=== PATIENT | female | born 1965 | race Caucasian/White ===

== ENCOUNTER 2017-04-30 18:05 | Inpatient (IN) | payer MEDICARE, OTHER ==
[2017-04-30 18:10] VITALS: BMI 34.3
--- NOTE | 2017-04-30 19:40 | C.PDOC ---
History Of Present Illness 51 year old female who presents to the ER with a complaint of chest pain that worsens with deep inspiration for the past week, associated with a cough with sputum. Denies fever or chills. Chief Complaint (Nursing): Chest Pain History Per: Patient History/Exam Limitations: no limitations Onset/Duration Of Symptoms: Days Current Symptoms Are (Timing): Still Present Associated Symptoms: denies: Nausea, Dyspnea, Diaphoresis Modifying Factors: None Exacerbating Factors: Deep Breathing Alleviating Factors: None Recent travel outside of the [place]: No Past Medical History Reviewed: Historical Data, Nursing Documentation, Vital Signs Vital Signs: Last Vital Signs Temp 97.5 F L 05/01/17 04:10 Pulse 75 05/01/17 04:10 Resp 20 05/01/17 04:10 BP 173/95 H 05/01/17 04:10 Pulse Ox 95 05/01/17 04:10 - Medical History PMH: Anemia, Anxiety, Asthma, Bipolar Disorder, COPD, Depression, Diabetes, HTN , Hypercholesterolemia, Pneumonia - [facility] Procedures ASSISTANCE WITH RESPIRATORY VENTILATION, 24-96 HRS, CPAP (11/30/15) INSERT INDWELLING CATH (07/28/14) Family History: States: Unknown Family Hx, CT, CAD, Hypertension - Social History Hx Tobacco Use: No Hx Alcohol Use: No Hx Substance Use: No - Immunization History Hx Tetanus Toxoid Vaccination: No Hx Influenza Vaccination: Yes Hx Pneumococcal Vaccination: Yes Review Of Systems Constitutional: Negative for: Fever, Chills Cardiovascular: Positive for: Chest Pain Respiratory: Positive for: Cough, Sputum Physical Exam - Physical Exam Appears: Non-toxic, Other (Mild distress) Skin: Normal Color, Warm, Dry Head: Atraumatic, Normacephalic Oral Mucosa: Moist Chest: Symmetrical, No Tenderness Cardiovascular: Rhythm Regular, No Murmur Respiratory: Rales (Bilateral lower bases, more on right), No Rhonchi, No Wheezing Gastrointestinal/Abdominal: Soft, No Tenderness Neurological/Psych: Oriented x3, Normal Speech, Normal Cognition ED Course And Treatment - Laboratory Results Result Diagrams: 04/30/17 20:06 05/01/17 00:26 O2 Sat by Pulse Oximetry: 95 (Room air) Pulse Ox Interpretation: Normal - CT Scan/US CT Chest Other Rad Studies (CT/US): Read By Radiologist, Radiology Report Reviewed CT/US Interpretation: EXAM: CT Chest Without Intravenous Contrast. CLINICAL HISTORY: 51 years old, female; Pain; Chest pain; Type not specified; Additional info: Basal rales/ chest pain. TECHNIQUE: Axial computed tomography images of the chest without intravenous contrast. This CT exam was. performed using one or more of the following dose reduction techniques: automated exposure. control, adjustment of the mA and/or kV according to patient size, and/or use of iterative. reconstruction technique. Coronal and sagittal reformatted images were created and reviewed. COMPARISON: NM - LUNG SCAN (VQ SCAN) 11/26/2015 1:46:13 PM. FINDINGS: Artifacts: Motion artifact slightly limits evaluation in the thorax. Lungs: Mild interlobular septal thickening in the apices. This is nonspecific and can be seen in. pulmonary edema or lymphangitic carcinomatosis. There is mild mosaic attenuation in the lungs,. nonspecific but can be seen in vascular and small airways disease. There is linear scarring or. atelectasis near the bases. Pleural space: The lungs are free of dense consolidation, significant pleural effusion or. pneumothorax. Heart: The heart is mildly enlarged. There is small pericardial effusion measuring approximately 15. mm in thickness on series 4, image 56. There is coronary artery calcification. Mediastinum: Small hiatal hernia. Thyroid: Thyroid is normal in size and position. Bones/joints: No displaced fractures identified in the thorax. There are mild degenerative changes. present. No dislocation. Soft tissues: Unremarkable. Vasculature: Thoracic aorta is mildly atherosclerotic without aneurysm. Lymph nodes: There is no axillary adenopathy. There is no mediastinal or hilar adenopathy. Pancreas: The visualized pancreas is atrophic and somewhat fatty replaced. Upper abdomen : Scans through the upper abdomen demonstrate no definite acute abnormalities. IMPRESSION: 1. The heart is mildly enlarged. 2. There is small pericardial effusion measuring approximately 15 mm in thickness on series 4,. image 56. 3. Mild interlobular septal thickening in the apices. This is nonspecific and can be seen in pulmonary. edema or lymphangitic carcinomatosis. 4. There is mild mosaic attenuation in the lungs, nonspecific but can be seen in vascular and small. airways disease. 5. The lungs are free of dense consolidation, significant pleural effusion or pneumothorax. 6. Additional incidental and/or chronic findings as described Progress Note: EKG, blood work, and CXR. Toradol administered. Called Dr. Denice Saldivar at 01:49, no answer. Disposition Discussed With : Miko Saldivar Doctor Will See Patient In The: Hospital Counseled Patient/Family Regarding: Diagnosis - Disposition Disposition: HOSPITALIZED Disposition Time: 01:48 Condition: STABLE - POA Present On Arrival: None - Clinical Impression Clinical Impression: Chest pain, Renal insufficiency, Uncontrolled diabetes mellitus, Upper respiratory infection - Scribe Statement The provider has reviewed the documentation as recorded by the Scribautumn Gomez All medical record entries made by the Lauraibautumn were at my direction and personally dictated by me. I have reviewed the chart and agree that the record accurately reflects my personal performance of the history, physical exam, medical decision making, and the department course for this patient. I have also personally directed, reviewed, and agree with the discharge instructions and disposition.
[2017-04-30 20:10] LABS: BASO % 0.7 % (0.0-2.0); EOS # 0.3 K/uL (0.0-0.7); EOS % 8.9 % (0.0-4.0); LYMPH # 1.1 K/uL (1.0-4.3); LYMPH % 28.7 % (20.0-40.0); MEAN CELL VOLUME 85.8 fL (81.0-99.0); MEAN CORPUSCULAR HEMOGLOBIN 27.7 pg (27.0-31.0); MEAN CORPUSCULAR HGB CONC 32.3 g/dL (33.0-37.0); MONO # 0.6 K/uL (0.0-0.8); MONO % 17.2 % (0.0-10.0); RED CELL DISTRIBUTION WIDTH 15.2 % (11.5-14.5); WHITE BLOOD COUNT 3.8 K/uL (4.8-10.8)
[2017-04-30 20:19] LABS: INR 0.9
[2017-04-30 20:22] LABS: CHLORIDE 93 mmol/L (98-107); POTASSIUM 4.9 mmol/L (3.6-5.2); SODIUM 131 mmol/L (132-148)
[2017-04-30 20:24] LABS: AST/SGOT 27 U/L (14-36); BILIRUBIN,TOTAL 0.6 mg/dL (0.2-1.3); BLOOD UREA NITROGEN 24 mg/dL (7-17); CARBON DIOXIDE 27 mmol/L (22-30); GFR AFRICAN-AMERICAN 36; TOTAL PROTEIN 6.3 g/dL (6.3-8.3)
[2017-04-30 20:25] LABS: ALKALINE PHOSPHATASE 357 U/L (38-126); ALT/SGPT 34 U/L (9-52)
[2017-04-30 20:32] LABS: GLUCOSE,RANDOM 440 mg/dL (65-105)
[2017-04-30] MEDS ORDERED: Sodium Chloride 0.9% 1,000 ML IV ONE (21:43)
[2017-04-30] MEDS ORDERED: Sodium Chloride 0.9% 500 ML IV ONE ×2 (21:43→22:14)
[2017-04-30] MEDS ORDERED: (Novolin R) Insulin Human Regular 100 units/ml vial SC ONE (21:44)
[2017-04-30] MEDS ORDERED: (Novolin R) Insulin Human Regular 100 units/ml vial ONE (22:14)
[2017-04-30] MEDS ORDERED: (Novolin R) Insulin Human Regular 100 units/ml vial IV STA (23:49)
[2017-05-01] MEDS ORDERED: (Novolin R) Insulin Human Regular 100 units/ml vial ONE (00:03)
--- NOTE | 2017-05-01 00:10 | CT ---
EXAM: CT Chest Without Intravenous Contrast CLINICAL HISTORY: 51 years old, female; Pain; Chest pain; Type not specified; Additional info: Basal rales/ chest pain TECHNIQUE: Axial computed tomography images of the chest without intravenous contrast. This CT exam was performed using one or more of the following dose reduction techniques: automated exposure control, adjustment of the mA and/or kV according to patient size, and/or use of iterative reconstruction technique. Coronal and sagittal reformatted images were created and reviewed. COMPARISON: NM - LUNG SCAN (VQ SCAN) 11/26/2015 1:46:13 PM FINDINGS: Artifacts: Motion artifact slightly limits evaluation in the thorax. Lungs: Mild interlobular septal thickening in the apices. This is nonspecific and can be seen in pulmonary edema or lymphangitic carcinomatosis. There is mild mosaic attenuation in the lungs, nonspecific but can be seen in vascular and small airways disease. There is linear scarring or atelectasis near the bases. Pleural space: The lungs are free of dense consolidation, significant pleural effusion or pneumothorax. Heart: The heart is mildly enlarged. There is small pericardial effusion measuring approximately 15 mm in thickness on series 4, image 56. There is coronary artery calcification. Mediastinum: Small hiatal hernia. Thyroid: Thyroid is normal in size and position. Bones/joints: No displaced fractures identified in the thorax. There are mild degenerative changes present. No dislocation. Soft tissues: Unremarkable. Vasculature: Thoracic aorta is mildly atherosclerotic without aneurysm. Lymph nodes: There is no axillary adenopathy. There is no mediastinal or hilar adenopathy. Pancreas: The visualized pancreas is atrophic and somewhat fatty replaced. Upper abdomen: Scans through the upper abdomen demonstrate no definite acute abnormalities. IMPRESSION: 1. The heart is mildly enlarged. 2. There is small pericardial effusion measuring approximately 15 mm in thickness on series 4, image 56. 3. Mild interlobular septal thickening in the apices. This is nonspecific and can be seen in pulmonary edema or lymphangitic carcinomatosis. 4. There is mild mosaic attenuation in the lungs, nonspecific but can be seen in vascular and small airways disease. 5. The lungs are free of dense consolidation, significant pleural effusion or pneumothorax. 6. Additional incidental and/or chronic findings as described.
[2017-05-01 00:38] LABS: POTASSIUM 4.3 mmol/L (3.6-5.2)
[2017-05-01 00:42] LABS: CALCIUM 7.9 mg/dl (8.6-10.4)
[2017-05-01] MEDS ORDERED: Azithromycin 500mg/250ML NS 500 MG/250 ML BAG IV STA (01:39)
[2017-05-01] MEDS ORDERED: Morphine 4 MG/ML VIAL ONE (02:05)
[2017-05-01] MEDS ORDERED: guaiFENesin DM 100 mg-10 mg/5 ml UD PO STA (02:06)
[2017-05-01] MEDS ORDERED: Azithromycin 500mg/250ML NS 500 MG/250 ML BAG IVPB ONE (02:06)
[2017-05-01] MEDS ORDERED: guaiFENesin DM 100 mg-10 mg/5 ml UD ONE (02:17)
[2017-05-01] MEDS ORDERED: Albuterol HFA 90 mcg/actuation (8 g) INH PRN ×2 (03:39→16:15)
[2017-05-01] MEDS ORDERED: Fluticasone-Salmeterol 250-50mcg Diskus IH SCH (08:30)
[2017-05-01] MEDS: Pantoprazole 40 mg EC Tab PO SCH (09:45)
[2017-05-01] MEDS: Enoxaparin 40 mg Syringe SC SCH (09:46)
[2017-05-01] MEDS: Bisacodyl 5mg EC Tab PO SCH (09:46)
[2017-05-01] MEDS: (Novolog Mix 70/30) Insulin Aspart/Insulin Aspar 100 units/ml SC SCH ×2 (09:49→17:27)
[2017-05-01] MEDS ORDERED: ATORVASTATIN CALCIUM 40 MG PO SCH (10:00)
--- NOTE | 2017-05-01 10:07 | RAD ---
HISTORY: COMPARISON: No prior. TECHNIQUE: Chest PA and lateral FINDINGS: LINES AND TUBES: None. LUNG AND PLEURA: Lungs are clear. There are no pleural effusions or pneumothorax. HEART AND MEDIASTINUM: The heart is not enlarged. The hilar and mediastinal contours are within normal limits. SKELETAL STRUCTURES: The bony structures are within normal limits for the patient's age. VISUALIZED UPPER ABDOMEN: Normal. OTHER FINDINGS: None. IMPRESSION: No active pulmonary disease.
[2017-05-01] MEDS: HYDROmorphone 0.5 mg/0.5 ml ISec IVP PRN (11:10)
--- NOTE | 2017-05-01 11:55 | CP.PCM.HP ---
Past Patient History - Infectious Disease Hx of Infectious Diseases: None - Past Medical History & Family History Past Medical History?: Yes - Past Social History Smoking Status: Never Smoked - CARDIAC Hx Hypercholesterolemia: Yes Hx Hypertension: Yes - PULMONARY Hx Asthma: Yes Hx Chronic Obstructive Pulmonary Disease (COPD): Yes Hx Pneumonia: Yes - NEUROLOGICAL Hx Neurological Disorder: No - HEENT Hx HEENT Problems: Yes Hx Cataracts: Yes - RENAL Hx Chronic Kidney Disease: No Hx Kidney Stones: No - ENDOCRINE/METABOLIC Hx Endocrine Disorders: Yes Hx Diabetes Mellitus Type 2: Yes - HEMATOLOGICAL/ONCOLOGICAL Hx Anemia: Yes - INTEGUMENTARY Hx Dermatological Problems: No - MUSCULOSKELETAL/RHEUMATOLOGICAL Hx Falls: No - GASTROINTESTINAL Hx Gastrointestinal Disorders: No - GENITOURINARY/GYNECOLOGICAL Hx Genitourinary Disorders: No - PSYCHIATRIC Hx Anxiety: Yes Hx Bipolar Disorder: Yes Hx Depression: Yes Hx Substance Use: No - SURGICAL HISTORY Hx Surgeries: Yes Hx Section: Yes (x1) Hx Eye Surgery: Yes (LEFT EYE) - ANESTHESIA Hx Anesthesia: Yes Hx Anesthesia Reactions: No Hx Malignant Hyperthermia: No Meds Allergies/Adverse Reactions: Allergies Allergy/AdvReac Type Severity Reaction Status Date / Time shellfish derived Allergy Verified 10/29/16 06:12 Physical Exam - Constitutional Appears: Well - Head Exam Head Exam: ATRAUMATIC, NORMAL INSPECTION, NORMOCEPHALIC - Eye Exam Eye Exam: EOMI, Normal appearance, PERRL Pupil Exam: NORMAL ACCOMODATION, PERRL - ENT Exam ENT Exam: Mucous Membranes Moist, Normal Exam - Neck Exam Neck exam: Positive for: Normal Inspection - Respiratory Exam Respiratory Exam: Decreased Breath Sounds - Cardiovascular Exam Cardiovascular Exam: REGULAR RHYTHM, +S1, +S2 - GI/Abdominal Exam GI & Abdominal Exam: Diminished Bowel Sounds, Soft - Rectal Exam Rectal Exam: Deferred Results - Vital Signs Recent Vital Signs: Last Vital Signs Temp 97.4 F L 05/01/17 08:00 Pulse 74 05/01/17 10:29 Resp 14 05/01/17 10:29 BP 147/84 05/01/17 10:29 Pulse Ox 97 05/01/17 10:29 - Labs Result Diagrams: 04/30/17 20:06 05/01/17 00:26 Labs: Laboratory Results - last 24 hr 05/01/17 05/01/17 06:21 07:54 POC Glucose (mg/dL) 268 H Total Creatine Kinase 112 CK-MB (Mass) 0.92 Troponin I, Quant < 0.0120 Assessment & Plan - Assessment and Plan (Free Text) Plan: Case seen and discussed with the staff patient's family bedside patient is much stable DuoNeb every 6 follow-up with the pulmonary follow-up with the ID continue on Rocephin continue on Zithromax continue her Singulair continue medication as ordered Continue IV steroid Continue Singulair Medication as ordered
[2017-05-01] MEDS: (Novolog) Insulin Aspart, Recombinant 100 u/ml 10 ml vial SC SCH ×3 (12:10→22:33)
--- NOTE | 2017-05-01 12:27 | CARD ---
APPROVED REPORT EKG Measurement Heart [id number] <Conclusion> Normal sinus rhythm Anterior infarct, age undetermined Abnormal ECG
--- NOTE | 2017-05-01 16:07 | CP.PCM.CON ---
History of Present Illness - History of Present Illness History of Present Illness: Reason for consultation: SOB HPI: Patient is a 51 year old female with a past medical history of COPD and asthma who presented to the ED with chest pain that worsens with inspiration for the past week. Patient states the pain is localized to the left side, "squeezing" in nature, and does not radiate. She states the pain does not change with position. Patient also complains of associated pain with coughing to the bilateral flanks and chest. The cough is productive with yellow sputum. Patient has also had associated fatigue, chills, nausea, and dizziness. Patient sleeps with multiple pillows and has severe exercise intolerance for the past 3 years. She was diagnosed with COPD 3 years ago and is constantly on 3-5L nasal cannula home oxygen therapy at home. Patient has mobility and is able to walk around the house. Patient denies fever, abdominal pain, vomiting, diarrhea, constipation, or numbness and tingling. 04/30/17 CXR: unremarkable 04/30/17 ECG: normal sinus rhythm at 73 BPM 04/30/17 CT chest: mild cardiomegaly; small pericardial effusion 15 mm thickness; mild interlobular septal thickening in the apices; no significant consolidation , pleural effusion, or pneumothorax. Significant lab findings: mildly elevated D-dimer at 272; renal insufficiency Surgical hx: PMH: anemia, asthma, COPD, anxiety, depression, DM, HTN, hypercholesterolemia, pneumonia Allergies: shellfish Social: denies history of tobacco, alcohol, or illicit drug use; lives with family; retired (used to clean houses) Family history: denies Review of Systems - Review of Systems All systems: reviewed and no additional remarkable complaints except (Shortness of breath) Past Patient History - Infectious Disease Hx of Infectious Diseases: None - Past Medical History & Family History Past Medical History?: Yes - Past Social History Smoking Status: Never Smoked - CARDIAC Hx Hypercholesterolemia: Yes Hx Hypertension: Yes - PULMONARY Hx Asthma: Yes Hx Chronic Obstructive Pulmonary Disease (COPD): Yes Hx Pneumonia: Yes - NEUROLOGICAL Hx Neurological Disorder: No - HEENT Hx HEENT Problems: Yes Hx Cataracts: Yes - RENAL Hx Chronic Kidney Disease: No Hx Kidney Stones: No - ENDOCRINE/METABOLIC Hx Endocrine Disorders: Yes Hx Diabetes Mellitus Type 2: Yes - HEMATOLOGICAL/ONCOLOGICAL Hx Anemia: Yes - INTEGUMENTARY Hx Dermatological Problems: No - MUSCULOSKELETAL/RHEUMATOLOGICAL Hx Falls: No - GASTROINTESTINAL Hx Gastrointestinal Disorders: No - GENITOURINARY/GYNECOLOGICAL Hx Genitourinary Disorders: No - PSYCHIATRIC Hx Anxiety: Yes Hx Bipolar Disorder: Yes Hx Depression: Yes Hx Substance Use: No - SURGICAL HISTORY Hx Surgeries: Yes Hx Section: Yes (x1) Hx Eye Surgery: Yes (LEFT EYE) - ANESTHESIA Hx Anesthesia: Yes Hx Anesthesia Reactions: No Hx Malignant Hyperthermia: No Meds Allergies/Adverse Reactions: Allergies Allergy/AdvReac Type Severity Reaction Status Date / Time shellfish derived Allergy Verified 10/29/16 06:12 - Medications Medications: Current Medications Albuterol (Ventolin Hfa 90 Mcg/Actuation (8 G)) 2 puff INH RQ6 PRN PRN Reason: Shortness of Breath Amlodipine Besylate (Norvasc) 10 mg PO DAILY [facility] Aspirin (Aspirin Chewable) 324 mg PO DAILY [facility] Last Admin: 05/01/17 09:40 Dose: 324 mg Bisacodyl (Dulcolax) 5 mg PO DAILY [facility] Last Admin: 05/01/17 09:46 Dose: 5 mg Carvedilol (Coreg) 12.5 mg PO BID [facility] Last Admin: 05/01/17 09:40 Dose: 12.5 mg Enoxaparin Sodium (Lovenox) 40 mg SC DAILY [facility] Last Admin: 05/01/17 09:46 Dose: 40 mg Hydromorphone HCl (Dilaudid) 0.5 mg IVP Q6H PRN PRN Reason: Pain, moderate (4-7) Last Admin: 05/01/17 11:10 Dose: 0.5 mg Ceftriaxone Sodium 1 gm/ (Sodium Chloride) 100 mls @ 100 mls/hr IVPB DAILY [facility] Last Admin: 05/01/17 13:11 Dose: 100 mls/hr Insulin Aspart (Novolog Mix 70/30 (70/30 Units/Ml)) 42 units SC BID [facility] Last Admin: 05/01/17 09:49 Dose: 42 units Insulin Aspart (Novolog) 0 unit SC ACHS [facility] PRN Reason: Protocol Last Admin: 05/01/17 12:10 Dose: 3 unit Insulin Glargine (Lantus) 15 unit SC HS [facility] Lisinopril (Zestril) 10 mg PO DAILY [facility] Last Admin: 05/01/17 09:45 Dose: 10 mg Montelukast Sodium (Singulair) 10 mg PO HS [facility] Pantoprazole Sodium (Protonix Ec Tab) 40 mg PO DAILY [facility] Last Admin: 05/01/17 09:45 Dose: 40 mg Prednisone (Prednisone Tab) 20 mg PO DAILY [facility] Last Admin: 05/01/17 09:40 Dose: 20 mg Rosuvastatin Calcium (Crestor) 20 mg PO HS [facility] Fluticasone/Salmeterol (Advair Diskus 250/50) 1 puff IH RQ12 [facility] Last Admin: 05/01/17 08:37 Dose: 1 puff Results - Vital Signs Recent Vital Signs: Last Vital Signs Temp 97.4 F L 05/01/17 08:00 Pulse 70 05/01/17 14:00 Resp 12 05/01/17 14:00 BP 138/67 05/01/17 13:29 Pulse Ox 96 05/01/17 14:00 - Labs Result Diagrams: 04/30/17 20:06 05/01/17 00:26 Labs: Laboratory Results - last 24 hr 05/01/17 05/01/17 05/01/17 06:21 07:54 11:46 POC Glucose (mg/dL) 268 H 231 H Total Creatine Kinase 112 CK-MB (Mass) 0.92 Troponin I, Quant < 0.0120 05/01/17 12:41 POC Glucose (mg/dL) Total Creatine Kinase 103 CK-MB (Mass) 1.04 Troponin I, Quant < 0.0120 Assessment & Plan (1) COPD (chronic obstructive pulmonary disease) Status: Acute Comment: CAT scan of the chest consistent with small airway disease. Continue prednisone and nebulizer treatment. BiPAP as needed. Continue antibiotics. Follow-up culture and sensitivity (2) CKD stage 3 due to type 1 diabetes mellitus Status: Acute
--- NOTE | 2017-05-01 18:55 | CP.PCM.CON ---
History of Present Illness - History of Present Illness History of Present Illness: I was asked to see patient by Dr. Saldivar. Patient is a 51 year old female with PMH HTN, hypercholesterolemia, sleep apnea who presents with chest pain. The patient describes symptoms which began a few days ago. She has been coughing and it has become productive. The patient notes substernal chest pressure. CT angiogramof the chest was done to rule out PE. This is negative. The patient has no active rest pain. Review of Systems - Constitutional Constitutional: absent: As Per HPI, Anorexia, Chills, Daytime Sleepiness, Excessive Sweating, Fatigue, Fever, Frequent Falls, Headache, Increased Appetite , Lethargy, Malaise, Night Sweats, Snoring, Sleep Apnea, Weight Gain, Weight Loss, Weakness, Other - EENT Eyes: absent: As Per HPI, Blind Spots, Blurred Vision, Change in Vision, Decreased Night Vision, Diplopia, Discharge, Dry Eye, Exophthalmos, Floaters, Irritation, Itchy Eyes, Loss of Peripheral Vision, Pain, Photophobia, Requires Corrective Lenses, Sees Flashes, Spots in Vision, Tunnel Vision, Other Visual Disturbances, Loss of Vision, Other Ears: absent: As Per HPI, Decreased Hearing, Ear Discharge, Ear Pain, Tinnitus, Abnormal Hearing, Disequilibrium, Dizziness, Other Nose/Mouth/Throat: absent: As Per HPI, Epistaxis, Nasal Congestion, Nasal Discharge, Nasal Obstruction, Nasal Trauma, Nose Pain, Post Nasal Drip, Sinus Pain, Sinus Pressure, Bleeding Gums, Change in Voice, Dental Pain, Dry Mouth, Dysphagia, Halitosis, Hoarsness, Lip Swelling, Mouth Lesions, Mouth Pain, Odynophagia, Sore Throat, Throat Swelling, Tongue Swelling, Facial Pain, Neck Pain, Neck Mass, Other - Cardiovascular Cardiovascular: Chest Pain, Dyspnea - Respiratory Respiratory: Cough, Dyspnea - Gastrointestinal Gastrointestinal: absent: As Per HPI, Abdominal Pain, Belching, Bloating, Change in Bowel Habits, Change in Stool Character, Coffee Ground Emesis, Constipation, Cramping, Diarrhea, Dyspepsia, Dysphagia, Early Satiety, Excessive Flatus, Fecal Incontinence, Heartburn, Hematemesis, Hematochezia, Loose Stools, Melena, Nausea, Odynophagia, Temesmus, Vomiting, Other - Genitourinary Genitourinary: absent: As Per HPI, Change in Urinary Stream, Difficulty Urinating, Dysuria, Flank Pain, Hematuria, Pyuria, Nocturia, Urinary Incontinence, Urinary Frequency, Urinary Hesitance, Urinary Urgency, Voiding Freq/Small Amts, Freq UTI, Hx Renal/Bladder Calculi, Hx /Renal Surgery, Bladder Distension, Other - Musculoskeletal Musculoskeletal: absent: As Per HPI, Abnormal Gait, Arthralgias, Atrophy, Back Pain, Deformity, Joint Swelling, Limited Range of Motion, Loss of Height, Muscle Cramps, Muscle Weakness, Myalgias, Neck Pain, Numbness, Radiating Pain into Limb, Stiffness, Tingling, Other - Integumentary Integumentary: absent: As Per HPI, Acne, Alopecia, Bleeding Lesions, Change in Hair, Change in Nails, Change in Pigmentation, Changing Lesions, Dry Skin, Erythema, Furuncle, Hirsutism, Lesions, New Lesions, Non-Healing Lesions, Photosensitivity, Pruritus, Rash, Skin Pain, Skin Ulcer, Sores, Striae, Swelling , Unusual Bruising, Wounds, Jaundice, Other - Neurological Neurological: absent: As Per HPI, Abnormal Gait, Abnormal Hearing, Abnormal Movements, Abnormal Speech, Behavioral Changes, Burning Sensations, Confusion, Convulsions, Disequilibrium, Dizziness, Numbness, Focal Weakness, Frequent Falls , Headaches, Lack of Coordination, Loss of Vision, Memory Loss, Paresthesias, Radicular Pain, Restless Legs, Sensory Deficit, Syncope, Tingling, Tremor, Vertigo, Weakness, Other Visual Disturbances, Other - Psychiatric Psychiatric: absent: As Per HPI, Abnormal Sleep Pattern, Anhedonia, Anxiety, Auditory Hallucinations, Behavioral Changes, Change in Appetite, Change in Libido, Confusion, Depression, Difficulty Concentrating, Hallucinations, Homicidal Ideation, Hopelessness, Irritability, Memory Loss, Mood Swings, Panic Attacks, Paranoia, Suicidal Ideation, Visual Hallucinations, Tactile Hallucinations, Other - Endocrine Endocrine: absent: As Per HPI, Change in Body Appearance, Change in Libido, Cold Intolorance, Deepening of Voice, Excessive Sweating, Fatigue, Flushing, Heat Intolorance, Increase in Ring/Shoe/Hat Size, Palpitations, Polydipsia, Polyphagia, Polyuria, Other - Hematologic/Lymphatic Hematologic: absent: As Per HPI, Easy Bleeding, Easy Bruising, Lymphadenopathy, Other Past Patient History - Infectious Disease Hx of Infectious Diseases: None - Past Medical History & Family History Past Medical History?: Yes - Past Social History Smoking Status: Never Smoked - CARDIAC Hx Hypercholesterolemia: Yes Hx Hypertension: Yes - PULMONARY Hx Asthma: Yes Hx Chronic Obstructive Pulmonary Disease (COPD): Yes Hx Pneumonia: Yes - NEUROLOGICAL Hx Neurological Disorder: No - HEENT Hx HEENT Problems: Yes Hx Cataracts: Yes - RENAL Hx Chronic Kidney Disease: No Hx Kidney Stones: No - ENDOCRINE/METABOLIC Hx Endocrine Disorders: Yes Hx Diabetes Mellitus Type 2: Yes - HEMATOLOGICAL/ONCOLOGICAL Hx Anemia: Yes - INTEGUMENTARY Hx Dermatological Problems: No - MUSCULOSKELETAL/RHEUMATOLOGICAL Hx Falls: No - GASTROINTESTINAL Hx Gastrointestinal Disorders: No - GENITOURINARY/GYNECOLOGICAL Hx Genitourinary Disorders: No - PSYCHIATRIC Hx Anxiety: Yes Hx Bipolar Disorder: Yes Hx Depression: Yes Hx Substance Use: No - SURGICAL HISTORY Hx Surgeries: Yes Hx Section: Yes (x1) Hx Eye Surgery: Yes (LEFT EYE) - ANESTHESIA Hx Anesthesia: Yes Hx Anesthesia Reactions: No Hx Malignant Hyperthermia: No Meds Allergies/Adverse Reactions: Allergies Allergy/AdvReac Type Severity Reaction Status Date / Time shellfish derived Allergy Verified 10/29/16 06:12 - Medications Medications: Current Medications Albuterol/Ipratropium (Duoneb 3 Mg/0.5 Mg (3 Ml) Ud) 3 ml INH RQ6 [facility] Amlodipine Besylate (Norvasc) 10 mg PO DAILY [facility] Aspirin (Aspirin Chewable) 324 mg PO DAILY [facility] Last Admin: 05/01/17 09:40 Dose: 324 mg Bisacodyl (Dulcolax) 5 mg PO DAILY [facility] Last Admin: 05/01/17 09:46 Dose: 5 mg Carvedilol (Coreg) 12.5 mg PO BID [facility] Last Admin: 05/01/17 17:28 Dose: 12.5 mg Enoxaparin Sodium (Lovenox) 40 mg SC DAILY [facility] Last Admin: 05/01/17 09:46 Dose: 40 mg Hydromorphone HCl (Dilaudid) 0.5 mg IVP Q6H PRN PRN Reason: Pain, moderate (4-7) Last Admin: 05/01/17 11:10 Dose: 0.5 mg Ceftriaxone Sodium 1 gm/ (Sodium Chloride) 100 mls @ 100 mls/hr IVPB DAILY [facility] Last Admin: 05/01/17 13:11 Dose: 100 mls/hr Azithromycin (Zithromax 500mg In Ns Addvantage) 500 mg in 250 mls @ 167 mls/hr IVPB Q24H [facility] Insulin Aspart (Novolog Mix 70/30 (70/30 Units/Ml)) 42 units SC BID [facility] Last Admin: 05/01/17 17:27 Dose: 42 units Insulin Aspart (Novolog) 0 unit SC ACHS [facility] PRN Reason: Protocol Last Admin: 05/01/17 16:46 Dose: Not Given Insulin Glargine (Lantus) 15 unit SC HS [facility] Lisinopril (Zestril) 10 mg PO DAILY [facility] Last Admin: 05/01/17 09:45 Dose: 10 mg Montelukast Sodium (Singulair) 10 mg PO HS [facility] Pantoprazole Sodium (Protonix Ec Tab) 40 mg PO DAILY [facility] Last Admin: 05/01/17 09:45 Dose: 40 mg Prednisone (Prednisone Tab) 20 mg PO DAILY [facility] Last Admin: 05/01/17 09:40 Dose: 20 mg Rosuvastatin Calcium (Crestor) 20 mg PO [facility] Physical Exam - Constitutional Appears: Non-toxic - Head Exam Head Exam: NORMAL INSPECTION - Eye Exam Eye Exam: Normal appearance - ENT Exam ENT Exam: Mucous Membranes Moist - Neck Exam Neck exam: Positive for: Full Rom - Cardiovascular Exam Cardiovascular Exam: REGULAR RHYTHM - GI/Abdominal Exam GI & Abdominal Exam: Normal Bowel Sounds - Rectal Exam Rectal Exam: Deferred - Extremities Exam Extremities exam: Negative for: pedal edema - Back Exam Back exam: NORMAL INSPECTION - Neurological Exam Neurological exam: Alert, Oriented x3 - Psychiatric Exam Psychiatric exam: Normal Affect - Skin Skin Exam: Normal Color Results - Vital Signs Recent Vital Signs: Last Vital Signs Temp 97.5 F L 05/01/17 16:00 Pulse 85 05/01/17 18:00 Resp 16 05/01/17 18:00 BP 177/85 H 05/01/17 17:29 Pulse Ox 95 05/01/17 17:00 - Labs Result Diagrams: 04/30/17 20:06 05/01/17 00:26 Labs: Laboratory Results - last 24 hr 05/01/17 05/01/17 05/01/17 06:21 07:54 11:46 POC Glucose (mg/dL) 268 H 231 H Total Creatine Kinase 112 CK-MB (Mass) 0.92 Troponin I, Quant < 0.0120 05/01/17 05/01/17 12:41 16:03 POC Glucose (mg/dL) 143 H Total Creatine Kinase 103 CK-MB (Mass) 1.04 Troponin I, Quant < 0.0120 - EKG Data EKG Interpreted by: Myself EKG shows normal: Sinus rhythm Assessment & Plan (1) Chest pain Assessment and Plan: unclear etiologuy. recommend echocardiogram to assess LV function and pericardial thickening. Status: Acute (2) DM2 (diabetes mellitus, type 2) Assessment and Plan: blood sugar control Status: Acute (3) Dyslipidemia Assessment and Plan: recommend statin therapy Status: Acute (4) Hypertension Assessment and Plan: willmonitor Status: Acute
[2017-05-01] MEDS: Albuterol-Ipratrop 3 mg / 0.5 (3 ml) UD INH SCH (19:57)
[2017-05-01] MEDS: (Lantus) Insulin Glargine, Recombinant SC SCH (22:32)
[2017-05-02] MEDS: Albuterol-Ipratrop 3 mg / 0.5 (3 ml) UD INH SCH ×3 (01:11→19:26)
[2017-05-02] MEDS: Azithromycin 500mg/250ML NS 500 MG/250 ML BAG IVPB SCH (01:30)
[2017-05-02] MEDS: (Novolog) Insulin Aspart, Recombinant 100 u/ml 10 ml vial SC SCH ×4 (08:12→22:23)
[2017-05-02] MEDS: Bisacodyl 5mg EC Tab PO SCH (10:34)
[2017-05-02] MEDS: Pantoprazole 40 mg EC Tab PO SCH (10:34)
[2017-05-02] MEDS: (Novolog Mix 70/30) Insulin Aspart/Insulin Aspar 100 units/ml SC SCH ×2 (10:35→18:25)
[2017-05-02] MEDS: Enoxaparin 40 mg Syringe SC SCH (10:35)
[2017-05-02] MEDS ORDERED: Dextrose 50% SYRINGE Inj (50 ml) ONE ×2 (14:17→14:22)
[2017-05-02] MEDS ORDERED: Dextrose 50% SYRINGE Inj (50 ml) IV STA (14:21)
--- NOTE | 2017-05-02 14:34 | PCM.RRTMUL ---
UTILITY CLERK Nurses Assessment - Ventilator Settings SAO2 %:: 100 - Vital Signs Blood Pressure:: 172/94 - Constitutional Appears: Non-toxic, Toxic, In Acute Distress, Other Additional Comments: diaphoretic - Head Head Exam: ATRAUMATIC, NORMAL INSPECTION - Eyes Eye Exam: EOMI - Respiratory Exam Respiratory Exam: Clear to Ausculation Bilateral, NORMAL BREATHING PATTERN. absent: Respiratory Distress - Cardiovascular Exam Cardiovascular Exam: REGULAR RHYTHM, +S1, +S2 - GI/Abdominal Exam GI & Abdominal Exam: Soft, Normal Bowel Sounds. absent: Distended, Firm, Guarding, Tenderness - Neurological Exam Neurological Exam: Alert, Awake, Oriented x3 Plan - A. End of UTILITY CLERK Vital Signs: Blood Pressure: 152/72 Pulse Rate: 76 Respiratory Rate: 14 Temperature: 97.9 F O2 Sat by Pulse Oximetry: 98 Finger Stick Blood Glucose: 37 (recheck 184) - B. Assessment of Findings&Treatment Plan UTILITY CLERK called at 2:15 PM for hypoglycemia Finger stick was 37. Patient was given one amp dextrose and drank some orange juice. Repeat sugar was 184. Patient stated she was dizzy. Heart and Lungs normal on exam patient was lethargic and diaphoretic in bed but was able to speak in full sentences and respond to questions. She is recieving Insulin during her stay. Her family states she did not eat lunch because she did not like the food they brought her. Will continue to monitor. Dr. Denice Saldivar
--- NOTE | 2017-05-02 15:38 | CP.PCM.PN ---
Subjective - Date & Time of Evaluation Date of Evaluation: 05/02/17 Time of Evaluation: 13:00 - Subjective Subjective: clinically same Objective - Vital Signs/Intake and Output Vital Signs (last 24 hours): Temp Pulse Resp BP Pulse Ox 97.9 F 76 14 152/72 H 100 05/02/17 14:40 05/02/17 14:40 05/02/17 14:40 05/02/17 14:40 05/02/17 10:15 Intake and Output: 05/02/17 05/02/17 06:59 18:59 Intake Total 0 350 Output Total 600 Balance 0 -250 - Medications Medications: Current Medications Albuterol/Ipratropium (Duoneb 3 Mg/0.5 Mg (3 Ml) Ud) 3 ml INH RQ6 [facility] Last Admin: 05/02/17 07:43 Dose: 3 ml Amlodipine Besylate (Norvasc) 10 mg PO DAILY [facility] Last Admin: 05/02/17 10:35 Dose: 10 mg Aspirin (Aspirin Chewable) 324 mg PO DAILY [facility] Last Admin: 05/02/17 10:33 Dose: 324 mg Bisacodyl (Dulcolax) 5 mg PO DAILY [facility] Last Admin: 05/02/17 10:34 Dose: 5 mg Carvedilol (Coreg) 12.5 mg PO BID [facility] Last Admin: 05/02/17 10:34 Dose: 12.5 mg Enoxaparin Sodium (Lovenox) 40 mg SC DAILY [facility] Last Admin: 05/02/17 10:35 Dose: 40 mg Guaifenesin/Dextromethorphan (Robitussin Dm) 5 ml PO Q4H PRN PRN Reason: Cough Hydromorphone HCl (Dilaudid) 0.5 mg IVP Q6H PRN PRN Reason: Pain, moderate (4-7) Last Admin: 05/01/17 11:10 Dose: 0.5 mg Ceftriaxone Sodium 1 gm/ (Sodium Chloride) 100 mls @ 100 mls/hr IVPB DAILY [facility] Last Admin: 05/02/17 11:26 Dose: 100 mls/hr Azithromycin (Zithromax 500mg In Ns Addvantage) 500 mg in 250 mls @ 167 mls/hr IVPB Q24H [facility] Last Admin: 05/02/17 01:30 Dose: 167 mls/hr Insulin Aspart (Novolog Mix 70/30 (70/30 Units/Ml)) 42 units SC BID [facility] Last Admin: 05/02/17 10:35 Dose: 42 units Insulin Aspart (Novolog) 0 unit SC [facility] PRN Reason: Protocol Last Admin: 05/02/17 12:31 Dose: 6 unit Insulin Glargine (Lantus) 15 unit SC [facility] Last Admin: 05/01/17 22:32 Dose: 15 u Lisinopril (Zestril) 10 mg PO DAILY [facility] Last Admin: 05/02/17 10:33 Dose: 10 mg Montelukast Sodium (Singulair) 10 mg PO [facility] Last Admin: 05/01/17 22:36 Dose: 10 mg Pantoprazole Sodium (Protonix Ec Tab) 40 mg PO DAILY [facility] Last Admin: 05/02/17 10:34 Dose: 40 mg Prednisone (Prednisone Tab) 20 mg PO DAILY [facility] Last Admin: 05/02/17 10:34 Dose: 20 mg Rosuvastatin Calcium (Crestor) 20 mg PO [facility] Last Admin: 05/01/17 22:34 Dose: 20 mg - Labs Labs: PT 9.6 SECONDS (9.7-12.2) L 04/30/17 20:06 INR 0.9 04/30/17 20:06 APTT 30 SECONDS (21-34) 04/30/17 20:06 - Constitutional Appears: Well - Head Exam Head Exam: ATRAUMATIC, NORMAL INSPECTION, NORMOCEPHALIC - Eye Exam Eye Exam: EOMI, Normal appearance, PERRL Pupil Exam: NORMAL ACCOMODATION, PERRL - ENT Exam ENT Exam: Mucous Membranes Moist, Normal Exam - Neck Exam Neck Exam: Full ROM, Normal Inspection. absent: Lymphadenopathy - Respiratory Exam Respiratory Exam: Decreased Breath Sounds - Cardiovascular Exam Cardiovascular Exam: REGULAR RHYTHM, +S1, +S2 - GI/Abdominal Exam GI & Abdominal Exam: Soft, Diminished Bowel Sounds - Rectal Exam Rectal Exam: Deferred
--- NOTE | 2017-05-02 20:28 | CP.PCM.PN ---
Subjective - Date & Time of Evaluation Date of Evaluation: 05/02/17 Time of Evaluation: 10:00 - Subjective Subjective: Medicine Progress note for Dr. Saldivar's Service Pt seen and examined at bedside. She continues to complain of shortness of breath, coughing, chills, and pleuritic chest pain located in the L side and back. She is sitting up at bedside and appears in mild discomfort with mild respiratory struggling. Objective - Vital Signs/Intake and Output Vital Signs (last 24 hours): Temp Pulse Resp BP Pulse Ox 98.2 F 73 20 169/80 H 98 05/02/17 16:00 05/02/17 16:00 05/02/17 16:00 05/02/17 18:26 05/02/17 16:00 Intake and Output: 05/02/17 05/03/17 18:59 06:59 Intake Total 810 Output Total 600 Balance 210 - Medications Medications: Current Medications Albuterol/Ipratropium (Duoneb 3 Mg/0.5 Mg (3 Ml) Ud) 3 ml INH RQ6 [facility] Last Admin: 05/02/17 19:26 Dose: 3 ml Amlodipine Besylate (Norvasc) 10 mg PO DAILY [facility] Last Admin: 05/02/17 10:35 Dose: 10 mg Aspirin (Aspirin Chewable) 324 mg PO DAILY [facility] Last Admin: 05/02/17 10:33 Dose: 324 mg Bisacodyl (Dulcolax) 5 mg PO DAILY [facility] Last Admin: 05/02/17 10:34 Dose: 5 mg Carvedilol (Coreg) 12.5 mg PO BID [facility] Last Admin: 05/02/17 18:26 Dose: 12.5 mg Enoxaparin Sodium (Lovenox) 40 mg SC DAILY [facility] Last Admin: 05/02/17 10:35 Dose: 40 mg Guaifenesin/Dextromethorphan (Robitussin Dm) 5 ml PO Q4H PRN PRN Reason: Cough Hydromorphone HCl (Dilaudid) 0.5 mg IVP Q6H PRN PRN Reason: Pain, moderate (4-7) Last Admin: 05/01/17 11:10 Dose: 0.5 mg Ceftriaxone Sodium 1 gm/ (Sodium Chloride) 100 mls @ 100 mls/hr IVPB DAILY [facility] Last Admin: 05/02/17 11:26 Dose: 100 mls/hr Azithromycin (Zithromax 500mg In Ns Addvantage) 500 mg in 250 mls @ 167 mls/hr IVPB Q24H [facility] Last Admin: 05/02/17 01:30 Dose: 167 mls/hr Insulin Aspart (Novolog Mix 70/30 (70/30 Units/Ml)) 42 units SC BID [facility] Last Admin: 05/02/17 18:25 Dose: Not Given Insulin Aspart (Novolog) 0 unit SC ACHS [facility] PRN Reason: Protocol Last Admin: 05/02/17 17:24 Dose: Not Given Insulin Glargine (Lantus) 15 unit SC [facility] Last Admin: 05/01/17 22:32 Dose: 15 u Lisinopril (Zestril) 10 mg PO DAILY [facility] Last Admin: 05/02/17 10:33 Dose: 10 mg Montelukast Sodium (Singulair) 10 mg PO [facility] Last Admin: 05/01/17 22:36 Dose: 10 mg Pantoprazole Sodium (Protonix Ec Tab) 40 mg PO DAILY [facility] Last Admin: 05/02/17 10:34 Dose: 40 mg Prednisone (Prednisone Tab) 20 mg PO DAILY [facility] Last Admin: 05/02/17 10:34 Dose: 20 mg Rosuvastatin Calcium (Crestor) 20 mg PO [facility] Last Admin: 05/01/17 22:34 Dose: 20 mg - Labs Labs: PT 9.6 SECONDS (9.7-12.2) L 04/30/17 20:06 INR 0.9 04/30/17 20:06 APTT 30 SECONDS (21-34) 04/30/17 20:06 - Head Exam Head Exam: NORMAL INSPECTION - Eye Exam Eye Exam: Normal appearance - ENT Exam ENT Exam: Mucous Membranes Moist - Respiratory Exam Respiratory Exam: Chest Wall Tenderness, Decreased Breath Sounds, Wheezes, Respiratory Distress (mild) - Cardiovascular Exam Cardiovascular Exam: REGULAR RHYTHM - GI/Abdominal Exam GI & Abdominal Exam: Soft. absent: Tenderness - Neurological Exam Neurological Exam: Alert, Awake, Oriented x3 Assessment and Plan - Assessment and Plan (Free Text) Plan: Acute COPD exacerbation duonebs q6hrs azithromycin 500mg iv daily ceftriaxone 1g iv daily singulair 10mg daily prednisone 20mg daily 04/30/17 CXR: unremarkable 04/30/17 ECG: normal sinus rhythm at 73 BPM 04/30/17 CT chest: mild cardiomegaly; small pericardial effusion 15 mm thickness; mild interlobular septal thickening in the apices; no significant consolidation , pleural effusion, or pneumothorax DM lantus 15u sq hs iss novolog 70/30 42u BID HTN norvas 10mg po daily coreg 12.5 daily lisinopril 10mg daily [facility] Crestor 10mg daily Prophylaxis protonix 40mg PO daily lovenox 40mg sc daily Case dsicussed with Dr. Saldivar. All management as per Dr. Saldivar.
[2017-05-02] MEDS: (Lantus) Insulin Glargine, Recombinant SC SCH (22:21)
[2017-05-03] MEDS: Azithromycin 500mg/250ML NS 500 MG/250 ML BAG IVPB SCH (00:34)
[2017-05-03] MEDS: guaiFENesin DM 100 mg-10 mg/5 ml UD PO PRN ×2 (02:04→09:04)
[2017-05-03] MEDS ORDERED: (Novolog) Insulin Aspart, Recombinant 100 u/ml 10 ml vial SC STA (02:45)
[2017-05-03] MEDS: Albuterol-Ipratrop 3 mg / 0.5 (3 ml) UD INH SCH ×3 (07:45→19:41)
[2017-05-03] MEDS: (Novolog) Insulin Aspart, Recombinant 100 u/ml 10 ml vial SC SCH ×5 (09:00→21:56)
[2017-05-03] MEDS: Bisacodyl 5mg EC Tab PO SCH (09:03)
[2017-05-03] MEDS: Pantoprazole 40 mg EC Tab PO SCH (09:03)
[2017-05-03] MEDS: Enoxaparin 40 mg Syringe SC SCH (09:04)
--- NOTE | 2017-05-03 11:32 | CP.PCM.PN ---
Objective - Vital Signs/Intake and Output Vital Signs (last 24 hours): Temp Pulse Resp BP Pulse Ox 98.2 F 74 20 133/76 100 05/03/17 08:47 05/03/17 08:47 05/03/17 08:47 05/03/17 09:03 05/03/17 08:47 Intake and Output: 05/03/17 05/03/17 06:59 18:59 Intake Total 270 Balance 270 - Medications Medications: Current Medications Albuterol/Ipratropium (Duoneb 3 Mg/0.5 Mg (3 Ml) Ud) 3 ml INH RQ6 [facility] Last Admin: 05/03/17 07:45 Dose: 3 ml Amlodipine Besylate (Norvasc) 10 mg PO DAILY [facility] Last Admin: 05/03/17 09:03 Dose: 10 mg Aspirin (Aspirin Chewable) 324 mg PO DAILY [facility] Last Admin: 05/03/17 09:03 Dose: 324 mg Bisacodyl (Dulcolax) 5 mg PO DAILY [facility] Last Admin: 05/03/17 09:03 Dose: 5 mg Carvedilol (Coreg) 12.5 mg PO BID [facility] Last Admin: 05/03/17 09:03 Dose: 12.5 mg Enoxaparin Sodium (Lovenox) 40 mg SC DAILY [facility] Last Admin: 05/03/17 09:04 Dose: 40 mg Guaifenesin/Dextromethorphan (Robitussin Dm) 5 ml PO Q4H PRN PRN Reason: Cough Last Admin: 05/03/17 09:04 Dose: 5 ml Hydromorphone HCl (Dilaudid) 0.5 mg IVP Q6H PRN PRN Reason: Pain, moderate (4-7) Last Admin: 05/01/17 11:10 Dose: 0.5 mg Ceftriaxone Sodium 1 gm/ (Sodium Chloride) 100 mls @ 100 mls/hr IVPB DAILY [facility] Last Admin: 05/03/17 09:24 Dose: 100 mls/hr Azithromycin (Zithromax 500mg In Ns Addvantage) 500 mg in 250 mls @ 167 mls/hr IVPB Q24H [facility] Last Admin: 05/03/17 00:34 Dose: 167 mls/hr Insulin Aspart (Novolog Mix 70/30 (70/30 Units/Ml)) 42 units SC BID [facility] Last Admin: 05/02/17 18:25 Dose: Not Given Insulin Aspart (Novolog) 0 unit SC ACHS [facility] PRN Reason: Protocol Last Admin: 05/03/17 09:00 Dose: 6 unit Insulin Glargine (Lantus) 15 unit SC HS [facility] Last Admin: 05/02/17 22:21 Dose: 15 u Lisinopril (Zestril) 10 mg PO DAILY [facility] Last Admin: 05/03/17 09:03 Dose: 10 mg Montelukast Sodium (Singulair) 10 mg PO HS [facility] Last Admin: 05/02/17 22:22 Dose: 10 mg Pantoprazole Sodium (Protonix Ec Tab) 40 mg PO DAILY [facility] Last Admin: 05/03/17 09:03 Dose: 40 mg Prednisone (Prednisone Tab) 20 mg PO DAILY [facility] Last Admin: 05/03/17 09:03 Dose: 20 mg Rosuvastatin Calcium (Crestor) 20 mg PO [facility] Last Admin: 05/02/17 22:21 Dose: 20 mg - Labs Labs: PT 9.6 SECONDS (9.7-12.2) L 04/30/17 20:06 INR 0.9 04/30/17 20:06 APTT 30 SECONDS (21-34) 04/30/17 20:06 Assessment and Plan (1) COPD (chronic obstructive pulmonary disease) Status: Acute (2) CKD stage 3 due to type 1 diabetes mellitus Status: Acute
--- NOTE | 2017-05-03 13:33 | CARD ---
APPROVED REPORT EXAM: Two-dimensional and M-mode echocardiogram with Doppler and color Doppler. Other Information Quality : GoodRhythm : NSR INDICATION Chest Pain Congestive Heart Failure COPD RISK FACTORS Hypertension Diabetes 2D DIMENSIONS IVSd1.4 (0.7-1.1cm)LVDd4.6 (3.9-5.9cm) LVOT Diameter1.7 (1.8-2.4cm)PWd1.4 (0.7-1.1cm) IVSs1.5 (0.8-1.2cm)LVDs3.0 (2.5-4.0cm) FS (%) 35.3 %PWs1.9 (0.8-1.2cm) LVEF (%)64.7 (>50%) M-Mode DIMENSIONS RVDd2.29 (2.1-3.2cm)Left Atrium (MM)4.20 (2.5-4.0cm) IVSd1.00 (0.7-1.1cm)Aortic Root2.73 (2.2-3.7cm) LVDd4.57 (4.0-5.6cm)Aortic Cusp Exc.1.66 (1.5-2.0cm) PWd1.11 (0.7-1.1cm)FS (%) 35 % LVDs2.95 (2.0-3.8cm)LVEF (%)65 (>50%) Aortic Valve AoV Peak Bzgogxwo691.4cm/sAoV VTI38.7cmAO Peak GR.8mmHg LVOT Peak Xhdoxgbd282.3cm/Jayla Mean GR.5mmHgAVA (VMAX)1.78cm2 Mitral Valve MV E Sgrxtqjk457.3cm/sMV A Vxbryhpu233.4cm/sE/A ratio1.1 TDI E/Lateral E'0.0E/Medial E'0.0 Pulmonary Valve PV Peak Sbdcajpa209.8cm/sPV Peak Grad.7mmHg Tricuspid Valve TR Peak Pxutomtc771hq/sTR Peak Gr.07weIcDGBP17tdPq LEFT VENTRICLE The left ventricle is normal size. There is normal left ventricular wall thickness. The left ventricular function is normal. The left ventricular ejection fraction is within the normal range. There is normal LV segmental wall motion. Tissue Doppler imaging reveals mild left ventricular diastolic dysfunction. No left ventricle thrombus noted on this study. There is no ventricular septal defect visualized. There is no left ventricular aneurysm. There is no mass noted in the left ventricle. RIGHT VENTRICLE The right ventricle is normal size. There is normal right ventricular wall thickness. The right ventricular systolic function is normal. ATRIA The left atrium is mildly dilated. The right atrium size is normal. The interatrial septum is intact with no evidence for an atrial septal defect. AORTIC VALVE The aortic valve is normal in structure. No aortic regurgitation is present. There is mild valvular aortic stenosis. There is no aortic valvular vegetation. MITRAL VALVE The mitral valve is normal in structure. There is no mitral valve stenosis. There is no mitral valve regurgitation noted. TRICUSPID VALVE The tricuspid valve is normal in structure. There is no tricuspid valve regurgitation noted. PULMONIC VALVE The pulmonary valve is normal in structure. There is no pulmonic valvular regurgitation. GREAT VESSELS The aortic root is normal in size. The ascending aorta is normal in size. The pulmonary artery is normal. The IVC is normal in size and collapses >50% with inspiration. PERICARDIAL EFFUSION There is no pericardial effusion. <Conclusion> Tissue Doppler imaging reveals mild left ventricular diastolic dysfunction. The left atrium is mildly dilated. There is mild aortic regurgitation. There is mild valvular aortic stenosis. LVEF IS 65%.
[2017-05-03 13:54] LABS: BASO % 0.5 % (0.0-2.0); EOS # 0.2 K/uL (0.0-0.7); EOS % 3.2 % (0.0-4.0); HEMATOCRIT 31.7 % (34.0-47.0); LYMPH # 1.1 K/uL (1.0-4.3); LYMPH % 20.5 % (20.0-40.0); MEAN CELL VOLUME 85.1 fL (81.0-99.0); MEAN CORPUSCULAR HEMOGLOBIN 27.5 pg (27.0-31.0); MEAN CORPUSCULAR HGB CONC 32.3 g/dL (33.0-37.0); MEAN PLATELET VOLUME 8.2 fL (7.2-11.7); MONO # 0.4 K/uL (0.0-0.8); MONO % 7.9 % (0.0-10.0); NRBC % 0.1 % (0.0-2.0); WHITE BLOOD COUNT 5.5 K/uL (4.8-10.8)
[2017-05-03 13:58] LABS: POTASSIUM 4.8 mmol/L (3.6-5.2)
[2017-05-03 14:00] LABS: ALB/GLOB RATIO 0.9 (1.0-2.1); BILIRUBIN,TOTAL 0.4 mg/dL (0.2-1.3); TOTAL PROTEIN 6.9 g/dL (6.3-8.3)
[2017-05-03 14:01] LABS: CALCIUM 8.4 mg/dl (8.6-10.4)
--- NOTE | 2017-05-03 14:57 | CP.PCM.PN ---
Subjective - Date & Time of Evaluation Date of Evaluation: 05/03/17 Time of Evaluation: 10:10 - Subjective Subjective: PGY-2 Resident Progress Note for Dr. Saldivar Patient seen and examined at bedside with daughter. Overnight patient's glucose elevated over 500, stat dose of insulin was given. Patient reports to intermittent shortness of breath and chest discomfort. Patient is tolerating diet well. She denies headache, fever, chills, nausea, vomiting, or diarrhea. Objective - Vital Signs/Intake and Output Vital Signs (last 24 hours): Temp Pulse Resp BP Pulse Ox 98.2 F 75 20 133/76 100 05/03/17 08:47 05/03/17 12:48 05/03/17 08:47 05/03/17 09:03 05/03/17 08:47 Intake and Output: 05/03/17 05/03/17 06:59 18:59 Intake Total 270 Balance 270 - Medications Medications: Current Medications Albuterol/Ipratropium (Duoneb 3 Mg/0.5 Mg (3 Ml) Ud) 3 ml INH RQ6 [facility] Last Admin: 05/03/17 13:06 Dose: 3 ml Amlodipine Besylate (Norvasc) 10 mg PO DAILY [facility] Last Admin: 05/03/17 09:03 Dose: 10 mg Aspirin (Aspirin Chewable) 324 mg PO DAILY [facility] Last Admin: 05/03/17 09:03 Dose: 324 mg Bisacodyl (Dulcolax) 5 mg PO DAILY [facility] Last Admin: 05/03/17 09:03 Dose: 5 mg Carvedilol (Coreg) 12.5 mg PO BID [facility] Last Admin: 05/03/17 09:03 Dose: 12.5 mg Enoxaparin Sodium (Lovenox) 40 mg SC DAILY [facility] Last Admin: 05/03/17 09:04 Dose: 40 mg Guaifenesin/Dextromethorphan (Robitussin Dm) 5 ml PO Q4H PRN PRN Reason: Cough Last Admin: 05/03/17 09:04 Dose: 5 ml Hydromorphone HCl (Dilaudid) 0.5 mg IVP Q6H PRN PRN Reason: Pain, moderate (4-7) Last Admin: 05/01/17 11:10 Dose: 0.5 mg Ceftriaxone Sodium 1 gm/ (Sodium Chloride) 100 mls @ 100 mls/hr IVPB DAILY [facility] Last Admin: 05/03/17 09:24 Dose: 100 mls/hr Azithromycin (Zithromax 500mg In Ns Addvantage) 500 mg in 250 mls @ 167 mls/hr IVPB Q24H [facility] Last Admin: 05/03/17 00:34 Dose: 167 mls/hr Insulin Aspart (Novolog Mix 70/30 (70/30 Units/Ml)) 42 units SC BID [facility] Last Admin: 05/02/17 18:25 Dose: Not Given Insulin Aspart (Novolog) 0 unit SC ACHS [facility] PRN Reason: Protocol Insulin Glargine (Lantus) 15 unit SC [facility] Last Admin: 05/02/17 22:21 Dose: 15 u Lisinopril (Zestril) 10 mg PO DAILY [facility] Last Admin: 05/03/17 09:03 Dose: 10 mg Montelukast Sodium (Singulair) 10 mg PO [facility] Last Admin: 05/02/17 22:22 Dose: 10 mg Pantoprazole Sodium (Protonix Ec Tab) 40 mg PO DAILY [facility] Last Admin: 05/03/17 09:03 Dose: 40 mg Prednisone (Prednisone Tab) 20 mg PO DAILY [facility] Last Admin: 05/03/17 09:03 Dose: 20 mg Rosuvastatin Calcium (Crestor) 20 mg PO [facility] Last Admin: 05/02/17 22:21 Dose: 20 mg - Labs Labs: 05/03/17 13:45 05/03/17 13:45 PT 9.6 SECONDS (9.7-12.2) L 04/30/17 20:06 INR 0.9 04/30/17 20:06 APTT 30 SECONDS (21-34) 04/30/17 20:06 - Constitutional Appears: Non-toxic, No Acute Distress - Head Exam Head Exam: ATRAUMATIC, NORMAL INSPECTION - Eye Exam Eye Exam: Normal appearance - ENT Exam ENT Exam: Mucous Membranes Moist - Neck Exam Neck Exam: Normal Inspection - Respiratory Exam Respiratory Exam: Decreased Breath Sounds, Wheezes, NORMAL BREATHING PATTERN. absent: Respiratory Distress - Cardiovascular Exam Cardiovascular Exam: +S1, +S2 Additional comments: chest wall tenderness - GI/Abdominal Exam GI & Abdominal Exam: Soft. absent: Tenderness - Neurological Exam Neurological Exam: Alert, Awake, Oriented x3 - Psychiatric Exam Psychiatric exam: Normal Affect, Normal Mood - Skin Skin Exam: Dry, Warm Assessment and Plan - Assessment and Plan (Free Text) Assessment: Acute COPD exacerbation duonebs q6hrs azithromycin 500mg iv daily ceftriaxone 1g iv daily singulair 10mg daily prednisone 20mg daily 04/30/17 CXR: unremarkable 04/30/17 ECG: normal sinus rhythm at 73 BPM 04/30/17 CT chest: mild cardiomegaly; small pericardial effusion 15 mm thickness; mild interlobular septal thickening in the apices; no significant consolidation , pleural effusion, or pneumothorax DM Resumed Novolog Mix 70/30 42 units BID lantus 15u sq hs iss-high HTN norvas 10mg po daily coreg 12.5 daily lisinopril 10mg daily HLD Crestor 10mg daily Prophylaxis protonix 40mg PO daily lovenox 40mg sc daily Case dsicussed with Dr. Saldivar. All management as per Dr. Saldivar.
--- NOTE | 2017-05-03 16:41 | CP.PCM.PN ---
Subjective - Date & Time of Evaluation Date of Evaluation: 05/03/17 Time of Evaluation: 13:00 - Subjective Subjective: Clinically same Objective - Vital Signs/Intake and Output Vital Signs (last 24 hours): Temp Pulse Resp BP Pulse Ox 98.2 F 75 20 133/76 100 05/03/17 08:47 05/03/17 12:48 05/03/17 08:47 05/03/17 09:03 05/03/17 08:47 Intake and Output: 05/03/17 05/03/17 06:59 18:59 Intake Total 270 450 Balance 270 450 - Medications Medications: Current Medications Albuterol/Ipratropium (Duoneb 3 Mg/0.5 Mg (3 Ml) Ud) 3 ml INH RQ6 [facility] Last Admin: 05/03/17 13:06 Dose: 3 ml Amlodipine Besylate (Norvasc) 10 mg PO DAILY [facility] Last Admin: 05/03/17 09:03 Dose: 10 mg Aspirin (Aspirin Chewable) 324 mg PO DAILY [facility] Last Admin: 05/03/17 09:03 Dose: 324 mg Bisacodyl (Dulcolax) 5 mg PO DAILY [facility] Last Admin: 05/03/17 09:03 Dose: 5 mg Carvedilol (Coreg) 12.5 mg PO BID [facility] Last Admin: 05/03/17 09:03 Dose: 12.5 mg Enoxaparin Sodium (Lovenox) 40 mg SC DAILY [facility] Last Admin: 05/03/17 09:04 Dose: 40 mg Guaifenesin/Dextromethorphan (Robitussin Dm) 5 ml PO Q4H PRN PRN Reason: Cough Last Admin: 05/03/17 09:04 Dose: 5 ml Hydromorphone HCl (Dilaudid) 0.5 mg IVP Q6H PRN PRN Reason: Pain, moderate (4-7) Last Admin: 05/01/17 11:10 Dose: 0.5 mg Ceftriaxone Sodium 1 gm/ (Sodium Chloride) 100 mls @ 100 mls/hr IVPB DAILY [facility] Last Admin: 05/03/17 09:24 Dose: 100 mls/hr Azithromycin (Zithromax 500mg In Ns Addvantage) 500 mg in 250 mls @ 167 mls/hr IVPB Q24H [facility] Last Admin: 05/03/17 00:34 Dose: 167 mls/hr Insulin Aspart (Novolog Mix 70/30 (70/30 Units/Ml)) 42 units SC BID [facility] Last Admin: 05/02/17 18:25 Dose: Not Given Insulin Aspart (Novolog) 0 unit SC ACHS [facility] PRN Reason: Protocol Insulin Glargine (Lantus) 15 unit SC HS [facility] Last Admin: 05/02/17 22:21 Dose: 15 u Lisinopril (Zestril) 10 mg PO DAILY [facility] Last Admin: 05/03/17 09:03 Dose: 10 mg Montelukast Sodium (Singulair) 10 mg PO HS [facility] Last Admin: 05/02/17 22:22 Dose: 10 mg Pantoprazole Sodium (Protonix Ec Tab) 40 mg PO DAILY [facility] Last Admin: 05/03/17 09:03 Dose: 40 mg Prednisone (Prednisone Tab) 20 mg PO DAILY [facility] Last Admin: 05/03/17 09:03 Dose: 20 mg Rosuvastatin Calcium (Crestor) 20 mg PO [facility] Last Admin: 05/02/17 22:21 Dose: 20 mg - Labs Labs: 05/03/17 13:45 05/03/17 13:45 PT 9.6 SECONDS (9.7-12.2) L 04/30/17 20:06 INR 0.9 04/30/17 20:06 APTT 30 SECONDS (21-34) 04/30/17 20:06 - Constitutional Appears: Well - Head Exam Head Exam: ATRAUMATIC, NORMAL INSPECTION, NORMOCEPHALIC - Eye Exam Eye Exam: EOMI, Normal appearance, PERRL Pupil Exam: NORMAL ACCOMODATION, PERRL - ENT Exam ENT Exam: Mucous Membranes Moist, Normal Exam - Neck Exam Neck Exam: Full ROM, Normal Inspection. absent: Lymphadenopathy - Respiratory Exam Respiratory Exam: Decreased Breath Sounds - Cardiovascular Exam Cardiovascular Exam: REGULAR RHYTHM, +S1, +S2 - GI/Abdominal Exam GI & Abdominal Exam: Soft, Diminished Bowel Sounds - Rectal Exam Rectal Exam: Deferred
--- NOTE | 2017-05-03 16:43 | CP.PCM.PN ---
Subjective - Date & Time of Evaluation Date of Evaluation: 05/03/17 Time of Evaluation: 16:40 - Subjective Subjective: echocardiogram reviewed. Normal left ventricular function. no aortic valve stenosis (noted on report, but likely not accurate). Objective - Vital Signs/Intake and Output Vital Signs (last 24 hours): Temp Pulse Resp BP Pulse Ox 98.2 F 75 20 133/76 100 05/03/17 08:47 05/03/17 12:48 05/03/17 08:47 05/03/17 09:03 05/03/17 08:47 Intake and Output: 05/03/17 05/03/17 06:59 18:59 Intake Total 270 450 Balance 270 450 - Medications Medications: Current Medications Albuterol/Ipratropium (Duoneb 3 Mg/0.5 Mg (3 Ml) Ud) 3 ml INH RQ6 [facility] Last Admin: 05/03/17 13:06 Dose: 3 ml Amlodipine Besylate (Norvasc) 10 mg PO DAILY [facility] Last Admin: 05/03/17 09:03 Dose: 10 mg Aspirin (Aspirin Chewable) 324 mg PO DAILY [facility] Last Admin: 05/03/17 09:03 Dose: 324 mg Bisacodyl (Dulcolax) 5 mg PO DAILY [facility] Last Admin: 05/03/17 09:03 Dose: 5 mg Carvedilol (Coreg) 12.5 mg PO BID [facility] Last Admin: 05/03/17 09:03 Dose: 12.5 mg Enoxaparin Sodium (Lovenox) 40 mg SC DAILY [facility] Last Admin: 05/03/17 09:04 Dose: 40 mg Guaifenesin/Dextromethorphan (Robitussin Dm) 5 ml PO Q4H PRN PRN Reason: Cough Last Admin: 05/03/17 09:04 Dose: 5 ml Hydromorphone HCl (Dilaudid) 0.5 mg IVP Q6H PRN PRN Reason: Pain, moderate (4-7) Last Admin: 05/01/17 11:10 Dose: 0.5 mg Ceftriaxone Sodium 1 gm/ (Sodium Chloride) 100 mls @ 100 mls/hr IVPB DAILY [facility] Last Admin: 05/03/17 09:24 Dose: 100 mls/hr Azithromycin (Zithromax 500mg In Ns Addvantage) 500 mg in 250 mls @ 167 mls/hr IVPB Q24H [facility] Last Admin: 05/03/17 00:34 Dose: 167 mls/hr Insulin Aspart (Novolog Mix 70/30 (70/30 Units/Ml)) 42 units SC BID [facility] Last Admin: 05/02/17 18:25 Dose: Not Given Insulin Aspart (Novolog) 0 unit SC ACHS [facility] PRN Reason: Protocol Insulin Glargine (Lantus) 15 unit SC HS [facility] Last Admin: 05/02/17 22:21 Dose: 15 u Lisinopril (Zestril) 10 mg PO DAILY [facility] Last Admin: 05/03/17 09:03 Dose: 10 mg Montelukast Sodium (Singulair) 10 mg PO HS [facility] Last Admin: 05/02/17 22:22 Dose: 10 mg Pantoprazole Sodium (Protonix Ec Tab) 40 mg PO DAILY [facility] Last Admin: 05/03/17 09:03 Dose: 40 mg Prednisone (Prednisone Tab) 20 mg PO DAILY [facility] Last Admin: 05/03/17 09:03 Dose: 20 mg Rosuvastatin Calcium (Crestor) 20 mg PO HS [facility] Last Admin: 05/02/17 22:21 Dose: 20 mg - Labs Labs: 05/03/17 13:45 05/03/17 13:45 PT 9.6 SECONDS (9.7-12.2) L 04/30/17 20:06 INR 0.9 04/30/17 20:06 APTT 30 SECONDS (21-34) 04/30/17 20:06 Assessment and Plan (1) Chest pain Status: Acute (2) DM2 (diabetes mellitus, type 2) Status: Acute (3) Dyslipidemia Status: Acute (4) Hypertension Status: Acute
[2017-05-03] MEDS: (Novolog Mix 70/30) Insulin Aspart/Insulin Aspar 100 units/ml SC SCH (17:23)
[2017-05-03] MEDS: (Lantus) Insulin Glargine, Recombinant SC SCH (21:58)
[2017-05-04] MEDS: Azithromycin 500mg/250ML NS 500 MG/250 ML BAG IVPB SCH (00:43)
[2017-05-04] MEDS: Albuterol-Ipratrop 3 mg / 0.5 (3 ml) UD INH SCH ×4 (01:13→19:48)
[2017-05-04] MEDS: Enoxaparin 40 mg Syringe SC SCH (09:02)
[2017-05-04] MEDS: guaiFENesin DM 100 mg-10 mg/5 ml UD PO PRN (09:02)
[2017-05-04] MEDS: Pantoprazole 40 mg EC Tab PO SCH (09:02)
[2017-05-04] MEDS: Bisacodyl 5mg EC Tab PO SCH (09:02)
[2017-05-04] MEDS: (Novolog) Insulin Aspart, Recombinant 100 u/ml 10 ml vial SC SCH ×4 (09:04→21:32)
[2017-05-04] MEDS: (Novolog Mix 70/30) Insulin Aspart/Insulin Aspar 100 units/ml SC SCH ×2 (09:08→18:49)
--- NOTE | 2017-05-04 13:55 | CP.PCM.PN ---
Subjective - Date & Time of Evaluation Date of Evaluation: 05/04/17 Time of Evaluation: 10:20 - Subjective Subjective: clinically same Objective - Vital Signs/Intake and Output Vital Signs (last 24 hours): Temp Pulse Resp BP Pulse Ox 97.3 F L 70 20 184/93 H 96 05/04/17 09:08 05/04/17 09:08 05/04/17 09:08 05/04/17 09:08 05/04/17 09:08 Intake and Output: 05/04/17 05/04/17 06:59 18:59 Intake Total 260 Balance 260 - Medications Medications: Current Medications Albuterol/Ipratropium (Duoneb 3 Mg/0.5 Mg (3 Ml) Ud) 3 ml INH RQ6 [facility] Last Admin: 05/04/17 13:42 Dose: 3 ml Amlodipine Besylate (Norvasc) 10 mg PO DAILY [facility] Last Admin: 05/04/17 09:01 Dose: 10 mg Aspirin (Aspirin Chewable) 324 mg PO DAILY [facility] Last Admin: 05/04/17 09:01 Dose: 324 mg Bisacodyl (Dulcolax) 5 mg PO DAILY [facility] Last Admin: 05/04/17 09:02 Dose: 5 mg Carvedilol (Coreg) 12.5 mg PO BID [facility] Last Admin: 05/04/17 09:02 Dose: 12.5 mg Enoxaparin Sodium (Lovenox) 40 mg SC DAILY [facility] Last Admin: 05/04/17 09:02 Dose: 40 mg Guaifenesin/Dextromethorphan (Robitussin Dm) 5 ml PO Q4H PRN PRN Reason: Cough Last Admin: 05/04/17 09:02 Dose: 5 ml Hydromorphone HCl (Dilaudid) 0.5 mg IVP Q6H PRN PRN Reason: Pain, moderate (4-7) Last Admin: 05/01/17 11:10 Dose: 0.5 mg Ceftriaxone Sodium 1 gm/ (Sodium Chloride) 100 mls @ 100 mls/hr IVPB DAILY [facility] Last Admin: 05/04/17 09:02 Dose: 100 mls/hr Azithromycin (Zithromax 500mg In Ns Addvantage) 500 mg in 250 mls @ 167 mls/hr IVPB Q24H [facility] Last Admin: 05/04/17 00:43 Dose: 167 mls/hr Insulin Aspart (Novolog Mix 70/30 (70/30 Units/Ml)) 42 units SC BID [facility] Last Admin: 05/04/17 09:08 Dose: 42 units Insulin Aspart (Novolog) 0 unit SC ACHS [facility] PRN Reason: Protocol Last Admin: 05/04/17 12:30 Dose: Not Given Insulin Glargine (Lantus) 15 unit SC [facility] Last Admin: 05/03/17 21:58 Dose: 15 u Lisinopril (Zestril) 10 mg PO DAILY [facility] Last Admin: 05/04/17 09:01 Dose: 10 mg Montelukast Sodium (Singulair) 10 mg PO [facility] Last Admin: 05/03/17 21:57 Dose: 10 mg Pantoprazole Sodium (Protonix Ec Tab) 40 mg PO DAILY [facility] Last Admin: 05/04/17 09:02 Dose: 40 mg Prednisone (Prednisone Tab) 20 mg PO DAILY [facility] Last Admin: 05/04/17 09:02 Dose: 20 mg Rosuvastatin Calcium (Crestor) 20 mg PO [facility] Last Admin: 05/03/17 21:59 Dose: 20 mg - Labs Labs: 05/03/17 13:45 05/03/17 13:45 PT 9.6 SECONDS (9.7-12.2) L 04/30/17 20:06 INR 0.9 04/30/17 20:06 APTT 30 SECONDS (21-34) 04/30/17 20:06 - Constitutional Appears: Well - Head Exam Head Exam: ATRAUMATIC, NORMAL INSPECTION, NORMOCEPHALIC - Eye Exam Eye Exam: EOMI, Normal appearance, PERRL Pupil Exam: NORMAL ACCOMODATION, PERRL - ENT Exam ENT Exam: Mucous Membranes Moist, Normal Exam - Neck Exam Neck Exam: Full ROM, Normal Inspection. absent: Lymphadenopathy - Respiratory Exam Respiratory Exam: Decreased Breath Sounds - Cardiovascular Exam Cardiovascular Exam: REGULAR RHYTHM, +S1, +S2 - GI/Abdominal Exam GI & Abdominal Exam: Soft, Diminished Bowel Sounds - Rectal Exam Rectal Exam: Deferred
--- NOTE | 2017-05-04 18:54 | CP.PCM.PN ---
Subjective - Date & Time of Evaluation Date of Evaluation: 05/04/17 Time of Evaluation: 18:50 - Subjective Subjective: Patient seen and examined. Presenting and cough much improved On BiPAP as needed Afebrile No chest pain Objective - Vital Signs/Intake and Output Vital Signs (last 24 hours): Temp Pulse Resp BP Pulse Ox 98.5 F 91 H 20 130/80 95 05/04/17 15:28 05/04/17 15:28 05/04/17 15:28 05/04/17 18:47 05/04/17 15:28 Intake and Output: 05/04/17 05/04/17 06:59 18:59 Intake Total 260 500 Balance 260 500 - Medications Medications: Current Medications Albuterol/Ipratropium (Duoneb 3 Mg/0.5 Mg (3 Ml) Ud) 3 ml INH RQ6 [facility] Last Admin: 05/04/17 13:42 Dose: 3 ml Amlodipine Besylate (Norvasc) 10 mg PO DAILY [facility] Last Admin: 05/04/17 09:01 Dose: 10 mg Aspirin (Aspirin Chewable) 324 mg PO DAILY [facility] Last Admin: 05/04/17 09:01 Dose: 324 mg Bisacodyl (Dulcolax) 5 mg PO DAILY [facility] Last Admin: 05/04/17 09:02 Dose: 5 mg Carvedilol (Coreg) 12.5 mg PO BID [facility] Last Admin: 05/04/17 18:47 Dose: 12.5 mg Enoxaparin Sodium (Lovenox) 40 mg SC DAILY [facility] Last Admin: 05/04/17 09:02 Dose: 40 mg Guaifenesin/Dextromethorphan (Robitussin Dm) 5 ml PO Q4H PRN PRN Reason: Cough Last Admin: 05/04/17 09:02 Dose: 5 ml Hydromorphone HCl (Dilaudid) 0.5 mg IVP Q6H PRN PRN Reason: Pain, moderate (4-7) Last Admin: 05/01/17 11:10 Dose: 0.5 mg Ceftriaxone Sodium 1 gm/ (Sodium Chloride) 100 mls @ 100 mls/hr IVPB DAILY [facility] Last Admin: 05/04/17 09:02 Dose: 100 mls/hr Azithromycin (Zithromax 500mg In Ns Addvantage) 500 mg in 250 mls @ 167 mls/hr IVPB Q24H [facility] Last Admin: 05/04/17 00:43 Dose: 167 mls/hr Insulin Aspart (Novolog Mix 70/30 (70/30 Units/Ml)) 42 units SC BID [facility] Last Admin: 05/04/17 18:49 Dose: 42 units Insulin Aspart (Novolog) 0 unit SC ACHS [facility] PRN Reason: Protocol Last Admin: 05/04/17 17:30 Dose: 8 unit Insulin Glargine (Lantus) 15 unit SC HS [facility] Last Admin: 05/03/17 21:58 Dose: 15 u Lisinopril (Zestril) 10 mg PO DAILY [facility] Last Admin: 05/04/17 09:01 Dose: 10 mg Montelukast Sodium (Singulair) 10 mg PO HS [facility] Last Admin: 05/03/17 21:57 Dose: 10 mg Pantoprazole Sodium (Protonix Ec Tab) 40 mg PO DAILY [facility] Last Admin: 05/04/17 09:02 Dose: 40 mg Prednisone (Prednisone Tab) 20 mg PO DAILY [facility] Last Admin: 05/04/17 09:02 Dose: 20 mg Rosuvastatin Calcium (Crestor) 20 mg PO HS [facility] Last Admin: 05/03/17 21:59 Dose: 20 mg - Labs Labs: 05/03/17 13:45 05/03/17 13:45 PT 9.6 SECONDS (9.7-12.2) L 04/30/17 20:06 INR 0.9 04/30/17 20:06 APTT 30 SECONDS (21-34) 04/30/17 20:06 - Head Exam Head Exam: ATRAUMATIC, NORMOCEPHALIC - Eye Exam Eye Exam: Normal appearance - ENT Exam ENT Exam: Mucous Membranes Moist - Neck Exam Neck Exam: Normal Inspection - Respiratory Exam Respiratory Exam: Decreased Breath Sounds - Cardiovascular Exam Cardiovascular Exam: REGULAR RHYTHM - GI/Abdominal Exam GI & Abdominal Exam: Soft, Normal Bowel Sounds - Extremities Exam Extremities Exam: Pedal Edema Assessment and Plan (1) COPD (chronic obstructive pulmonary disease) Assessment & Plan: Continue BiPAP as needed Taper steroids Continue nebulizer treatment CAT scan of chest consistent with small airway disease Status: Acute (2) CKD stage 3 due to type 1 diabetes mellitus Status: Acute
[2017-05-04] MEDS: (Lantus) Insulin Glargine, Recombinant SC SCH (21:35)
[2017-05-04] MEDS: HYDROmorphone 0.5 mg/0.5 ml ISec IVP PRN (22:26)
[2017-05-05] MEDS: Azithromycin 500mg/250ML NS 500 MG/250 ML BAG IVPB SCH (00:46)
[2017-05-05] MEDS: (Novolog) Insulin Aspart, Recombinant 100 u/ml 10 ml vial SC SCH ×4 (01:23→22:10)
[2017-05-05] MEDS: Albuterol-Ipratrop 3 mg / 0.5 (3 ml) UD INH SCH ×4 (02:14→19:46)
[2017-05-05] MEDS: Bisacodyl 5mg EC Tab PO SCH (09:20)
[2017-05-05] MEDS: Pantoprazole 40 mg EC Tab PO SCH (09:20)
[2017-05-05] MEDS: Enoxaparin 40 mg Syringe SC SCH (09:23)
[2017-05-05] MEDS: guaiFENesin DM 100 mg-10 mg/5 ml UD PO PRN (09:26)
[2017-05-05] MEDS: (Novolog Mix 70/30) Insulin Aspart/Insulin Aspar 100 units/ml SC SCH ×2 (09:26→18:33)
--- NOTE | 2017-05-05 22:07 | CP.PCM.PN ---
Subjective - Date & Time of Evaluation Date of Evaluation: 05/05/17 Time of Evaluation: 11:20 - Subjective Subjective: clinically same Objective - Vital Signs/Intake and Output Vital Signs (last 24 hours): Temp Pulse Resp BP Pulse Ox 98 F 70 18 161/88 H 98 05/05/17 15:29 05/05/17 15:29 05/05/17 15:29 05/05/17 18:31 05/05/17 15:29 Intake and Output: 05/05/17 05/06/17 18:59 06:59 Intake Total 600 Balance 600 - Medications Medications: Current Medications Albuterol/Ipratropium (Duoneb 3 Mg/0.5 Mg (3 Ml) Ud) 3 ml INH RQ6 [facility] Last Admin: 05/05/17 19:46 Dose: 3 ml Amlodipine Besylate (Norvasc) 10 mg PO DAILY [facility] Last Admin: 05/05/17 09:20 Dose: 10 mg Aspirin (Aspirin Chewable) 324 mg PO DAILY [facility] Last Admin: 05/05/17 09:20 Dose: 324 mg Bisacodyl (Dulcolax) 5 mg PO DAILY [facility] Last Admin: 05/05/17 09:20 Dose: 5 mg Carvedilol (Coreg) 12.5 mg PO BID [facility] Last Admin: 05/05/17 18:31 Dose: 12.5 mg Enoxaparin Sodium (Lovenox) 40 mg SC DAILY [facility] Last Admin: 05/05/17 09:23 Dose: 40 mg Guaifenesin/Dextromethorphan (Robitussin Dm) 5 ml PO Q4H PRN PRN Reason: Cough Last Admin: 05/05/17 09:26 Dose: 5 ml Hydromorphone HCl (Dilaudid) 0.5 mg IVP Q6H PRN PRN Reason: Pain, moderate (4-7) Last Admin: 05/04/17 22:26 Dose: 0.5 mg Ceftriaxone Sodium 1 gm/ (Sodium Chloride) 100 mls @ 100 mls/hr IVPB DAILY [facility] Last Admin: 05/05/17 09:20 Dose: 100 mls/hr Azithromycin 500 mg/ Sodium (Chloride) 250 mls @ 167 mls/hr IVPB Q24H [facility] Insulin Aspart (Novolog Mix 70/30 (70/30 Units/Ml)) 42 units SC BID [facility] Last Admin: 05/05/17 18:33 Dose: 42 units Insulin Aspart (Novolog) 0 unit SC [facility] PRN Reason: Protocol Last Admin: 05/05/17 17:30 Dose: Not Given Insulin Glargine (Lantus) 15 unit SC [facility] Last Admin: 05/04/17 21:35 Dose: 15 u Lisinopril (Zestril) 10 mg PO DAILY [facility] Last Admin: 05/05/17 09:20 Dose: 10 mg Montelukast Sodium (Singulair) 10 mg PO [facility] Last Admin: 05/04/17 21:31 Dose: 10 mg Pantoprazole Sodium (Protonix Ec Tab) 40 mg PO DAILY [facility] Last Admin: 05/05/17 09:20 Dose: 40 mg Prednisone (Prednisone Tab) 20 mg PO DAILY [facility] Last Admin: 05/05/17 09:20 Dose: 20 mg Rosuvastatin Calcium (Crestor) 20 mg PO [facility] Last Admin: 05/04/17 21:31 Dose: 20 mg - Labs Labs: 05/03/17 13:45 05/03/17 13:45 PT 9.6 SECONDS (9.7-12.2) L 04/30/17 20:06 INR 0.9 04/30/17 20:06 APTT 30 SECONDS (21-34) 04/30/17 20:06 - Constitutional Appears: Well - Eye Exam Eye Exam: EOMI, Normal appearance, PERRL - ENT Exam ENT Exam: Mucous Membranes Moist, Normal Exam - Neck Exam Neck Exam: Full ROM, Normal Inspection. absent: Lymphadenopathy - Respiratory Exam Respiratory Exam: Decreased Breath Sounds - Cardiovascular Exam Cardiovascular Exam: REGULAR RHYTHM, +S1, +S2. absent: Murmur - GI/Abdominal Exam GI & Abdominal Exam: Soft, Diminished Bowel Sounds - Rectal Exam Rectal Exam: Deferred Assessment and Plan (1) Chest pain Status: Acute (2) Renal insufficiency Status: Acute (3) Uncontrolled diabetes mellitus Status: Acute (4) Upper respiratory infection Status: Acute (5) Abdominal pain Status: Acute (6) Allergic urticaria Status: Acute (7) Anemia Status: Acute (8) Asthma exacerbation Status: Acute (9) Back pain Status: Acute (10) Back pain at L4-L5 level Status: Acute (11) Bipolar 1 disorder Status: Acute (12) CKD stage 3 due to type 1 diabetes mellitus Status: Acute (13) COPD (chronic obstructive pulmonary disease) Status: Acute (14) Chest pain Status: Acute (15) Congestive heart failure Status: Acute (16) Constipation Status: Acute (17) DM2 (diabetes mellitus, type 2) Status: Acute (18) Diabetic hyperosmolar non-ketotic state Status: Acute (19) Drug overdose Status: Acute (20) Dyslipidemia Status: Acute (21) Dyspnea Status: Acute (22) Dyspnea Status: Acute (23) Dysuria Status: Acute (24) Fever Status: Acute (25) HHNC (hyperglycemic hyperosmolar nonketotic coma) Status: Acute (26) Hyperglycemia Status: Acute (27) Hypertension Status: Acute (28) Hypoventilation associated with obesity syndrome Status: Acute (29) Moderate major depression, single episode Status: Acute (30) Near syncope Status: Acute (31) Nephrotic range proteinuria Status: Acute (32) Pneumonia Status: Acute (33) Prophylactic measure Status: Acute (34) Renal function test abnormal Status: Acute (35) Renal insufficiency Status: Acute (36) UTI (lower urinary tract infection) Status: Acute (37) Uncontrolled diabetes mellitus Status: Acute (38) Uncontrolled hypertension Status: Acute (39) Urinary retention Status: Acute (40) Urinary tract infection Status: Acute (41) Acute on chronic kidney failure Status: Chronic (42) Asthma Status: Chronic (43) Diabetes Status: Chronic
[2017-05-05] MEDS: (Lantus) Insulin Glargine, Recombinant SC SCH (22:10)
[2017-05-06] MEDS: Azithromycin 500 MG in Sodium Chloride 0.9% 250 ML IVPB SCH (00:18)
[2017-05-06] MEDS: Albuterol-Ipratrop 3 mg / 0.5 (3 ml) UD INH SCH ×4 (02:02→19:27)
[2017-05-06] MEDS: (Novolog) Insulin Aspart, Recombinant 100 u/ml 10 ml vial SC SCH ×4 (07:30→22:00)
[2017-05-06 08:36] VITALS: RESP 20
[2017-05-06] MEDS: Pantoprazole 40 mg EC Tab PO SCH (10:08)
[2017-05-06] MEDS: (Novolog Mix 70/30) Insulin Aspart/Insulin Aspar 100 units/ml SC SCH ×2 (10:09→17:40)
[2017-05-06] MEDS: Enoxaparin 40 mg Syringe SC SCH (10:15)
[2017-05-06] MEDS: Bisacodyl 5mg EC Tab PO SCH (10:18)
--- NOTE | 2017-05-06 11:31 | CP.PCM.PN ---
Subjective - Date & Time of Evaluation Date of Evaluation: 05/06/17 Time of Evaluation: 09:30 - Subjective Subjective: patient seen and examined Breathing and cough much improved Sitting comfortably in no acute distress Afebrile On prednisone Objective - Vital Signs/Intake and Output Vital Signs (last 24 hours): Temp Pulse Resp BP Pulse Ox 98.2 F 85 20 160/80 H 96 05/06/17 08:35 05/06/17 08:35 05/06/17 08:35 05/06/17 10:08 05/06/17 08:35 Intake and Output: 05/06/17 05/06/17 06:59 18:59 Intake Total 1400 Balance 1400 - Medications Medications: Current Medications Albuterol/Ipratropium (Duoneb 3 Mg/0.5 Mg (3 Ml) Ud) 3 ml INH RQ6 [facility] Last Admin: 05/06/17 08:12 Dose: 3 ml Amlodipine Besylate (Norvasc) 10 mg PO DAILY [facility] Last Admin: 05/06/17 10:08 Dose: 10 mg Aspirin (Aspirin Chewable) 324 mg PO DAILY [facility] Last Admin: 05/06/17 10:07 Dose: 324 mg Bisacodyl (Dulcolax) 5 mg PO DAILY [facility] Last Admin: 05/06/17 10:18 Dose: 5 mg Carvedilol (Coreg) 12.5 mg PO BID [facility] Last Admin: 05/06/17 10:08 Dose: 12.5 mg Enoxaparin Sodium (Lovenox) 40 mg SC DAILY [facility] Last Admin: 05/06/17 10:15 Dose: 40 mg Guaifenesin/Dextromethorphan (Robitussin Dm) 5 ml PO Q4H PRN PRN Reason: Cough Last Admin: 05/05/17 09:26 Dose: 5 ml Hydromorphone HCl (Dilaudid) 0.5 mg IVP Q6H PRN PRN Reason: Pain, moderate (4-7) Last Admin: 05/04/17 22:26 Dose: 0.5 mg Ceftriaxone Sodium 1 gm/ (Sodium Chloride) 100 mls @ 100 mls/hr IVPB DAILY [facility] Last Admin: 05/06/17 10:00 Dose: 100 mls/hr Azithromycin 500 mg/ Sodium (Chloride) 250 mls @ 167 mls/hr IVPB Q24H [facility] Last Admin: 05/06/17 00:18 Dose: 167 mls/hr Insulin Aspart (Novolog Mix 70/30 (70/30 Units/Ml)) 42 units SC BID [facility] Last Admin: 05/06/17 10:09 Dose: 42 units Insulin Aspart (Novolog) 0 unit SC ACHS [facility] PRN Reason: Protocol Last Admin: 05/06/17 07:30 Dose: Not Given Insulin Glargine (Lantus) 15 unit SC [facility] Last Admin: 05/05/17 22:10 Dose: 15 u Lisinopril (Zestril) 10 mg PO DAILY [facility] Last Admin: 05/06/17 10:14 Dose: 10 mg Montelukast Sodium (Singulair) 10 mg PO [facility] Last Admin: 05/05/17 22:10 Dose: 10 mg Pantoprazole Sodium (Protonix Ec Tab) 40 mg PO DAILY [facility] Last Admin: 05/06/17 10:08 Dose: 40 mg Rosuvastatin Calcium (Crestor) 20 mg PO [facility] Last Admin: 05/05/17 22:10 Dose: 20 mg - Labs Labs: 05/03/17 13:45 05/03/17 13:45 PT 9.6 SECONDS (9.7-12.2) L 04/30/17 20:06 INR 0.9 04/30/17 20:06 APTT 30 SECONDS (21-34) 04/30/17 20:06 - Head Exam Head Exam: ATRAUMATIC, NORMOCEPHALIC - Eye Exam Eye Exam: Normal appearance - ENT Exam ENT Exam: Mucous Membranes Moist - Neck Exam Neck Exam: Normal Inspection - Respiratory Exam Respiratory Exam: Rales - Cardiovascular Exam Cardiovascular Exam: REGULAR RHYTHM - GI/Abdominal Exam GI & Abdominal Exam: Soft, Normal Bowel Sounds - Extremities Exam Extremities Exam: Pedal Edema Assessment and Plan (1) COPD (chronic obstructive pulmonary disease) Assessment & Plan: taper steroids Continue antibiotics for pneumonia/switch to p.o. antibioti continue nebulizer treatment Sleep study Status: Acute (2) CKD stage 3 due to type 1 diabetes mellitus Status: Acute
--- NOTE | 2017-05-06 17:56 | CP.PCM.PN ---
Subjective - Date & Time of Evaluation Date of Evaluation: 05/06/17 Time of Evaluation: 11:00 - Subjective Subjective: clinically same Objective - Vital Signs/Intake and Output Vital Signs (last 24 hours): Temp Pulse Resp BP Pulse Ox 98.1 F 82 20 140/70 97 05/06/17 16:06 05/06/17 16:06 05/06/17 16:06 05/06/17 17:39 05/06/17 16:06 Intake and Output: 05/06/17 05/06/17 06:59 18:59 Intake Total 1400 Balance 1400 - Medications Medications: Current Medications Albuterol/Ipratropium (Duoneb 3 Mg/0.5 Mg (3 Ml) Ud) 3 ml INH RQ6 [facility] Last Admin: 05/06/17 13:18 Dose: 3 ml Amlodipine Besylate (Norvasc) 10 mg PO DAILY [facility] Last Admin: 05/06/17 10:08 Dose: 10 mg Aspirin (Aspirin Chewable) 324 mg PO DAILY [facility] Last Admin: 05/06/17 10:07 Dose: 324 mg Bisacodyl (Dulcolax) 5 mg PO DAILY [facility] Last Admin: 05/06/17 10:18 Dose: 5 mg Carvedilol (Coreg) 12.5 mg PO BID [facility] Last Admin: 05/06/17 17:39 Dose: 12.5 mg Enoxaparin Sodium (Lovenox) 40 mg SC DAILY [facility] Last Admin: 05/06/17 10:15 Dose: 40 mg Guaifenesin/Dextromethorphan (Robitussin Dm) 5 ml PO Q4H PRN PRN Reason: Cough Last Admin: 05/05/17 09:26 Dose: 5 ml Hydromorphone HCl (Dilaudid) 0.5 mg IVP Q6H PRN PRN Reason: Pain, moderate (4-7) Last Admin: 05/04/17 22:26 Dose: 0.5 mg Azithromycin 500 mg/ Sodium (Chloride) 250 mls @ 167 mls/hr IVPB Q24H [facility] Last Admin: 05/06/17 00:18 Dose: 167 mls/hr Insulin Aspart (Novolog Mix 70/30 (70/30 Units/Ml)) 42 units SC BID [facility] Last Admin: 05/06/17 17:40 Dose: 42 units Insulin Aspart (Novolog) 0 unit SC ACHS [facility] PRN Reason: Protocol Last Admin: 05/06/17 17:30 Dose: 2 unit Insulin Glargine (Lantus) 15 unit SC [facility] Last Admin: 05/05/17 22:10 Dose: 15 u Lisinopril (Zestril) 10 mg PO DAILY [facility] Last Admin: 05/06/17 10:14 Dose: 10 mg Montelukast Sodium (Singulair) 10 mg PO [facility] Last Admin: 05/05/17 22:10 Dose: 10 mg Pantoprazole Sodium (Protonix Ec Tab) 40 mg PO DAILY [facility] Last Admin: 05/06/17 10:08 Dose: 40 mg Prednisone (Prednisone Tab) 10 mg PO DAILY [facility] Rosuvastatin Calcium (Crestor) 20 mg PO [facility] Last Admin: 05/05/17 22:10 Dose: 20 mg - Labs Labs: 05/03/17 13:45 05/03/17 13:45 PT 9.6 SECONDS (9.7-12.2) L 04/30/17 20:06 INR 0.9 04/30/17 20:06 APTT 30 SECONDS (21-34) 04/30/17 20:06 - Constitutional Appears: Well - Head Exam Head Exam: ATRAUMATIC, NORMAL INSPECTION, NORMOCEPHALIC - Eye Exam Eye Exam: EOMI, Normal appearance, PERRL Pupil Exam: NORMAL ACCOMODATION, PERRL - ENT Exam ENT Exam: Mucous Membranes Moist, Normal Exam - Neck Exam Neck Exam: Full ROM, Normal Inspection. absent: Lymphadenopathy - Respiratory Exam Respiratory Exam: Decreased Breath Sounds - Cardiovascular Exam Cardiovascular Exam: REGULAR RHYTHM, +S1, +S2 - GI/Abdominal Exam GI & Abdominal Exam: Soft, Diminished Bowel Sounds - Rectal Exam Rectal Exam: Deferred Assessment and Plan (1) Chest pain Status: Acute (2) Renal insufficiency Status: Acute (3) Uncontrolled diabetes mellitus Status: Acute (4) Upper respiratory infection Status: Acute (5) Abdominal pain Status: Acute (6) Allergic urticaria Status: Acute (7) Anemia Status: Acute (8) Asthma exacerbation Status: Acute (9) Back pain Status: Acute (10) Back pain at L4-L5 level Status: Acute (11) Bipolar 1 disorder Status: Acute (12) CKD stage 3 due to type 1 diabetes mellitus Status: Acute (13) COPD (chronic obstructive pulmonary disease) Status: Acute (14) Chest pain Status: Acute (15) Congestive heart failure Status: Acute (16) Constipation Status: Acute (17) DM2 (diabetes mellitus, type 2) Status: Acute (18) Diabetic hyperosmolar non-ketotic state Status: Acute (19) Drug overdose Status: Acute (20) Dyslipidemia Status: Acute (21) Dyspnea Status: Acute (22) Dyspnea Status: Acute (23) Dysuria Status: Acute (24) Fever Status: Acute (25) HHNC (hyperglycemic hyperosmolar nonketotic coma) Status: Acute (26) Hyperglycemia Status: Acute (27) Hypertension Status: Acute (28) Hypoventilation associated with obesity syndrome Status: Acute (29) Moderate major depression, single episode Status: Acute (30) Near syncope Status: Acute (31) Nephrotic range proteinuria Status: Acute (32) Pneumonia Status: Acute (33) Prophylactic measure Status: Acute (34) Renal function test abnormal Status: Acute (35) Renal insufficiency Status: Acute (36) UTI (lower urinary tract infection) Status: Acute (37) Uncontrolled diabetes mellitus Status: Acute (38) Uncontrolled hypertension Status: Acute (39) Urinary retention Status: Acute (40) Urinary tract infection Status: Acute (41) Acute on chronic kidney failure Status: Chronic (42) Asthma Status: Chronic (43) Diabetes Status: Chronic
[2017-05-06] MEDS: (Lantus) Insulin Glargine, Recombinant SC SCH (22:22)
[2017-05-06] MEDS: HYDROmorphone 0.5 mg/0.5 ml ISec IVP PRN (22:48)
[2017-05-07] MEDS: Azithromycin 500 MG in Sodium Chloride 0.9% 250 ML IVPB SCH
[2017-05-07] MEDS ORDERED: Dextrose 50% SYRINGE Inj (50 ml) IV STA (07:11)
[2017-05-07] MEDS: (Novolog) Insulin Aspart, Recombinant 100 u/ml 10 ml vial SC SCH ×3 (08:00→17:00)
[2017-05-07] MEDS: Albuterol-Ipratrop 3 mg / 0.5 (3 ml) UD INH SCH ×3 (09:41→13:43)
[2017-05-07] MEDS: (Novolog Mix 70/30) Insulin Aspart/Insulin Aspar 100 units/ml SC SCH ×2 (10:00→18:15)
[2017-05-07] MEDS: Pantoprazole 40 mg EC Tab PO SCH (12:17)
[2017-05-07] MEDS: Enoxaparin 40 mg Syringe SC SCH (12:20)
[2017-05-07] MEDS: Bisacodyl 5mg EC Tab PO SCH (12:24)
[2017-05-07 15:51] VITALS: BP 134/63; TEMP 98.3; O2SAT 98
--- NOTE | 2017-05-07 18:10 | CP.PCM.PN ---
Subjective - Date & Time of Evaluation Date of Evaluation: 05/07/17 Time of Evaluation: 11:20 - Subjective Subjective: clinically same Objective - Vital Signs/Intake and Output Vital Signs (last 24 hours): Temp Pulse Resp BP Pulse Ox 98.3 F 80 20 134/63 98 05/07/17 15:48 05/07/17 15:48 05/07/17 15:48 05/07/17 15:48 05/07/17 15:48 Intake and Output: 05/07/17 05/07/17 06:59 18:59 Intake Total 480 Balance 480 - Medications Medications: Current Medications Albuterol/Ipratropium (Duoneb 3 Mg/0.5 Mg (3 Ml) Ud) 3 ml INH RQ6 [facility] Last Admin: 05/07/17 13:43 Dose: 3 ml Amlodipine Besylate (Norvasc) 10 mg PO DAILY [facility] Last Admin: 05/07/17 12:23 Dose: 10 mg Aspirin (Aspirin Chewable) 324 mg PO DAILY [facility] Last Admin: 05/07/17 12:17 Dose: 324 mg Bisacodyl (Dulcolax) 5 mg PO DAILY [facility] Last Admin: 05/07/17 12:24 Dose: 5 mg Carvedilol (Coreg) 12.5 mg PO BID [facility] Last Admin: 05/07/17 12:19 Dose: 12.5 mg Enoxaparin Sodium (Lovenox) 40 mg SC DAILY [facility] Last Admin: 05/07/17 12:20 Dose: 40 mg Guaifenesin/Dextromethorphan (Robitussin Dm) 5 ml PO Q4H PRN PRN Reason: Cough Last Admin: 05/05/17 09:26 Dose: 5 ml Azithromycin 500 mg/ Sodium (Chloride) 250 mls @ 167 mls/hr IVPB Q24H [facility] Last Admin: 05/07/17 00:00 Dose: 167 mls/hr Insulin Aspart (Novolog Mix 70/30 (70/30 Units/Ml)) 42 units SC BID [facility] Last Admin: 05/07/17 10:00 Dose: Not Given Insulin Aspart (Novolog) 0 unit SC ACHS [facility] PRN Reason: Protocol Last Admin: 05/07/17 17:00 Dose: Not Given Insulin Glargine (Lantus) 15 unit SC HS [facility] Last Admin: 05/06/17 22:22 Dose: 15 u Lisinopril (Zestril) 10 mg PO DAILY [facility] Last Admin: 05/07/17 12:25 Dose: 10 mg Montelukast Sodium (Singulair) 10 mg PO [facility] Last Admin: 05/06/17 22:21 Dose: 10 mg Pantoprazole Sodium (Protonix Ec Tab) 40 mg PO DAILY [facility] Last Admin: 05/07/17 12:17 Dose: 40 mg Prednisone (Prednisone Tab) 10 mg PO DAILY [facility] Last Admin: 05/07/17 12:20 Dose: 10 mg Rosuvastatin Calcium (Crestor) 20 mg PO HS [facility] Last Admin: 05/06/17 22:21 Dose: 20 mg - Labs Labs: 05/03/17 13:45 05/03/17 13:45 PT 9.6 SECONDS (9.7-12.2) L 04/30/17 20:06 INR 0.9 04/30/17 20:06 APTT 30 SECONDS (21-34) 04/30/17 20:06 - Constitutional Appears: Well - Head Exam Head Exam: ATRAUMATIC, NORMAL INSPECTION, NORMOCEPHALIC - Eye Exam Eye Exam: EOMI, Normal appearance, PERRL Pupil Exam: NORMAL ACCOMODATION, PERRL - ENT Exam ENT Exam: Mucous Membranes Moist, Normal Exam - Neck Exam Neck Exam: Full ROM, Normal Inspection. absent: Lymphadenopathy - Respiratory Exam Respiratory Exam: Decreased Breath Sounds - Cardiovascular Exam Cardiovascular Exam: REGULAR RHYTHM, +S1, +S2 - GI/Abdominal Exam GI & Abdominal Exam: Soft, Diminished Bowel Sounds - Rectal Exam Rectal Exam: Deferred Assessment and Plan (1) Chest pain Status: Acute (2) Renal insufficiency Status: Acute (3) Uncontrolled diabetes mellitus Status: Acute (4) Upper respiratory infection Status: Acute (5) Abdominal pain Status: Acute (6) Allergic urticaria Status: Acute (7) Anemia Status: Acute (8) Asthma exacerbation Status: Acute (9) Back pain Status: Acute (10) Back pain at L4-L5 level Status: Acute (11) Bipolar 1 disorder Status: Acute (12) CKD stage 3 due to type 1 diabetes mellitus Status: Acute (13) COPD (chronic obstructive pulmonary disease) Status: Acute (14) Chest pain Status: Acute (15) Congestive heart failure Status: Acute (16) Constipation Status: Acute (17) DM2 (diabetes mellitus, type 2) Status: Acute (18) Diabetic hyperosmolar non-ketotic state Status: Acute (19) Drug overdose Status: Acute (20) Dyslipidemia Status: Acute (21) Dyspnea Status: Acute (22) Dyspnea Status: Acute (23) Dysuria Status: Acute (24) Fever Status: Acute (25) HHNC (hyperglycemic hyperosmolar nonketotic coma) Status: Acute (26) Hyperglycemia Status: Acute (27) Hypertension Status: Acute (28) Hypoventilation associated with obesity syndrome Status: Acute (29) Moderate major depression, single episode Status: Acute (30) Near syncope Status: Acute (31) Nephrotic range proteinuria Status: Acute (32) Pneumonia Status: Acute (33) Prophylactic measure Status: Acute (34) Renal function test abnormal Status: Acute (35) Renal insufficiency Status: Acute (36) UTI (lower urinary tract infection) Status: Acute (37) Uncontrolled diabetes mellitus Status: Acute (38) Uncontrolled hypertension Status: Acute (39) Urinary retention Status: Acute (40) Urinary tract infection Status: Acute (41) Acute on chronic kidney failure Status: Chronic (42) Asthma Status: Chronic (43) Diabetes Status: Chronic
[2017-05-07 20:51] VITALS: PULSE 75
--- NOTE | 2017-05-11 21:29 | CARD ---
APPROVED REPORT EKG Measurement Heart [id number] <Conclusion> Normal sinus rhythm Normal ECG
== END 2017-05-07 19:46 | disposition home or self-care (01) | DRG 190 ==
LOC: C.ER 18:05 → C.9E 05-01 01:50 → C.9I 05-01 03:58 → OBSVTOIN 05-01 23:09 → C.6T 05-02 10:06
PROVIDERS: ADMIT Internal Medicine Nephrology; ATTEND Internal Medicine Nephrology
DX: J44.0 Chronic obstructive pulmonary disease with (acute) lower respiratory infection (principal); J18.9 Pneumonia, unspecified organism; I13.0 Hypertensive heart and chronic kidney disease with heart failure and stage 1 through stage 4 chronic kidney disease, or unspecified chronic kidney disease; E11.22 Type 2 diabetes mellitus with diabetic chronic kidney disease; I50.9 Heart failure, unspecified; F32.1 Major depressive disorder, single episode, moderate; J45.901 Unspecified asthma with (acute) exacerbation; E66.2 Morbid (severe) obesity with alveolar hypoventilation; J44.1 Chronic obstructive pulmonary disease with (acute) exacerbation; J06.9 Acute upper respiratory infection, unspecified; G47.30 Sleep apnea, unspecified; E78.00 Pure hypercholesterolemia, unspecified; E78.5 Hyperlipidemia, unspecified; D64.9 Anemia, unspecified; F31.9 Bipolar disorder, unspecified; N18.3 Chronic kidney disease, stage 3 (moderate); Z87.01 Personal history of pneumonia (recurrent); J45.909 Unspecified asthma, uncomplicated

== ENCOUNTER 2017-05-10 00:52 | Emergency (ER) | payer MEDICARE, OTHER ==
[2017-05-10 00:52] VITALS: BMI 34.3
[2017-05-10] MEDS ORDERED: Enalaprilat 2.5 MG/2 ML IVP STA (02:21)
[2017-05-10 02:45] LABS: BASO % 0.7 % (0.0-2.0); EOS # 0.3 K/uL (0.0-0.7); EOS % 5.6 % (0.0-4.0); HEMATOCRIT 29.4 % (34.0-47.0); LYMPH # 1.6 K/uL (1.0-4.3); MEAN CELL VOLUME 86.4 fL (81.0-99.0); MEAN CORPUSCULAR HEMOGLOBIN 27.5 pg (27.0-31.0); MEAN CORPUSCULAR HGB CONC 31.9 g/dL (33.0-37.0); MEAN PLATELET VOLUME 8.5 fL (7.2-11.7); MONO # 0.5 K/uL (0.0-0.8); MONO % 8.7 % (0.0-10.0); NRBC % 0.1 % (0.0-2.0); RED CELL DISTRIBUTION WIDTH 15.2 % (11.5-14.5); WHITE BLOOD COUNT 6.1 K/uL (4.8-10.8)
[2017-05-10 02:46] LABS: RBC URINE < 1 /hpf (0-3); URINE BILIRUBIN NEGATIVE (NEGATIVE); URINE BLOOD NEGATIVE (NEGATIVE); URINE COLOR Straw (YELLOW); URINE GLUCOSE (UA) 3+ mg/dL (Normal); URINE KETONE NEGATIVE (NEGATIVE); URINE LEUKOCYTE ESTERASE NEG Leu/uL (Negative); URINE PROTEIN 2+ mg/dL (NEGATIVE); URINE UROBILINOGEN NORMAL mg/dL (0.2-1.0); WBC URINE < 1 /hpf (0-5)
[2017-05-10] MEDS ORDERED: Enalaprilat 2.5 MG/2 ML ONE ×2 (02:57→02:59)
[2017-05-10 03:01] LABS: ALKALINE PHOSPHATASE 354 U/L (38-126); ALT/SGPT 44 U/L (9-52); AST/SGOT 43 U/L (14-36); BILIRUBIN,TOTAL 0.4 mg/dL (0.2-1.3); BLOOD UREA NITROGEN 38 mg/dL (7-17); CALCIUM 7.9 mg/dl (8.6-10.4); CARBON DIOXIDE 25 mmol/L (22-30); CHLORIDE 102 mmol/L (98-107); GFR AFRICAN-AMERICAN 29; GLUCOSE,RANDOM 291 mg/dL (65-105); POTASSIUM 4.9 mmol/L (3.6-5.2); SODIUM 137 mmol/L (132-148); TOTAL PROTEIN 6.4 g/dL (6.3-8.3)
[2017-05-10] MEDS ORDERED: Morphine 4 MG/ML VIAL ONE (04:09)
--- NOTE | 2017-05-10 04:41 | C.PDOC ---
History Of Present Illness Pt c/o generalized back pain. Time Seen by Provider: 05/10/17 02:07 Chief Complaint (Nursing): Back Pain History Per: Patient, Family Onset/Duration Of Symptoms: Days (few) Current Symptoms Are (Timing): Still Present Quality Of Discomfort: "Pain" Severity: Moderate Additional History Per: Prior Records Past Medical History Reviewed: Historical Data, Nursing Documentation, Vital Signs Vital Signs: Last Vital Signs Temp 98.6 F 05/10/17 01:46 Pulse 97 H 05/10/17 01:46 Resp 18 05/10/17 01:46 BP 165/78 H 05/10/17 03:01 Pulse Ox 98 05/10/17 01:46 - Medical History PMH: Anemia, Anxiety, Asthma, Bipolar Disorder, COPD, Depression, Diabetes, HTN , Hypercholesterolemia, Pneumonia, Chronic Kidney Disease Other PMH: on 24hr home O2 Surgical History: - [facility] Procedures ASSISTANCE WITH RESPIRATORY VENTILATION, 24-96 HRS, CPAP (11/30/15) INSERT INDWELLING CATH (07/28/14) Family History: States: Unknown Family Hx, [place], CAD, Hypertension - Social History Hx Tobacco Use: No Hx Alcohol Use: No Hx Substance Use: No - Immunization History Hx Tetanus Toxoid Vaccination: No Hx Influenza Vaccination: Yes Hx Pneumococcal Vaccination: Yes Review Of Systems Except As Marked, All Systems Reviewed And Found Negative. Constitutional: Negative for: Fever Cardiovascular: Negative for: Chest Pain Respiratory: Positive for: Cough. Negative for: Hemoptysis Gastrointestinal: Negative for: Vomiting, Abdominal Pain Musculoskeletal: Positive for: Back Pain. Negative for: Neck Pain Skin: Negative for: Rash Neurological: Negative for: Weakness, Numbness, Seizures, Altered Mental Status Physical Exam - Physical Exam Appears: Chronically Ill Skin: Normal Color, Warm, Dry, No Rash Head: Atraumatic, Normacephalic Eye(s): bilateral: PERRL, EOMI Neck: Normal ROM, Supple Cardiovascular: Rhythm Regular Respiratory: Normal Breath Sounds, No Accessory Muscle Use Gastrointestinal/Abdominal: Soft, No Tenderness Back: No Vertebral Tenderness, Paraspinal Tenderness Extremity: Normal ROM Neurological/Psych: Oriented x3, Normal Motor, Normal Sensation ED Course And Treatment - Laboratory Results Result Diagrams: 05/10/17 02:40 05/10/17 02:40 Lab Interpretation: No Changes Compared To Prior Results ECG: Interpreted By Me, Viewed By Me ECG Rhythm: Sinus Rhythm ECG Interpretation: No Acute Changes Rate From EC O2 Sat by Pulse Oximetry: 98 Pulse Ox Interpretation: Normal - Radiology CXR: Interpreted by Me, Viewed By Me CXR Interpretation: Yes: No Acute Disease Progress Note: Pt feels much better and wants to go home. Reassessment Condition: Improved Progress - Interventions Interventions:: Observation, Oxygen - Medications Administered Intravenous: Antihypertensive, Opiate - Data Reviewed Data Reviewed: Lab, Diagnostic imaging, EKG, Old records - Patient Status Patient status: Mostly improved - Continuity of Care Discussed patient case with:: Patient, Family-HIPPA compliant, ED Nurse - Patient Plan Patient Plan: Discharge, F/U with PCP, Continue present meds Disposition Counseled Patient/Family Regarding: Studies Performed, Diagnosis, Need For Followup, Rx Given - Disposition Referrals: Miko Saldivar MD [Staff Provider] - Disposition: HOME/ ROUTINE Disposition Time: 04:42 Condition: IMPROVED Additional Instructions: Follow up with your doctor this week for further evaluation and treatment. Return to the ER if you develop shortness of breath, fever, worsening of symptoms or if you have any other concerns. Prescriptions: Promethazine HCl/Codeine [Prometh-Codein 6.25-10 mg/5 ml] 5 ml PO Q4 PRN #200 ml PRN Reason: Cough Instructions: Back Pain (ED) Forms: [employer] (Botswanan) Print Language: CAMBODIAN - Clinical Impression Clinical Impression: Back pain, Hypertension, Cough
[2017-05-10 05:00] VITALS: BP 160/72; PULSE 88; RESP 20; TEMP 98; O2SAT 97
--- NOTE | 2017-05-10 08:20 | RAD ---
HISTORY: SOB, cough COMPARISON: Chest x-ray performed 04/30/17, CT chest without contrast performed 04/30/17 TECHNIQUE: Chest, one view. FINDINGS: Examination limited by habitus and hypoinflation. LUNGS: Mild to moderate interstitial prominence may reflect infection or edema. Please note that chest x-ray has limited sensitivity for the detection of pulmonary masses. PLEURA: No significant pleural effusion identified. No definite pneumothorax . CARDIOVASCULAR: Cardiomegaly. OSSEOUS STRUCTURES: No acute osseous abnormality identified. VISUALIZED UPPER ABDOMEN: Unremarkable. OTHER FINDINGS: None. IMPRESSION: Mild to moderate interstitial prominence may reflect infection or edema. Cardiomegaly.
== END 2017-05-10 04:58 | disposition home or self-care (01) ==
LOC: C.ER 00:52
DX: M54.5 Low back pain (principal); I10 Essential (primary) hypertension; J44.9 Chronic obstructive pulmonary disease, unspecified
CPT/HCPCS: 71010; 80053; 81001; 83690; 83880; 84484; 85025; 87086; 96374; 96375; 99283; J2270

== ENCOUNTER 2017-06-07 22:20 | Emergency (ER) | payer MEDICARE, OTHER ==
[2017-06-07 22:21] VITALS: BMI 34.3
[2017-06-07] MEDS ORDERED: Sodium Chloride 0.9% 1,000 ML IV ONE (23:01)
--- NOTE | 2017-06-07 23:04 | C.PDOC ---
History Of Present Illness Patient is a 51 y/o female who presents to the ED with complaints of painful bilateral lower extremity edema and chest pain. Patient describes chest pain as 10/10, worsening with deep inspiration that radiates to upper back. Patient reports to have body aches, chills, and a persistent cough; arrived to ED with person O2 tank. Chief Complaint (Nursing): Lower Extremity Problem/Injury History/Exam Limitations: no limitations Onset/Duration Of Symptoms: Hrs Current Symptoms Are (Timing): Still Present Recent travel outside of the [place]: No Past Medical History Vital Signs: Last Vital Signs Temp 98.0 F 06/07/17 22:33 Pulse 80 06/07/17 22:33 Resp 20 06/07/17 22:33 BP 166/91 H 06/07/17 22:33 Pulse Ox 97 06/07/17 22:33 - Medical History PMH: Anemia, Anxiety, Asthma, Bipolar Disorder, COPD, Depression, Diabetes, HTN , Hypercholesterolemia, Pneumonia, Chronic Kidney Disease Denies: Kidney Stones Surgical History: - [facility] Procedures ASSISTANCE WITH RESPIRATORY VENTILATION, 24-96 HRS, CPAP (11/30/15) INSERT INDWELLING CATH (07/28/14) Family History: States: Unknown Family Hx, [place], CAD, Hypertension - Social History Hx Tobacco Use: No Hx Alcohol Use: No Hx Substance Use: No - Immunization History Hx Tetanus Toxoid Vaccination: No Hx Influenza Vaccination: Yes Hx Pneumococcal Vaccination: Yes ED Course And Treatment O2 Sat by Pulse Oximetry: 97 Disposition - Disposition Forms: [employer] (Macedonian)
--- NOTE | 2017-06-07 23:07 | C.PDOC ---
History Of Present Illness Patient is a 51 y/o female who presents to the ED with complaints of painful bilateral lower extremity edema and chest pain. Patient describes chest pain as 10/10, worsening with deep inspiration that radiates to upper back. Patient reports to have body aches, chills, and a persistent cough; arrived to ED with person O2 tank. Chief Complaint (Nursing): Chest Pain History Per: Patient History/Exam Limitations: no limitations Onset/Duration Of Symptoms: Hrs Current Symptoms Are (Timing): Still Present Exacerbating Factors: Deep Breathing Recent travel outside of the [place]: No Past Medical History Reviewed: Historical Data, Nursing Documentation, Vital Signs Vital Signs: Last Vital Signs Temp 98.0 F 06/07/17 22:33 Pulse 77 06/08/17 02:31 Resp 18 06/08/17 02:31 BP 136/73 06/08/17 02:31 Pulse Ox 99 06/08/17 02:31 - Medical History PMH: Anemia, Anxiety, Asthma, Bipolar Disorder, COPD, Depression, Diabetes, HTN , Hypercholesterolemia, Pneumonia, Chronic Kidney Disease Denies: Kidney Stones Surgical History: - [facility] Procedures ASSISTANCE WITH RESPIRATORY VENTILATION, 24-96 HRS, CPAP (11/30/15) INSERT INDWELLING CATH (07/28/14) Family History: States: Unknown Family Hx, [place], CAD, Hypertension - Social History Hx Tobacco Use: No Hx Alcohol Use: No Hx Substance Use: No - Immunization History Hx Tetanus Toxoid Vaccination: No Hx Influenza Vaccination: Yes Hx Pneumococcal Vaccination: Yes Review Of Systems Constitutional: Positive for: Chills, Other (body aches). Negative for: Fever Cardiovascular: Positive for: Chest Pain. Negative for: Palpitations Respiratory: Positive for: Cough Gastrointestinal: Negative for: Nausea, Vomiting, Diarrhea Physical Exam - Physical Exam Appears: Non-toxic, In Acute Distress Skin: Normal Color, Warm, Dry Head: Atraumatic, Normacephalic Oral Mucosa: Moist Chest: Symmetrical Cardiovascular: Rhythm Regular, No Murmur Respiratory: Normal Breath Sounds, No Rales, No Rhonchi, No Wheezing Gastrointestinal/Abdominal: Soft, No Tenderness Extremity: Pedal Edema ( bilateral), Capillary Refill (+4 bilateral), Swelling ( bilateral) Neurological/Psych: Oriented x3, Normal Speech, Normal Cognition ED Course And Treatment - Laboratory Results Result Diagrams: 06/07/17 23:22 06/07/17 23:22 O2 Sat by Pulse Oximetry: 97 (room air) Pulse Ox Interpretation: Normal - CT Scan/US Chest Other Rad Studies (CT/US): Interpreted By Me, Read By Radiologist CT/US Interpretation: IMPRESSION: Cardiomegaly and small pericardial effusion; bilateral hilar prominence vascular versus adenopathy; asymmetric groundglass opacities pneumonia and/or edema; no acute displaced rib fractures Progress Note: EKG, CXR, and blood work ordered; Toradol and IV fluids administered. - Physician Consult Information Time Consulting Physician Contacted: 01:20 Physician Contacted: Miko Saldivar Disposition Discussed With : Miko Saldivar Doctor Will See Patient In The: Hospital Counseled Patient/Family Regarding: Diagnosis - Disposition Disposition: HOSPITALIZED Disposition Time: 01:42 Condition: STABLE - POA Present On Arrival: None - Clinical Impression Clinical Impression: Renal insufficiency, Chest pain, Pneumonia, CHF (congestive heart failure) - Scribe Statement The provider has reviewed the documentation as recorded by the Scribe Rose Tapia All medical record entries made by the Scribe were at my direction and personally dictated by me. I have reviewed the chart and agree that the record accurately reflects my personal performance of the history, physical exam, medical decision making, and the department course for this patient. I have also personally directed, reviewed, and agree with the discharge instructions and disposition.
[2017-06-07 23:25] LABS: BASO # 0.1 K/uL (0.0-0.2); BASO % 1.1 % (0.0-2.0); EOS # 0.4 K/uL (0.0-0.7); EOS % 6.3 % (0.0-4.0); HEMATOCRIT 30.5 % (34.0-47.0); LYMPH % 28.6 % (20.0-40.0); MEAN CORPUSCULAR HEMOGLOBIN 27.1 pg (27.0-31.0); MEAN CORPUSCULAR HGB CONC 31.6 g/dL (33.0-37.0); MEAN PLATELET VOLUME 8.5 fL (7.2-11.7); MONO # 0.5 K/uL (0.0-0.8); MONO % 7.7 % (0.0-10.0); RED CELL DISTRIBUTION WIDTH 15.5 % (11.5-14.5); WHITE BLOOD COUNT 6.8 K/uL (4.8-10.8)
[2017-06-07 23:33] LABS: CHLORIDE 100 mmol/L (98-107); INR 0.9; POTASSIUM 5.2 mmol/L (3.6-5.2); SODIUM 135 mmol/L (132-148)
[2017-06-07 23:35] LABS: BILIRUBIN,TOTAL 0.4 mg/dL (0.2-1.3); GFR AFRICAN-AMERICAN 19
[2017-06-07 23:36] LABS: ALB/GLOB RATIO 1.1 (1.0-2.1); ALKALINE PHOSPHATASE 363 U/L (38-126); ALT/SGPT 31 U/L (9-52); AST/SGOT 36 U/L (14-36); BLOOD UREA NITROGEN 42 mg/dL (7-17); CARBON DIOXIDE 25 mmol/L (22-30); GLUCOSE,RANDOM 351 mg/dL (65-105); TOTAL PROTEIN 6.6 g/dL (6.3-8.3)
[2017-06-07] MEDS ORDERED: Sodium Chloride 0.9% 1,000 ML ONE (23:36)
[2017-06-08 00:33] LABS: ABG ALLEN TEST POS; ARTERIAL BLOOD HGB O2 SAT 95.8 % (95.0-98.0); CARBOXYHEMOGLOBIN 0.2 % (0.5-1.5); DRAW SITE R RAD; HHB 3.8 % (0.0-5.0); METHEMOGLOBIN 0.2 % (0.0-3.0)
--- NOTE | 2017-06-08 01:28 | CT ---
EXAM: CT Chest Without Intravenous Contrast EXAM DATE/TIME: 06/07/2017 11:48 PM CLINICAL HISTORY: 51 years old, female; Pain; Chest pain; Other: B/l posterior pain; Additional info: Bilateral posterior chest pain TECHNIQUE: Axial computed tomography images of the chest without intravenous contrast. All CT scans at this facility use one or more dose reduction techniques, viz.: automated exposure control; ma/kV adjustment per patient size (including targeted exams where dose is matched to indication; i.e. head); or iterative reconstruction technique. Coronal and sagittal reformatted images were created and reviewed. COMPARISON: CT - CHEST W/O CONTRAST 04/30/2017 11:30:46 PM FINDINGS: Artifacts: Motion artifact degrades image quality. Lungs and pleural spaces: Trachea and main bronchi are patent. There are bilateral asymmetric groundglass opacities. There is no lobar or segmental consolidation. There are no effusions. Heart and vasculature: The heart is enlarged. There are coronary calcifications. There is a small pericardial effusion. Motion limits evaluation of the aorta and main pulmonary artery.There are vascular calcifications. Mediastinum: Esophagus is partially distended with air. There is a hiatal hernia. There are shotty mediastinal nodes. There is bilateral hilar prominence vascular versus adenopathy. Thyroid: Thyroid is only partially imaged. Bones/joints: There are no acute displaced rib fractures. Vertebral bodies are normal in height. Soft tissues: unremarkable Upper abdomen: There are no acute abnormalities in the visualized portion of the abdomen. IMPRESSION: Cardiomegaly and small pericardial effusion; bilateral hilar prominence vascular versus adenopathy; asymmetric groundglass opacities pneumonia and/or edema; no acute displaced rib fractures Additional findings as described above.
[2017-06-08] MEDS ORDERED: cefTRIAXone IV 1 gm in Dextros 1 GM in Dextrose 5% In Water 50 ML IVPB STA (01:32)
[2017-06-08] MEDS ORDERED: Azithromycin 500mg/250ML NS 500 MG/250 ML BAG IV STA (01:32)
[2017-06-08] MEDS ORDERED: cefTRIAXone IV 1 gm in Dextros 50 ML IVPB ONE (02:00)
[2017-06-08] MEDS ORDERED: Albuterol HFA 90 mcg/actuation (8 g) INH PRN (02:02)
[2017-06-08] MEDS ORDERED: PROMETHAZINE HCL PO PRN (02:02)
[2017-06-08] MEDS ORDERED: CODEINE PO PRN (02:02)
[2017-06-08] MEDS ORDERED: Azithromycin 500mg/250ML NS 500 MG/250 ML BAG IVPB ONE (02:26)
[2017-06-08 03:03] VITALS: PULSE 77
[2017-06-08 03:28] VITALS: BP 117/76; RESP 20; TEMP 98.8; O2SAT 98
[2017-06-08] MEDS ORDERED: MethylPREDNISolone 40 mg Vial IVP SCH (06:00)
[2017-06-08] MEDS ORDERED: Albuterol-Ipratrop 3 mg / 0.5 (3 ml) UD INH SCH (08:00)
[2017-06-08] MEDS ORDERED: Fluticasone-Salmeterol 250-50mcg Diskus IH SCH (10:00)
[2017-06-08] MEDS ORDERED: (Novolog Mix 70/30) Insulin Aspart/Insulin Aspar 100 units/ml SC SCH (10:00)
[2017-06-08] MEDS ORDERED: Bisacodyl 5mg EC Tab PO SCH (10:00)
[2017-06-08] MEDS ORDERED: Moxifloxacin IV 400mg/250ml NS 400 MG/250 ML BAG IVPB SCH (10:00)
[2017-06-08] MEDS ORDERED: ATORVASTATIN CALCIUM 40 MG PO SCH (10:00)
[2017-06-08] MEDS ORDERED: Enoxaparin 40 mg Syringe SC SCH (10:00)
[2017-06-08] MEDS ORDERED: Pantoprazole 40 mg EC Tab PO SCH (10:00)
--- NOTE | 2017-06-08 13:22 | RAD ---
PROCEDURE: CHEST RADIOGRAPH, 1 VIEW HISTORY: chest pain COMPARISON: 05/10/2017 FINDINGS: LUNGS: Clear. PLEURA: No pneumothorax or pleural fluid seen. CARDIOVASCULAR: Normal. OSSEOUS STRUCTURES: No significant abnormalities. VISUALIZED UPPER ABDOMEN: Normal. OTHER FINDINGS: None. IMPRESSION: No active disease.
[2017-06-08] MEDS ORDERED: (Lantus) Insulin Glargine, Recombinant SC SCH (22:00)
--- NOTE | 2017-06-10 12:26 | CARD ---
APPROVED REPORT EKG Measurement Heart [id number] <Conclusion> Normal sinus rhythm Normal ECG
== END 2017-06-08 03:55 | disposition left against medical advice (07) ==
LOC: C.ER 22:20 → UNDOADMIN 06-08 01:49 → C.9E 06-08 01:49 → UNDODISIN 06-08 03:55 → C.ER 06-08 03:55
DX: R07.9 Chest pain, unspecified (principal); I13.0 Hypertensive heart and chronic kidney disease with heart failure and stage 1 through stage 4 chronic kidney disease, or unspecified chronic kidney disease; E11.22 Type 2 diabetes mellitus with diabetic chronic kidney disease; I50.9 Heart failure, unspecified; E78.00 Pure hypercholesterolemia, unspecified; F31.9 Bipolar disorder, unspecified; N18.9 Chronic kidney disease, unspecified; J44.9 Chronic obstructive pulmonary disease, unspecified
CPT/HCPCS: 36415; 71010; 71250; 80053; 82803; 83880; 84484; 85025; 85378; 85610; 85730; 87040; 93005; 96365; 96375; 99285; J0456; J0696; J1885; J1940; J7040

== ENCOUNTER 2017-07-07 20:38 | Inpatient (IN) | payer MEDICARE, OTHER ==
[2017-07-07 20:39] VITALS: BMI 34.3
[2017-07-07 23:06] LABS: BASO % 0.2 % (0.0-2.0); EOS # 0.3 K/uL (0.0-0.7); EOS % 3.9 % (0.0-4.0); HEMATOCRIT 29.1 % (34.0-47.0); LYMPH # 2.3 K/uL (1.0-4.3); LYMPH % 31.7 % (20.0-40.0); MEAN CELL VOLUME 86.5 fL (81.0-99.0); MEAN CORPUSCULAR HEMOGLOBIN 28.7 pg (27.0-31.0); MEAN CORPUSCULAR HGB CONC 33.2 g/dL (33.0-37.0); MEAN PLATELET VOLUME 8.1 fL (7.2-11.7); MONO # 0.7 K/uL (0.0-0.8); MONO % 9.4 % (0.0-10.0); NRBC % 0.1 % (0.0-2.0); RED CELL DISTRIBUTION WIDTH 15.7 % (11.5-14.5); WHITE BLOOD COUNT 7.1 K/uL (4.8-10.8)
[2017-07-07 23:29] LABS: CHLORIDE 100 mmol/L (98-107)
[2017-07-07 23:30] LABS: POTASSIUM 4.3 mmol/L (3.6-5.2); SODIUM 133 mmol/L (132-148)
[2017-07-07 23:32] LABS: ALKALINE PHOSPHATASE 310 U/L (38-126); ALT/SGPT 53 U/L (9-52); AST/SGOT 44 U/L (14-36); BILIRUBIN,TOTAL 0.4 mg/dL (0.2-1.3); BLOOD UREA NITROGEN 35 mg/dL (7-17); CARBON DIOXIDE 24 mmol/L (22-30); GFR AFRICAN-AMERICAN 29; GLUCOSE,RANDOM 108 mg/dL (65-105); TOTAL PROTEIN 6.7 g/dL (6.3-8.3)
[2017-07-07 23:33] LABS: CALCIUM 8.2 mg/dl (8.6-10.4)
[2017-07-07 23:52] LABS: RBC URINE 1 /hpf (0-3); TRANSITIONAL EPITHIAL 1 /hpf (0-3); URINE BACTERIA OCC (<OCC); URINE BILIRUBIN NEGATIVE (NEGATIVE); URINE BLOOD NEGATIVE (NEGATIVE); URINE COLOR Straw (YELLOW); URINE GLUCOSE (UA) NORMAL (Normal); URINE KETONE NEGATIVE (NEGATIVE); URINE LEUKOCYTE ESTERASE 2+ Leu/uL (Negative); URINE PROTEIN 2+ mg/dL (NEGATIVE); URINE UROBILINOGEN NORMAL mg/dL (0.2-1.0); WBC URINE 13 /hpf (0-5)
--- NOTE | 2017-07-08 | C.PDOC ---
Time Seen by Provider: 07/07/17 21:55 Chief Complaint (Nursing): Shortness Of Breath History Per: Patient, Family Onset/Duration Of Symptoms: Days, Gradual Current Symptoms Are (Timing): Worse Current Respiratory Medications: See Home Med List Severity: Moderate Associated Symptoms: Ankle/Leg Swelling Reports Recently: Treated By A Physician Additional History Per: Prior Records Past Medical History Reviewed: Historical Data, Nursing Documentation, Vital Signs Vital Signs: Last Vital Signs Temp 98.0 F 07/07/17 21:14 Pulse 74 07/07/17 21:14 Resp 18 07/07/17 23:06 BP 131/81 07/07/17 21:14 Pulse Ox 93 L 07/07/17 21:14 - Medical History PMH: Anemia, Anxiety, Asthma, Bipolar Disorder, COPD, Depression, Diabetes, HTN , Hypercholesterolemia, Pneumonia, Chronic Kidney Disease Surgical History: - [facility] Procedures ASSISTANCE WITH RESPIRATORY VENTILATION, 24-96 HRS, CPAP (11/30/15) INSERT INDWELLING CATH (07/28/14) Family History: States: Unknown Family Hx, SD, CAD, Hypertension - Social History Hx Tobacco Use: No Hx Alcohol Use: No Hx Substance Use: No - Immunization History Hx Tetanus Toxoid Vaccination: No Hx Influenza Vaccination: Yes Hx Pneumococcal Vaccination: Yes Review Of Systems Except As Marked, All Systems Reviewed And Found Negative. Constitutional: Negative for: Fever Cardiovascular: Positive for: Edema Respiratory: Positive for: Shortness of Breath Gastrointestinal: Negative for: Vomiting Musculoskeletal: Negative for: Neck Pain Skin: Negative for: Rash Neurological: Negative for: Weakness, Numbness Physical Exam - Physical Exam Appears: Chronically Ill Skin: Normal Color, Warm, Dry Head: Atraumatic, Normacephalic Eye(s): bilateral: PERRL, EOMI Neck: Normal ROM, Supple Cardiovascular: Rhythm Regular Respiratory: No Accessory Muscle Use, Rales Gastrointestinal/Abdominal: Soft Extremity: Normal ROM, Pedal Edema Neurological/Psych: Oriented x3, Normal Motor, Normal Sensation ED Course And Treatment - Laboratory Results Result Diagrams: 07/07/17 23:03 07/07/17 23:03 Interpretation Of Abnormal: Anemia. Renal insufficiency. ECG: Interpreted By Me, Viewed By Me ECG Rhythm: Sinus Rhythm, Nonspecific Changes Rate From EC O2 Sat by Pulse Oximetry: 93 Pulse Ox Interpretation: Abnormal Interpretation Of Abnormal: Hypoxia on RA - Radiology CXR: Interpreted by Me, Viewed By Me CXR Interpretation: Yes: Other (Pulmonary edema) Progress - Interventions Interventions:: Observation, Oxygen - Medications Administered Oral: Aspirin Intravenous: Diuretic - Data Reviewed Data Reviewed: Lab, Diagnostic imaging, EKG, Old records - Patient Status Patient status: Partially improved - Continuity of Care Discussed patient case with:: Patient, Family-HIPPA compliant, ED Nurse, Covering for PMD - Patient Plan Patient Plan: Admission, Telemetry Disposition Discussed With DrRadha: Miko Saldivar Comment: He accepted pt on his service. Doctor Will See Patient In The: Hospital Counseled Patient/Family Regarding: Studies Performed, Diagnosis - Disposition Disposition: HOSPITALIZED Disposition Time: 00:03 Condition: GUARDED - Clinical Impression Clinical Impression: Anasarca, Pulmonary edema
[2017-07-08] MEDS ORDERED: CODEINE PO PRN (06:41)
[2017-07-08] MEDS ORDERED: Albuterol HFA 90 mcg/actuation (8 g) INH PRN ×2 (06:41→07:45)
[2017-07-08] MEDS ORDERED: cefTRIAXone IV 1 gm in Dextros 50 ML IVPB ONE (06:41)
[2017-07-08] MEDS ORDERED: PROMETHAZINE HCL PO PRN (06:41)
[2017-07-08] MEDS ORDERED: Albuterol-Ipratrop 3 mg / 0.5 (3 ml) UD ONE ×2 (06:42→07:56)
[2017-07-08] MEDS ORDERED: MethylPREDNISolone 40 mg Vial ONE (06:44)
[2017-07-08] MEDS: Albuterol-Ipratrop 3 mg / 0.5 (3 ml) UD INH SCH ×2 (06:45→19:27)
[2017-07-08] MEDS ORDERED: cefTRIAXone IV 1 gm in Dextros 1 GM in Dextrose 5% In Water 50 ML IVPB STA (06:50)
[2017-07-08] MEDS ORDERED: Azithromycin 500mg/250ML NS 500 MG/250 ML BAG IVPB ONE (07:23)
[2017-07-08] MEDS: Azithromycin 500mg/250ML NS 500 MG/250 ML BAG IVPB SCH (07:29)
[2017-07-08] MEDS ORDERED: Promethazine/Cod 6.25mg-10mg/5ml Syr UD PO PRN (07:45)
[2017-07-08] MEDS ORDERED: cefTRIAXone IV 1 gm in Dextros 50 ML IVPB SCH (08:00)
[2017-07-08] MEDS: Fluticasone-Salmeterol 250-50mcg Diskus IH SCH ×2 (08:18→19:30)
[2017-07-08] MEDS ORDERED: (Novolin R) Insulin Human Regular 100 units/ml vial ONE ×2 (08:27→12:56)
[2017-07-08] MEDS: (Novolin R) Insulin Human Regular 100 units/ml vial SC SCH ×4 (08:28→21:42)
--- NOTE | 2017-07-08 09:23 | RAD ---
PROCEDURE: CHEST RADIOGRAPH, 1 VIEW HISTORY: SOB COMPARISON: 06/07/2017 FINDINGS: LUNGS: Examination limited due to patient body habitus. Opacity at right lung base new since prior examination. Possible pneumonia. Followup advised. PLEURA: No pneumothorax or pleural fluid seen. CARDIOVASCULAR: Normal. OSSEOUS STRUCTURES: No significant abnormalities. VISUALIZED UPPER ABDOMEN: Normal. OTHER FINDINGS: None. IMPRESSION: Opacity at right lung base. Possible pneumonia. Followup advised. Technically limited examination.
[2017-07-08] MEDS: Pantoprazole 40 mg EC Tab PO SCH (09:59)
[2017-07-08] MEDS: (Novolog Mix 70/30) Insulin Aspart/Insulin Aspar 100 units/ml SC SCH ×2 (09:59→17:45)
[2017-07-08] MEDS: Bisacodyl 5mg EC Tab PO SCH (09:59)
[2017-07-08] MEDS ORDERED: Enoxaparin 40 mg Syringe SC SCH (10:00)
--- NOTE | 2017-07-08 13:48 | CP.PCM.CON ---
Past Patient History - Infectious Disease Hx of Infectious Diseases: None - Past Medical History & Family History Past Medical History?: Yes - Past Social History Smoking Status: Never Smoked - CARDIAC Hx Hypercholesterolemia: Yes Hx Hypertension: Yes - PULMONARY Hx Asthma: Yes Hx Chronic Obstructive Pulmonary Disease (COPD): Yes Hx Pneumonia: Yes - NEUROLOGICAL Hx Neurological Disorder: No - HEENT Hx HEENT Problems: Yes Hx Cataracts: Yes - RENAL Hx Chronic Kidney Disease: Yes - ENDOCRINE/METABOLIC Hx Endocrine Disorders: Yes Hx Diabetes Mellitus Type 2: Yes - HEMATOLOGICAL/ONCOLOGICAL Hx Anemia: Yes - INTEGUMENTARY Hx Dermatological Problems: No - MUSCULOSKELETAL/RHEUMATOLOGICAL Hx Falls: No - GASTROINTESTINAL Hx Gastrointestinal Disorders: No - GENITOURINARY/GYNECOLOGICAL Hx Genitourinary Disorders: No - PSYCHIATRIC Hx Anxiety: Yes Hx Bipolar Disorder: Yes Hx Depression: Yes Hx Substance Use: No - SURGICAL HISTORY Hx Surgeries: Yes Hx Section: Yes (x1) Hx Eye Surgery: Yes (LEFT EYE) - ANESTHESIA Hx Anesthesia: Yes Hx Anesthesia Reactions: No Hx Malignant Hyperthermia: No Meds Allergies/Adverse Reactions: Allergies Allergy/AdvReac Type Severity Reaction Status Date / Time shellfish derived Allergy Verified 06/07/17 22:26 - Medications Medications: Current Medications Albuterol (Ventolin Hfa 90 Mcg/Actuation (8 G)) 2 puff INH RQ6 PRN PRN Reason: Shortness of Breath Albuterol/Ipratropium (Duoneb 3 Mg/0.5 Mg (3 Ml) Ud) 3 ml INH RQ6 [facility] Last Admin: 07/08/17 06:45 Dose: 3 ml Amlodipine Besylate (Norvasc) 10 mg PO DAILY [facility] Last Admin: 07/08/17 09:59 Dose: 10 mg Bisacodyl (Dulcolax) 5 mg PO DAILY [facility] Last Admin: 07/08/17 09:59 Dose: 5 mg Carvedilol (Coreg) 6.25 mg PO BID [facility] Last Admin: 07/08/17 09:59 Dose: 6.25 mg Enoxaparin Sodium (Lovenox) 40 mg SC DAILY [facility] Azithromycin (Zithromax 500mg In Ns Addvantage) 500 mg in 250 mls @ 167 mls/hr IVPB Q24H [facility] Last Admin: 07/08/17 07:29 Dose: 167 mls/hr Ceftriaxone Sodium (Rocephin Iv 1 Gm Duplex) 50 mls @ 100 mls/hr IVPB DAILY@ 0830 [facility] Insulin Aspart (Novolog Mix 70/30 (70/30 Units/Ml)) 42 units SC BID [facility] Last Admin: 07/08/17 09:59 Dose: 42 units Insulin Glargine (Lantus) 15 unit SC HS [facility] Insulin Human Regular (Novolin R) 1 unit SC ACHS [facility] PRN Reason: Protocol Last Admin: 07/08/17 11:34 Dose: 1 unit Lisinopril (Zestril) 10 mg PO DAILY [facility] Last Admin: 07/08/17 10:00 Dose: 10 mg Methylprednisolone (Solu-Medrol) 60 mg IV Q8H [facility] Last Admin: 07/08/17 07:02 Dose: 60 mg Montelukast Sodium (Singulair) 10 mg PO HS [facility] Pantoprazole Sodium (Protonix Ec Tab) 40 mg PO DAILY [facility] Last Admin: 07/08/17 09:59 Dose: 40 mg Promethazine HCl/Codeine (Phenergan/Codeine Oral Syrup) 5 ml PO Q4 PRN PRN Reason: Cough Rosuvastatin Calcium (Crestor) 20 mg PO HS [facility] Fluticasone/Salmeterol (Advair Diskus 250/50) 1 puff IH RQ12 [facility] Last Admin: 07/08/17 08:18 Dose: 1 puff Tramadol HCl (Ultram) 50 mg PO Q6H PRN PRN Reason: Pain, moderate (4-7) Last Admin: 07/08/17 07:06 Dose: 50 mg Results - Vital Signs Recent Vital Signs: Last Vital Signs Temp 97.7 F 07/08/17 13:34 Pulse 81 07/08/17 13:34 Resp 19 07/08/17 13:34 BP 138/80 07/08/17 13:34 Pulse Ox 100 07/08/17 13:34 - Labs Result Diagrams: 07/07/17 23:03 07/07/17 23:03 Labs: Laboratory Results - last 24 hr 07/07/17 07/07/17 07/07/17 22:25 23:03 23:03 WBC 7.1 RBC 3.36 L Hgb 9.7 L Hct 29.1 L MCV 86.5 MCH 28.7 MCHC 33.2 RDW 15.7 H Plt Count 424 H MPV 8.1 Neut % (Auto) 54.8 Lymph % (Auto) 31.7 [place] % (Auto) 9.4 Eos % (Auto) 3.9 Baso % (Auto) 0.2 Neut # 3.9 Lymph # 2.3 [place] # 0.7 Eos # 0.3 Baso # 0.0 Sodium 133 Potassium 4.3 Chloride 100 Carbon Dioxide 24 Anion Gap 14 BUN 35 H Creatinine 2.2 H Est GFR ( Amer) 29 Est GFR (Non-Af Amer) 24 POC Glucose (mg/dL) 110 Random Glucose 108 H Calcium 8.2 L Total Bilirubin 0.4 AST 44 H D ALT 53 H D Alkaline Phosphatase 310 H Total Creatine Kinase 71 CK-MB (Mass) 0.77 Troponin I, Quant < 0.0120 NT-Pro-B Natriuret Pep 460 Total Protein 6.7 Albumin 3.4 L Globulin 3.3 Albumin/Globulin Ratio 1.0 Urine Color Urine Clarity Urine pH Ur Specific [place] Urine Protein Urine Glucose (UA) Urine Ketones Urine Blood Urine Nitrate Urine Bilirubin Urine Urobilinogen Ur Leukocyte Esterase Urine WBC (Auto) Urine RBC (Auto) Ur Squamous Epith Cells Ur Transition Epith Cell Urine Bacteria 07/07/17 07/08/17 07/08/17 23:55 07:24 11:32 WBC RBC Hgb Hct MCV MCH MCHC RDW Plt Count MPV Neut % (Auto) Lymph % (Auto) [place] % (Auto) Eos % (Auto) Baso % (Auto) Neut # Lymph # [place] # Eos # Baso # Sodium Potassium Chloride Carbon Dioxide Anion Gap BUN Creatinine Est GFR ( Amer) Est GFR (Non-Af Amer) POC Glucose (mg/dL) 285 H 235 H Random Glucose Calcium Total Bilirubin AST ALT Alkaline Phosphatase Total Creatine Kinase CK-MB (Mass) Troponin I, Quant NT-Pro-B Natriuret Pep Total Protein Albumin Globulin Albumin/Globulin Ratio Urine Color Straw Urine Clarity Clear Urine pH 5.0 Ur Specific [place] 1.006 Urine Protein 2+ H Urine Glucose (UA) Normal Urine Ketones Negative Urine Blood Negative Urine Nitrate Negative Urine Bilirubin Negative Urine Urobilinogen Normal Ur Leukocyte Esterase 2+ H Urine WBC (Auto) 13 H Urine RBC (Auto) 1 Ur Squamous Epith Cells 2 Ur Transition Epith Cell 1 Urine Bacteria Occ H
--- NOTE | 2017-07-08 16:10 | CP.PCM.HP ---
Past Patient History - Infectious Disease Hx of Infectious Diseases: None - Past Medical History & Family History Past Medical History?: Yes - Past Social History Smoking Status: Never Smoked - CARDIAC Hx Hypercholesterolemia: Yes Hx Hypertension: Yes - PULMONARY Hx Asthma: Yes Hx Chronic Obstructive Pulmonary Disease (COPD): Yes Hx Pneumonia: Yes - NEUROLOGICAL Hx Neurological Disorder: No - HEENT Hx HEENT Problems: Yes Hx Cataracts: Yes - RENAL Hx Chronic Kidney Disease: Yes - ENDOCRINE/METABOLIC Hx Endocrine Disorders: Yes Hx Diabetes Mellitus Type 2: Yes - HEMATOLOGICAL/ONCOLOGICAL Hx Anemia: Yes - INTEGUMENTARY Hx Dermatological Problems: No - MUSCULOSKELETAL/RHEUMATOLOGICAL Hx Falls: No - GASTROINTESTINAL Hx Gastrointestinal Disorders: No - GENITOURINARY/GYNECOLOGICAL Hx Genitourinary Disorders: No - PSYCHIATRIC Hx Anxiety: Yes Hx Bipolar Disorder: Yes Hx Depression: Yes Hx Substance Use: No - SURGICAL HISTORY Hx Surgeries: Yes Hx Section: Yes (x1) Hx Eye Surgery: Yes (LEFT EYE) - ANESTHESIA Hx Anesthesia: Yes Hx Anesthesia Reactions: No Hx Malignant Hyperthermia: No Meds Allergies/Adverse Reactions: Allergies Allergy/AdvReac Type Severity Reaction Status Date / Time shellfish derived Allergy Verified 06/07/17 22:26 Physical Exam - Constitutional Appears: Well - Head Exam Head Exam: ATRAUMATIC, NORMAL INSPECTION, NORMOCEPHALIC - Eye Exam Eye Exam: EOMI, Normal appearance, PERRL Pupil Exam: NORMAL ACCOMODATION, PERRL - ENT Exam ENT Exam: Mucous Membranes Moist, Normal Exam - Neck Exam Neck exam: Positive for: Normal Inspection - Respiratory Exam Respiratory Exam: Decreased Breath Sounds - Cardiovascular Exam Cardiovascular Exam: REGULAR RHYTHM, +S1, +S2 - GI/Abdominal Exam GI & Abdominal Exam: Diminished Bowel Sounds, Soft - Rectal Exam Rectal Exam: Deferred Results - Vital Signs Recent Vital Signs: Last Vital Signs Temp 97.5 F L 07/08/17 14:08 Pulse 83 07/08/17 14:08 Resp 16 07/08/17 14:08 BP 156/80 H 07/08/17 14:08 Pulse Ox 97 07/08/17 14:08 - Labs Result Diagrams: 07/07/17 23:03 07/07/17 23:03 Labs: Laboratory Results - last 24 hr 07/07/17 07/07/17 07/07/17 22:25 23:03 23:03 WBC 7.1 RBC 3.36 L Hgb 9.7 L Hct 29.1 L MCV 86.5 MCH 28.7 MCHC 33.2 RDW 15.7 H Plt Count 424 H MPV 8.1 Neut % (Auto) 54.8 Lymph % (Auto) 31.7 [place] % (Auto) 9.4 Eos % (Auto) 3.9 Baso % (Auto) 0.2 Neut # 3.9 Lymph # 2.3 [place] # 0.7 Eos # 0.3 Baso # 0.0 Sodium 133 Potassium 4.3 Chloride 100 Carbon Dioxide 24 Anion Gap 14 BUN 35 H Creatinine 2.2 H Est GFR ( Amer) 29 Est GFR (Non-Af Amer) 24 POC Glucose (mg/dL) 110 Random Glucose 108 H Calcium 8.2 L Total Bilirubin 0.4 AST 44 H D ALT 53 H D Alkaline Phosphatase 310 H Total Creatine Kinase 71 CK-MB (Mass) 0.77 Troponin I, Quant < 0.0120 NT-Pro-B Natriuret Pep 460 Total Protein 6.7 Albumin 3.4 L Globulin 3.3 Albumin/Globulin Ratio 1.0 Urine Color Urine Clarity Urine pH Ur Specific [place] Urine Protein Urine Glucose (UA) Urine Ketones Urine Blood Urine Nitrate Urine Bilirubin Urine Urobilinogen Ur Leukocyte Esterase Urine WBC (Auto) Urine RBC (Auto) Ur Squamous Epith Cells Ur Transition Epith Cell Urine Bacteria 07/07/17 07/08/17 07/08/17 23:55 07:24 11:32 WBC RBC Hgb Hct MCV MCH MCHC RDW Plt Count MPV Neut % (Auto) Lymph % (Auto) [place] % (Auto) Eos % (Auto) Baso % (Auto) Neut # Lymph # [place] # Eos # Baso # Sodium Potassium Chloride Carbon Dioxide Anion Gap BUN Creatinine Est GFR ( Amer) Est GFR (Non-Af Amer) POC Glucose (mg/dL) 285 H 235 H Random Glucose Calcium Total Bilirubin AST ALT Alkaline Phosphatase Total Creatine Kinase CK-MB (Mass) Troponin I, Quant NT-Pro-B Natriuret Pep Total Protein Albumin Globulin Albumin/Globulin Ratio Urine Color Straw Urine Clarity Clear Urine pH 5.0 Ur Specific [place] 1.006 Urine Protein 2+ H Urine Glucose (UA) Normal Urine Ketones Negative Urine Blood Negative Urine Nitrate Negative Urine Bilirubin Negative Urine Urobilinogen Normal Ur Leukocyte Esterase 2+ H Urine WBC (Auto) 13 H Urine RBC (Auto) 1 Ur Squamous Epith Cells 2 Ur Transition Epith Cell 1 Urine Bacteria Occ H
--- NOTE | 2017-07-08 16:36 | CP.PCM.PN ---
Subjective - Date & Time of Evaluation Date of Evaluation: 07/08/17 Time of Evaluation: 14:00 - Subjective Subjective: clinically same Objective - Vital Signs/Intake and Output Vital Signs (last 24 hours): Temp Pulse Resp BP Pulse Ox 97.5 F L 83 16 156/80 H 97 07/08/17 14:08 07/08/17 14:08 07/08/17 14:08 07/08/17 14:08 07/08/17 14:08 Intake and Output: 07/08/17 07/08/17 06:59 18:59 Output Total 2200 Balance -2200 - Medications Medications: Current Medications Albuterol (Ventolin Hfa 90 Mcg/Actuation (8 G)) 2 puff INH RQ6 PRN PRN Reason: Shortness of Breath Albuterol/Ipratropium (Duoneb 3 Mg/0.5 Mg (3 Ml) Ud) 3 ml INH RQ6 [facility] Last Admin: 07/08/17 06:45 Dose: 3 ml Amlodipine Besylate (Norvasc) 10 mg PO DAILY [facility] Last Admin: 07/08/17 09:59 Dose: 10 mg Bisacodyl (Dulcolax) 5 mg PO DAILY [facility] Last Admin: 07/08/17 09:59 Dose: 5 mg Carvedilol (Coreg) 6.25 mg PO BID [facility] Last Admin: 07/08/17 09:59 Dose: 6.25 mg Enoxaparin Sodium (Lovenox) 30 mg SC DAILY [facility] Azithromycin (Zithromax 500mg In Ns Addvantage) 500 mg in 250 mls @ 167 mls/hr IVPB Q24H [facility] Last Admin: 07/08/17 07:29 Dose: 167 mls/hr Ceftriaxone Sodium (Rocephin Iv 1 Gm Duplex) 50 mls @ 100 mls/hr IVPB DAILY@ 0830 [facility] Insulin Aspart (Novolog Mix 70/30 (70/30 Units/Ml)) 42 units SC BID [facility] Last Admin: 07/08/17 09:59 Dose: 42 units Insulin Glargine (Lantus) 15 unit SC HS [facility] Insulin Human Regular (Novolin R) 1 unit SC ACHS [facility] PRN Reason: Protocol Last Admin: 07/08/17 11:34 Dose: 1 unit Lisinopril (Zestril) 10 mg PO DAILY [facility] Last Admin: 07/08/17 10:00 Dose: 10 mg Methylprednisolone (Solu-Medrol) 60 mg IV Q8H [facility] Last Admin: 07/08/17 15:29 Dose: 60 mg Montelukast Sodium (Singulair) 10 mg PO HS [facility] Pantoprazole Sodium (Protonix Ec Tab) 40 mg PO DAILY [facility] Last Admin: 07/08/17 09:59 Dose: 40 mg Promethazine HCl/Codeine (Phenergan/Codeine Oral Syrup) 5 ml PO Q4 PRN PRN Reason: Cough Rosuvastatin Calcium (Crestor) 10 mg PO HS [facility] Fluticasone/Salmeterol (Advair Diskus 250/50) 1 puff IH RQ12 [facility] Last Admin: 07/08/17 08:18 Dose: 1 puff Tramadol HCl (Ultram) 50 mg PO Q6H PRN PRN Reason: Pain, moderate (4-7) Last Admin: 07/08/17 07:06 Dose: 50 mg - Labs Labs: 07/07/17 23:03 07/07/17 23:03 - Constitutional Appears: Well - Head Exam Head Exam: ATRAUMATIC, NORMAL INSPECTION, NORMOCEPHALIC - Eye Exam Eye Exam: EOMI, Normal appearance, PERRL Pupil Exam: NORMAL ACCOMODATION, PERRL - ENT Exam ENT Exam: Mucous Membranes Moist, Normal Exam - Neck Exam Neck Exam: Full ROM, Normal Inspection. absent: Lymphadenopathy - Respiratory Exam Respiratory Exam: Decreased Breath Sounds - Cardiovascular Exam Cardiovascular Exam: REGULAR RHYTHM, +S1, +S2 - GI/Abdominal Exam GI & Abdominal Exam: Soft, Diminished Bowel Sounds - Rectal Exam Rectal Exam: Deferred
[2017-07-08] MEDS: MethylPREDNISolone 40 mg Vial IV SCH (20:01)
--- NOTE | 2017-07-08 21:37 | CARD ---
APPROVED REPORT EKG Measurement Heart [id number] <Conclusion> Normal sinus rhythm Rightward axis Borderline ECG
[2017-07-08] MEDS: (Lantus) Insulin Glargine, Recombinant SC SCH (21:50)
[2017-07-09] MEDS: Albuterol-Ipratrop 3 mg / 0.5 (3 ml) UD INH SCH ×4 (01:12→19:12)
[2017-07-09] MEDS: MethylPREDNISolone 40 mg Vial IV SCH ×3 (01:59→18:48)
[2017-07-09] MEDS ORDERED: Azithromycin 500 MG in Sodium Chloride 0.9% 250 ML IVPB SCH (06:00)
[2017-07-09] MEDS: Azithromycin 500mg/250ML NS 500 MG/250 ML BAG IVPB SCH (06:29)
[2017-07-09] MEDS: (Novolin R) Insulin Human Regular 100 units/ml vial SC SCH ×4 (07:45→22:34)
[2017-07-09] MEDS: cefTRIAXone IV 1 gm in Dextros 50 ML IVPB SCH (08:29)
[2017-07-09] MEDS: Fluticasone-Salmeterol 250-50mcg Diskus IH SCH ×2 (08:35→19:12)
[2017-07-09] MEDS: Enoxaparin 30 mg Syringe SC SCH (09:33)
[2017-07-09] MEDS: Bisacodyl 5mg EC Tab PO SCH (09:33)
[2017-07-09] MEDS: (Novolog Mix 70/30) Insulin Aspart/Insulin Aspar 100 units/ml SC SCH ×2 (09:33→18:47)
[2017-07-09] MEDS: Pantoprazole 40 mg EC Tab PO SCH (09:33)
--- NOTE | 2017-07-09 15:31 | CON ---
CARDIOLOGY CONSULTATION REASON FOR CONSULTATION: Congestive heart failure. HISTORY OF PRESENT ILLNESS: The patient is a 51-year-old, morbidly obese female, who has a history of diabetes mellitus, hypertension, diabetic retinopathy, presented with shortness of breath and worsening of her leg swelling. The patient denies any history of heart echo, coronary intervention in the past. SOCIAL HISTORY: Nonsmoker, nondrinker. MEDICATIONS: Advair 1 puff twice a day, Coreg 6.25 mg twice a day, Crestor 10 mg once a day, albuterol inhaler q. 6 hours p.r.n., Lovenox 30 mg once a day, Norvasc 10 mg once a day, Phenergan With Codeine 5 mL q. 4 hours p.r.n., Protonix 40 mg orally daily, Singulair 10 mg at bedtime, Solu-Medrol 60 mg intravenously q. 8 hours, Zestril 10 mg p.o. daily and Zithromax 500 mg intravenously daily. PHYSICAL EXAMINATION: GENERAL: The patient is a middle-aged female, significantly obese, does not appear to be in acute respiratory distress. VITAL SIGNS: Blood pressure 141/71, heart 92, temperature 98 and respiration 20. HEENT: Poor visual acuity with pale conjunctivae. CHEST: Absent breath sounds over the bases and diffuse bilateral rhonchi. HEART: S1 and S2 regular. ABDOMEN: Soft. EXTREMITIES: 2 to 3+ pitting edema. LABORATORY DATA: Hemoglobin and hematocrit of 9.7 and 29.1; white count 7.1; platelet count 424,000. Series of troponins are negative. SMA-7 is within normal limit except for BUN and creatinine of 35 and 2.2, glucose is elevated over 408. Liver enzymes are mildly elevated. EKG on admission revealed normal sinus rhythm, rightward axis. Echocardiographic study in April of this year revealed normal ejection fraction, mild valvular aortic stenosis, mild aortic insufficiency and mild left ventricular diastolic dysfunction. Chest CT scan revealed cardiomegaly; small pericardial effusion; bilateral hilar prominence, vascular versus adenopathy. Asymmetric ground glass opacity, pneumonia and/or edema. Chest x-ray revealed cardiomegaly with CHF, consider left pleural effusion and right lower lobe infiltrate. ASSESSMENT: 1. Consider acute diastolic heart failure. 2. Chronic insufficiency. 3. Hypertension and diabetes mellitus. 4. Diabetic retinopathy and nephropathy. 5. Anemia. RECOMMENDATIONS: Continue current Coreg 6.25 mg a day, Crestor 10 mg once a day, Lovenox 30 mg once a day, Norvasc 10 mg once a day and Zestril 10 mg p.o. once a day. Start Lasix at 20 mg intravenous twice a day. Obtain 24-hour urinary protein and obtain venous Doppler of the lower extremities. Alfa Del Angel MD
--- NOTE | 2017-07-09 19:05 | CP.PCM.PN ---
Subjective - Date & Time of Evaluation Date of Evaluation: 07/09/17 Time of Evaluation: 19:05 Objective - Vital Signs/Intake and Output Vital Signs (last 24 hours): Temp Pulse Resp BP Pulse Ox 98.0 F 86 20 158/79 H 96 07/09/17 15:06 07/09/17 15:06 07/09/17 15:06 07/09/17 18:48 07/09/17 15:06 Intake and Output: 07/09/17 07/10/17 18:59 06:59 Intake Total 320 Balance 320 - Medications Medications: Current Medications Albuterol (Ventolin Hfa 90 Mcg/Actuation (8 G)) 2 puff INH RQ6 PRN PRN Reason: Shortness of Breath Albuterol/Ipratropium (Duoneb 3 Mg/0.5 Mg (3 Ml) Ud) 3 ml INH RQ6 [facility] Last Admin: 07/09/17 13:30 Dose: 3 ml Amlodipine Besylate (Norvasc) 10 mg PO DAILY [facility] Bisacodyl (Dulcolax) 5 mg PO DAILY [facility] Last Admin: 07/09/17 09:33 Dose: 5 mg Carvedilol (Coreg) 6.25 mg PO BID [facility] Last Admin: 07/09/17 18:48 Dose: 6.25 mg Enoxaparin Sodium (Lovenox) 30 mg SC DAILY [facility] Last Admin: 07/09/17 09:33 Dose: 30 mg Furosemide (Lasix) 40 mg IVP BID [facility] Last Admin: 07/09/17 18:48 Dose: 40 mg Ceftriaxone Sodium (Rocephin Iv 1 Gm Duplex) 50 mls @ 100 mls/hr IVPB DAILY@ 0830 [facility] Last Admin: 07/09/17 08:29 Dose: 100 mls/hr Azithromycin 500 mg/ Sodium (Chloride) 250 mls @ 167 mls/hr IVPB Q24H [facility] Insulin Aspart (Novolog Mix 70/30 (70/30 Units/Ml)) 42 units SC BID [facility] Last Admin: 07/09/17 18:47 Dose: 42 units Insulin Glargine (Lantus) 15 unit SC HS [facility] Last Admin: 07/08/17 21:50 Dose: 15 units Insulin Human Regular (Novolin R) 0 unit SC ACHS [facility] PRN Reason: Protocol Last Admin: 07/09/17 17:27 Dose: 6 unit Lisinopril (Zestril) 10 mg PO DAILY [facility] Last Admin: 07/09/17 09:35 Dose: 10 mg Methylprednisolone (Solu-Medrol) 60 mg IV Q8H [facility] Last Admin: 07/09/17 18:48 Dose: 60 mg Montelukast Sodium (Singulair) 10 mg PO HS [facility] Last Admin: 07/08/17 21:50 Dose: 10 mg Pantoprazole Sodium (Protonix Ec Tab) 40 mg PO DAILY [facility] Last Admin: 07/09/17 09:33 Dose: 40 mg Pneumococcal Polyvalent Vaccine (Pneumovax 23 Vaccine) 0.5 ml IM .ONCE ONE Stop: 07/10/17 10:01 Promethazine HCl/Codeine (Phenergan/Codeine Oral Syrup) 5 ml PO Q4 PRN PRN Reason: Cough Rosuvastatin Calcium (Crestor) 10 mg PO HS [facility] Last Admin: 07/08/17 21:50 Dose: 10 mg Fluticasone/Salmeterol (Advair Diskus 250/50) 1 puff IH RQ12 [facility] Last Admin: 07/09/17 08:35 Dose: 1 puff Tramadol HCl (Ultram) 50 mg PO Q6H PRN PRN Reason: Pain, moderate (4-7) Last Admin: 07/08/17 19:54 Dose: 50 mg - Labs Labs: 07/07/17 23:03 07/07/17 23:03
--- NOTE | 2017-07-09 20:13 | CP.PCM.PN ---
Subjective - Date & Time of Evaluation Date of Evaluation: 07/09/17 Time of Evaluation: 12:00 - Subjective Subjective: clinically same Objective - Vital Signs/Intake and Output Vital Signs (last 24 hours): Temp Pulse Resp BP Pulse Ox 98.0 F 86 20 158/79 H 96 07/09/17 15:06 07/09/17 15:06 07/09/17 15:06 07/09/17 18:48 07/09/17 15:06 Intake and Output: 07/09/17 07/10/17 18:59 06:59 Intake Total 320 Balance 320 - Medications Medications: Current Medications Albuterol (Ventolin Hfa 90 Mcg/Actuation (8 G)) 2 puff INH RQ6 PRN PRN Reason: Shortness of Breath Albuterol/Ipratropium (Duoneb 3 Mg/0.5 Mg (3 Ml) Ud) 3 ml INH RQ6 [facility] Last Admin: 07/09/17 19:12 Dose: 3 ml Amlodipine Besylate (Norvasc) 10 mg PO DAILY [facility] Bisacodyl (Dulcolax) 5 mg PO DAILY [facility] Last Admin: 07/09/17 09:33 Dose: 5 mg Carvedilol (Coreg) 6.25 mg PO BID [facility] Last Admin: 07/09/17 18:48 Dose: 6.25 mg Enoxaparin Sodium (Lovenox) 30 mg SC DAILY [facility] Last Admin: 07/09/17 09:33 Dose: 30 mg Furosemide (Lasix) 40 mg IVP BID [facility] Last Admin: 07/09/17 18:48 Dose: 40 mg Ceftriaxone Sodium (Rocephin Iv 1 Gm Duplex) 50 mls @ 100 mls/hr IVPB DAILY@ 0830 [facility] Last Admin: 07/09/17 08:29 Dose: 100 mls/hr Azithromycin 500 mg/ Sodium (Chloride) 250 mls @ 167 mls/hr IVPB Q24H [facility] Insulin Aspart (Novolog Mix 70/30 (70/30 Units/Ml)) 42 units SC BID [facility] Last Admin: 07/09/17 18:47 Dose: 42 units Insulin Glargine (Lantus) 15 unit SC HS [facility] Last Admin: 07/08/17 21:50 Dose: 15 units Insulin Human Regular (Novolin R) 0 unit SC ACHS [facility] PRN Reason: Protocol Last Admin: 07/09/17 17:27 Dose: 6 unit Lisinopril (Zestril) 10 mg PO DAILY [facility] Last Admin: 07/09/17 09:35 Dose: 10 mg Methylprednisolone (Solu-Medrol) 60 mg IV Q8H [facility] Last Admin: 07/09/17 18:48 Dose: 60 mg Montelukast Sodium (Singulair) 10 mg PO HS [facility] Last Admin: 07/08/17 21:50 Dose: 10 mg Pantoprazole Sodium (Protonix Ec Tab) 40 mg PO DAILY [facility] Last Admin: 07/09/17 09:33 Dose: 40 mg Pneumococcal Polyvalent Vaccine (Pneumovax 23 Vaccine) 0.5 ml IM .ONCE ONE Stop: 07/10/17 10:01 Promethazine HCl/Codeine (Phenergan/Codeine Oral Syrup) 5 ml PO Q4 PRN PRN Reason: Cough Rosuvastatin Calcium (Crestor) 10 mg PO HS [facility] Last Admin: 07/08/17 21:50 Dose: 10 mg Fluticasone/Salmeterol (Advair Diskus 250/50) 1 puff IH RQ12 [facility] Last Admin: 07/09/17 19:12 Dose: 1 puff Tramadol HCl (Ultram) 50 mg PO Q6H PRN PRN Reason: Pain, moderate (4-7) Last Admin: 07/08/17 19:54 Dose: 50 mg - Labs Labs: 07/07/17 23:03 07/07/17 23:03
[2017-07-09] MEDS: (Lantus) Insulin Glargine, Recombinant SC SCH (22:33)
[2017-07-10] MEDS: MethylPREDNISolone 40 mg Vial IV SCH ×3 (02:14→17:46)
[2017-07-10] MEDS: Azithromycin 500 MG in Sodium Chloride 0.9% 250 ML IVPB SCH (06:05)
[2017-07-10] MEDS: Fluticasone-Salmeterol 250-50mcg Diskus IH SCH ×2 (07:20→19:37)
[2017-07-10] MEDS: Albuterol-Ipratrop 3 mg / 0.5 (3 ml) UD INH SCH ×4 (07:20→19:37)
[2017-07-10] MEDS: (Novolin R) Insulin Human Regular 100 units/ml vial SC SCH ×4 (08:06→21:59)
[2017-07-10] MEDS: cefTRIAXone IV 1 gm in Dextros 50 ML IVPB SCH (08:06)
[2017-07-10] MEDS ORDERED: Influenza Vaccine 60 mcg/0.5 mL SYR (4YR UP) IM ONE (10:00)
[2017-07-10] MEDS ORDERED: Pneumococcal 23-Valent Vaccine IM ONE (10:00)
[2017-07-10] MEDS: Bisacodyl 5mg EC Tab PO SCH (10:25)
[2017-07-10] MEDS: Pantoprazole 40 mg EC Tab PO SCH (10:25)
[2017-07-10] MEDS: Enoxaparin 30 mg Syringe SC SCH (10:27)
[2017-07-10] MEDS: (Novolog Mix 70/30) Insulin Aspart/Insulin Aspar 100 units/ml SC SCH ×2 (10:27→17:47)
--- NOTE | 2017-07-10 16:48 | CP.PCM.PN ---
Subjective - Date & Time of Evaluation Date of Evaluation: 07/10/17 Time of Evaluation: 16:48 Objective - Vital Signs/Intake and Output Vital Signs (last 24 hours): Temp Pulse Resp BP Pulse Ox 98.0 F 94 H 20 159/81 H 96 07/10/17 15:51 07/10/17 15:51 07/10/17 15:51 07/10/17 15:51 07/10/17 15:51 Intake and Output: 07/10/17 07/10/17 06:59 18:59 Intake Total 490 340 Balance 490 340 - Medications Medications: Current Medications Albuterol (Ventolin Hfa 90 Mcg/Actuation (8 G)) 2 puff INH RQ6 PRN PRN Reason: Shortness of Breath Albuterol/Ipratropium (Duoneb 3 Mg/0.5 Mg (3 Ml) Ud) 3 ml INH RQ6 [facility] Last Admin: 07/10/17 13:32 Dose: 3 ml Amlodipine Besylate (Norvasc) 10 mg PO DAILY [facility] Last Admin: 07/10/17 10:25 Dose: 10 mg Bisacodyl (Dulcolax) 5 mg PO DAILY [facility] Last Admin: 07/10/17 10:25 Dose: 5 mg Carvedilol (Coreg) 6.25 mg PO BID [facility] Last Admin: 07/10/17 10:25 Dose: 6.25 mg Enoxaparin Sodium (Lovenox) 30 mg SC DAILY [facility] Last Admin: 07/10/17 10:27 Dose: 30 mg Furosemide (Lasix) 40 mg IVP BID [facility] Last Admin: 07/10/17 10:25 Dose: 40 mg Ceftriaxone Sodium (Rocephin Iv 1 Gm Duplex) 50 mls @ 100 mls/hr IVPB DAILY@ 0830 [facility] Last Admin: 07/10/17 08:06 Dose: 100 mls/hr Azithromycin 500 mg/ Sodium (Chloride) 250 mls @ 167 mls/hr IVPB Q24H [facility] Last Admin: 07/10/17 06:05 Dose: 167 mls/hr Insulin Aspart (Novolog Mix 70/30 (70/30 Units/Ml)) 42 units SC BID [facility] Last Admin: 07/10/17 10:27 Dose: 42 units Insulin Glargine (Lantus) 15 unit SC HS [facility] Last Admin: 07/09/17 22:33 Dose: 15 units Insulin Human Regular (Novolin R) 0 unit SC ACHS [facility] PRN Reason: Protocol Last Admin: 07/10/17 12:25 Dose: 6 unit Lisinopril (Zestril) 10 mg PO DAILY [facility] Last Admin: 07/10/17 10:25 Dose: 10 mg Methylprednisolone (Solu-Medrol) 60 mg IV Q8H [facility] Last Admin: 07/10/17 10:26 Dose: 60 mg Montelukast Sodium (Singulair) 10 mg PO HS [facility] Last Admin: 07/09/17 22:33 Dose: 10 mg Pantoprazole Sodium (Protonix Ec Tab) 40 mg PO DAILY [facility] Last Admin: 07/10/17 10:25 Dose: 40 mg Promethazine HCl/Codeine (Phenergan/Codeine Oral Syrup) 5 ml PO Q4 PRN PRN Reason: Cough Rosuvastatin Calcium (Crestor) 10 mg PO HS [facility] Last Admin: 07/09/17 22:33 Dose: 10 mg Fluticasone/Salmeterol (Advair Diskus 250/50) 1 puff IH RQ12 [facility] Last Admin: 07/10/17 07:20 Dose: 1 puff Tramadol HCl (Ultram) 50 mg PO Q6H PRN PRN Reason: Pain, moderate (4-7) Last Admin: 07/09/17 22:31 Dose: 50 mg - Labs Labs: 07/07/17 23:03 07/07/17 23:03
--- NOTE | 2017-07-10 19:19 | CP.PCM.PN ---
Subjective - Date & Time of Evaluation Date of Evaluation: 07/10/17 Time of Evaluation: 11:20 - Subjective Subjective: clinically same Objective - Vital Signs/Intake and Output Vital Signs (last 24 hours): Temp Pulse Resp BP Pulse Ox 98.0 F 94 H 20 159/81 H 96 07/10/17 15:51 07/10/17 15:51 07/10/17 15:51 07/10/17 17:46 07/10/17 15:51 Intake and Output: 07/10/17 07/11/17 18:59 06:59 Intake Total 340 Balance 340 - Medications Medications: Current Medications Albuterol (Ventolin Hfa 90 Mcg/Actuation (8 G)) 2 puff INH RQ6 PRN PRN Reason: Shortness of Breath Albuterol/Ipratropium (Duoneb 3 Mg/0.5 Mg (3 Ml) Ud) 3 ml INH RQ6 [facility] Last Admin: 07/10/17 13:32 Dose: 3 ml Amlodipine Besylate (Norvasc) 10 mg PO DAILY [facility] Last Admin: 07/10/17 10:25 Dose: 10 mg Bisacodyl (Dulcolax) 5 mg PO DAILY [facility] Last Admin: 07/10/17 10:25 Dose: 5 mg Carvedilol (Coreg) 6.25 mg PO BID [facility] Last Admin: 07/10/17 17:45 Dose: 6.25 mg Enoxaparin Sodium (Lovenox) 30 mg SC DAILY [facility] Last Admin: 07/10/17 10:27 Dose: 30 mg Furosemide (Lasix) 60 mg IVP BID [facility] Ceftriaxone Sodium (Rocephin Iv 1 Gm Duplex) 50 mls @ 100 mls/hr IVPB DAILY@ 0830 [facility] Last Admin: 07/10/17 08:06 Dose: 100 mls/hr Azithromycin 500 mg/ Sodium (Chloride) 250 mls @ 167 mls/hr IVPB Q24H [facility] Last Admin: 07/10/17 06:05 Dose: 167 mls/hr Insulin Aspart (Novolog Mix 70/30 (70/30 Units/Ml)) 42 units SC BID [facility] Last Admin: 07/10/17 17:47 Dose: 42 units Insulin Glargine (Lantus) 15 unit SC HS [facility] Last Admin: 07/09/17 22:33 Dose: 15 units Insulin Human Regular (Novolin R) 0 unit SC ACHS [facility] PRN Reason: Protocol Last Admin: 07/10/17 17:15 Dose: 4 unit Lisinopril (Zestril) 10 mg PO DAILY [facility] Last Admin: 07/10/17 10:25 Dose: 10 mg Methylprednisolone (Solu-Medrol) 60 mg IV Q8H [facility] Last Admin: 07/10/17 17:46 Dose: 60 mg Montelukast Sodium (Singulair) 10 mg PO HS [facility] Last Admin: 07/09/17 22:33 Dose: 10 mg Pantoprazole Sodium (Protonix Ec Tab) 40 mg PO DAILY [facility] Last Admin: 07/10/17 10:25 Dose: 40 mg Promethazine HCl/Codeine (Phenergan/Codeine Oral Syrup) 5 ml PO Q4 PRN PRN Reason: Cough Rosuvastatin Calcium (Crestor) 10 mg PO HS [facility] Last Admin: 07/09/17 22:33 Dose: 10 mg Fluticasone/Salmeterol (Advair Diskus 250/50) 1 puff IH RQ12 [facility] Last Admin: 07/10/17 07:20 Dose: 1 puff Tramadol HCl (Ultram) 50 mg PO Q6H PRN PRN Reason: Pain, moderate (4-7) Last Admin: 07/09/17 22:31 Dose: 50 mg - Labs Labs: 07/07/17 23:03 07/07/17 23:03 - Constitutional Appears: Well - Head Exam Head Exam: ATRAUMATIC, NORMAL INSPECTION, NORMOCEPHALIC - Eye Exam Eye Exam: EOMI, Normal appearance, PERRL Pupil Exam: NORMAL ACCOMODATION, PERRL - ENT Exam ENT Exam: Mucous Membranes Moist, Normal Exam - Neck Exam Neck Exam: Full ROM, Normal Inspection. absent: Lymphadenopathy - Respiratory Exam Respiratory Exam: Decreased Breath Sounds - Cardiovascular Exam Cardiovascular Exam: REGULAR RHYTHM, +S1, +S2 - GI/Abdominal Exam GI & Abdominal Exam: Soft, Diminished Bowel Sounds - Rectal Exam Rectal Exam: Deferred
--- NOTE | 2017-07-10 20:41 | PN ---
SUBJECTIVE: The patient's shortness of breath has slightly improved. She denies any chest pain. PHYSICAL EXAMINATION: VITAL SIGNS: Blood pressure 159/81, heart rate 94, temperature 98 and respirations 20. HEENT: Pale conjunctivae. CHEST: Absent breath sounds over the bases. HEART: S1 and S2 regular and distant. ABDOMEN: Soft. EXTREMITIES: 2+ pitting edema. Venous Doppler of the lower extremity, no evidence of DVT in the preliminary report. LABORATORY DATA: Today's glucose is 361, 377, 438, and 341, all are significantly elevated. ASSESSMENT: 1. Diastolic heart failure. 2. Chronic renal insufficiency. 3. Rule out nephrotic syndrome. RECOMMENDATIONS: Continue current IV Zithromax 500 mg daily, Coreg at 6.25 mg twice a day, increase Lasix to 60 mg intravenously twice a day, continue subcutaneous Lovenox at 30 mg once a day, amlodipine at 10 mg once a day, Solu-Medrol at 60 mg intravenously q.8 hours, and Zestril 10 mg once a day. Awaiting 24-hours urinary protein collection. Alfa Del Angel MD
--- NOTE | 2017-07-10 22:43 | CARD ---
APPROVED REPORT EKG Measurement Heart [id number] <Conclusion> Normal sinus rhythm Normal ECG
[2017-07-10] MEDS: (Lantus) Insulin Glargine, Recombinant SC SCH (22:46)
[2017-07-11] MEDS: Albuterol-Ipratrop 3 mg / 0.5 (3 ml) UD INH SCH ×4 (01:06→20:08)
[2017-07-11] MEDS: MethylPREDNISolone 40 mg Vial IV SCH ×3 (02:38→19:52)
[2017-07-11] MEDS: Azithromycin 500 MG in Sodium Chloride 0.9% 250 ML IVPB SCH (05:46)
[2017-07-11] MEDS: Fluticasone-Salmeterol 250-50mcg Diskus IH SCH ×2 (07:41→20:08)
[2017-07-11] MEDS: cefTRIAXone IV 1 gm in Dextros 50 ML IVPB SCH (08:20)
[2017-07-11] MEDS: (Novolin R) Insulin Human Regular 100 units/ml vial SC SCH ×4 (08:21→21:21)
[2017-07-11] MEDS: Enoxaparin 30 mg Syringe SC SCH (09:36)
[2017-07-11] MEDS: Pantoprazole 40 mg EC Tab PO SCH (09:37)
[2017-07-11] MEDS: (Novolog Mix 70/30) Insulin Aspart/Insulin Aspar 100 units/ml SC SCH ×2 (09:37→17:29)
[2017-07-11] MEDS: Bisacodyl 5mg EC Tab PO SCH (09:40)
[2017-07-11 11:44] LABS: BASO % 0.1 % (0.0-2.0); HEMATOCRIT 30.5 % (34.0-47.0); LYMPH # 0.5 K/uL (1.0-4.3); LYMPH % 6.6 % (20.0-40.0); MEAN CELL VOLUME 87.8 fL (81.0-99.0); MEAN CORPUSCULAR HEMOGLOBIN 28.5 pg (27.0-31.0); MEAN CORPUSCULAR HGB CONC 32.4 g/dL (33.0-37.0); MEAN PLATELET VOLUME 9.4 fL (7.2-11.7); MONO # 0.2 K/uL (0.0-0.8); MONO % 3.1 % (0.0-10.0); NRBC % 0.3 % (0.0-2.0); PLATELET COUNT 419 K/uL (130-400); WHITE BLOOD COUNT 7.1 K/uL (4.8-10.8)
[2017-07-11 12:00] LABS: POTASSIUM 5.3 mmol/L (3.6-5.2)
[2017-07-11 12:04] LABS: CALCIUM 8.3 mg/dl (8.6-10.4)
[2017-07-11 12:06] LABS: NEUTROPHIL 91 % (50-75); NUCLEATED RED BLOOD CELL 1 % (0-0); TOTAL CELLS COUNTED 100
--- NOTE | 2017-07-11 14:34 | PN ---
DATE: SUBJECTIVE: The patient denies any chest pain. She is diuresing. She is still experiencing significant leg swelling. PHYSICAL EXAMINATION VITAL SIGNS: Blood pressure 157/84, heart rate 89, temperature 97.8, respirations 18. HEENT: Pale conjunctiva, facial edema. CHEST: Diminished breath sound over the bases. HEART: S1 and S2 regular. EXTREMITIES: A 2+ pitting edema. LABORATORY DATA: SMA-7; sodium 131, potassium 5.3, chloride 94, CO2 22, glucose 483, BUN 72, and creatinine 2.2. Hemoglobin and hematocrit today is 9.9 and 30.5, white count 7.1, and platelet count 491,000. Total urine protein . ASSESSMENT: 1. Nephrotic syndrome. 2. Uncontrolled diabetes mellitus. 3. Anasarca. 4. Anemia. 5. Chronic iron insufficiency. RECOMMENDATIONS: Continue current Coreg 6.25 mg twice a day, Crestor 10 mg once a day, Lovenox 30 mg once a day, continue current bronchodilators as well as Solu-Medrol, and continue Zestril 10 mg once a day. Chronic iron insufficiency, which is currently worsening and for this reason Lasix will be reduced to once a day dose. Alfa Del Angel MD
[2017-07-11 15:37] VITALS: RESP 20
--- NOTE | 2017-07-11 18:14 | CP.PCM.PN ---
Subjective - Date & Time of Evaluation Date of Evaluation: 07/11/17 Time of Evaluation: 10:00 - Subjective Subjective: clinically same Objective - Vital Signs/Intake and Output Vital Signs (last 24 hours): Temp Pulse Resp BP Pulse Ox 97.8 F 84 20 114/61 100 07/11/17 15:35 07/11/17 15:35 07/11/17 15:35 07/11/17 15:35 07/11/17 15:35 Intake and Output: 07/11/17 07/11/17 06:59 18:59 Intake Total 240 500 Balance 240 500 - Medications Medications: Current Medications Albuterol (Ventolin Hfa 90 Mcg/Actuation (8 G)) 2 puff INH RQ6 PRN PRN Reason: Shortness of Breath Albuterol/Ipratropium (Duoneb 3 Mg/0.5 Mg (3 Ml) Ud) 3 ml INH RQ6 [facility] Last Admin: 07/11/17 14:03 Dose: 3 ml Amlodipine Besylate (Norvasc) 10 mg PO DAILY [facility] Last Admin: 07/11/17 09:37 Dose: 10 mg Bisacodyl (Dulcolax) 5 mg PO DAILY [facility] Last Admin: 07/11/17 09:40 Dose: 5 mg Carvedilol (Coreg) 6.25 mg PO BID [facility] Last Admin: 07/11/17 17:29 Dose: 6.25 mg Enoxaparin Sodium (Lovenox) 30 mg SC DAILY [facility] Last Admin: 07/11/17 09:36 Dose: 30 mg Furosemide (Lasix) 60 mg IVP BID [facility] Last Admin: 07/11/17 09:38 Dose: 60 mg Ceftriaxone Sodium (Rocephin Iv 1 Gm Duplex) 50 mls @ 100 mls/hr IVPB DAILY@ 0830 [facility] Last Admin: 07/11/17 08:20 Dose: 100 mls/hr Azithromycin 500 mg/ Sodium (Chloride) 250 mls @ 167 mls/hr IVPB Q24H [facility] Last Admin: 07/11/17 05:46 Dose: 167 mls/hr Insulin Aspart (Novolog Mix 70/30 (70/30 Units/Ml)) 42 units SC BID [facility] Last Admin: 07/11/17 17:29 Dose: 42 units Insulin Glargine (Lantus) 15 unit SC HS [facility] Last Admin: 07/10/17 22:46 Dose: 15 units Insulin Human Regular (Novolin R) 0 unit SC ACHS [facility] PRN Reason: Protocol Last Admin: 07/11/17 17:38 Dose: 2 unit Lisinopril (Zestril) 10 mg PO DAILY [facility] Last Admin: 07/11/17 09:37 Dose: 10 mg Methylprednisolone (Solu-Medrol) 60 mg IV Q8H [facility] Last Admin: 07/11/17 10:55 Dose: 60 mg Montelukast Sodium (Singulair) 10 mg PO HS [facility] Last Admin: 07/10/17 22:46 Dose: 10 mg Pantoprazole Sodium (Protonix Ec Tab) 40 mg PO DAILY [facility] Last Admin: 07/11/17 09:37 Dose: 40 mg Promethazine HCl/Codeine (Phenergan/Codeine Oral Syrup) 5 ml PO Q4 PRN PRN Reason: Cough Rosuvastatin Calcium (Crestor) 10 mg PO [facility] Last Admin: 07/10/17 22:46 Dose: 10 mg Fluticasone/Salmeterol (Advair Diskus 250/50) 1 puff IH RQ12 [facility] Last Admin: 07/11/17 07:41 Dose: 1 puff Tramadol HCl (Ultram) 50 mg PO Q6H PRN PRN Reason: Pain, moderate (4-7) Last Admin: 07/09/17 22:31 Dose: 50 mg - Labs Labs: 07/11/17 11:35 07/11/17 11:35 - Constitutional Appears: Well - Head Exam Head Exam: ATRAUMATIC, NORMAL INSPECTION, NORMOCEPHALIC - Eye Exam Eye Exam: EOMI, Normal appearance, PERRL Pupil Exam: NORMAL ACCOMODATION, PERRL - ENT Exam ENT Exam: Mucous Membranes Moist, Normal Exam - Neck Exam Neck Exam: Full ROM, Normal Inspection. absent: Lymphadenopathy - Respiratory Exam Respiratory Exam: Decreased Breath Sounds - Cardiovascular Exam Cardiovascular Exam: REGULAR RHYTHM, +S1, +S2 - GI/Abdominal Exam GI & Abdominal Exam: Soft, Diminished Bowel Sounds - Rectal Exam Rectal Exam: Deferred
--- NOTE | 2017-07-11 19:15 | CP.PCM.PN ---
Subjective - Date & Time of Evaluation Date of Evaluation: 07/11/17 Time of Evaluation: 19:15 Objective - Vital Signs/Intake and Output Vital Signs (last 24 hours): Temp Pulse Resp BP Pulse Ox 97.8 F 84 20 114/61 100 07/11/17 15:35 07/11/17 15:35 07/11/17 15:35 07/11/17 15:35 07/11/17 15:35 Intake and Output: 07/11/17 07/12/17 18:59 06:59 Intake Total 500 Balance 500 - Medications Medications: Current Medications Albuterol (Ventolin Hfa 90 Mcg/Actuation (8 G)) 2 puff INH RQ6 PRN PRN Reason: Shortness of Breath Albuterol/Ipratropium (Duoneb 3 Mg/0.5 Mg (3 Ml) Ud) 3 ml INH RQ6 [facility] Last Admin: 07/11/17 14:03 Dose: 3 ml Amlodipine Besylate (Norvasc) 10 mg PO DAILY [facility] Last Admin: 07/11/17 09:37 Dose: 10 mg Bisacodyl (Dulcolax) 5 mg PO DAILY [facility] Last Admin: 07/11/17 09:40 Dose: 5 mg Carvedilol (Coreg) 6.25 mg PO BID [facility] Last Admin: 07/11/17 17:29 Dose: 6.25 mg Enoxaparin Sodium (Lovenox) 30 mg SC DAILY [facility] Last Admin: 07/11/17 09:36 Dose: 30 mg Furosemide (Lasix) 60 mg IVP BID [facility] Last Admin: 07/11/17 09:38 Dose: 60 mg Ceftriaxone Sodium (Rocephin Iv 1 Gm Duplex) 50 mls @ 100 mls/hr IVPB DAILY@ 0830 [facility] Last Admin: 07/11/17 08:20 Dose: 100 mls/hr Azithromycin 500 mg/ Sodium (Chloride) 250 mls @ 167 mls/hr IVPB Q24H [facility] Last Admin: 07/11/17 05:46 Dose: 167 mls/hr Insulin Aspart (Novolog Mix 70/30 (70/30 Units/Ml)) 42 units SC BID [facility] Last Admin: 07/11/17 17:29 Dose: 42 units Insulin Glargine (Lantus) 15 unit SC HS [facility] Last Admin: 07/10/17 22:46 Dose: 15 units Insulin Human Regular (Novolin R) 0 unit SC ACHS [facility] PRN Reason: Protocol Last Admin: 07/11/17 17:38 Dose: 2 unit Lisinopril (Zestril) 10 mg PO DAILY [facility] Last Admin: 07/11/17 09:37 Dose: 10 mg Methylprednisolone (Solu-Medrol) 60 mg IV Q8H [facility] Last Admin: 07/11/17 10:55 Dose: 60 mg Montelukast Sodium (Singulair) 10 mg PO HS [facility] Last Admin: 07/10/17 22:46 Dose: 10 mg Pantoprazole Sodium (Protonix Ec Tab) 40 mg PO DAILY [facility] Last Admin: 07/11/17 09:37 Dose: 40 mg Promethazine HCl/Codeine (Phenergan/Codeine Oral Syrup) 5 ml PO Q4 PRN PRN Reason: Cough Rosuvastatin Calcium (Crestor) 10 mg PO HS [facility] Last Admin: 07/10/17 22:46 Dose: 10 mg Fluticasone/Salmeterol (Advair Diskus 250/50) 1 puff IH RQ12 [facility] Last Admin: 07/11/17 07:41 Dose: 1 puff Tramadol HCl (Ultram) 50 mg PO Q6H PRN PRN Reason: Pain, moderate (4-7) Last Admin: 07/09/17 22:31 Dose: 50 mg - Labs Labs: 07/11/17 11:35 07/11/17 11:35
[2017-07-11] MEDS: (Lantus) Insulin Glargine, Recombinant SC SCH (21:20)
[2017-07-12] MEDS: Albuterol-Ipratrop 3 mg / 0.5 (3 ml) UD INH SCH ×3 (01:27→14:23)
[2017-07-12] MEDS: MethylPREDNISolone 40 mg Vial IV SCH ×3 (03:13→17:51)
[2017-07-12] MEDS: Azithromycin 500 MG in Sodium Chloride 0.9% 250 ML IVPB SCH (05:54)
[2017-07-12] MEDS: cefTRIAXone IV 1 gm in Dextros 50 ML IVPB SCH (07:30)
[2017-07-12] MEDS: Fluticasone-Salmeterol 250-50mcg Diskus IH SCH (07:49)
[2017-07-12] MEDS: (Novolin R) Insulin Human Regular 100 units/ml vial SC SCH ×3 (08:36→17:41)
[2017-07-12] MEDS: Pantoprazole 40 mg EC Tab PO SCH (10:24)
[2017-07-12] MEDS: Bisacodyl 5mg EC Tab PO SCH (10:24)
[2017-07-12] MEDS: Enoxaparin 30 mg Syringe SC SCH (10:25)
[2017-07-12] MEDS: (Novolog Mix 70/30) Insulin Aspart/Insulin Aspar 100 units/ml SC SCH ×2 (10:26→18:01)
--- NOTE | 2017-07-12 10:42 | CP.PCM.PN ---
Subjective - Date & Time of Evaluation Date of Evaluation: 07/12/17 Time of Evaluation: 10:25 - Subjective Subjective: PGY-[address] Saldivar's service: Pt seen and examined at bedside. Nursing reports no acute events overnight. Patient is a 51 year old female with PMHx of morbid obesity, type two diabetes mellitus, HTN, diabetic retinopathy, who presented on 07/08/17 to [facility] ED for worsening SOB and leg swelling. Daughter is at bedside on exam. Patient reports breathing "much better" since she was admitted. She reports being able to walk to the bathroom without worsening SOB. Pt reports legs swollen but improved since admission. Objective - Vital Signs/Intake and Output Vital Signs (last 24 hours): Temp Pulse Resp BP Pulse Ox 97.9 F 90 20 166/92 H 99 07/12/17 07:05 07/12/17 07:14 07/12/17 07:05 07/12/17 07:05 07/12/17 07:05 - Medications Medications: Current Medications Albuterol (Ventolin Hfa 90 Mcg/Actuation (8 G)) 2 puff INH RQ6 PRN PRN Reason: Shortness of Breath Albuterol/Ipratropium (Duoneb 3 Mg/0.5 Mg (3 Ml) Ud) 3 ml INH RQ6 [facility] Last Admin: 07/12/17 07:50 Dose: 3 ml Amlodipine Besylate (Norvasc) 10 mg PO DAILY [facility] Last Admin: 07/11/17 09:37 Dose: 10 mg Bisacodyl (Dulcolax) 5 mg PO DAILY [facility] Last Admin: 07/11/17 09:40 Dose: 5 mg Carvedilol (Coreg) 6.25 mg PO BID [facility] Last Admin: 07/11/17 17:29 Dose: 6.25 mg Enoxaparin Sodium (Lovenox) 30 mg SC DAILY [facility] Last Admin: 07/11/17 09:36 Dose: 30 mg Furosemide (Lasix) 60 mg IVP BID [facility] Last Admin: 07/11/17 19:49 Dose: 60 mg Ceftriaxone Sodium (Rocephin Iv 1 Gm Duplex) 50 mls @ 100 mls/hr IVPB DAILY@ 0830 [facility] Last Admin: 07/12/17 07:30 Dose: 100 mls/hr Azithromycin 500 mg/ Sodium (Chloride) 250 mls @ 167 mls/hr IVPB Q24H [facility] Last Admin: 07/12/17 05:54 Dose: 167 mls/hr Insulin Aspart (Novolog Mix 70/30 (70/30 Units/Ml)) 42 units SC BID [facility] Last Admin: 07/11/17 17:29 Dose: 42 units Insulin Glargine (Lantus) 15 unit SC [facility] Last Admin: 07/11/17 21:20 Dose: 15 units Insulin Human Regular (Novolin R) 0 unit SC ACHS [facility] PRN Reason: Protocol Last Admin: 07/12/17 08:36 Dose: 1 unit Lisinopril (Zestril) 10 mg PO DAILY [facility] Last Admin: 07/11/17 09:37 Dose: 10 mg Methylprednisolone (Solu-Medrol) 60 mg IV Q8H [facility] Last Admin: 07/12/17 03:13 Dose: 60 mg Montelukast Sodium (Singulair) 10 mg PO [facility] Last Admin: 07/11/17 21:22 Dose: 10 mg Pantoprazole Sodium (Protonix Ec Tab) 40 mg PO DAILY [facility] Last Admin: 07/11/17 09:37 Dose: 40 mg Promethazine HCl/Codeine (Phenergan/Codeine Oral Syrup) 5 ml PO Q4 PRN PRN Reason: Cough Rosuvastatin Calcium (Crestor) 10 mg PO [facility] Last Admin: 07/11/17 21:20 Dose: 10 mg Fluticasone/Salmeterol (Advair Diskus 250/50) 1 puff IH RQ12 [facility] Last Admin: 07/12/17 07:49 Dose: 1 puff Tramadol HCl (Ultram) 50 mg PO Q6H PRN PRN Reason: Pain, moderate (4-7) Last Admin: 07/11/17 22:43 Dose: 50 mg - Labs Labs: 07/11/17 11:35 07/11/17 11:35 - Constitutional Appears: Non-toxic, No Acute Distress, Other (Morbidly obese) - Head Exam Head Exam: ATRAUMATIC, NORMOCEPHALIC - Eye Exam Eye Exam: EOMI. absent: Scleral icterus Additional comments: Periorbital edema - ENT Exam ENT Exam: Mucous Membranes Moist - Respiratory Exam Respiratory Exam: Clear to Ausculation Bilateral, NORMAL BREATHING PATTERN. absent: Rales, Rhonchi, Wheezes - Cardiovascular Exam Cardiovascular Exam: REGULAR RHYTHM, +S1, +S2 - GI/Abdominal Exam GI & Abdominal Exam: Soft, Normal Bowel Sounds. absent: Distended, Guarding, Tenderness Additional comments: Morbid obesity - Extremities Exam Extremities Exam: Pedal Edema (2+ pitting edema, improved from admission). 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 Possible pneumonia. F/u advised. Limited examination (see full report) - f/u CXR (07/12/17): NAD Ceftriaxone 1gm IV (Day 4) Azithromycin 500mg IV Q24H (Day 3) Type Two Diabetes mellitus Poorly controlled Accuchecks RISS Lantus 15u SC HS Nephrotic syndrome 24hr 5270 UA 2+ protein Lisnopril 10mg PO Daily Nephro: Dr Saldivar - Will follow workup as opdx Swollen legs US VDL B/l legs (07/12/17): No evidence of deep/superficial vein thrombosis bilaterally Prophylaxis Protonix 40mg PO daily SCDs Heparin 5000u Q12H Disposition: Pt for discharge Charles Schneider PGY-2 All medical management per Dr. Saldivar
--- NOTE | 2017-07-12 12:48 | RAD ---
HISTORY: f/u opacity seen on admission xray COMPARISON: 07/07/2017 TECHNIQUE: Chest PA and lateral FINDINGS: LUNGS: No active pulmonary disease. PLEURA: No significant pleural effusion identified. No pneumothorax apparent. CARDIOVASCULAR: Normal. OSSEOUS STRUCTURES: No significant abnormalities. VISUALIZED UPPER ABDOMEN: Normal. OTHER FINDINGS: None. IMPRESSION: No active disease.
[2017-07-12 13:59] LABS: BASO % 0.1 % (0.0-2.0); HEMATOCRIT 31.8 % (34.0-47.0); LYMPH # 0.5 K/uL (1.0-4.3); LYMPH % 7.8 % (20.0-40.0); MEAN CORPUSCULAR HEMOGLOBIN 27.9 pg (27.0-31.0); MEAN CORPUSCULAR HGB CONC 32.5 g/dL (33.0-37.0); MEAN PLATELET VOLUME 9.1 fL (7.2-11.7); MONO # 0.3 K/uL (0.0-0.8); MONO % 5.3 % (0.0-10.0); NRBC % 0.1 % (0.0-2.0); PLATELET COUNT 433 K/uL (130-400); RED CELL DISTRIBUTION WIDTH 15.9 % (11.5-14.5); WHITE BLOOD COUNT 6.1 K/uL (4.8-10.8)
[2017-07-12 14:00] LABS: MEAN CELL VOLUME 85.8 fL (81.0-99.0)
[2017-07-12 14:12] LABS: POTASSIUM 4.9 mmol/L (3.6-5.2)
[2017-07-12 14:14] LABS: BILIRUBIN,TOTAL 0.3 mg/dL (0.2-1.3)
[2017-07-12 14:15] LABS: CALCIUM 8.7 mg/dl (8.6-10.4); PHOSPHOROUS 4.5 mg/dL (2.5-4.5); TOTAL PROTEIN 7.7 g/dL (6.3-8.3)
[2017-07-12 14:16] LABS: MAGNESIUM 1.9 mg/dL (1.6-2.3)
--- NOTE | 2017-07-12 14:33 | VASCLAB ---
PROCEDURE: Lower Extremity Venous Duplex Exam. HISTORY: Shortness of breath PRIORS: None. TECHNIQUE: Bilateral common femoral, femoral, popliteal and posterior tibial, peroneal and great saphenous veins were evaluated. Flow was assessed with color Doppler, compressibility, assessment of phasic flow and augmentation response. Report prepared by MIRANDA White FINDINGS: RIGHT: 1. Common Femoral Vein: 1.1. Compressibility - Fully compressible: Thrombus - None : Flow - Phasic: Augmentation -Normal: Reflux - None. 2. Femoral Vein: 2.1. Compressibility - Fully compressible: Thrombus - None : Flow - Phasic: Augmentation -Normal: Reflux - None. 3. Popliteal Vein: 3.1. Compressibility - Fully compressible: Thrombus - None : Flow - Phasic: Augmentation -Normal: Reflux - None. 4. Posterior Tibial Vein: 4.1. Compressibility - Fully compressible: Thrombus - None: Flow - Phasic: Augmentation -Normal: Reflux - None. 5. Peroneal Vein: 5.1. Compressibility - Fully compressible: Thrombus - None: Flow - Phasic: Augmentation -Normal: Reflux - None. 6. Great Saphenous Vein: 6.1. Compressibility - Fully compressible: Thrombus - None: Flow - Phasic: Augmentation - Normal: Reflux - None. LEFT: 1. Common Femoral Vein: 1.1. Compressibility - Fully compressible: Thrombus - None: Flow - Phasic: Augmentation -Normal: Reflux - None. 2. Femoral Vein: 2.1. Compressibility - Fully compressible: Thrombus - None: Flow - Phasic: Augmentation -Normal: Reflux - None. 3. Popliteal Vein: 3.1. Compressibility - Fully compressible: Thrombus - None : Flow - Phasic: Augmentation -Normal: Reflux - None. 4. Posterior Tibial Vein: 4.1. Compressibility - Fully compressible: Thrombus - None: Flow - Phasic: Augmentation -Normal: Reflux - None. 5. Peroneal Vein: 5.1. Compressibility - Fully compressible: Thrombus - None: Flow - Phasic: Augmentation -Normal: Reflux - None. 6. Great Saphenous Vein: 6.1. Compressibility - Fully compressible: Thrombus - None: Flow - Phasic: Augmentation - Normal: Reflux - None. OTHER FINDINGS: Technically difficult exam due to patient body habitus. IMPRESSION: Right: No evidence of deep or superficial vein thrombosis of the right lower extremity. Normal valve function noted of the right side. Left: No evidence of deep or superficial vein thrombosis of the left lower extremity. Normal valve function noted of the left side.
[2017-07-12 14:35] LABS: NEUTROPHIL 92 % (50-75); TOTAL CELLS COUNTED 100
[2017-07-12 15:18] VITALS: PULSE 88; TEMP 98.3; O2SAT 100
--- NOTE | 2017-07-12 15:19 | CP.PCM.PN ---
Subjective - Date & Time of Evaluation Date of Evaluation: 07/12/17 Time of Evaluation: 15:19 Objective - Vital Signs/Intake and Output Vital Signs (last 24 hours): Temp Pulse Resp BP Pulse Ox 98.3 F 88 20 142/95 H 100 07/12/17 15:13 07/12/17 15:13 07/12/17 15:13 07/12/17 15:13 07/12/17 15:13 Intake and Output: 07/12/17 07/12/17 06:59 18:59 Intake Total 650 Balance 650 - Medications Medications: Current Medications Albuterol (Ventolin Hfa 90 Mcg/Actuation (8 G)) 2 puff INH RQ6 PRN PRN Reason: Shortness of Breath Albuterol/Ipratropium (Duoneb 3 Mg/0.5 Mg (3 Ml) Ud) 3 ml INH RQ6 [facility] Last Admin: 07/12/17 14:23 Dose: 3 ml Amlodipine Besylate (Norvasc) 10 mg PO DAILY [facility] Last Admin: 07/12/17 10:24 Dose: 10 mg Bisacodyl (Dulcolax) 5 mg PO DAILY [facility] Last Admin: 07/12/17 10:24 Dose: 5 mg Carvedilol (Coreg) 6.25 mg PO BID [facility] Last Admin: 07/12/17 10:24 Dose: 6.25 mg Enoxaparin Sodium (Lovenox) 30 mg SC DAILY [facility] Last Admin: 07/12/17 10:25 Dose: 30 mg Furosemide (Lasix) 60 mg IVP BID [facility] Last Admin: 07/12/17 10:25 Dose: 60 mg Ceftriaxone Sodium (Rocephin Iv 1 Gm Duplex) 50 mls @ 100 mls/hr IVPB DAILY@ 0830 [facility] Last Admin: 07/12/17 07:30 Dose: 100 mls/hr Azithromycin 500 mg/ Sodium (Chloride) 250 mls @ 167 mls/hr IVPB Q24H [facility] Last Admin: 07/12/17 05:54 Dose: 167 mls/hr Insulin Aspart (Novolog Mix 70/30 (70/30 Units/Ml)) 42 units SC BID [facility] Last Admin: 07/12/17 10:26 Dose: 42 units Insulin Glargine (Lantus) 15 unit SC HS [facility] Last Admin: 07/11/17 21:20 Dose: 15 units Insulin Human Regular (Novolin R) 0 unit SC ACHS [facility] PRN Reason: Protocol Last Admin: 07/12/17 12:54 Dose: 2 unit Lisinopril (Zestril) 10 mg PO DAILY [facility] Last Admin: 07/12/17 10:24 Dose: 10 mg Methylprednisolone (Solu-Medrol) 60 mg IV Q8H [facility] Last Admin: 07/12/17 10:24 Dose: 60 mg Montelukast Sodium (Singulair) 10 mg PO HS [facility] Last Admin: 07/11/17 21:22 Dose: 10 mg Pantoprazole Sodium (Protonix Ec Tab) 40 mg PO DAILY [facility] Last Admin: 07/12/17 10:24 Dose: 40 mg Promethazine HCl/Codeine (Phenergan/Codeine Oral Syrup) 5 ml PO Q4 PRN PRN Reason: Cough Rosuvastatin Calcium (Crestor) 10 mg PO HS [facility] Last Admin: 07/11/17 21:20 Dose: 10 mg Fluticasone/Salmeterol (Advair Diskus 250/50) 1 puff IH RQ12 [facility] Last Admin: 07/12/17 07:49 Dose: 1 puff Tramadol HCl (Ultram) 50 mg PO Q6H PRN PRN Reason: Pain, moderate (4-7) Last Admin: 07/11/17 22:43 Dose: 50 mg - Labs Labs: 07/12/17 13:50 07/12/17 13:50
--- NOTE | 2017-07-12 16:34 | PCM.HF ---
Heart Failure Core Measure - Heart Failure Ejection Fraction: 40 % or Greater LEO Inhibitor Prescribed: Yes Beta-Scott Prescribed: Carvedilol - Follow up Will be discharged to: Home Follow Up Date (must be within 7 days from discharge): 07/19/17 Follow Up Time: 09:00
[2017-07-12 17:53] VITALS: BP 142/81
--- NOTE | 2017-07-12 19:36 | CP.PCM.PN ---
Subjective - Date & Time of Evaluation Date of Evaluation: 07/12/17 Time of Evaluation: 10:00 - Subjective Subjective: clinically same Objective - Vital Signs/Intake and Output Vital Signs (last 24 hours): Temp Pulse Resp BP Pulse Ox 98.3 F 88 20 142/81 100 07/12/17 15:13 07/12/17 15:13 07/12/17 15:13 07/12/17 17:51 07/12/17 15:13 Intake and Output: 07/12/17 07/13/17 18:59 06:59 Intake Total 1103 Balance 1103 - Labs Labs: 07/12/17 13:50 07/12/17 13:50 - Constitutional Appears: Well - Head Exam Head Exam: ATRAUMATIC, NORMAL INSPECTION, NORMOCEPHALIC - Eye Exam Eye Exam: EOMI, Normal appearance, PERRL Pupil Exam: NORMAL ACCOMODATION, PERRL - ENT Exam ENT Exam: Mucous Membranes Moist, Normal Exam - Neck Exam Neck Exam: Full ROM, Normal Inspection. absent: Lymphadenopathy - Respiratory Exam Respiratory Exam: Decreased Breath Sounds - Cardiovascular Exam Cardiovascular Exam: REGULAR RHYTHM, +S1, +S2 - GI/Abdominal Exam GI & Abdominal Exam: Soft, Diminished Bowel Sounds - Rectal Exam Rectal Exam: Deferred
--- NOTE | 2017-07-12 21:37 | PN ---
SUBJECTIVE: The patient denies any chest pain. Shortness of breath has improved. PHYSICAL EXAMINATION: VITAL SIGNS: Blood pressure 142/95, heart rate 88, temperature 98.3. HEENT: Poor visual acuity. CHEST: Absent breath sound over the bases. HEART: S1 and S2 regular. EXTREMITIES: 2+ pitting edema. LABORATORY DATA: Today's BUN and creatinine are 80 and 2.1 respectively, glucose is 208. Today's are 10.3 and 31.8, white count 6.1, and platelet count 433,000. Official report of venous Doppler of the lower extremity, no evidence of deep or superficial vein thrombosis in either lower extremity. ASSESSMENT: 1. Nephrotic syndrome. 2. Diastolic heart failure. 3. Anemia. 4. Chronic renal insufficiency. 5. Uncontrolled hypertension. RECOMMENDATIONS: Continue Crestor at 10 mg once a day, Lasix at 60 mg intravenously twice a day, Solu-Medrol at 60 mg intravenously q.8 hours, Zestril at 10 mg once a day, Norvasc 10 mg once a day, start clonidine at 0.1 mg twice a day. Alfa Del Angel MD
== END 2017-07-12 18:45 | disposition home or self-care (01) | DRG 291 ==
LOC: C.ER 20:38 → C.9E 07-08 00:04 → C.6T 07-08 13:12
PROVIDERS: ADMIT Internal Medicine Nephrology; ATTEND Internal Medicine Nephrology
DX: I13.0 Hypertensive heart and chronic kidney disease with heart failure and stage 1 through stage 4 chronic kidney disease, or unspecified chronic kidney disease (principal); I50.33 Acute on chronic diastolic (congestive) heart failure; J18.9 Pneumonia, unspecified organism; E11.22 Type 2 diabetes mellitus with diabetic chronic kidney disease; J44.0 Chronic obstructive pulmonary disease with (acute) lower respiratory infection; Z68.43 Body mass index [BMI] 50.0-59.9, adult; N04.9 Nephrotic syndrome with unspecified morphologic changes; N18.9 Chronic kidney disease, unspecified; F41.9 Anxiety disorder, unspecified; F31.9 Bipolar disorder, unspecified; E78.00 Pure hypercholesterolemia, unspecified; E66.01 Morbid (severe) obesity due to excess calories; Z79.4 Long term (current) use of insulin; E11.65 Type 2 diabetes mellitus with hyperglycemia; D50.9 Iron deficiency anemia, unspecified

== ENCOUNTER 2017-07-19 02:48 | Inpatient (IN) | payer MEDICARE, OTHER ==
[2017-07-19 02:48] VITALS: BMI 34.3
--- NOTE | 2017-07-19 03:52 | C.PDOC ---
History Of Present Illness 51 yo female w/PMHx of COPD on O2, NIDDM, kidney insufficiency, morbid obesity, sleep apnea, chr. lower back pain, come in for evaluation of diffuse lower back pain exacerbation for past few days. Pt sts, " always have this pain, woke up this AM and pain is severe" . As per pt, pain is aching, constant, worse with movement. Otherwise, pt denies fever, chills, recent illness, CP, SOB, dyspnea, palpitation, wheezing, abd. pain, V/D, denies UTI sx, saddle anesthesia, new weakness, sensory or vascular deficits to B/L LEs. At the time of evaluation, appears in pain. Time Seen by Provider: 07/19/17 03:25 Chief Complaint (Nursing): Back Pain History Per: Patient, Family Past Medical History Reviewed: Historical Data, Nursing Documentation, Vital Signs Vital Signs: Last Vital Signs Temp 97.6 F 07/22/17 15:18 Pulse 80 07/22/17 15:18 Resp 20 07/22/17 15:18 BP 124/66 07/22/17 15:18 Pulse Ox 98 07/22/17 15:18 - Medical History PMH: Anemia, Anxiety, Asthma, Bipolar Disorder, COPD, Depression, Diabetes, HTN , Hypercholesterolemia, Pneumonia, Chronic Kidney Disease Denies: Kidney Stones Surgical History: - [facility] Procedures ASSISTANCE WITH RESPIRATORY VENTILATION, 24-96 HRS, CPAP (11/30/15) INSERT INDWELLING CATH (07/28/14) Family History: States: Unknown Family Hx, [place], CAD, Hypertension - Social History Hx Tobacco Use: No Hx Alcohol Use: No Hx Substance Use: No - Immunization History Hx Tetanus Toxoid Vaccination: No Hx Influenza Vaccination: Yes Hx Pneumococcal Vaccination: Yes Review Of Systems Except As Marked, All Systems Reviewed And Found Negative. Constitutional: Negative for: Fever, Chills Eyes: Negative for: Vision Change ENT: Negative for: Throat Pain Cardiovascular: Negative for: Chest Pain, Palpitations, Orthopnea, Edema, Light Headedness Respiratory: Negative for: Cough, Shortness of Breath, Wheezing Gastrointestinal: Negative for: Nausea, Vomiting, Abdominal Pain Genitourinary: Negative for: Dysuria, Frequency, Incontinence Musculoskeletal: Positive for: Back Pain. Negative for: Neck Pain Skin: Negative for: Rash Neurological: Negative for: Weakness, Numbness, Altered Mental Status, Headache , Dizziness Physical Exam - Physical Exam Appears: Well, Non-toxic, Other (in pain) Skin: Normal Color, Warm, Dry Eye(s): bilateral: PERRL Nose: No Flaring, No Discharge Oral Mucosa: Moist, No Drooling Tongue: Normal Appearing Lips: Normal Appearing Throat: No Erythema, No Exudate, No Drooling Neck: Supple Cardiovascular: Rhythm Regular, No JVD, Other ((-) carotid bruits B/L) Respiratory: No Decreased Breath Sounds, No Accessory Muscle Use, No Stridor, No Wheezing Gastrointestinal/Abdominal: Soft, No Tenderness, No Distention, No Guarding Back: No CVA Tenderness, No Vertebral Tenderness, Paraspinal Tenderness ( diffuse thoracic and lumbar, no midline tenderness, no skin changes.) Extremity: No Deformity, Swelling (B/L trace ankle edema.) Neurological/Psych: Oriented x3, Normal Speech, Normal Motor, Normal Sensation, Normal Reflexes ED Course And Treatment - Laboratory Results Result Diagrams: 07/22/17 07:53 07/22/17 07:49 Lab Interpretation: Abnormal O2 Sat by Pulse Oximetry: 100 Pulse Ox Interpretation: Normal - Radiology CXR: Interpreted by Me, Viewed By Ny CXR Interpretation: Yes: Other (increase peribrochial markings B/L) Progress Note: On re-eval, pt remained unchanged. Pt still c/o back pain. Blood owrk review and appears abnormal, hyperglycemia, hyponatremia. CXR with increase peribrochial markings B/L. As per minda, pt was taking steroids for last admission 2 weeks ago. Case discussed with ED attending and admission recommend. called and admission arranged. Disposition - Disposition Disposition: HOSPITALIZED Disposition Time: 05:34 Condition: STABLE - Clinical Impression Clinical Impression: Uncontrolled diabetes mellitus, Back pain, Hyponatremia
[2017-07-19 03:56] LABS: RBC URINE < 1 /hpf (0-3); URINE BILIRUBIN NEGATIVE (NEGATIVE); URINE BLOOD NEGATIVE (NEGATIVE); URINE COLOR Colorless (YELLOW); URINE GLUCOSE (UA) 3+ mg/dL (Normal); URINE KETONE NEGATIVE (NEGATIVE); URINE LEUKOCYTE ESTERASE NEG Leu/uL (Negative); URINE PROTEIN 2+ mg/dL (NEGATIVE); URINE UROBILINOGEN NORMAL mg/dL (0.2-1.0); WBC URINE < 1 /hpf (0-5)
[2017-07-19] MEDS ORDERED: Albuterol-Ipratrop 3 mg / 0.5 (3 ml) UD IH STA (04:02)
[2017-07-19] MEDS ORDERED: Albuterol-Ipratrop 3 mg / 0.5 (3 ml) UD ONE (04:11)
[2017-07-19 04:17] LABS: BASO # 0.1 K/uL (0.0-0.2); BASO % 0.9 % (0.0-2.0); EOS # 0.2 K/uL (0.0-0.7); EOS % 3.4 % (0.0-4.0); HEMATOCRIT 28.9 % (34.0-47.0); LYMPH # 1.2 K/uL (1.0-4.3); LYMPH % 15.9 % (20.0-40.0); MEAN CELL VOLUME 88.6 fL (81.0-99.0); MEAN CORPUSCULAR HEMOGLOBIN 27.9 pg (27.0-31.0); MEAN CORPUSCULAR HGB CONC 31.5 g/dL (33.0-37.0); MEAN PLATELET VOLUME 8.8 fL (7.2-11.7); MONO # 0.6 K/uL (0.0-0.8); RED CELL DISTRIBUTION WIDTH 15.8 % (11.5-14.5); WHITE BLOOD COUNT 7.2 K/uL (4.8-10.8)
[2017-07-19] MEDS ORDERED: Morphine 4 MG/ML VIAL ONE (04:20)
[2017-07-19 04:29] LABS: POTASSIUM 5.2 mmol/L (3.6-5.2)
[2017-07-19 04:31] LABS: BILIRUBIN,TOTAL 0.4 mg/dL (0.2-1.3); TOTAL PROTEIN 6.9 g/dL (6.3-8.3)
[2017-07-19 04:32] LABS: CALCIUM 8.4 mg/dl (8.6-10.4)
[2017-07-19] MEDS ORDERED: (Novolin R) Insulin Human Regular 100 units/ml vial IV ONE (04:57)
[2017-07-19] MEDS ORDERED: Sodium Chloride 0.9% 1,000 ML IV ONE ×2 (04:57→04:58)
[2017-07-19] MEDS ORDERED: (Novolin R) Insulin Human Regular 100 units/ml vial ONE (05:09)
--- NOTE | 2017-07-19 06:50 | CT ---
EXAM: CT Lumbar Spine Without Intravenous Contrast EXAM DATE/TIME: 07/19/2017 5:47 AM CLINICAL HISTORY: 51 years old, female; Pain; Low back pain TECHNIQUE: Axial computed tomography images of the lumbar spine without intravenous contrast. All CT scans at this facility use one or more dose reduction techniques, viz.: automated exposure control; ma/kV adjustment per patient size (including targeted exams where dose is matched to indication; i.e. head); or iterative reconstruction technique. Coronal and sagittal reformatted images were created and reviewed. COMPARISON: CT - ABD PELVIS W/O PO OR IV CONT 2015-11-30 19:54 FINDINGS: Vertebrae: Unremarkable. No acute fracture. Discs/spinal canal/neural foramina: No acute findings. No spinal canal stenosis. Soft tissues: Unremarkable. IMPRESSION: No acute abnormality.
--- NOTE | 2017-07-19 08:57 | RAD ---
HISTORY: back pain COMPARISON: Chest radiographs 07/12/2017. TECHNIQUE: Chest PA and lateral FINDINGS: LUNGS: History volume appears improved. No interval infiltrate identified bilaterally. PLEURA: No significant pleural effusion identified. No pneumothorax apparent. CARDIOVASCULAR: Upper limits normal cardiac size again evident without pulmonary vascular derangement once again. OSSEOUS STRUCTURES: No significant abnormalities. VISUALIZED UPPER ABDOMEN: Normal. OTHER FINDINGS: None. IMPRESSION: No acute infiltrate pleural effusion or pneumothorax. Upper lobes normal cardiac size appears stable.
[2017-07-19] MEDS ORDERED: Glucagon Recombinant 1 mg Inj IM PRN (11:15)
[2017-07-19] MEDS ORDERED: Dextrose 50% SYRINGE Inj (50 ml) IV PRN (11:15)
--- NOTE | 2017-07-19 11:19 | CP.PCM.PN ---
Subjective - Date & Time of Evaluation Date of Evaluation: 07/19/17 Time of Evaluation: 11:18 - Subjective Subjective: PGY-[address] Saldivar's service: Pt seen and examined at bedside. Nursing reports no acute events overnight. Patient found resting in no acute distress with daughter at bedside. Patient reporting lower back pain, rating it 7/10, at worst, 3/10 now, on severity scale , that occasionally radiates to back. She states she is able to walk to the bathroom ok, but any farther makes her feel short of breath. She admits to needing BiPAP machine at night, after sleep study showed JANET, but patient states she could not receive due to insurance issue. Daughter at bedside states mother often snores, and pt admits fatigue during day. Objective - Vital Signs/Intake and Output Vital Signs (last 24 hours): Temp Pulse Resp BP Pulse Ox 98.1 F 76 20 138/78 96 07/19/17 07:40 07/19/17 07:40 07/19/17 07:40 07/19/17 07:40 07/19/17 07:40 - Medications Medications: Current Medications Allopurinol (Zyloprim) 300 mg PO DAILY [facility] Amlodipine Besylate (Norvasc) 10 mg PO DAILY [facility] Dextrose (Dextrose 50% Inj) 0 ml IV STAT PRN; Protocol PRN Reason: Hyglycemia Protocol Dextrose (Glutose 15) 0 gm PO ONCE PRN; Protocol PRN Reason: Hypoglycemia Protocol Glucagon (Glucagen Diagnostic Kit) 0 mg IM STAT PRN; Protocol PRN Reason: Hypoglycemia Protocol Heparin Sodium (Porcine) (Heparin) 5,000 units SC Q12 [facility] Dextrose (Dextrose 5% In Water 1000 Ml) 1,000 mls @ 0 mls/hr IV .Q0M PRN; Protocol; Per Protocol PRN Reason: Hypoglycemia Protocol Insulin Human Regular (Novolin R) 0 unit SC ACHS [facility] PRN Reason: Protocol Rosuvastatin Calcium (Crestor) 20 mg PO HS [facility] - Labs Labs: 07/19/17 04:15 07/19/17 04:15 - Constitutional Appears: Non-toxic, No Acute Distress, Other (Morbid obesity) - Head Exam Head Exam: ATRAUMATIC, NORMOCEPHALIC - Eye Exam Eye Exam: EOMI. absent: Scleral icterus - ENT Exam ENT Exam: Mucous Membranes Moist - Neck Exam Neck Exam: absent: Lymphadenopathy, Tenderness - Respiratory Exam Respiratory Exam: Rales. absent: Accessory Muscle Use - Cardiovascular Exam Cardiovascular Exam: REGULAR RHYTHM, +S1, +S2 Additional comments: JVD difficult to assess due to body habitus - GI/Abdominal Exam GI & Abdominal Exam: Soft. absent: Distended, Firm, Guarding - Extremities Exam Extremities Exam: Pedal Edema (2+). absent: Calf Tenderness, Normal Inspection Additional comments: Anasarca 2+ pitting edema through b/l thighs - Back Exam Back Exam: absent: CVA tenderness (L), CVA tenderness (R) - Neurological Exam Neurological Exam: Alert, Awake, Oriented x3 - Psychiatric Exam Psychiatric exam: Normal Affect, Normal Mood - Skin Skin Exam: Dry, Intact Assessment and Plan - Assessment and Plan (Free Text) Plan: Back Pain Pt reporting colicky abd pain that goes to upper back/shoulder f/u US ABD CT Lumbar-spine (07/19/17): No acute findings. Morphine 2mg PO Q4H PRN Asthma/COPD CXR: (07/19/17): No acute infiltrate pleural effusion or pneumothorax. Upper lobes normal. Cardiac size appears stable. 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 On home O2 3 Liters Advair Diskus 250/50 IH Q12H Singulair 10mg PO HS Duoneb Q6H PRN Prednisone 10mg PO Daily (finishing taper from COPD exacerbation admission 07/07 Nitesh) CHF with preserved EF Admit to tele 07/18/17 BNP 362 on admission ECHO (05/03/17): LV EF 65%, Left atrium mildly dilated, mild aortic regurgitation , mild valvular aortic stenosis Lasix 80mg IV BID Metolazone 5mg PO Q12H to follow Lasix one hour after Cozaar 100mg PO daily Coreg 6.25mg PO BID HTN Elevated at admission, downtrending Norvasc 10mg PO Daily Coreg 6.25mg PO BID Cozaar 100mg PO Daily Clonidine 0.2mg PO Daily Type Two Diabetes mellitus Poorly controlled Accuchecks RISS Lantus 35u SC HS Hypoglycemia protocol f/u lipid panel, A1C, TSH/free t4 Transaminitis AST/ALT elevated, but downtrending over course IBARRA/NAFLD most likely cause f/u US ABD Monitor Elevated Alk Phos Am Labs 354 f/u US ABD Hyperlipidemia Crestor 20mg PO HS Zetia 10mg PO HS f/u lipid panel CKD with Nephrotic syndrome Creatine 2.3 today, at baseline from recent admission but uptrending Monitor Prior admissoin: 24hr 5270 UA 2+ protein Lisnopril 10mg PO Daily Hx of Gout Allopurinol 300mg PO Daily Prophylaxis Protonix 20mg PO daily SCDs Heparin 5000u Q12H Charles Schneider PGY-2 All medical management per Dr. Saldivar
[2017-07-19] MEDS ORDERED: Albuterol-Ipratrop 3 mg / 0.5 (3 ml) UD INH PRN (11:49)
[2017-07-19] MEDS: Nitroglycerin 0.2 mg/hr Top Patch TD SCH (12:15)
[2017-07-19] MEDS: (Novolin R) Insulin Human Regular 100 units/ml vial SC SCH ×3 (12:21→22:03)
[2017-07-19] MEDS: Sodium Chloride 0.9% 1,000 ML IV SCH (13:00)
[2017-07-19] MEDS: Pantoprazole 20 mg EC Tab PO SCH (13:27)
[2017-07-19 14:17] LABS: MEAN CELL VOLUME 88.5 fL (81.0-99.0); MEAN CORPUSCULAR HGB CONC 31.6 g/dL (33.0-37.0); MEAN PLATELET VOLUME 8.8 fL (7.2-11.7); WHITE BLOOD COUNT 6.6 K/uL (4.8-10.8)
[2017-07-19 14:36] LABS: POTASSIUM 4.7 mmol/L (3.6-5.2)
[2017-07-19 14:39] LABS: BILIRUBIN,TOTAL 0.3 mg/dL (0.2-1.3); TOTAL PROTEIN 6.9 g/dL (6.3-8.3)
[2017-07-19 14:40] LABS: CALCIUM 8.4 mg/dl (8.6-10.4)
[2017-07-19] MEDS ORDERED: (Novolin R) Insulin Human Regular 100 units/ml vial SC ONE (15:15)
[2017-07-19 16:25] LABS: ARTERIAL BLOOD HGB O2 SAT 94.4 % (95.0-98.0); CARBOXYHEMOGLOBIN 0.4 % (0.5-1.5); DRAW SITE RBA; HHB 4.6 % (0.0-5.0); METHEMOGLOBIN 0.5 % (0.0-3.0)
[2017-07-19] MEDS ORDERED: (Novolog) Insulin Aspart, Recombinant 100 u/ml 10 ml vial SC SCH (16:30)
[2017-07-19] MEDS ORDERED: (Novolog Mix 70/30) Insulin Aspart/Insulin Aspar 100 units/ml SC SCH (18:00)
--- NOTE | 2017-07-19 18:37 | US ---
Abdominal ultrasound dated 07/19/2017. History: Right upper quadrant pain. Sonographic evaluation of the abdomen performed. Comparison made with renal ultrasound 01/21/2016. Comparison also made with CT scan chest 06/08/2017 which image the upper abdomen. . Note that study is limited due to morbid obesity Findings: The liver is enlarged measuring 21.3 cm in CC dimension. Liver demonstrates smooth contour though increased echotexture likely due to fatty infiltration however other infiltrative hepatocellular disease process not excluded. No obvious hepatic mass collection or calcification seen on images presented. No ascites. The gallbladder is physiologically distended. No evidence of intraluminal gallbladder calculi. No pericholecystic fluid collections or sonographic Joseph sign. Common bile duct measures 3.7 mm. . The pancreas is not well delineated due to large body habitus and bowel gas. Spleen measures approximate 11.1 cm. No splenic mass collection or calcification. Right kidney measures 11.5 x 4.6 x 4.6 cm and left kidney measures 10.4 x 5.9 x 5.7 cm. There are no renal masses collections or calcifications. No evidence of hydronephrosis. The IVC poorly seen due to large body habitus Impression: Limited study due to large body habitus. Enlarged fatty liver however other infiltrative hepatocellular disease process not excluded.
[2017-07-19] MEDS: (Novolog Mix 70/30) Insulin Aspart/Insulin Aspar 100 units/ml SC SCH (18:38)
[2017-07-19] MEDS: (Lantus) Insulin Glargine, Recombinant SC SCH (21:18)
[2017-07-19] MEDS: metOLazone 5 MG TAB PO SCH (21:28)
[2017-07-19] MEDS ORDERED: (Lantus) Insulin Glargine, Recombinant SC SCH (22:00)
[2017-07-19] MEDS: Fluticasone-Salmeterol 250-50mcg Diskus IH SCH (22:48)
--- NOTE | 2017-07-19 23:44 | CP.PCM.HP ---
Past Patient History - Infectious Disease Hx of Infectious Diseases: None - Past Medical History & Family History Past Medical History?: Yes - Past Social History Smoking Status: Never Smoked - CARDIAC Hx Hypercholesterolemia: Yes Hx Hypertension: Yes - PULMONARY Hx Asthma: Yes Hx Chronic Obstructive Pulmonary Disease (COPD): Yes Hx Pneumonia: Yes - NEUROLOGICAL Hx Neurological Disorder: No - HEENT Hx HEENT Problems: Yes Hx Cataracts: Yes - RENAL Hx Chronic Kidney Disease: Yes Hx Kidney Stones: No - ENDOCRINE/METABOLIC Hx Diabetes Mellitus Type 2: Yes - HEMATOLOGICAL/ONCOLOGICAL Hx Anemia: Yes - INTEGUMENTARY Hx Dermatological Problems: No - MUSCULOSKELETAL/RHEUMATOLOGICAL Hx Falls: No - GASTROINTESTINAL Hx Gastrointestinal Disorders: No - GENITOURINARY/GYNECOLOGICAL Hx Genitourinary Disorders: No - PSYCHIATRIC Hx Substance Use: No - SURGICAL HISTORY Hx Surgeries: Yes Hx Section: Yes (x1) Hx Eye Surgery: Yes (LEFT EYE) - ANESTHESIA Hx Anesthesia: Yes Hx Anesthesia Reactions: No Hx Malignant Hyperthermia: No Meds Allergies/Adverse Reactions: Allergies Allergy/AdvReac Type Severity Reaction Status Date / Time shellfish derived Allergy Verified 07/19/17 03:06 Results - Vital Signs Recent Vital Signs: Last Vital Signs Temp 97.4 F L 07/19/17 15:36 Pulse 83 07/19/17 15:36 Resp 20 07/19/17 15:36 BP 137/81 07/19/17 21:08 Pulse Ox 100 07/19/17 15:36 - Labs Result Diagrams: 07/19/17 14:06 07/19/17 14:06 Labs: Laboratory Results - last 24 hr 07/19/17 07/19/17 07/19/17 03:45 04:15 04:15 WBC 7.2 RBC 3.26 L Hgb 9.1 L Hct 28.9 L MCV 88.6 D MCH 27.9 MCHC 31.5 L RDW 15.8 H Plt Count 338 MPV 8.8 Neut % (Auto) 71.8 Lymph % (Auto) 15.9 L [place] % (Auto) 8.0 Eos % (Auto) 3.4 Baso % (Auto) 0.9 Neut # 5.2 Lymph # 1.2 [place] # 0.6 Eos # 0.2 Baso # 0.1 Puncture Site pCO2 pO2 HCO3 ABG pH ABG Total CO2 ABG O2 Saturation ABG Base Excess ABG Hemoglobin ABG Carboxyhemoglobin POC ABG HHb (Measured) ABG Methemoglobin Tyler Test A-a O2 Difference Respiratory Index Hgb O2 Saturation Liter Flow FiO2 Sodium 129 L Potassium 5.2 Chloride 96 L Carbon Dioxide 25 Anion Gap 13 BUN 39 H Creatinine 2.3 H Est GFR ( Amer) 27 Est GFR (Non-Af Amer) 22 POC Glucose (mg/dL) Random Glucose 603 H* D Calcium 8.4 L Total Bilirubin 0.4 AST 65 H ALT 62 H Alkaline Phosphatase 354 H NT-Pro-B Natriuret Pep Total Protein 6.9 Albumin 3.4 L Globulin 3.5 Albumin/Globulin Ratio 1.0 Lipase 25 Urine Color Colorless Urine Clarity Clear Urine pH 6.0 Ur Specific [place] 1.010 Urine Protein 2+ H Urine Glucose (UA) 3+ H Urine Ketones Negative Urine Blood Negative Urine Nitrate Negative Urine Bilirubin Negative Urine Urobilinogen Normal Ur Leukocyte Esterase Neg Urine WBC (Auto) < 1 Urine RBC (Auto) < 1 Ur Squamous Epith Cells < 1 Urine HCG, Qual Negative 07/19/17 07/19/17 07/19/17 06:22 11:03 14:06 WBC 6.6 RBC 3.28 L Hgb 9.2 L Hct 29.0 L MCV 88.5 MCH 28.0 MCHC 31.6 L RDW 16.0 H Plt Count 367 MPV 8.8 Neut % (Auto) Lymph % (Auto) [place] % (Auto) Eos % (Auto) Baso % (Auto) Neut # Lymph # [place] # Eos # Baso # Puncture Site pCO2 pO2 HCO3 ABG pH ABG Total CO2 ABG O2 Saturation ABG Base Excess ABG Hemoglobin ABG Carboxyhemoglobin POC ABG HHb (Measured) ABG Methemoglobin Tyler Test A-a O2 Difference Respiratory Index Hgb O2 Saturation Liter Flow FiO2 Sodium Potassium Chloride Carbon Dioxide Anion Gap BUN Creatinine Est GFR ( Amer) Est GFR (Non-Af Amer) POC Glucose (mg/dL) 417 H* 498 H* Random Glucose Calcium Total Bilirubin AST ALT Alkaline Phosphatase NT-Pro-B Natriuret Pep Total Protein Albumin Globulin Albumin/Globulin Ratio Lipase Urine Color Urine Clarity Urine pH Ur Specific [place] Urine Protein Urine Glucose (UA) Urine Ketones Urine Blood Urine Nitrate Urine Bilirubin Urine Urobilinogen Ur Leukocyte Esterase Urine WBC (Auto) Urine RBC (Auto) Ur Squamous Epith Cells Urine HCG, Qual 07/19/17 07/19/17 07/19/17 14:06 16:22 16:34 WBC RBC Hgb Hct MCV MCH MCHC RDW Plt Count MPV Neut % (Auto) Lymph % (Auto) [place] % (Auto) Eos % (Auto) Baso % (Auto) Neut # Lymph # [place] # Eos # Baso # Puncture Site Rba pCO2 51 H pO2 68 L HCO3 26.5 ABG pH 7.35 ABG Total CO2 29.8 H ABG O2 Saturation 95.4 ABG Base Excess 2.1 ABG Hemoglobin 8.9 L ABG Carboxyhemoglobin 0.4 L POC ABG HHb (Measured) 4.6 ABG Methemoglobin 0.5 Tyler Test Na A-a O2 Difference 18.0 Respiratory Index 0.3 Hgb O2 Saturation 94.4 L Liter Flow 0 FiO2 21.0 Sodium 130 L Potassium 4.7 Chloride 95 L Carbon Dioxide 27 Anion Gap 13 BUN 37 H Creatinine 2.4 H Est GFR ( Amer) 26 Est GFR (Non-Af Amer) 21 POC Glucose (mg/dL) 393 H Random Glucose 562 H* Calcium 8.4 L Total Bilirubin 0.3 AST 37 H D ALT 57 H Alkaline Phosphatase 324 H NT-Pro-B Natriuret Pep 356 Total Protein 6.9 Albumin 3.4 L Globulin 3.5 Albumin/Globulin Ratio 1.0 Lipase Urine Color Urine Clarity Urine pH Ur Specific [place] Urine Protein Urine Glucose (UA) Urine Ketones Urine Blood Urine Nitrate Urine Bilirubin Urine Urobilinogen Ur Leukocyte Esterase Urine WBC (Auto) Urine RBC (Auto) Ur Squamous Epith Cells Urine HCG, Qual 07/19/17 07/19/17 21:01 23:02 WBC RBC Hgb Hct MCV MCH MCHC RDW Plt Count MPV Neut % (Auto) Lymph % (Auto) [place] % (Auto) Eos % (Auto) Baso % (Auto) Neut # Lymph # [place] # Eos # Baso # Puncture Site pCO2 pO2 HCO3 ABG pH ABG Total CO2 ABG O2 Saturation ABG Base Excess ABG Hemoglobin ABG Carboxyhemoglobin POC ABG HHb (Measured) ABG Methemoglobin Tyler Test A-a O2 Difference Respiratory Index Hgb O2 Saturation Liter Flow FiO2 Sodium Potassium Chloride Carbon Dioxide Anion Gap BUN Creatinine Est GFR ( Amer) Est GFR (Non-Af Amer) POC Glucose (mg/dL) 118 H 47 L Random Glucose Calcium Total Bilirubin AST ALT Alkaline Phosphatase NT-Pro-B Natriuret Pep Total Protein Albumin Globulin Albumin/Globulin Ratio Lipase Urine Color Urine Clarity Urine pH Ur Specific [place] Urine Protein Urine Glucose (UA) Urine Ketones Urine Blood Urine Nitrate Urine Bilirubin Urine Urobilinogen Ur Leukocyte Esterase Urine WBC (Auto) Urine RBC (Auto) Ur Squamous Epith Cells Urine HCG, Qual
[2017-07-20] MEDS: Sodium Chloride 0.9% 1,000 ML IV SCH (06:01)
[2017-07-20 07:26] LABS: BASO % 0.4 % (0.0-2.0); EOS # 0.4 K/uL (0.0-0.7); HEMATOCRIT 26.5 % (34.0-47.0); LYMPH # 1.8 K/uL (1.0-4.3); LYMPH % 21.6 % (20.0-40.0); MEAN CORPUSCULAR HEMOGLOBIN 28.3 pg (27.0-31.0); MEAN CORPUSCULAR HGB CONC 32.9 g/dL (33.0-37.0); MEAN PLATELET VOLUME 8.8 fL (7.2-11.7); MONO # 0.8 K/uL (0.0-0.8); MONO % 9.8 % (0.0-10.0); RED CELL DISTRIBUTION WIDTH 15.8 % (11.5-14.5); WHITE BLOOD COUNT 8.4 K/uL (4.8-10.8)
[2017-07-20 07:39] LABS: MEAN CELL VOLUME 86.1 fL (81.0-99.0)
[2017-07-20] MEDS: Fluticasone-Salmeterol 250-50mcg Diskus IH SCH ×2 (08:00→22:05)
[2017-07-20 08:02] LABS: POTASSIUM 4.6 mmol/L (3.6-5.2)
[2017-07-20 08:04] LABS: ALB/GLOB RATIO 1.4 (1.0-2.1); BILIRUBIN,TOTAL 0.3 mg/dL (0.2-1.3); TOTAL PROTEIN 5.8 g/dL (6.3-8.3)
[2017-07-20 08:05] LABS: CALCIUM 8.3 mg/dl (8.6-10.4); MAGNESIUM 1.8 mg/dL (1.6-2.3); PHOSPHOROUS 4.8 mg/dL (2.5-4.5)
[2017-07-20] MEDS: (Novolin R) Insulin Human Regular 100 units/ml vial SC SCH ×4 (08:11→22:16)
[2017-07-20 08:26] LABS: THYROID STIMULATING HORMONE 2.61 mIU/L (0.46-4.68)
[2017-07-20] MEDS: metOLazone 5 MG TAB PO SCH ×2 (09:07→22:03)
[2017-07-20] MEDS: Nitroglycerin 0.2 mg/hr Top Patch TD SCH (10:04)
[2017-07-20] MEDS: (Novolog Mix 70/30) Insulin Aspart/Insulin Aspar 100 units/ml SC SCH ×2 (10:04→18:20)
[2017-07-20] MEDS: Pantoprazole 20 mg EC Tab PO SCH (10:06)
--- NOTE | 2017-07-20 15:01 | CP.PCM.PN ---
Subjective - Date & Time of Evaluation Date of Evaluation: 07/20/17 Time of Evaluation: 10:00 - Subjective Subjective: clinically same Objective - Vital Signs/Intake and Output Vital Signs (last 24 hours): Temp Pulse Resp BP Pulse Ox 98.2 F 88 20 115/83 99 07/20/17 07:00 07/20/17 08:03 07/20/17 07:00 07/20/17 10:04 07/20/17 07:00 Intake and Output: 07/20/17 07/20/17 06:59 18:59 Intake Total 960 Balance 960 - Medications Medications: Current Medications Albuterol/Ipratropium (Duoneb 3 Mg/0.5 Mg (3 Ml) Ud) 3 ml INH RQ6 PRN PRN Reason: Shortness of Breath Allopurinol (Zyloprim) 300 mg PO DAILY [facility] Last Admin: 07/20/17 10:06 Dose: 300 mg Amlodipine Besylate (Norvasc) 10 mg PO DAILY [facility] Last Admin: 07/20/17 10:06 Dose: 10 mg Carvedilol (Coreg) 6.25 mg PO BID [facility] Last Admin: 07/20/17 10:07 Dose: 6.25 mg Clonidine HCl (Catapres) 0.2 mg PO DAILY [facility] Last Admin: 07/20/17 10:11 Dose: 0.2 mg Dextrose (Dextrose 50% Inj) 0 ml IV STAT PRN; Protocol PRN Reason: Hyglycemia Protocol Last Admin: 07/19/17 23:02 Dose: 50 ml Dextrose (Glutose 15) 0 gm PO ONCE PRN; Protocol PRN Reason: Hypoglycemia Protocol Ezetimibe (Zetia) 10 mg PO HS [facility] Last Admin: 07/19/17 21:19 Dose: 10 mg Ergocalciferol (Drisdol 50,000 Intl Units Cap) 1 cap PO QWK [facility] Furosemide (Lasix) 80 mg IVP Q12H [facility] Last Admin: 07/20/17 10:04 Dose: 80 mg Glucagon (Glucagen Diagnostic Kit) 0 mg IM STAT PRN; Protocol PRN Reason: Hypoglycemia Protocol Heparin Sodium (Porcine) (Heparin) 5,000 units SC Q12 [facility] Last Admin: 07/20/17 10:08 Dose: 5,000 units Hydrochlorothiazide (Microzide) 12.5 mg PO DAILY [facility] Last Admin: 07/19/17 10:45 Dose: 12.5 mg Dextrose (Dextrose 5% In Water 1000 Ml) 1,000 mls @ 0 mls/hr IV .Q0M PRN; Protocol; Per Protocol PRN Reason: Hypoglycemia Protocol Insulin Aspart (Novolog Mix 70/30 (70/30 Units/Ml)) 60 units SC BID [facility] Last Admin: 07/20/17 10:04 Dose: 60 units Insulin Glargine (Lantus) 35 unit SC HS [facility] Last Admin: 07/19/17 21:18 Dose: 35 u Insulin Human Regular (Novolin R) 0 unit SC ACHS [facility] PRN Reason: Protocol Last Admin: 07/20/17 12:09 Dose: Not Given Losartan Potassium (Cozaar) 100 mg PO DAILY [facility] Last Admin: 07/20/17 10:06 Dose: 100 mg Metolazone (Zaroxolyn) 5 mg PO Q12H [facility] Last Admin: 07/20/17 09:07 Dose: 5 mg Montelukast Sodium (Singulair) 10 mg PO HS [facility] Last Admin: 07/19/17 21:19 Dose: 10 mg Morphine Sulfate (Morphine) 2 mg IVP Q4 PRN PRN Reason: Pain Last Admin: 07/19/17 19:33 Dose: 2 mg Nitroglycerin (Nitro-Dur 0.2 Mg/Hr Patch) 1 patch TD DAILY [facility] Last Admin: 07/20/17 10:04 Dose: 1 patch Pantoprazole Sodium (Protonix Ec Tab) 20 mg PO DAILY [facility] Last Admin: 07/20/17 10:06 Dose: 20 mg Prednisone (Prednisone Tab) 10 mg PO DAILY [facility] Last Admin: 07/20/17 10:06 Dose: 10 mg Rosuvastatin Calcium (Crestor) 20 mg PO HS [facility] Last Admin: 07/19/17 21:17 Dose: 20 mg Fluticasone/Salmeterol (Advair Diskus 250/50) 1 puff IH RQ12 [facility] Last Admin: 07/20/17 08:00 Dose: 1 puff - Labs Labs: 07/20/17 07:17 07/20/17 07:17 Assessment and Plan - Assessment and Plan (Free Text) Plan: Patient's sugar is low now patient sugar was high patient steroid is decreased significantly Pulmonary ID consult Patient advised to eat Family is bedside
[2017-07-20] MEDS: (Lantus) Insulin Glargine, Recombinant SC SCH (22:01)
[2017-07-20] MEDS: Albuterol-Ipratrop 3 mg / 0.5 (3 ml) UD INH SCH (22:05)
[2017-07-21] MEDS: Albuterol-Ipratrop 3 mg / 0.5 (3 ml) UD INH SCH ×4 (01:29→19:50)
[2017-07-21] MEDS: Fluticasone-Salmeterol 250-50mcg Diskus IH SCH ×2 (07:35→19:50)
[2017-07-21] MEDS: (Novolin R) Insulin Human Regular 100 units/ml vial SC SCH ×4 (07:46→21:42)
[2017-07-21 08:51] LABS: BASO % 0.6 % (0.0-2.0); EOS # 0.3 K/uL (0.0-0.7); EOS % 3.8 % (0.0-4.0); HEMATOCRIT 25.9 % (34.0-47.0); LYMPH # 1.9 K/uL (1.0-4.3); MEAN CELL VOLUME 86.7 fL (81.0-99.0); MEAN CORPUSCULAR HEMOGLOBIN 28.7 pg (27.0-31.0); MEAN CORPUSCULAR HGB CONC 33.1 g/dL (33.0-37.0); MEAN PLATELET VOLUME 9.1 fL (7.2-11.7); MONO # 0.9 K/uL (0.0-0.8); RED CELL DISTRIBUTION WIDTH 15.5 % (11.5-14.5); WHITE BLOOD COUNT 8.4 K/uL (4.8-10.8)
[2017-07-21] MEDS: Pantoprazole 20 mg EC Tab PO SCH (09:12)
[2017-07-21] MEDS: metOLazone 5 MG TAB PO SCH ×2 (09:12→21:41)
[2017-07-21 09:14] LABS: POTASSIUM 4.3 mmol/L (3.6-5.2)
[2017-07-21 09:16] LABS: BILIRUBIN,TOTAL 0.2 mg/dL (0.2-1.3); TOTAL PROTEIN 6.5 g/dL (6.3-8.3)
[2017-07-21] MEDS: Nitroglycerin 0.2 mg/hr Top Patch TD SCH (09:16)
[2017-07-21] MEDS: (Novolog Mix 70/30) Insulin Aspart/Insulin Aspar 100 units/ml SC SCH (09:16)
[2017-07-21 09:17] LABS: CALCIUM 8.6 mg/dl (8.6-10.4); MAGNESIUM 1.9 mg/dL (1.6-2.3); PHOSPHOROUS 5.8 mg/dL (2.5-4.5)
[2017-07-21] MEDS ORDERED: Aluminum Hydroxide/Magnesium Hydroxide Susp (30 mL) PO PRN (13:03)
--- NOTE | 2017-07-21 17:13 | CP.PCM.PN ---
Subjective - Date & Time of Evaluation Date of Evaluation: 07/21/17 Time of Evaluation: 09:40 - Subjective Subjective: clinically same Objective - Vital Signs/Intake and Output Vital Signs (last 24 hours): Temp Pulse Resp BP Pulse Ox 98.0 F 107 H 20 112/62 95 07/21/17 08:06 07/21/17 08:06 07/21/17 08:06 07/21/17 11:24 07/21/17 08:06 Intake and Output: 07/21/17 07/21/17 06:59 18:59 Intake Total 580 Balance 580 - Medications Medications: Current Medications Al Hydrox/Mg Hydrox/Simethicone (Maalox 30 Ml) 30 ml PO BID PRN PRN Reason: Indigestion / Heartburn Last Admin: 07/21/17 13:35 Dose: 30 ml Albuterol/Ipratropium (Duoneb 3 Mg/0.5 Mg (3 Ml) Ud) 3 ml INH RQ6 [facility] Last Admin: 07/21/17 13:46 Dose: 3 ml Allopurinol (Zyloprim) 300 mg PO DAILY [facility] Last Admin: 07/21/17 09:16 Dose: 300 mg Amlodipine Besylate (Norvasc) 10 mg PO DAILY [facility] Last Admin: 07/21/17 09:12 Dose: 10 mg Carvedilol (Coreg) 6.25 mg PO BID [facility] Last Admin: 07/21/17 09:12 Dose: 6.25 mg Clonidine HCl (Catapres) 0.2 mg PO DAILY [facility] Last Admin: 07/21/17 09:12 Dose: 0.2 mg Dextrose (Dextrose 50% Inj) 0 ml IV STAT PRN; Protocol PRN Reason: Hyglycemia Protocol Last Admin: 07/19/17 23:02 Dose: 50 ml Dextrose (Glutose 15) 0 gm PO ONCE PRN; Protocol PRN Reason: Hypoglycemia Protocol Ezetimibe (Zetia) 10 mg PO HS [facility] Last Admin: 07/20/17 22:03 Dose: 10 mg Ergocalciferol (Drisdol 50,000 Intl Units Cap) 1 cap PO QWK [facility] Furosemide (Lasix) 80 mg IVP Q12H [facility] Last Admin: 07/21/17 09:00 Dose: 80 mg Glucagon (Glucagen Diagnostic Kit) 0 mg IM STAT PRN; Protocol PRN Reason: Hypoglycemia Protocol Heparin Sodium (Porcine) (Heparin) 5,000 units SC Q12 [facility] Last Admin: 07/21/17 09:13 Dose: 5,000 units Hydrochlorothiazide (Microzide) 12.5 mg PO DAILY [facility] Last Admin: 07/19/17 10:45 Dose: 12.5 mg Dextrose (Dextrose 5% In Water 1000 Ml) 1,000 mls @ 0 mls/hr IV .Q0M PRN; Protocol; Per Protocol PRN Reason: Hypoglycemia Protocol Insulin Glargine (Lantus) 35 unit SC HS [facility] Last Admin: 07/20/17 22:01 Dose: 35 u Insulin Human Regular (Novolin R) 0 unit SC ACHS [facility] PRN Reason: Protocol Last Admin: 07/21/17 12:05 Dose: Not Given Losartan Potassium (Cozaar) 100 mg PO DAILY [facility] Last Admin: 07/21/17 09:12 Dose: 100 mg Metolazone (Zaroxolyn) 5 mg PO Q12H [facility] Last Admin: 07/21/17 09:12 Dose: 5 mg Montelukast Sodium (Singulair) 10 mg PO HS [facility] Last Admin: 07/20/17 22:02 Dose: 10 mg Morphine Sulfate (Morphine) 2 mg IVP Q4 PRN PRN Reason: Pain Last Admin: 07/20/17 21:56 Dose: 2 mg Nitroglycerin (Nitro-Dur 0.2 Mg/Hr Patch) 1 patch TD DAILY [facility] Last Admin: 07/21/17 09:16 Dose: 1 patch Pantoprazole Sodium (Protonix Ec Tab) 20 mg PO DAILY [facility] Last Admin: 07/21/17 09:12 Dose: 20 mg Prednisone (Prednisone Tab) 10 mg PO DAILY [facility] Last Admin: 07/21/17 09:14 Dose: 10 mg Rosuvastatin Calcium (Crestor) 20 mg PO HS [facility] Last Admin: 07/20/17 22:00 Dose: 20 mg Fluticasone/Salmeterol (Advair Diskus 250/50) 1 puff IH RQ12 [facility] Last Admin: 07/21/17 07:35 Dose: 1 puff - Labs Labs: 07/21/17 08:43 07/21/17 08:43 - Constitutional Appears: Well - Head Exam Head Exam: ATRAUMATIC, NORMAL INSPECTION, NORMOCEPHALIC - Eye Exam Eye Exam: EOMI, Normal appearance, PERRL Pupil Exam: NORMAL ACCOMODATION, PERRL - ENT Exam ENT Exam: Mucous Membranes Moist, Normal Exam - Neck Exam Neck Exam: Full ROM, Normal Inspection. absent: Lymphadenopathy - Respiratory Exam Respiratory Exam: Decreased Breath Sounds - Cardiovascular Exam Cardiovascular Exam: REGULAR RHYTHM, +S1, +S2 - GI/Abdominal Exam GI & Abdominal Exam: Soft, Diminished Bowel Sounds - Rectal Exam Rectal Exam: Deferred
[2017-07-21] MEDS: (Lantus) Insulin Glargine, Recombinant SC SCH (21:38)
[2017-07-22] MEDS: Albuterol-Ipratrop 3 mg / 0.5 (3 ml) UD INH SCH ×3 (01:17→13:24)
[2017-07-22 08:02] LABS: BASO % 0.4 % (0.0-2.0); EOS # 0.3 K/uL (0.0-0.7); EOS % 3.6 % (0.0-4.0); HEMATOCRIT 25.5 % (34.0-47.0); LYMPH # 1.8 K/uL (1.0-4.3); LYMPH % 20.6 % (20.0-40.0); MEAN CELL VOLUME 86.5 fL (81.0-99.0); MEAN CORPUSCULAR HEMOGLOBIN 28.3 pg (27.0-31.0); MEAN CORPUSCULAR HGB CONC 32.6 g/dL (33.0-37.0); MEAN PLATELET VOLUME 8.4 fL (7.2-11.7); MONO # 0.9 K/uL (0.0-0.8); MONO % 10.6 % (0.0-10.0); RED CELL DISTRIBUTION WIDTH 15.8 % (11.5-14.5); WHITE BLOOD COUNT 8.6 K/uL (4.8-10.8)
[2017-07-22 08:15] LABS: POTASSIUM 4.4 mmol/L (3.6-5.2)
[2017-07-22 08:17] LABS: ALB/GLOB RATIO 1.4 (1.0-2.1); BILIRUBIN,TOTAL 0.3 mg/dL (0.2-1.3); TOTAL PROTEIN 5.7 g/dL (6.3-8.3)
[2017-07-22 08:18] LABS: MAGNESIUM 2.1 mg/dL (1.6-2.3)
[2017-07-22] MEDS: (Novolin R) Insulin Human Regular 100 units/ml vial SC SCH ×2 (08:20→12:27)
[2017-07-22] MEDS: metOLazone 5 MG TAB PO SCH (10:00)
[2017-07-22] MEDS: Fluticasone-Salmeterol 250-50mcg Diskus IH SCH (10:02)
[2017-07-22] MEDS: Nitroglycerin 0.2 mg/hr Top Patch TD SCH (10:03)
[2017-07-22] MEDS: Pantoprazole 20 mg EC Tab PO SCH (10:57)
--- NOTE | 2017-07-22 13:21 | CP.PCM.PN ---
Subjective - Date & Time of Evaluation Date of Evaluation: 07/22/17 Time of Evaluation: 13:16 - Subjective Subjective: PATIENT IS AAO X 3 SAT AT THE BED SIDE NO SIGN OF DISTRESS NOTED Objective - Vital Signs/Intake and Output Vital Signs (last 24 hours): Temp Pulse Resp BP Pulse Ox 98.1 F 79 18 134/80 98 07/22/17 08:20 07/22/17 08:20 07/22/17 08:20 07/22/17 08:43 07/22/17 08:20 - Medications Medications: Current Medications Al Hydrox/Mg Hydrox/Simethicone (Maalox 30 Ml) 30 ml PO BID PRN PRN Reason: Indigestion / Heartburn Last Admin: 07/21/17 13:35 Dose: 30 ml Albuterol/Ipratropium (Duoneb 3 Mg/0.5 Mg (3 Ml) Ud) 3 ml INH RQ6 [facility] Last Admin: 07/22/17 09:01 Dose: Not Given Allopurinol (Zyloprim) 300 mg PO DAILY [facility] Last Admin: 07/22/17 10:00 Dose: 300 mg Amlodipine Besylate (Norvasc) 10 mg PO DAILY [facility] Last Admin: 07/22/17 10:00 Dose: 10 mg Carvedilol (Coreg) 6.25 mg PO BID [facility] Last Admin: 07/22/17 10:00 Dose: 6.25 mg Clonidine HCl (Catapres) 0.2 mg PO DAILY [facility] Last Admin: 07/22/17 10:00 Dose: 0.2 mg Dextrose (Dextrose 50% Inj) 0 ml IV STAT PRN; Protocol PRN Reason: Hyglycemia Protocol Last Admin: 07/19/17 23:02 Dose: 50 ml Dextrose (Glutose 15) 0 gm PO ONCE PRN; Protocol PRN Reason: Hypoglycemia Protocol Ezetimibe (Zetia) 10 mg PO HS [facility] Last Admin: 07/21/17 21:41 Dose: 10 mg Ergocalciferol (Drisdol 50,000 Intl Units Cap) 1 cap PO QWK [facility] Furosemide (Lasix) 80 mg IVP Q12H [facility] Last Admin: 07/22/17 08:43 Dose: 80 mg Glucagon (Glucagen Diagnostic Kit) 0 mg IM STAT PRN; Protocol PRN Reason: Hypoglycemia Protocol Heparin Sodium (Porcine) (Heparin) 5,000 units SC Q12 [facility] Hydrochlorothiazide (Microzide) 12.5 mg PO DAILY [facility] Last Admin: 07/19/17 10:45 Dose: 12.5 mg Insulin Glargine (Lantus) 35 unit SC HS [facility] Last Admin: 07/21/17 21:38 Dose: 35 u Insulin Human Regular (Novolin R) 0 unit SC ACHS [facility] PRN Reason: Protocol Last Admin: 07/22/17 12:27 Dose: Not Given Losartan Potassium (Cozaar) 100 mg PO DAILY [facility] Last Admin: 07/22/17 10:00 Dose: 100 mg Metolazone (Zaroxolyn) 5 mg PO Q12H [facility] Last Admin: 07/22/17 10:00 Dose: 5 mg Montelukast Sodium (Singulair) 10 mg PO HS [facility] Last Admin: 07/21/17 21:40 Dose: 10 mg Morphine Sulfate (Morphine) 2 mg IVP Q4 PRN PRN Reason: Pain Last Admin: 07/21/17 21:42 Dose: 2 mg Nitroglycerin (Nitro-Dur 0.2 Mg/Hr Patch) 1 patch TD DAILY [facility] Last Admin: 07/22/17 10:03 Dose: 1 patch Pantoprazole Sodium (Protonix Ec Tab) 20 mg PO DAILY [facility] Last Admin: 07/22/17 10:57 Dose: 20 mg Prednisone (Prednisone Tab) 10 mg PO DAILY [facility] Last Admin: 07/22/17 10:00 Dose: 10 mg Rosuvastatin Calcium (Crestor) 20 mg PO HS [facility] Last Admin: 07/21/17 21:37 Dose: 20 mg Fluticasone/Salmeterol (Advair Diskus 250/50) 1 puff IH RQ12 [facility] Last Admin: 07/22/17 10:02 Dose: 1 puff - Labs Labs: 07/22/17 07:53 07/22/17 07:49 Assessment and Plan - Assessment and Plan (Free Text) Plan: DR Denice PYLE MADE AND CLEAR PATIENT PATIENT FOR D/C HOME TODAY FOLLOW UP WITH DR Denice PYLE IN A WEEK AT HIS OFFICE -----CALL OFFICE FOR APPOINTMENT CONTINUE TO TAKE YOUR HOME MEDICATION USUAL TAKE DEMADEX 4 TABLETS DAILY FOR A TOTAL OF 80 MG A DAY NEED TO FOLLOW UP WITH DR PYLE FOR KIDNEY FUNCTION BLOOD WORK OUT PATIENT IN HIS CLINIC DUE TO ELEVATED CREATINE LEVEL PER DR PYLE PATIENT VERBALIZED AND AGREED WITH THE DISCHARGE PLAN
--- NOTE | 2017-07-22 13:29 | PCM.HF ---
Heart Failure Core Measure - Heart Failure Ejection Fraction: 40 % or Greater LEO Inhibitor Prescribed: Yes Contraindication/Reason for not providing: MED MAY CHANGE UPON FOLLOW UP WITH PMD DUE CR LEVEL Beta-Scott Prescribed: Carvedilol Angiotensin II Receptor Scott Prescribed: Yes Contraindication/Reason for not providing: MED MAY CHANGE UPON FOLLOW UP WITH PMD DUE CR LEVEL AnticoagulationTherapy for Atrial Fibrillation/Atrialflutter: No Contraindication/Reason for not providing: NOT AFIB Aldosterone Antagonist Prescribed: No Contraindication/Reason for not providing: EF >40 Hydralazine Nitrate Prescribed: No Contraindication/Reason for not providing: EF >40 Implantable Cardioverter Defibrillator Therapy: No Contraindication/Reason for not providing: NOT INDICATED Cardiac Resynchronization Therapy Prescribed: No Contraindication/Reason for not providing: NOT INDICATED - Follow up Will be discharged to: Home Follow Up Date (must be within 7 days from discharge): 07/24/17 Follow Up Time: 09:00
[2017-07-22 15:21] VITALS: BP 124/66; PULSE 80; RESP 20; TEMP 97.6
[2017-07-22 16:06] VITALS: O2SAT 100
--- NOTE | 2017-07-22 18:18 | CP.PCM.DIS ---
Provider - Provider Date of Admission: 07/19/17 12:44 Attending physician: Rosi Pyle MD Hospital Course - Lab Results Lab Results: Most Recent Lab Values WBC 8.6 K/uL (4.8-10.8) 07/22/17 07:53 RBC 2.95 Mil/uL (3.80-5.20) L 07/22/17 07:53 Hgb 8.3 g/dL (11.0-16.0) L 07/22/17 07:53 Hct 25.5 % (34.0-47.0) L 07/22/17 07:53 MCV 86.5 fL (81.0-99.0) 07/22/17 07:53 MCH 28.3 pg (27.0-31.0) 07/22/17 07:53 MCHC 32.6 g/dL (33.0-37.0) L 07/22/17 07:53 RDW 15.8 % (11.5-14.5) H 07/22/17 07:53 Plt Count 355 K/uL (130-400) 07/22/17 07:53 MPV 8.4 fL (7.2-11.7) 07/22/17 07:53 Neut % (Auto) 64.8 % (50.0-75.0) 07/22/17 07:53 Lymph % (Auto) 20.6 % (20.0-40.0) 07/22/17 07:53 [place] % (Auto) 10.6 % (0.0-10.0) H 07/22/17 07:53 Eos % (Auto) 3.6 % (0.0-4.0) 07/22/17 07:53 Baso % (Auto) 0.4 % (0.0-2.0) 07/22/17 07:53 Neut # 5.6 K/uL (1.8-7.0) 07/22/17 07:53 Lymph # 1.8 K/uL (1.0-4.3) 07/22/17 07:53 [place] # 0.9 K/uL (0.0-0.8) H 07/22/17 07:53 Eos # 0.3 K/uL (0.0-0.7) 07/22/17 07:53 Baso # 0.0 K/uL (0.0-0.2) 07/22/17 07:53 Puncture Site Rba 07/19/17 16:22 pCO2 51 mm/Hg (35-45) H 07/19/17 16:22 pO2 68 mm/Hg (80-100) L 07/19/17 16:22 HCO3 26.5 mmol/L (21-28) 07/19/17 16:22 ABG pH 7.35 (7.35-7.45) 07/19/17 16:22 ABG Total CO2 29.8 mmol/L (22-28) H 07/19/17 16:22 ABG O2 Saturation 95.4 % (95-98) 07/19/17 16:22 ABG Base Excess 2.1 mmol/L (-2.0-3.0) 07/19/17 16:22 ABG Hemoglobin 8.9 g/dL (11.7-17.4) L 07/19/17 16:22 ABG Carboxyhemoglobin 0.4 % (0.5-1.5) L 07/19/17 16:22 POC ABG HHb (Measured) 4.6 % (0.0-5.0) 07/19/17 16:22 ABG Methemoglobin 0.5 % (0.0-3.0) 07/19/17 16:22 [place] Test Na 07/19/17 16:22 A-a O2 Difference 18.0 mm/Hg 07/19/17 16:22 Respiratory Index 0.3 07/19/17 16:22 Hgb O2 Saturation 94.4 % (95.0-98.0) L 07/19/17 16:22 Liter Flow 0 07/19/17 16:22 FiO2 21.0 % 07/19/17 16:22 Sodium 134 mmol/L (132-148) 07/22/17 07:49 Potassium 4.4 mmol/L (3.6-5.2) 07/22/17 07:49 Chloride 97 mmol/L (98-107) L 07/22/17 07:49 Carbon Dioxide 29 mmol/L (22-30) 07/22/17 07:49 Anion Gap 12 (10-20) 07/22/17 07:49 BUN 61 mg/dL (7-17) H 07/22/17 07:49 Creatinine 3.3 mg/dL (0.7-1.2) H 07/22/17 07:49 Est GFR ( Amer) 18 07/22/17 07:49 Est GFR (Non-Af Amer) 15 07/22/17 07:49 POC Glucose (mg/dL) 124 mg/dL (65-110) H 07/22/17 12:01 Random Glucose 113 mg/dL (65-105) H 07/22/17 07:49 Hemoglobin A1c 11.1 % (4.2-6.5) H D 07/20/17 07:17 Calcium 8.0 mg/dl (8.6-10.4) L 07/22/17 07:49 Phosphorus 6.0 mg/dL (2.5-4.5) H 07/22/17 07:49 Magnesium 2.1 mg/dL (1.6-2.3) 07/22/17 07:49 Total Bilirubin 0.3 mg/dL (0.2-1.3) 07/22/17 07:49 AST 29 U/L (14-36) 07/22/17 07:49 ALT 44 U/L (9-52) 07/22/17 07:49 Alkaline Phosphatase 209 U/L (38-126) H 07/22/17 07:49 NT-Pro-B Natriuret Pep 356 pg/mL (0-900) 07/19/17 14:06 Total Protein 5.7 g/dL (6.3-8.3) L 07/22/17 07:49 Albumin 3.3 g/dL (3.5-5.0) L 07/22/17 07:49 Globulin 2.3 gm/dL (2.2-3.9) 07/22/17 07:49 Albumin/Globulin Ratio 1.4 (1.0-2.1) 07/22/17 07:49 Triglycerides 133 mg/dL (0-149) D 07/20/17 07:17 Cholesterol 181 mg/dL (0-199) 07/20/17 07:17 LDL Cholesterol Direct 84 mg/dL (0-129) 07/20/17 07:17 HDL Cholesterol 69 mg/dL (30-70) 07/20/17 07:17 Lipase 25 U/L (23-300) 07/19/17 04:15 Free T4 0.67 ng/dL (0.78-2.19) L 07/20/17 07:17 TSH 3rd Generation 2.61 mIU/L (0.46-4.68) 07/20/17 07:17 Urine Color Colorless (YELLOW) 07/19/17 03:45 Urine Clarity Clear (Clear) 07/19/17 03:45 Urine pH 6.0 (5.0-8.0) 07/19/17 03:45 Ur Specific [place] 1.010 (1.003-1.030) 07/19/17 03:45 Urine Protein 2+ mg/dL (NEGATIVE) H 07/19/17 03:45 Urine Glucose (UA) 3+ mg/dL (Normal) H 07/19/17 03:45 Urine Ketones Negative mg/dL (NEGATIVE) 07/19/17 03:45 Urine Blood Negative (NEGATIVE) 07/19/17 03:45 Urine Nitrate Negative (NEGATIVE) 07/19/17 03:45 Urine Bilirubin Negative (NEGATIVE) 07/19/17 03:45 Urine Urobilinogen Normal mg/dL (0.2-1.0) 07/19/17 03:45 Ur Leukocyte Esterase Neg [place]/uL (Negative) 07/19/17 03:45 Urine WBC (Auto) < 1 /hpf (0-5) 07/19/17 03:45 Urine RBC (Auto) < 1 /hpf (0-3) 07/19/17 03:45 Ur Squamous Epith Cells < 1 /hpf (0-5) 07/19/17 03:45 Urine HCG, Qual Negative (NEGATIVE) 07/19/17 03:45 Discharge Exam - Head Exam Head Exam: ATRAUMATIC, NORMAL INSPECTION, NORMOCEPHALIC - Eye Exam Eye Exam: EOMI, Normal appearance, PERRL Pupil Exam: NORMAL ACCOMODATION, PERRL - Respiratory Exam Respiratory Exam: Decreased Breath Sounds - Cardiovascular Exam Cardiovascular Exam: REGULAR RHYTHM, +S1, +S2 - GI/Abdominal Exam GI & Abdominal Exam: Diminished Bowel Sounds, Soft - Rectal Exam Rectal Exam: Deferred Discharge Plan - Discharge Medications Prescriptions: Torsemide [Demadex] 4 tab PO DAILY #120 tab predniSONE [predniSONE Tab] 10 mg PO DAILY #30 tab - Follow Up Plan Condition: STABLE Disposition: HOME/ ROUTINE Instructions: Torsemide (By mouth), Heart Failure (DC), Heart Healthy Diet (DC) , Hyponatremia (DC), Diabetic Foot Care (DC), Basic Carbohydrate Counting (DC), Meal Planning with the Plate Method (DC), Meal Planning with Diabetes Exchanges (DC), Back Pain (GEN) Additional Instructions: FOLLOW UP WITH DR Denice PYLE ON SATURDAY IN HIS OFFICE -----CALL OFFICE FOR APPOINTMENT. CALL DR. ANDERSEN FOR A REFERRAL TO SEE DR. Denice PYLE IN THE OFFICE. CONTINUE TO TAKE YOUR HOME MEDICATION USUAL; STOP TAKING LASIX (FUROSEMIDE). TAKE DEMADEX 4 TABLETS DAILY FOR A TOTAL OF 80 MG A DAY. NEED TO FOLLOW UP WITH DR PYLE FOR KIDNEY FUNCTION BLOOD WORK OUT PATIENT IN HIS CLINIC DUE TO ELEVATED CREATINE LEVEL PER DR PYLE. CALL DR PYLE IF SYMPTOMS REAPPEAR OR GO TO THE NEAREST EMERGENCY ROOM. ANY FURTHER QUESTION CALL DR Denice PYLE Referrals: Miko Pyle MD [Staff Provider] -
[2017-07-26] MEDS ORDERED: Ergocalciferol 50,000 Intl Units Cap PO SCH (10:00)
== END 2017-07-22 16:40 | disposition home or self-care (01) | DRG 638 ==
LOC: C.ER 02:48 → C.9E 05:45 → C.6T 06:25 → OBSVTOIN 12:44
PROVIDERS: ADMIT Internal Medicine Nephrology; ATTEND Internal Medicine Nephrology
DX: E11.65 Type 2 diabetes mellitus with hyperglycemia (principal); E87.1 Hypo-osmolality and hyponatremia; E11.22 Type 2 diabetes mellitus with diabetic chronic kidney disease; I13.0 Hypertensive heart and chronic kidney disease with heart failure and stage 1 through stage 4 chronic kidney disease, or unspecified chronic kidney disease; I50.9 Heart failure, unspecified; Z99.81 Dependence on supplemental oxygen; F31.9 Bipolar disorder, unspecified; E78.00 Pure hypercholesterolemia, unspecified; G47.33 Obstructive sleep apnea (adult) (pediatric); J44.9 Chronic obstructive pulmonary disease, unspecified; N18.9 Chronic kidney disease, unspecified; Z87.01 Personal history of pneumonia (recurrent); E66.01 Morbid (severe) obesity due to excess calories; Z79.84 Long term (current) use of oral hypoglycemic drugs; D64.9 Anemia, unspecified; M54.5 Low back pain; E78.5 Hyperlipidemia, unspecified

== ENCOUNTER 2017-08-08 07:42 | Inpatient (IN) | payer MEDICARE, OTHER ==
[2017-08-08 07:43] VITALS: BMI 34.3
[2017-08-08 09:28] LABS: BASO # 0.1 K/uL (0.0-0.2); BASO % 1.8 % (0.0-2.0); EOS # 0.3 K/uL (0.0-0.7); EOS % 5.5 % (0.0-4.0); HEMATOCRIT 29.8 % (34.0-47.0); LYMPH # 1.8 K/uL (1.0-4.3); LYMPH % 28.8 % (20.0-40.0); MEAN CELL VOLUME 86.3 fL (81.0-99.0); MEAN CORPUSCULAR HEMOGLOBIN 28.3 pg (27.0-31.0); MEAN CORPUSCULAR HGB CONC 32.8 g/dL (33.0-37.0); MEAN PLATELET VOLUME 8.4 fL (7.2-11.7); MONO # 0.6 K/uL (0.0-0.8); MONO % 9.8 % (0.0-10.0); NRBC % 0.2 % (0.0-2.0); RED CELL DISTRIBUTION WIDTH 16.3 % (11.5-14.5); WHITE BLOOD COUNT 6.1 K/uL (4.8-10.8)
[2017-08-08 09:36] LABS: INR 0.9
[2017-08-08 09:42] LABS: CHLORIDE 96 mmol/L (98-107); POTASSIUM 4.1 mmol/L (3.6-5.2); SODIUM 135 mmol/L (132-148)
[2017-08-08 09:44] LABS: GFR AFRICAN-AMERICAN 25
[2017-08-08 09:45] LABS: ALB/GLOB RATIO 1.3 (1.0-2.1); ALKALINE PHOSPHATASE 272 U/L (38-126); ALT/SGPT 54 U/L (9-52); AST/SGOT 42 U/L (14-36); BILIRUBIN,TOTAL 0.8 mg/dL (0.2-1.3); BLOOD UREA NITROGEN 59 mg/dL (7-17); CARBON DIOXIDE 27 mmol/L (22-30); TOTAL PROTEIN 6.9 g/dL (6.3-8.3)
[2017-08-08 09:46] LABS: GLUCOSE,RANDOM 67 mg/dL (65-105)
--- NOTE | 2017-08-08 09:53 | C.PDOC ---
History Of Present Illness 51 y/o female sent to ED by Dr. Denice Saldivar for admission. Pt complains of lower extremity swelling, chest tightness, and shortness of breath for the past 2 weeks. Denies Hx of DVT or PE in the past. Denies nausea, vomiting, or fever. Time Seen by Provider: 08/08/17 07:58 Chief Complaint (Nursing): Lower Extremity Problem/Injury History Per: Patient History/Exam Limitations: no limitations Onset/Duration Of Symptoms: Days Current Symptoms Are (Timing): Still Present Recent travel outside of the [place]: No Additional History Per: Patient Past Medical History Reviewed: Historical Data, Nursing Documentation, Vital Signs Vital Signs: Last Vital Signs Temp 97.8 F 08/08/17 07:53 Pulse 74 08/08/17 07:53 Resp 16 08/08/17 08:44 BP 170/79 H 08/08/17 08:44 Pulse Ox 99 08/08/17 10:25 - Medical History PMH: Anemia, Anxiety, Asthma, Bipolar Disorder, COPD, Depression, Diabetes, HTN , Hypercholesterolemia, Pneumonia, Chronic Kidney Disease Denies: Kidney Stones Surgical History: - [facility] ASSISTANCE WITH RESPIRATORY VENTILATION, 24-96 HRS, CPAP (11/30/15) INSERT INDWELLING CATH (07/28/14) Family History: States: Unknown Family Hx, MT, CAD, Hypertension - Social History Hx Tobacco Use: No Hx Alcohol Use: No Hx Substance Use: No - Immunization History Hx Tetanus Toxoid Vaccination: No Hx Influenza Vaccination: Yes Hx Pneumococcal Vaccination: Yes Review Of Systems Except As Marked, All Systems Reviewed And Found Negative. Constitutional: Negative for: Fever, Chills Cardiovascular: Positive for: Chest Pain, Edema (lower extremity ). Negative for: Palpitations Respiratory: Positive for: Shortness of Breath. Negative for: Cough, Sputum Gastrointestinal: Negative for: Nausea, Vomiting, Abdominal Pain Physical Exam - Physical Exam Appears: Non-toxic, No Acute Distress Skin: Normal Color, Warm, Dry Head: Atraumatic, Normacephalic Eye(s): bilateral: Normal Inspection Oral Mucosa: Moist Neck: Supple Chest: Symmetrical Cardiovascular: Rhythm Regular, No Murmur Respiratory: Decreased Breath Sounds Gastrointestinal/Abdominal: Soft, No Tenderness Extremity: Normal ROM, Pedal Edema (+2 b/l pitting edema), No Deformity Neurological/Psych: Oriented x3, Normal Speech ED Course And Treatment - Laboratory Results Result Diagrams: 08/08/17 09:20 08/08/17 09:20 ECG: Interpreted By Me, Viewed By Me ECG Rhythm: Sinus Rhythm Interpretation Of ECG: Normal intervals, normal axis. No ST/T wave changes. Rate From EC (bpm) O2 Sat by Pulse Oximetry: 99 (RA) Pulse Ox Interpretation: Normal Medical Decision Making Medical Decision Making: Blood work, EKG, CXR ordered and reviewed. Case discussed with Dr. Denice Saldivar who agrees upon admission for CHF. Disposition Discussed With Dr.: Miko Saldivar Doctor Will See Patient In The: Hospital Counseled Patient/Family Regarding: Studies Performed, Diagnosis - Disposition Disposition: HOSPITALIZED Disposition Time: 10:20 Condition: FAIR Forms: [facility] (Maori) - Clinical Impression Clinical Impression: CHF (congestive heart failure) - Scribe Statement The provider has reviewed the documentation as recorded by the Scribe Letha Saldivar All medical record entries made by the Scribe were at my direction and personally dictated by me. I have reviewed the chart and agree that the record accurately reflects my personal performance of the history, physical exam, medical decision making, and the department course for this patient. I have also personally directed, reviewed, and agree with the discharge instructions and disposition.
[2017-08-08 09:55] LABS: CALCIUM 8.4 mg/dl (8.6-10.4)
--- NOTE | 2017-08-08 10:49 | RAD ---
PROCEDURE: CHEST RADIOGRAPH, 1 VIEW HISTORY: chest pain COMPARISON: Chest radiographs 07/19/2017. FINDINGS: LUNGS: Inspiratory volume appears diminished in the interval however there is no interval infiltrate identified bilaterally. Correct bronchovascular markings are crowded in the right greater than left lung bases. PLEURA: No pneumothorax or pleural fluid seen. CARDIOVASCULAR: Stable cardiac silhouette. No pulmonary vascular derangement. OSSEOUS STRUCTURES: No significant abnormalities. VISUALIZED UPPER ABDOMEN: Normal. OTHER FINDINGS: None. IMPRESSION: Diminished inspiratory volume. No acute infiltrate bilaterally. Crowding of the bronchovascular markings is appreciated due to low inspiratory volume. Continued clinical follow-up is advised.
[2017-08-08] MEDS: HYDROmorphone 1 mg/ml ISec IVP PRN ×2 (13:57→23:45)
[2017-08-08] MEDS: Furosemide 100 MG in Dextrose 5% In Water 90 ML IVP SCH (13:58)
--- NOTE | 2017-08-08 15:09 | CP.PCM.CON ---
Past Patient History - Infectious Disease Hx of Infectious Diseases: None - Past Medical History & Family History Past Medical History?: Yes - Past Social History Smoking Status: Never Smoked - CARDIAC Hx Hypercholesterolemia: Yes Hx Hypertension: Yes - PULMONARY Hx Asthma: Yes Hx Chronic Obstructive Pulmonary Disease (COPD): Yes Hx Pneumonia: Yes - NEUROLOGICAL Hx Neurological Disorder: No - HEENT Hx HEENT Problems: Yes Hx Cataracts: Yes - RENAL Hx Chronic Kidney Disease: Yes Hx Kidney Stones: No - ENDOCRINE/METABOLIC Hx Endocrine Disorders: Yes Hx Diabetes Mellitus Type 2: Yes - HEMATOLOGICAL/ONCOLOGICAL Hx Anemia: Yes - INTEGUMENTARY Hx Dermatological Problems: No - MUSCULOSKELETAL/RHEUMATOLOGICAL Hx Falls: No - GASTROINTESTINAL Hx Gastrointestinal Disorders: No - GENITOURINARY/GYNECOLOGICAL Hx Genitourinary Disorders: No - PSYCHIATRIC Hx Anxiety: Yes Hx Bipolar Disorder: Yes Hx Depression: Yes Hx Substance Use: No - SURGICAL HISTORY Hx Surgeries: Yes Hx Section: Yes (x1) Hx Eye Surgery: Yes (LEFT EYE) - ANESTHESIA Hx Anesthesia: Yes Hx Anesthesia Reactions: No Hx Malignant Hyperthermia: No Meds Allergies/Adverse Reactions: Allergies Allergy/AdvReac Type Severity Reaction Status Date / Time shellfish derived Allergy Severe SWELLING Verified 08/08/17 07:57 - Medications Medications: Current Medications Albuterol Sulfate (Albuterol 0.083% Inhal Emily (2.5 Mg/3 Ml) Ud) 2.5 mg IH Q6 PRN PRN Reason: Shortness of Breath Allopurinol (Zyloprim) 300 mg PO DAILY COLE Amlodipine Besylate (Norvasc) 10 mg PO DAILY [facility] Carvedilol (Coreg) 6.25 mg PO BID COLE Clonidine HCl (Catapres) 0.2 mg PO DAILY COLE Ezetimibe (Zetia) 10 mg PO HS COLE Heparin Sodium (Porcine) (Heparin) 5,000 units SC Q12 COLE Hydrochlorothiazide (Microzide) 12.5 mg PO DAILY COLE Hydromorphone HCl (Dilaudid) 1 mg IVP Q4H PRN PRN Reason: Pain, severe (8-10) Last Admin: 08/08/17 13:57 Dose: 1 mg Furosemide 100 mg/ Dextrose 100 mls @ 5 mls/hr IVP .Q20H COLE PRN Reason: 5 MG/HR Last Admin: 08/08/17 13:58 Dose: 5 mls/hr Insulin Aspart (Novolog Mix 70/30 (70/30 Units/Ml)) 60 units SC BID COLE Insulin Glargine (Lantus) 35 unit SC HS COLE Lisinopril (Zestril) 10 mg PO DAILY COLE Magnesium Oxide (Mag-Ox) 400 mg PO DAILY COLE Metformin HCl (Glucophage) 500 mg PO DAILY COLE Montelukast Sodium (Singulair) 10 mg PO HS [facility] Nitroglycerin (Nitro-Dur 0.2 Mg/Hr Patch) 1 patch TD DAILY COLE Pantoprazole Sodium (Protonix Inj) 40 mg IVP DAILY COLE Results - Vital Signs Recent Vital Signs: Last Vital Signs Temp 98.4 F 08/08/17 11:45 Pulse 86 08/08/17 13:56 Resp 20 08/08/17 11:45 BP 144/81 08/08/17 13:58 Pulse Ox 99 08/08/17 11:45 - Labs Result Diagrams: 08/08/17 09:20 08/08/17 09:20 Labs: Laboratory Results - last 24 hr 08/08/17 08/08/17 08/08/17 09:20 09:20 09:20 WBC 6.1 RBC 3.45 L Hgb 9.8 L Hct 29.8 L MCV 86.3 MCH 28.3 MCHC 32.8 L RDW 16.3 H Plt Count 482 H D MPV 8.4 Neut % (Auto) 54.1 Lymph % (Auto) 28.8 [place] % (Auto) 9.8 Eos % (Auto) 5.5 H Baso % (Auto) 1.8 Neut # 3.3 Lymph # 1.8 [place] # 0.6 Eos # 0.3 Baso # 0.1 PT 10.4 INR 0.9 APTT 26 Sodium 135 Potassium 4.1 Chloride 96 L Carbon Dioxide 27 Anion Gap 15 BUN 59 H Creatinine 2.5 H Est GFR ( Amer) 25 Est GFR (Non-Af Amer) 20 POC Glucose (mg/dL) Random Glucose 67 Calcium 8.4 L Total Bilirubin 0.8 AST 42 H D ALT 54 H D Alkaline Phosphatase 272 H D Troponin I < 0.0120 NT-Pro-B Natriuret Pep 545 Total Protein 6.9 Albumin 3.9 Globulin 3.0 Albumin/Globulin Ratio 1.3 08/08/17 11:47 WBC RBC Hgb Hct MCV MCH MCHC RDW Plt Count MPV Neut % (Auto) Lymph % (Auto) [place] % (Auto) Eos % (Auto) Baso % (Auto) Neut # Lymph # [place] # Eos # Baso # PT INR APTT Sodium Potassium Chloride Carbon Dioxide Anion Gap BUN Creatinine Est GFR ( Amer) Est GFR (Non-Af Amer) POC Glucose (mg/dL) 194 H Random Glucose Calcium Total Bilirubin AST ALT Alkaline Phosphatase Troponin I NT-Pro-B Natriuret Pep Total Protein Albumin Globulin Albumin/Globulin Ratio
--- NOTE | 2017-08-08 15:38 | CP.PCM.HP ---
History of Present Illness - History of Present Illness History of Present Illness: 51-year-old female with PMHanemia, anxiety, asthma, bipolar disorder, COPD, depression, DM, HTN, hypercholesterolemia and CKD presents to the ER for C/ Olower extremity swelling, chest tightness and shortness of breath. C/ - lower extremity swelling for 10-15 days. Insidious in onset, progressively increasing, in both lower limbs, initially only up to ankles but now up to the whole legs, aggravated in the evening time and on walking. C/Ochest pain for 2 weeks. Insidious in onset, intermittent, progressively increasing, substernal, heaviness type, tightness type, intensity of 6/10, occurs at rest as well as on walking. C /Oshortness of breath for 2 weeks. Insidious in onset, progressive, initially only on walking now he went on doing routine activities. No C/Opalpitations, cough, hemoptysis. Present on Admission - Present on Admission Any Indicators Present on Admission: No Past Patient History - Infectious Disease Hx of Infectious Diseases: None - Past Medical History & Family History Past Medical History?: Yes - Past Social History Smoking Status: Never Smoked - CARDIAC Hx Hypercholesterolemia: Yes Hx Hypertension: Yes - PULMONARY Hx Asthma: Yes Hx Chronic Obstructive Pulmonary Disease (COPD): Yes Hx Pneumonia: Yes - NEUROLOGICAL Hx Neurological Disorder: No - HEENT Hx HEENT Problems: Yes Hx Cataracts: Yes - RENAL Hx Chronic Kidney Disease: Yes Hx Kidney Stones: No - ENDOCRINE/METABOLIC Hx Endocrine Disorders: Yes Hx Diabetes Mellitus Type 2: Yes - HEMATOLOGICAL/ONCOLOGICAL Hx Anemia: Yes - INTEGUMENTARY Hx Dermatological Problems: No - MUSCULOSKELETAL/RHEUMATOLOGICAL Hx Falls: No - GASTROINTESTINAL Hx Gastrointestinal Disorders: No - GENITOURINARY/GYNECOLOGICAL Hx Genitourinary Disorders: No - PSYCHIATRIC Hx Anxiety: Yes Hx Bipolar Disorder: Yes Hx Depression: Yes Hx Substance Use: No - SURGICAL HISTORY Hx Surgeries: Yes Hx Section: Yes (x1) Hx Eye Surgery: Yes (LEFT EYE) - ANESTHESIA Hx Anesthesia: Yes Hx Anesthesia Reactions: No Hx Malignant Hyperthermia: No Meds Home Medications: Home Medication List Medication Instructions Recorded Confirmed Type Torsemide [Demadex] 80 tab PO DAILY #14 tab 08/13/17 Rx Allergies/Adverse Reactions: Allergies Allergy/AdvReac Type Severity Reaction Status Date / Time FISH Allergy Severe ITCHING Verified 08/09/17 17:10 shellfish derived Allergy Severe SWELLING Verified 08/08/17 07:57 Physical Exam - Constitutional Appears: Well - Head Exam Head Exam: ATRAUMATIC, NORMAL INSPECTION, NORMOCEPHALIC - Eye Exam Eye Exam: EOMI, Normal appearance, PERRL Pupil Exam: NORMAL ACCOMODATION, PERRL - ENT Exam ENT Exam: Mucous Membranes Moist, Normal Exam - Neck Exam Neck exam: Positive for: Normal Inspection - Respiratory Exam Respiratory Exam: Decreased Breath Sounds - Cardiovascular Exam Cardiovascular Exam: REGULAR RHYTHM, +S1, +S2 - GI/Abdominal Exam GI & Abdominal Exam: Diminished Bowel Sounds, Soft - Rectal Exam Rectal Exam: Deferred Results - Vital Signs Recent Vital Signs: Last Vital Signs Temp 98.4 F 08/08/17 11:45 Pulse 86 08/08/17 13:56 Resp 20 08/08/17 11:45 BP 144/81 08/08/17 13:58 Pulse Ox 99 08/08/17 11:45 - Labs Result Diagrams: 08/10/17 07:02 08/11/17 11:29 Labs: Laboratory Results - last 24 hr 08/08/17 08/08/17 08/08/17 09:20 09:20 09:20 WBC 6.1 RBC 3.45 L Hgb 9.8 L Hct 29.8 L MCV 86.3 MCH 28.3 MCHC 32.8 L RDW 16.3 H Plt Count 482 H D MPV 8.4 Neut % (Auto) 54.1 Lymph % (Auto) 28.8 [place] % (Auto) 9.8 Eos % (Auto) 5.5 H Baso % (Auto) 1.8 Neut # 3.3 Lymph # 1.8 [place] # 0.6 Eos # 0.3 Baso # 0.1 PT 10.4 INR 0.9 APTT 26 Sodium 135 Potassium 4.1 Chloride 96 L Carbon Dioxide 27 Anion Gap 15 BUN 59 H Creatinine 2.5 H Est GFR ( Amer) 25 Est GFR (Non-Af Amer) 20 POC Glucose (mg/dL) Random Glucose 67 Calcium 8.4 L Total Bilirubin 0.8 AST 42 H D ALT 54 H D Alkaline Phosphatase 272 H D Troponin I < 0.0120 NT-Pro-B Natriuret Pep 545 Total Protein 6.9 Albumin 3.9 Globulin 3.0 Albumin/Globulin Ratio 1.3 08/08/17 11:47 WBC RBC Hgb Hct MCV MCH MCHC RDW Plt Count MPV Neut % (Auto) Lymph % (Auto) [place] % (Auto) Eos % (Auto) Baso % (Auto) Neut # Lymph # [place] # Eos # Baso # PT INR APTT Sodium Potassium Chloride Carbon Dioxide Anion Gap BUN Creatinine Est GFR ( Amer) Est GFR (Non-Af Amer) POC Glucose (mg/dL) 194 H Random Glucose Calcium Total Bilirubin AST ALT Alkaline Phosphatase Troponin I NT-Pro-B Natriuret Pep Total Protein Albumin Globulin Albumin/Globulin Ratio
[2017-08-08] MEDS: (Novolog Mix 70/30) Insulin Aspart/Insulin Aspar 100 units/ml SC SCH (17:36)
[2017-08-08] MEDS: (Lantus) Insulin Glargine, Recombinant SC SCH (21:57)
[2017-08-09] MEDS: Furosemide 100 MG in Dextrose 5% In Water 90 ML IVP SCH ×2 (06:50→10:00)
[2017-08-09 07:51] LABS: BASO % 0.6 % (0.0-2.0); EOS # 0.3 K/uL (0.0-0.7); EOS % 4.5 % (0.0-4.0); HEMATOCRIT 33.2 % (34.0-47.0); LYMPH # 1.5 K/uL (1.0-4.3); LYMPH % 25.6 % (20.0-40.0); MEAN CELL VOLUME 87.1 fL (81.0-99.0); MEAN CORPUSCULAR HEMOGLOBIN 28.2 pg (27.0-31.0); MEAN CORPUSCULAR HGB CONC 32.4 g/dL (33.0-37.0); MEAN PLATELET VOLUME 8.7 fL (7.2-11.7); MONO # 0.6 K/uL (0.0-0.8); MONO % 10.8 % (0.0-10.0); NRBC % 0.1 % (0.0-2.0); RED CELL DISTRIBUTION WIDTH 16.5 % (11.5-14.5); WHITE BLOOD COUNT 5.7 K/uL (4.8-10.8)
[2017-08-09 08:10] LABS: POTASSIUM 4.3 mmol/L (3.6-5.2)
[2017-08-09 08:12] LABS: BILIRUBIN,TOTAL 0.8 mg/dL (0.2-1.3)
[2017-08-09 08:13] LABS: ALB/GLOB RATIO 1.3 (1.0-2.1); CALCIUM 8.8 mg/dl (8.6-10.4); TOTAL PROTEIN 7.4 g/dL (6.3-8.3)
--- NOTE | 2017-08-09 08:54 | CP.PCM.CON ---
History of Present Illness - History of Present Illness History of Present Illness: Cardiology consult note for Dr. Cain Bradley DO, PGY-2 Reason For Consult: SOB/CHF HPI: 51 F with pertinent PMHx of HLD, HTN, and DM, presents with two weeks duration of sob, b/l LE swelling, and chest tightness. She was sent to the ER by her primary care physician, Dr. Saldivar, for evaluation. Pt states she has felt like this in the past and has been put on Lasix for her swelling. Pt's ECHO in April 2017 reads mild atrial dilation, AR, , and LV diastolic dysfunction. Pt also states that she has had a productive cough for the past couple of days, but no f/ch. Pt denies non-compliance with medications. No further complaints. Pt denies f/ch/n/v/d/dysuria/frequency/urgency/hematuria/hematochezia/ hematemesis PSHx: Pt denies PMHx: Asthma, Bipolar Disorder, COPD, Depression, Diabetes, HTN, HLD All: Shellfish SocHx: +EtOH; Pt denies Tobacco, illicits FamHx: HTN Meds: Please see MAR ROS: Const'l: pt denies fever, chills, generalized weakness ENT: pt denies dysphagia, otalgia, hearing deficit, rhinorrhea Eyes: pt denies sudden loss of vision, diplopia, blurred vision MSK: pt denies muscle stiffness, joint pain, extremity cramping Cardio: + see hpi Pulm: + cough; see hpi GI: pt denies loss of appetite, abdominal pain, constipation, melena, n/v/d : pt denies burning on urination, urinary frequency, hematuria, urinary urgency Neuro: pt denies paresis, paresthesia, dizziness, barr, numbness, tingling Derm: pt denies skin changes, lesions, nail changes Endo: pt denies intolerance to heat/cold, diaphoresis, night sweats, polydipsia Psych: pt denies anxiety, depression, mood changes Past Patient History - Infectious Disease Hx of Infectious Diseases: None - Past Medical History & Family History Past Medical History?: Yes - Past Social History Smoking Status: Never Smoked - CARDIAC Hx Hypercholesterolemia: Yes Hx Hypertension: Yes - PULMONARY Hx Asthma: Yes Hx Chronic Obstructive Pulmonary Disease (COPD): Yes Hx Pneumonia: Yes - NEUROLOGICAL Hx Neurological Disorder: No - HEENT Hx HEENT Problems: Yes Hx Cataracts: Yes - RENAL Hx Chronic Kidney Disease: Yes Hx Kidney Stones: No - ENDOCRINE/METABOLIC Hx Endocrine Disorders: Yes Hx Diabetes Mellitus Type 2: Yes - HEMATOLOGICAL/ONCOLOGICAL Hx Anemia: Yes - INTEGUMENTARY Hx Dermatological Problems: No - MUSCULOSKELETAL/RHEUMATOLOGICAL Hx Falls: No - GASTROINTESTINAL Hx Gastrointestinal Disorders: No - GENITOURINARY/GYNECOLOGICAL Hx Genitourinary Disorders: No - PSYCHIATRIC Hx Anxiety: Yes Hx Bipolar Disorder: Yes Hx Depression: Yes Hx Substance Use: No - SURGICAL HISTORY Hx Surgeries: Yes Hx Section: Yes (x1) Hx Eye Surgery: Yes (LEFT EYE) - ANESTHESIA Hx Anesthesia: Yes Hx Anesthesia Reactions: No Hx Malignant Hyperthermia: No Meds Allergies/Adverse Reactions: Allergies Allergy/AdvReac Type Severity Reaction Status Date / Time FISH Allergy Severe ITCHING Verified 08/09/17 17:10 shellfish derived Allergy Severe SWELLING Verified 08/08/17 07:57 - Medications Medications: Current Medications Albuterol Sulfate (Albuterol 0.083% Inhal Emily (2.5 Mg/3 Ml) Ud) 2.5 mg IH Q6 PRN PRN Reason: Shortness of Breath Allopurinol (Zyloprim) 300 mg PO DAILY [facility] Amlodipine Besylate (Norvasc) 10 mg PO DAILY [facility] Carvedilol (Coreg) 6.25 mg PO BID [facility] Last Admin: 08/08/17 17:35 Dose: 6.25 mg Clonidine HCl (Catapres) 0.2 mg PO DAILY [facility] Ezetimibe (Zetia) 10 mg PO HS [facility] Last Admin: 08/08/17 21:25 Dose: 10 mg Heparin Sodium (Porcine) (Heparin) 5,000 units SC Q12 [facility] Last Admin: 08/08/17 21:22 Dose: 5,000 units Hydrochlorothiazide (Microzide) 12.5 mg PO DAILY [facility] Hydromorphone HCl (Dilaudid) 1 mg IVP Q4H PRN PRN Reason: Pain, severe (8-10) Last Admin: 08/08/17 23:45 Dose: 1 mg Furosemide 100 mg/ Dextrose 100 mls @ 5 mls/hr IVP .Q20H [facility] PRN Reason: 5 MG/HR Last Admin: 08/09/17 06:50 Dose: 5 mls/hr Insulin Aspart (Novolog Mix 70/30 (70/30 Units/Ml)) 60 units SC BID [facility] Last Admin: 08/08/17 17:36 Dose: 60 units Insulin Glargine (Lantus) 35 unit SC HS [facility] Last Admin: 08/08/17 21:57 Dose: 35 units Lisinopril (Zestril) 10 mg PO DAILY [facility] Magnesium Oxide (Mag-Ox) 400 mg PO DAILY [facility] Metformin HCl (Glucophage) 500 mg PO DAILY [facility] Montelukast Sodium (Singulair) 10 mg PO HS [facility] Last Admin: 08/08/17 21:25 Dose: 10 mg Nitroglycerin (Nitro-Dur 0.2 Mg/Hr Patch) 1 patch TD DAILY [facility] Pantoprazole Sodium (Protonix Inj) 40 mg IVP DAILY [facility] Physical Exam - Additional Findings Additional findings: Phys Exam: VS as below Const'l: a&o x 4, nad, morbid obesity Head/Neck: neck supple, no jvd, trachea midline, carotid midline, no cervical /head mass Eyes: mary, nonicteric sclera, eom intact ENT: auditory acuity grossly intact, throat not congested, no nasal deformity Cardio: rrr, no m/r/g, no carotid bruit, nml s1, s2 Pulm: +mild rales in posterior bases; no accessory muscle use, equal nml breath sounds bilaterally, ctab Abd: s/nt/nd, nbs x 4 q, no palpable masses Derm: no rashes, no ulcers, no lesions Extr: +b/l 1+ pitting edema; no cyanosis, no calf tenderness, no lesions, no varicosities Neuro: cn II-XII grossly intact, ue and le 5/5 muscle strength bilaterally, no los ue, le bilaterally and core Results - Vital Signs Recent Vital Signs: Last Vital Signs Temp 98.0 F 08/09/17 08:05 Pulse 90 08/09/17 08:33 Resp 20 08/09/17 08:05 BP 170/66 H 08/09/17 08:05 Pulse Ox 98 08/09/17 08:05 - Labs Result Diagrams: 08/10/17 07:02 08/11/17 11:29 Labs: Laboratory Results - last 24 hr 08/08/17 08/08/17 08/08/17 09:20 09:20 09:20 WBC 6.1 RBC 3.45 L Hgb 9.8 L Hct 29.8 L MCV 86.3 MCH 28.3 MCHC 32.8 L RDW 16.3 H Plt Count 482 H D MPV 8.4 Neut % (Auto) 54.1 Lymph % (Auto) 28.8 [place] % (Auto) 9.8 Eos % (Auto) 5.5 H Baso % (Auto) 1.8 Neut # 3.3 Lymph # 1.8 [place] # 0.6 Eos # 0.3 Baso # 0.1 PT 10.4 INR 0.9 APTT 26 Sodium 135 Potassium 4.1 Chloride 96 L Carbon Dioxide 27 Anion Gap 15 BUN 59 H Creatinine 2.5 H Est GFR ( Amer) 25 Est GFR (Non-Af Amer) 20 POC Glucose (mg/dL) Random Glucose 67 Calcium 8.4 L Total Bilirubin 0.8 AST 42 H D ALT 54 H D Alkaline Phosphatase 272 H D Troponin I < 0.0120 NT-Pro-B Natriuret Pep 545 Total Protein 6.9 Albumin 3.9 Globulin 3.0 Albumin/Globulin Ratio 1.3 08/08/17 08/08/17 08/08/17 11:47 16:09 21:04 WBC RBC Hgb Hct MCV MCH MCHC RDW Plt Count MPV Neut % (Auto) Lymph % (Auto) [place] % (Auto) Eos % (Auto) Baso % (Auto) Neut # Lymph # [place] # Eos # Baso # PT INR APTT Sodium Potassium Chloride Carbon Dioxide Anion Gap BUN Creatinine Est GFR ( Amer) Est GFR (Non-Af Amer) POC Glucose (mg/dL) 194 H 362 H 159 H Random Glucose Calcium Total Bilirubin AST ALT Alkaline Phosphatase Troponin I NT-Pro-B Natriuret Pep Total Protein Albumin Globulin Albumin/Globulin Ratio 08/09/17 08/09/17 08/09/17 06:32 07:38 07:38 WBC 5.7 RBC 3.82 Hgb 10.7 L Hct 33.2 L MCV 87.1 MCH 28.2 MCHC 32.4 L RDW 16.5 H Plt Count 534 H MPV 8.7 Neut % (Auto) 58.5 Lymph % (Auto) 25.6 [place] % (Auto) 10.8 H Eos % (Auto) 4.5 H Baso % (Auto) 0.6 Neut # 3.3 Lymph # 1.5 [place] # 0.6 Eos # 0.3 Baso # 0.0 PT INR APTT Sodium 134 Potassium 4.3 Chloride 93 L Carbon Dioxide 29 Anion Gap 16 BUN 65 H Creatinine 2.8 H Est GFR ( Amer) 22 Est GFR (Non-Af Amer) 18 POC Glucose (mg/dL) 124 H Random Glucose 106 H Calcium 8.8 Total Bilirubin 0.8 AST 28 ALT 42 Alkaline Phosphatase 285 H Troponin I NT-Pro-B Natriuret Pep Total Protein 7.4 Albumin 4.2 Globulin 3.3 Albumin/Globulin Ratio 1.3 Assessment & Plan - Assessment and Plan (Free Text) Assessment: A/P 51 F with PMHx of HLD and HTN presenting with sob and b/l edema, as well as CP. Tropes negative, BNP WNL. SOB likely 2/2 CHF Exacerbation - CXR shows decreased inspiratory volume, but no infiltrates - Duonebs Q2H prn Q6H warner - Continue Diuretic Tx - Beta-mo, LEO-I Pleuritic CP likely 2/2 cough - Cough suppressant - CXR shows no acute disease, but decreased inspiratory volume B/l LE Edema - BNP WNL - Likely around patient's baseline Thank you for this interesting consult. David Bradley DO, PGY - 1, d/w DR. Barlow
[2017-08-09] MEDS: (Novolog Mix 70/30) Insulin Aspart/Insulin Aspar 100 units/ml SC SCH ×2 (09:35→17:00)
[2017-08-09] MEDS: Magnesium Oxide 400 mg Tab UD PO SCH (09:37)
[2017-08-09] MEDS: Nitroglycerin 0.2 mg/hr Top Patch TD SCH (11:00)
--- NOTE | 2017-08-09 13:58 | CP.PCM.PN ---
<Brennan Hammond - Last Filed: 08/09/17 14:04> Subjective - Date & Time of Evaluation Date of Evaluation: 08/09/17 Time of Evaluation: 14:00 - Subjective Subjective: Progress note. Attending: Dr. Saldivar This is a 51 yo female, originally from [place], with past medical hx of HLD, HTN, and DM, presenting with two weeks of sob, b/l LE swelling, and chest tightness. She was sent to the ER by her primary care physician, Dr. Saldivar, for evaluation. She was visiting Dr. Saldivar's office when she was sent in. Pt states she has felt like this in the past and has been put on Lasix for her swelling. She says she is compliant with her medications but has no clue what they are. Pt's ECHO in April 2017 reads mild atrial dilation, AR, , and LV diastolic dysfunction. PMH: as stated above PSHx: C section Allergies: NKDA SocHx: Denies smoking, drinking, drug use. Born in [place]. Lives with daughter. FH: HTN Objective - Vital Signs/Intake and Output Vital Signs (last 24 hours): Temp Pulse Resp BP Pulse Ox 98.0 F 90 20 170/66 H 98 08/09/17 08:05 08/09/17 08:33 08/09/17 08:05 08/09/17 08:05 08/09/17 08:05 Intake and Output: 08/09/17 08/09/17 06:59 18:59 Intake Total 360 Output Total 500 Balance -140 - Medications Medications: Current Medications Albuterol Sulfate (Albuterol 0.083% Inhal Emily (2.5 Mg/3 Ml) Ud) 2.5 mg IH Q6 PRN PRN Reason: Shortness of Breath Allopurinol (Zyloprim) 300 mg PO DAILY [facility] Last Admin: 08/09/17 09:36 Dose: 300 mg Amlodipine Besylate (Norvasc) 10 mg PO DAILY [facility] Last Admin: 08/09/17 12:48 Dose: 10 mg Carvedilol (Coreg) 6.25 mg PO BID [facility] Last Admin: 08/09/17 09:36 Dose: 6.25 mg Clonidine HCl (Catapres) 0.2 mg PO DAILY [facility] Last Admin: 08/09/17 09:36 Dose: 0.2 mg Ezetimibe (Zetia) 10 mg PO HS [facility] Last Admin: 08/08/17 21:25 Dose: 10 mg Heparin Sodium (Porcine) (Heparin) 5,000 units SC Q12 [facility] Last Admin: 08/09/17 09:35 Dose: 5,000 units Hydrochlorothiazide (Microzide) 12.5 mg PO DAILY [facility] Last Admin: 08/09/17 09:36 Dose: 12.5 mg Hydromorphone HCl (Dilaudid) 1 mg IVP Q4H PRN PRN Reason: Pain, severe (8-10) Last Admin: 08/08/17 23:45 Dose: 1 mg Furosemide 100 mg/ Dextrose 100 mls @ 5 mls/hr IVP .Q20H [facility] PRN Reason: 5 MG/HR Last Admin: 08/09/17 10:00 Dose: Not Given Insulin Aspart (Novolog Mix 70/30 (70/30 Units/Ml)) 60 units SC BID [facility] Last Admin: 08/09/17 09:35 Dose: Not Given Insulin Glargine (Lantus) 35 unit SC [facility] Last Admin: 08/08/17 21:57 Dose: 35 units Lisinopril (Zestril) 10 mg PO DAILY [facility] Last Admin: 08/09/17 09:36 Dose: 10 mg Magnesium Oxide (Mag-Ox) 400 mg PO DAILY [facility] Last Admin: 08/09/17 09:37 Dose: 400 mg Metformin HCl (Glucophage) 500 mg PO DAILY [facility] Last Admin: 08/09/17 09:36 Dose: 500 mg Montelukast Sodium (Singulair) 10 mg PO [facility] Last Admin: 08/08/17 21:25 Dose: 10 mg Nitroglycerin (Nitro-Dur 0.2 Mg/Hr Patch) 1 patch TD DAILY [facility] Last Admin: 08/09/17 11:00 Dose: 1 patch Pantoprazole Sodium (Protonix Inj) 40 mg IVP DAILY [facility] Last Admin: 08/09/17 11:00 Dose: 40 mg - Labs Labs: 08/09/17 07:38 08/09/17 07:38 PT 10.4 SECONDS (9.7-12.2) 08/08/17 09:20 INR 0.9 08/08/17 09:20 APTT 26 SECONDS (21-34) 08/08/17 09:20 - Constitutional Appears: Non-toxic, No Acute Distress - Head Exam Head Exam: ATRAUMATIC, NORMAL INSPECTION, NORMOCEPHALIC - Eye Exam Eye Exam: EOMI - ENT Exam ENT Exam: Mucous Membranes Moist - Neck Exam Neck Exam: Full ROM, Normal Inspection - Respiratory Exam Respiratory Exam: Rales. absent: Respiratory Distress - Cardiovascular Exam Cardiovascular Exam: REGULAR RHYTHM, +S1, +S2. absent: Murmur - GI/Abdominal Exam GI & Abdominal Exam: Soft, Normal Bowel Sounds. absent: Tenderness - Extremities Exam Extremities Exam: Pedal Edema. absent: Full ROM, Normal Inspection - Neurological Exam Neurological Exam: Alert, Awake, Oriented x3 - Psychiatric Exam Psychiatric exam: Normal Affect, Normal Mood - Skin Skin Exam: Dry, Intact, Normal Color, Warm Assessment and Plan - Assessment and Plan (Free Text) Assessment: This is a 51 yo female, originally from [place], with past medical hx of HLD, HTN, DM, CHF, presenting with 1. CHF vs. COPD -cardio consult. Dr. Barlow, recru appreciated -duonebs q 6 prn -coreg 6.25 BID -CXR shows no acute infiltrates -lasix drip for volume overload -lisinopril 10 daily -singulair daily -nitroglycerin -morphine prn severe pain IV -I/O -daily weight 2. hx of HLD -continue ezetemibe 10 mg PO HS 3. hx of DM -novolog 70/30 BID -lantus 35 units SC HS -metformin 500 mg daily 4. hx of HTN -continue norvsc 10 mg PO daily -continue coreg 6.25 mg po bid -continue clonidine .2 mg po daily -continue HCTZ 12.5 daily 5. hx of gout -continue allopurinol 300 mg PO daily 6. GI/DVT ppx -protonix 40 daily -heparin sc discussed with Dr. Saldivar. <Miko Saldivar - Last Filed: 08/13/17 13:39> Objective - Vital Signs/Intake and Output Vital Signs (last 24 hours): Temp Pulse Resp BP Pulse Ox 98.4 F 75 20 117/64 99 08/13/17 07:39 08/13/17 07:39 08/13/17 07:39 08/13/17 09:10 08/13/17 07:39 Intake and Output: 08/13/17 08/13/17 06:59 18:59 Intake Total 1220 350 Output Total 2900 400 Balance -1680 -50 - Medications Medications: Current Medications Allopurinol (Zyloprim) 300 mg PO DAILY [facility] Last Admin: 08/13/17 09:10 Dose: 300 mg Amlodipine Besylate (Norvasc) 10 mg PO DAILY [facility] Last Admin: 08/13/17 09:09 Dose: 10 mg Carvedilol (Coreg) 6.25 mg PO BID [facility] Last Admin: 08/13/17 09:07 Dose: 6.25 mg Clonidine HCl (Catapres) 0.2 mg PO DAILY [facility] Last Admin: 08/13/17 09:10 Dose: 0.2 mg Ezetimibe (Zetia) 10 mg PO [facility] Last Admin: 08/12/17 21:38 Dose: 10 mg Furosemide (Lasix) 40 mg IVP BID [facility] Last Admin: 08/13/17 09:10 Dose: 40 mg Hydrochlorothiazide (Microzide) 12.5 mg PO DAILY [facility] Last Admin: 08/13/17 09:09 Dose: 12.5 mg Furosemide 100 mg/ Dextrose 100 mls @ 5 mls/hr IVP .Q20H [facility] PRN Reason: 5 MG/HR Last Admin: 08/09/17 10:00 Dose: Not Given Sodium Chloride (Sodium Chloride 0.9%) 500 mls @ 75 mls/hr IV .Q6H40M [facility] Last Admin: 08/12/17 17:14 Dose: 75 mls/hr Insulin Aspart (Novolog Mix 70/30 (70/30 Units/Ml)) 60 units SC BID [facility] Last Admin: 08/13/17 09:21 Dose: 60 units Insulin Glargine (Lantus) 35 unit SC HS [facility] Last Admin: 08/12/17 21:57 Dose: 35 units Lisinopril (Zestril) 10 mg PO DAILY [facility] Last Admin: 08/13/17 09:10 Dose: 10 mg Magnesium Oxide (Mag-Ox) 400 mg PO DAILY [facility] Last Admin: 08/13/17 09:08 Dose: 400 mg Metformin HCl (Glucophage) 500 mg PO DAILY [facility] Last Admin: 08/13/17 09:22 Dose: Not Given Montelukast Sodium (Singulair) 10 mg PO HS [facility] Last Admin: 08/12/17 21:39 Dose: 10 mg Nitroglycerin (Nitro-Dur 0.2 Mg/Hr Patch) 1 patch TD DAILY [facility] Last Admin: 08/13/17 09:22 Dose: 1 patch Pantoprazole Sodium (Protonix Ec Tab) 40 mg PO DAILY [facility] Last Admin: 08/13/17 09:22 Dose: 40 mg Rosuvastatin Calcium (Crestor) 2.5 mg PO HS [facility] Last Admin: 08/12/17 21:39 Dose: 2.5 mg Trolamine Salicylate (Aspercreme) 1 gm TOP Q4H PRN PRN Reason: Pain, Mild (1-3) Last Admin: 08/12/17 06:29 Dose: 1 gm - Labs Labs: 08/10/17 07:02 08/11/17 11:29 PT 10.4 SECONDS (9.7-12.2) 08/08/17 09:20 INR 0.9 08/08/17 09:20 APTT 26 SECONDS (21-34) 08/08/17 09:20 Attending/Attestation - Attestation I have personally seen and examined this patient.: Yes I have fully participated in the care of the patient.: Yes I have reviewed all pertinent clinical information, including history, physical exam and plan: Yes Notes (Text): Patient examined. Patient states that in the past she was put on Lasix for leg swelling. BNP normal. Mildly raised transaminases. Mild raised BUN and creatinine. Continue furosemide. Continue antihypertensive and antidiabetic medications. Continue supportive care.
[2017-08-09] MEDS: (Lantus) Insulin Glargine, Recombinant SC SCH (21:35)
--- NOTE | 2017-08-09 21:36 | CP.PCM.PN ---
Subjective - Date & Time of Evaluation Date of Evaluation: 08/09/17 Time of Evaluation: 21:30 - Subjective Subjective: clinically same. Objective - Vital Signs/Intake and Output Vital Signs (last 24 hours): Temp Pulse Resp BP Pulse Ox 98 F 77 20 105/66 98 08/09/17 18:26 08/09/17 18:26 08/09/17 18:26 08/09/17 18:26 08/09/17 18:26 Intake and Output: 08/09/17 08/10/17 18:59 06:59 Intake Total 440 Balance 440 - Medications Medications: Current Medications Albuterol Sulfate (Albuterol 0.083% Inhal Emily (2.5 Mg/3 Ml) Ud) 2.5 mg IH Q6 PRN PRN Reason: Shortness of Breath Allopurinol (Zyloprim) 300 mg PO DAILY [facility] Last Admin: 08/09/17 09:36 Dose: 300 mg Amlodipine Besylate (Norvasc) 10 mg PO DAILY [facility] Last Admin: 08/09/17 12:48 Dose: 10 mg Carvedilol (Coreg) 6.25 mg PO BID [facility] Last Admin: 08/09/17 17:00 Dose: 6.25 mg Clonidine HCl (Catapres) 0.2 mg PO DAILY [facility] Last Admin: 08/09/17 09:36 Dose: 0.2 mg Ezetimibe (Zetia) 10 mg PO HS [facility] Last Admin: 08/09/17 21:03 Dose: 10 mg Heparin Sodium (Porcine) (Heparin) 5,000 units SC Q12 [facility] Last Admin: 08/09/17 21:01 Dose: 5,000 units Hydrochlorothiazide (Microzide) 12.5 mg PO DAILY [facility] Last Admin: 08/09/17 09:36 Dose: 12.5 mg Hydromorphone HCl (Dilaudid) 1 mg IVP Q4H PRN PRN Reason: Pain, severe (8-10) Last Admin: 08/08/17 23:45 Dose: 1 mg Furosemide 100 mg/ Dextrose 100 mls @ 5 mls/hr IVP .Q20H [facility] PRN Reason: 5 MG/HR Last Admin: 08/09/17 10:00 Dose: Not Given Insulin Aspart (Novolog Mix 70/30 (70/30 Units/Ml)) 60 units SC BID [facility] Last Admin: 08/09/17 17:00 Dose: 60 units Insulin Glargine (Lantus) 35 unit SC HS [facility] Last Admin: 08/09/17 21:35 Dose: Not Given Lisinopril (Zestril) 10 mg PO DAILY [facility] Last Admin: 08/09/17 09:36 Dose: 10 mg Magnesium Oxide (Mag-Ox) 400 mg PO DAILY [facility] Last Admin: 08/09/17 09:37 Dose: 400 mg Metformin HCl (Glucophage) 500 mg PO DAILY [facility] Last Admin: 08/09/17 09:36 Dose: 500 mg Montelukast Sodium (Singulair) 10 mg PO HS [facility] Last Admin: 08/09/17 21:03 Dose: 10 mg Nitroglycerin (Nitro-Dur 0.2 Mg/Hr Patch) 1 patch TD DAILY [facility] Last Admin: 08/09/17 11:00 Dose: 1 patch Pantoprazole Sodium (Protonix Inj) 40 mg IVP DAILY [facility] Last Admin: 08/09/17 11:00 Dose: 40 mg - Labs Labs: 08/09/17 07:38 08/09/17 07:38 PT 10.4 SECONDS (9.7-12.2) 08/08/17 09:20 INR 0.9 08/08/17 09:20 APTT 26 SECONDS (21-34) 08/08/17 09:20 - Constitutional Appears: Well - Head Exam Head Exam: ATRAUMATIC, NORMAL INSPECTION, NORMOCEPHALIC - Eye Exam Eye Exam: EOMI, Normal appearance, PERRL Pupil Exam: NORMAL ACCOMODATION, PERRL - ENT Exam ENT Exam: Mucous Membranes Moist, Normal Exam - Neck Exam Neck Exam: Full ROM, Normal Inspection. absent: Lymphadenopathy - Respiratory Exam Respiratory Exam: Decreased Breath Sounds - Cardiovascular Exam Cardiovascular Exam: REGULAR RHYTHM, +S1, +S2. absent: Murmur - GI/Abdominal Exam GI & Abdominal Exam: Soft, Normal Bowel Sounds. absent: Tenderness - Rectal Exam Rectal Exam: Deferred Assessment and Plan (1) CHF (congestive heart failure) Status: Acute (2) Abdominal pain Status: Acute (3) Allergic urticaria Status: Acute (4) Anasarca Status: Acute (5) Anemia Status: Acute (6) Asthma exacerbation Status: Acute (7) Back pain Status: Acute (8) Back pain Status: Acute (9) Back pain at L4-L5 level Status: Acute (10) Bipolar 1 disorder Status: Acute (11) CKD stage 3 due to type 1 diabetes mellitus Status: Acute (12) COPD (chronic obstructive pulmonary disease) Status: Acute (13) Chest pain Status: Acute (14) Chest pain Status: Acute (15) Chest pain Status: Acute (16) Congestive heart failure Status: Acute (17) Constipation Status: Acute (18) Cough Status: Acute (19) DM2 (diabetes mellitus, type 2) Status: Acute (20) Diabetic hyperosmolar non-ketotic state Status: Acute (21) Drug overdose Status: Acute (22) Dyslipidemia Status: Acute (23) Dyspnea Status: Acute (24) Dyspnea Status: Acute (25) Dysuria Status: Acute (26) Fever Status: Acute (27) HHNC (hyperglycemic hyperosmolar nonketotic coma) Status: Acute (28) Hyperglycemia Status: Acute (29) Hypertension Status: Acute (30) Hypertension Status: Acute (31) Hyponatremia Status: Acute (32) Hypoventilation associated with obesity syndrome Status: Acute (33) Moderate major depression, single episode Status: Acute (34) Near syncope Status: Acute (35) Nephrotic range proteinuria Status: Acute (36) Pneumonia Status: Acute (37) Pneumonia Status: Acute (38) Prophylactic measure Status: Acute (39) Pulmonary edema Status: Acute (40) Renal function test abnormal Status: Acute (41) Renal insufficiency Status: Acute (42) Renal insufficiency Status: Acute (43) Renal insufficiency Status: Acute (44) UTI (lower urinary tract infection) Status: Acute (45) Uncontrolled diabetes mellitus Status: Acute (46) Uncontrolled diabetes mellitus Status: Acute (47) Uncontrolled hypertension Status: Acute (48) Upper respiratory infection Status: Acute (49) Urinary retention Status: Acute (50) Urinary tract infection Status: Acute (51) Acute on chronic kidney failure Status: Chronic (52) Asthma Status: Chronic (53) Diabetes Status: Chronic - Assessment and Plan (Free Text) Plan: Patient examined. Patient clinically better. Continue diuretic furosemide. Continue antidiabetic and antihypertensive medications. Continue supportive care.
--- NOTE | 2017-08-10 02:49 | CP.PCM.PN ---
Subjective - Date & Time of Evaluation Date of Evaluation: 08/10/17 Time of Evaluation: 02:46 - Subjective Subjective: Lasix drip held temporarily due to downtrending of blood pressure. Latest BP reading was 90/65. Will resume lasix drip in morning, at which point primary attending/specialists can decide course of action. Patient has no complaints, she is breathing well, saturating well at 100%. Objective - Vital Signs/Intake and Output Vital Signs (last 24 hours): Temp Pulse Resp BP Pulse Ox 97.9 F 72 20 95/57 L 99 08/09/17 23:00 08/10/17 01:59 08/09/17 23:00 08/09/17 23:00 08/09/17 23:00 Intake and Output: 08/09/17 08/10/17 18:59 06:59 Intake Total 440 340 Balance 440 340 - Medications Medications: Current Medications Albuterol Sulfate (Albuterol 0.083% Inhal Emily (2.5 Mg/3 Ml) Ud) 2.5 mg IH Q6 PRN PRN Reason: Shortness of Breath Allopurinol (Zyloprim) 300 mg PO DAILY [facility] Last Admin: 08/09/17 09:36 Dose: 300 mg Amlodipine Besylate (Norvasc) 10 mg PO DAILY [facility] Last Admin: 08/09/17 12:48 Dose: 10 mg Carvedilol (Coreg) 6.25 mg PO BID [facility] Last Admin: 08/09/17 17:00 Dose: 6.25 mg Clonidine HCl (Catapres) 0.2 mg PO DAILY [facility] Last Admin: 08/09/17 09:36 Dose: 0.2 mg Ezetimibe (Zetia) 10 mg PO HS [facility] Last Admin: 08/09/17 21:03 Dose: 10 mg Heparin Sodium (Porcine) (Heparin) 5,000 units SC Q12 [facility] Last Admin: 08/09/17 21:01 Dose: 5,000 units Hydrochlorothiazide (Microzide) 12.5 mg PO DAILY [facility] Last Admin: 08/09/17 09:36 Dose: 12.5 mg Hydromorphone HCl (Dilaudid) 1 mg IVP Q4H PRN PRN Reason: Pain, severe (8-10) Last Admin: 08/08/17 23:45 Dose: 1 mg Furosemide 100 mg/ Dextrose 100 mls @ 5 mls/hr IVP .Q20H [facility] PRN Reason: 5 MG/HR Last Admin: 08/09/17 10:00 Dose: Not Given Insulin Aspart (Novolog Mix 70/30 (70/30 Units/Ml)) 60 units SC BID [facility] Last Admin: 08/09/17 17:00 Dose: 60 units Insulin Glargine (Lantus) 35 unit SC HS [facility] Last Admin: 08/09/17 21:35 Dose: Not Given Lisinopril (Zestril) 10 mg PO DAILY [facility] Last Admin: 08/09/17 09:36 Dose: 10 mg Magnesium Oxide (Mag-Ox) 400 mg PO DAILY [facility] Last Admin: 08/09/17 09:37 Dose: 400 mg Metformin HCl (Glucophage) 500 mg PO DAILY [facility] Last Admin: 08/09/17 09:36 Dose: 500 mg Montelukast Sodium (Singulair) 10 mg PO HS [facility] Last Admin: 08/09/17 21:03 Dose: 10 mg Nitroglycerin (Nitro-Dur 0.2 Mg/Hr Patch) 1 patch TD DAILY [facility] Last Admin: 08/09/17 11:00 Dose: 1 patch Pantoprazole Sodium (Protonix Inj) 40 mg IVP DAILY [facility] Last Admin: 08/09/17 11:00 Dose: 40 mg - Labs Labs: 08/09/17 07:38 08/09/17 07:38 PT 10.4 SECONDS (9.7-12.2) 08/08/17 09:20 INR 0.9 08/08/17 09:20 APTT 26 SECONDS (21-34) 08/08/17 09:20
[2017-08-10 07:14] LABS: BASO % 0.6 % (0.0-2.0); EOS # 0.2 K/uL (0.0-0.7); EOS % 4.5 % (0.0-4.0); HEMATOCRIT 29.6 % (34.0-47.0); LYMPH # 1.9 K/uL (1.0-4.3); LYMPH % 34.8 % (20.0-40.0); MEAN CELL VOLUME 87.5 fL (81.0-99.0); MEAN CORPUSCULAR HEMOGLOBIN 28.1 pg (27.0-31.0); MEAN CORPUSCULAR HGB CONC 32.1 g/dL (33.0-37.0); MEAN PLATELET VOLUME 8.7 fL (7.2-11.7); MONO # 0.6 K/uL (0.0-0.8); MONO % 11.6 % (0.0-10.0); NRBC % 0.1 % (0.0-2.0); RED CELL DISTRIBUTION WIDTH 16.3 % (11.5-14.5); WHITE BLOOD COUNT 5.5 K/uL (4.8-10.8)
[2017-08-10] MEDS: Albuterol 0.083% Inhal Sol (2.5 mg/3 mL) UD IH PRN ×3 (07:30→19:32)
[2017-08-10 07:36] LABS: POTASSIUM 3.7 mmol/L (3.6-5.2)
[2017-08-10 07:38] LABS: BILIRUBIN,TOTAL 0.6 mg/dL (0.2-1.3)
[2017-08-10 07:39] LABS: ALB/GLOB RATIO 1.3 (1.0-2.1); CALCIUM 8.1 mg/dl (8.6-10.4); MAGNESIUM 1.8 mg/dL (1.6-2.3); PHOSPHOROUS 5.3 mg/dL (2.5-4.5); TOTAL PROTEIN 6.1 g/dL (6.3-8.3)
[2017-08-10] MEDS: (Novolog Mix 70/30) Insulin Aspart/Insulin Aspar 100 units/ml SC SCH ×2 (09:43→17:33)
[2017-08-10] MEDS: Magnesium Oxide 400 mg Tab UD PO SCH (10:21)
[2017-08-10] MEDS: Nitroglycerin 0.2 mg/hr Top Patch TD SCH (10:25)
--- NOTE | 2017-08-10 18:30 | CP.PCM.PN ---
Subjective - Date & Time of Evaluation Date of Evaluation: 08/10/17 Time of Evaluation: 11:20 - Subjective Subjective: clinically same Objective - Vital Signs/Intake and Output Vital Signs (last 24 hours): Temp Pulse Resp BP Pulse Ox 98 F 73 20 130/73 98 08/10/17 15:40 08/10/17 16:00 08/10/17 15:40 08/10/17 15:40 08/10/17 15:40 Intake and Output: 08/10/17 08/10/17 06:59 18:59 Intake Total 480 400 Output Total 1 Balance 479 400 - Medications Medications: Current Medications Albuterol Sulfate (Albuterol 0.083% Inhal Emily (2.5 Mg/3 Ml) Ud) 2.5 mg IH Q6 PRN PRN Reason: Shortness of Breath Last Admin: 08/10/17 14:12 Dose: 2.5 mg Allopurinol (Zyloprim) 300 mg PO DAILY [facility] Last Admin: 08/10/17 10:22 Dose: 300 mg Amlodipine Besylate (Norvasc) 10 mg PO DAILY [facility] Last Admin: 08/10/17 10:22 Dose: 10 mg Carvedilol (Coreg) 6.25 mg PO BID [facility] Last Admin: 08/10/17 10:22 Dose: 6.25 mg Clonidine HCl (Catapres) 0.2 mg PO DAILY [facility] Last Admin: 08/10/17 10:22 Dose: 0.2 mg Ezetimibe (Zetia) 10 mg PO HS [facility] Last Admin: 08/09/17 21:03 Dose: 10 mg Heparin Sodium (Porcine) (Heparin) 5,000 units SC Q12 [facility] Last Admin: 08/10/17 10:25 Dose: 5,000 units Hydrochlorothiazide (Microzide) 12.5 mg PO DAILY [facility] Last Admin: 08/10/17 10:21 Dose: 12.5 mg Hydromorphone HCl (Dilaudid) 1 mg IVP Q4H PRN PRN Reason: Pain, severe (8-10) Last Admin: 08/08/17 23:45 Dose: 1 mg Furosemide 100 mg/ Dextrose 100 mls @ 5 mls/hr IVP .Q20H [facility] PRN Reason: 5 MG/HR Last Admin: 08/09/17 10:00 Dose: Not Given Insulin Aspart (Novolog Mix 70/30 (70/30 Units/Ml)) 60 units SC BID [facility] Last Admin: 08/10/17 17:33 Dose: 60 units Insulin Glargine (Lantus) 35 unit SC [facility] Last Admin: 08/09/17 21:35 Dose: Not Given Lisinopril (Zestril) 10 mg PO DAILY [facility] Last Admin: 08/10/17 10:22 Dose: 10 mg Magnesium Oxide (Mag-Ox) 400 mg PO DAILY [facility] Last Admin: 08/10/17 10:21 Dose: 400 mg Metformin HCl (Glucophage) 500 mg PO DAILY [facility] Last Admin: 08/10/17 10:22 Dose: 500 mg Montelukast Sodium (Singulair) 10 mg PO HS [facility] Last Admin: 08/09/17 21:03 Dose: 10 mg Nitroglycerin (Nitro-Dur 0.2 Mg/Hr Patch) 1 patch TD DAILY [facility] Last Admin: 08/10/17 10:25 Dose: 1 patch Pantoprazole Sodium (Protonix Inj) 40 mg IVP DAILY [facility] Last Admin: 08/10/17 10:33 Dose: 40 mg - Labs Labs: 08/10/17 07:02 08/10/17 07:02 PT 10.4 SECONDS (9.7-12.2) 08/08/17 09:20 INR 0.9 08/08/17 09:20 APTT 26 SECONDS (21-34) 08/08/17 09:20 - Constitutional Appears: Well - Head Exam Head Exam: ATRAUMATIC, NORMAL INSPECTION, NORMOCEPHALIC - Eye Exam Eye Exam: EOMI, Normal appearance, PERRL Pupil Exam: NORMAL ACCOMODATION, PERRL - ENT Exam ENT Exam: Mucous Membranes Moist, Normal Exam - Neck Exam Neck Exam: Full ROM, Normal Inspection. absent: Lymphadenopathy - Respiratory Exam Respiratory Exam: Decreased Breath Sounds - Cardiovascular Exam Cardiovascular Exam: REGULAR RHYTHM, +S1, +S2. absent: Murmur - GI/Abdominal Exam GI & Abdominal Exam: Soft, Normal Bowel Sounds. absent: Tenderness - Rectal Exam Rectal Exam: Deferred Assessment and Plan (1) CHF (congestive heart failure) Status: Acute (2) Abdominal pain Status: Acute (3) Allergic urticaria Status: Acute (4) Anasarca Status: Acute (5) Anemia Status: Acute (6) Asthma exacerbation Status: Acute (7) Back pain Status: Acute (8) Back pain Status: Acute (9) Back pain at L4-L5 level Status: Acute (10) Bipolar 1 disorder Status: Acute (11) CKD stage 3 due to type 1 diabetes mellitus Status: Acute (12) COPD (chronic obstructive pulmonary disease) Status: Acute (13) Chest pain Status: Acute (14) Chest pain Status: Acute (15) Chest pain Status: Acute (16) Congestive heart failure Status: Acute (17) Constipation Status: Acute (18) Cough Status: Acute (19) DM2 (diabetes mellitus, type 2) Status: Acute (20) Diabetic hyperosmolar non-ketotic state Status: Acute (21) Drug overdose Status: Acute (22) Dyslipidemia Status: Acute (23) Dyspnea Status: Acute (24) Dyspnea Status: Acute (25) Dysuria Status: Acute (26) Fever Status: Acute (27) HHNC (hyperglycemic hyperosmolar nonketotic coma) Status: Acute (28) Hyperglycemia Status: Acute (29) Hypertension Status: Acute (30) Hypertension Status: Acute (31) Hyponatremia Status: Acute (32) Hypoventilation associated with obesity syndrome Status: Acute (33) Moderate major depression, single episode Status: Acute (34) Near syncope Status: Acute (35) Nephrotic range proteinuria Status: Acute (36) Pneumonia Status: Acute (37) Pneumonia Status: Acute (38) Prophylactic measure Status: Acute (39) Pulmonary edema Status: Acute (40) Renal function test abnormal Status: Acute (41) Renal insufficiency Status: Acute (42) Renal insufficiency Status: Acute (43) Renal insufficiency Status: Acute (44) UTI (lower urinary tract infection) Status: Acute (45) Uncontrolled diabetes mellitus Status: Acute (46) Uncontrolled diabetes mellitus Status: Acute (47) Uncontrolled hypertension Status: Acute (48) Upper respiratory infection Status: Acute (49) Urinary retention Status: Acute (50) Urinary tract infection Status: Acute (51) Acute on chronic kidney failure Status: Chronic (52) Asthma Status: Chronic (53) Diabetes Status: Chronic - Assessment and Plan (Free Text) Plan: Patient examined. Lasix drip was on hold due to fall in blood pressure. Continue antihypertensive and antidiabetic medications. Continue supportive care.
[2017-08-10] MEDS: (Lantus) Insulin Glargine, Recombinant SC SCH (22:14)
[2017-08-11] MEDS: Nitroglycerin 0.2 mg/hr Top Patch TD SCH (10:25)
[2017-08-11] MEDS: Magnesium Oxide 400 mg Tab UD PO SCH (10:25)
[2017-08-11] MEDS: (Novolog Mix 70/30) Insulin Aspart/Insulin Aspar 100 units/ml SC SCH ×2 (10:26→17:48)
[2017-08-11 12:11] LABS: POTASSIUM 4.3 mmol/L (3.6-5.2)
[2017-08-11 12:15] LABS: CALCIUM 8.3 mg/dl (8.6-10.4)
--- NOTE | 2017-08-11 13:54 | CP.PCM.PN ---
Subjective - Date & Time of Evaluation Date of Evaluation: 08/11/17 Time of Evaluation: 11:20 - Subjective Subjective: clinically same Objective - Vital Signs/Intake and Output Vital Signs (last 24 hours): Temp Pulse Resp BP Pulse Ox 98.8 F 72 20 140/83 100 08/11/17 07:46 08/11/17 12:00 08/11/17 07:46 08/11/17 07:46 08/11/17 07:46 Intake and Output: 08/11/17 08/11/17 06:59 18:59 Intake Total 320 Output Total 300 Balance 20 - Medications Medications: Current Medications Albuterol Sulfate (Albuterol 0.083% Inhal Emily (2.5 Mg/3 Ml) Ud) 2.5 mg IH Q6 PRN PRN Reason: Shortness of Breath Last Admin: 08/10/17 19:32 Dose: 2.5 mg Allopurinol (Zyloprim) 300 mg PO DAILY [facility] Last Admin: 08/11/17 10:25 Dose: 300 mg Amlodipine Besylate (Norvasc) 10 mg PO DAILY [facility] Last Admin: 08/11/17 10:26 Dose: 10 mg Carvedilol (Coreg) 6.25 mg PO BID [facility] Last Admin: 08/11/17 10:26 Dose: 6.25 mg Clonidine HCl (Catapres) 0.2 mg PO DAILY [facility] Last Admin: 08/11/17 10:25 Dose: 0.2 mg Ezetimibe (Zetia) 10 mg PO HS [facility] Last Admin: 08/10/17 22:11 Dose: 10 mg Heparin Sodium (Porcine) (Heparin) 5,000 units SC Q12 [facility] Last Admin: 08/11/17 10:25 Dose: 5,000 units Hydrochlorothiazide (Microzide) 12.5 mg PO DAILY [facility] Last Admin: 08/11/17 10:26 Dose: 12.5 mg Hydromorphone HCl (Dilaudid) 1 mg IVP Q4H PRN PRN Reason: Pain, severe (8-10) Last Admin: 08/08/17 23:45 Dose: 1 mg Furosemide 100 mg/ Dextrose 100 mls @ 5 mls/hr IVP .Q20H [facility] PRN Reason: 5 MG/HR Last Admin: 08/09/17 10:00 Dose: Not Given Insulin Aspart (Novolog Mix 70/30 (70/30 Units/Ml)) 60 units SC BID [facility] Last Admin: 08/11/17 10:26 Dose: 60 units Insulin Glargine (Lantus) 35 unit SC [facility] Last Admin: 08/10/17 22:14 Dose: 35 units Lisinopril (Zestril) 10 mg PO DAILY [facility] Last Admin: 08/11/17 10:26 Dose: 10 mg Magnesium Oxide (Mag-Ox) 400 mg PO DAILY [facility] Last Admin: 08/11/17 10:25 Dose: 400 mg Metformin HCl (Glucophage) 500 mg PO DAILY [facility] Last Admin: 08/11/17 10:25 Dose: 500 mg Montelukast Sodium (Singulair) 10 mg PO HS [facility] Last Admin: 08/10/17 22:11 Dose: 10 mg Nitroglycerin (Nitro-Dur 0.2 Mg/Hr Patch) 1 patch TD DAILY [facility] Last Admin: 08/11/17 10:25 Dose: 1 patch Pantoprazole Sodium (Protonix Inj) 40 mg IVP DAILY [facility] Last Admin: 08/11/17 11:00 Dose: 40 mg - Labs Labs: 08/10/17 07:02 08/11/17 11:29 PT 10.4 SECONDS (9.7-12.2) 08/08/17 09:20 INR 0.9 08/08/17 09:20 APTT 26 SECONDS (21-34) 08/08/17 09:20 - Constitutional Appears: Well - Head Exam Head Exam: ATRAUMATIC, NORMAL INSPECTION, NORMOCEPHALIC - Eye Exam Eye Exam: EOMI, Normal appearance, PERRL Pupil Exam: NORMAL ACCOMODATION, PERRL - ENT Exam ENT Exam: Mucous Membranes Moist, Normal Exam - Neck Exam Neck Exam: Full ROM, Normal Inspection. absent: Lymphadenopathy - Respiratory Exam Respiratory Exam: Decreased Breath Sounds - Cardiovascular Exam Cardiovascular Exam: REGULAR RHYTHM, +S1, +S2 - GI/Abdominal Exam GI & Abdominal Exam: Soft, Diminished Bowel Sounds - Rectal Exam Rectal Exam: Deferred Assessment and Plan (1) CHF (congestive heart failure) Status: Acute (2) Abdominal pain Status: Acute (3) Allergic urticaria Status: Acute (4) Anasarca Status: Acute (5) Anemia Status: Acute (6) Asthma exacerbation Status: Acute (7) Back pain Status: Acute (8) Back pain Status: Acute (9) Back pain at L4-L5 level Status: Acute (10) Bipolar 1 disorder Status: Acute (11) CKD stage 3 due to type 1 diabetes mellitus Status: Acute (12) COPD (chronic obstructive pulmonary disease) Status: Acute (13) Chest pain Status: Acute (14) Chest pain Status: Acute (15) Chest pain Status: Acute (16) Congestive heart failure Status: Acute (17) Constipation Status: Acute (18) Cough Status: Acute (19) DM2 (diabetes mellitus, type 2) Status: Acute (20) Diabetic hyperosmolar non-ketotic state Status: Acute (21) Drug overdose Status: Acute (22) Dyslipidemia Status: Acute (23) Dyspnea Status: Acute (24) Dyspnea Status: Acute (25) Dysuria Status: Acute (26) Fever Status: Acute (27) HHNC (hyperglycemic hyperosmolar nonketotic coma) Status: Acute (28) Hyperglycemia Status: Acute (29) Hypertension Status: Acute (30) Hypertension Status: Acute (31) Hyponatremia Status: Acute (32) Hypoventilation associated with obesity syndrome Status: Acute (33) Moderate major depression, single episode Status: Acute (34) Near syncope Status: Acute (35) Nephrotic range proteinuria Status: Acute (36) Pneumonia Status: Acute (37) Pneumonia Status: Acute (38) Prophylactic measure Status: Acute (39) Pulmonary edema Status: Acute (40) Renal function test abnormal Status: Acute (41) Renal insufficiency Status: Acute (42) Renal insufficiency Status: Acute (43) Renal insufficiency Status: Acute (44) UTI (lower urinary tract infection) Status: Acute (45) Uncontrolled diabetes mellitus Status: Acute (46) Uncontrolled diabetes mellitus Status: Acute (47) Uncontrolled hypertension Status: Acute (48) Upper respiratory infection Status: Acute (49) Urinary retention Status: Acute (50) Urinary tract infection Status: Acute (51) Acute on chronic kidney failure Status: Chronic (52) Asthma Status: Chronic (53) Diabetes Status: Chronic - Assessment and Plan (Free Text) Plan: Patient examined. Patient better. Continue furosemide diuretic. Continue antihypertensive and antidiabetic medications. Continue supportive care.
--- NOTE | 2017-08-11 19:21 | CP.PCM.PN ---
Subjective - Date & Time of Evaluation Date of Evaluation: 08/11/17 Time of Evaluation: 19:21 Objective - Vital Signs/Intake and Output Vital Signs (last 24 hours): Temp Pulse Resp BP Pulse Ox 97.8 F 72 20 108/68 100 08/11/17 15:33 08/11/17 16:00 08/11/17 15:33 08/11/17 15:33 08/11/17 15:33 Intake and Output: 08/11/17 08/12/17 18:59 06:59 Intake Total 600 Balance 600 - Medications Medications: Current Medications Albuterol Sulfate (Albuterol 0.083% Inhal Emily (2.5 Mg/3 Ml) Ud) 2.5 mg IH Q6 PRN PRN Reason: Shortness of Breath Last Admin: 08/10/17 19:32 Dose: 2.5 mg Allopurinol (Zyloprim) 300 mg PO DAILY [facility] Last Admin: 08/11/17 10:25 Dose: 300 mg Amlodipine Besylate (Norvasc) 10 mg PO DAILY [facility] Last Admin: 08/11/17 10:26 Dose: 10 mg Carvedilol (Coreg) 6.25 mg PO BID [facility] Last Admin: 08/11/17 17:48 Dose: 6.25 mg Clonidine HCl (Catapres) 0.2 mg PO DAILY [facility] Last Admin: 08/11/17 10:25 Dose: 0.2 mg Ezetimibe (Zetia) 10 mg PO HS [facility] Last Admin: 08/10/17 22:11 Dose: 10 mg Heparin Sodium (Porcine) (Heparin) 5,000 units SC Q12 [facility] Last Admin: 08/11/17 10:25 Dose: 5,000 units Hydrochlorothiazide (Microzide) 12.5 mg PO DAILY [facility] Last Admin: 08/11/17 10:26 Dose: 12.5 mg Hydromorphone HCl (Dilaudid) 1 mg IVP Q4H PRN PRN Reason: Pain, severe (8-10) Last Admin: 08/08/17 23:45 Dose: 1 mg Furosemide 100 mg/ Dextrose 100 mls @ 5 mls/hr IVP .Q20H [facility] PRN Reason: 5 MG/HR Last Admin: 08/09/17 10:00 Dose: Not Given Insulin Aspart (Novolog Mix 70/30 (70/30 Units/Ml)) 60 units SC BID [facility] Last Admin: 08/11/17 17:48 Dose: 60 units Insulin Glargine (Lantus) 35 unit SC HS [facility] Last Admin: 08/10/17 22:14 Dose: 35 units Lisinopril (Zestril) 10 mg PO DAILY [facility] Last Admin: 08/11/17 10:26 Dose: 10 mg Magnesium Oxide (Mag-Ox) 400 mg PO DAILY [facility] Last Admin: 08/11/17 10:25 Dose: 400 mg Metformin HCl (Glucophage) 500 mg PO DAILY [facility] Last Admin: 08/11/17 10:25 Dose: 500 mg Montelukast Sodium (Singulair) 10 mg PO HS [facility] Last Admin: 08/10/17 22:11 Dose: 10 mg Nitroglycerin (Nitro-Dur 0.2 Mg/Hr Patch) 1 patch TD DAILY [facility] Last Admin: 08/11/17 10:25 Dose: 1 patch Pantoprazole Sodium (Protonix Inj) 40 mg IVP DAILY [facility] Last Admin: 08/11/17 11:00 Dose: 40 mg - Labs Labs: 08/10/17 07:02 08/11/17 11:29 PT 10.4 SECONDS (9.7-12.2) 08/08/17 09:20 INR 0.9 08/08/17 09:20 APTT 26 SECONDS (21-34) 08/08/17 09:20
[2017-08-11] MEDS: Albuterol 0.083% Inhal Sol (2.5 mg/3 mL) UD IH PRN (19:30)
[2017-08-11] MEDS: (Lantus) Insulin Glargine, Recombinant SC SCH (21:46)
[2017-08-12] MEDS: Trolamine Salicylate 10% Cream (85 gm) TOP PRN ×2 (01:35→06:29)
[2017-08-12] MEDS ORDERED: Dextrose 50% SYRINGE Inj (50 ml) IV STA (06:19)
--- NOTE | 2017-08-12 07:47 | CP.PCM.PN ---
Subjective - Date & Time of Evaluation Date of Evaluation: 08/12/17 Time of Evaluation: 07:45 - Subjective Subjective: Cardiology progress note for Dr. Cain Boykin DO PGY-6 Pt s/e bedside. States her sob and b/l LE swelling are much better, but still present. No further complaints at this time. Objective - Vital Signs/Intake and Output Vital Signs (last 24 hours): Temp Pulse Resp BP Pulse Ox 98 F 74 20 138/83 100 08/11/17 23:00 08/12/17 03:56 08/11/17 23:00 08/11/17 23:00 08/11/17 23:00 Intake and Output: 08/12/17 08/12/17 06:59 18:59 Intake Total 320 Balance 320 - Medications Medications: Current Medications Albuterol Sulfate (Albuterol 0.083% Inhal Emily (2.5 Mg/3 Ml) Ud) 2.5 mg IH Q6 PRN PRN Reason: Shortness of Breath Last Admin: 08/11/17 19:30 Dose: 2.5 mg Allopurinol (Zyloprim) 300 mg PO DAILY [facility] Last Admin: 08/11/17 10:25 Dose: 300 mg Amlodipine Besylate (Norvasc) 10 mg PO DAILY [facility] Last Admin: 08/11/17 10:26 Dose: 10 mg Carvedilol (Coreg) 6.25 mg PO BID [facility] Last Admin: 08/11/17 17:48 Dose: 6.25 mg Clonidine HCl (Catapres) 0.2 mg PO DAILY [facility] Last Admin: 08/11/17 10:25 Dose: 0.2 mg Ezetimibe (Zetia) 10 mg PO HS [facility] Last Admin: 08/11/17 21:42 Dose: 10 mg Hydrochlorothiazide (Microzide) 12.5 mg PO DAILY [facility] Last Admin: 08/11/17 10:26 Dose: 12.5 mg Hydromorphone HCl (Dilaudid) 1 mg IVP Q4H PRN PRN Reason: Pain, severe (8-10) Last Admin: 08/08/17 23:45 Dose: 1 mg Furosemide 100 mg/ Dextrose 100 mls @ 5 mls/hr IVP .Q20H [facility] PRN Reason: 5 MG/HR Last Admin: 08/09/17 10:00 Dose: Not Given Insulin Aspart (Novolog Mix 70/30 (70/30 Units/Ml)) 60 units SC BID [facility] Last Admin: 08/11/17 17:48 Dose: 60 units Insulin Glargine (Lantus) 35 unit SC HS [facility] Last Admin: 08/11/17 21:46 Dose: 35 units Lisinopril (Zestril) 10 mg PO DAILY [facility] Last Admin: 08/11/17 10:26 Dose: 10 mg Magnesium Oxide (Mag-Ox) 400 mg PO DAILY [facility] Last Admin: 08/11/17 10:25 Dose: 400 mg Metformin HCl (Glucophage) 500 mg PO DAILY [facility] Last Admin: 08/11/17 10:25 Dose: 500 mg Montelukast Sodium (Singulair) 10 mg PO HS [facility] Last Admin: 08/11/17 21:42 Dose: 10 mg Nitroglycerin (Nitro-Dur 0.2 Mg/Hr Patch) 1 patch TD DAILY [facility] Last Admin: 08/11/17 10:25 Dose: 1 patch Pantoprazole Sodium (Protonix Inj) 40 mg IVP DAILY [facility] Last Admin: 08/11/17 11:00 Dose: 40 mg Trolamine Salicylate (Aspercreme) 1 gm TOP Q4H PRN PRN Reason: Pain, Mild (1-3) Last Admin: 08/12/17 06:29 Dose: 1 gm - Labs Labs: 08/10/17 07:02 08/11/17 11:29 PT 10.4 SECONDS (9.7-12.2) 08/08/17 09:20 INR 0.9 08/08/17 09:20 APTT 26 SECONDS (21-34) 08/08/17 09:20 - Additional Findings Additional findings: Phys Exam: VS as below Const'l: a&o x 4, nad, morbid obesity Head/Neck: neck supple, no jvd, trachea midline, carotid midline, no cervical /head mass Eyes: mary, nonicteric sclera, eom intact ENT: auditory acuity grossly intact, throat not congested, no nasal deformity Cardio: rrr, no m/r/g, no carotid bruit, nml s1, s2 Pulm: +mild rales in posterior bases; no accessory muscle use, equal nml breath sounds bilaterally, ctab Abd: s/nt/nd, nbs x 4 q, no palpable masses Derm: no rashes, no ulcers, no lesions Extr: +b/l 1+ pitting edema; no cyanosis, no calf tenderness, no lesions, no varicosities Neuro: cn II-XII grossly intact, ue and le 5/5 muscle strength bilaterally, no los ue, le bilaterally and core Assessment and Plan - Assessment and Plan (Free Text) Assessment: A/P 51 F with PMHx of HLD and HTN presenting with sob and b/l edema, as well as CP. Tropes negative, BNP WNL. SOB likely 2/2 CHF Exacerbation - CXR shows decreased inspiratory volume, but no infiltrates - Duonebs Q2H prn Q6H warner - Continue Diuretic Tx - Beta-mo, LEO-I Pleuritic CP likely 2/2 cough - Cough suppressant - CXR shows no acute disease, but decreased inspiratory volume B/l LE Edema - BNP WNL - Likely around patient's baseline Dispo: Pt going to bottle labeler at [facility] today, please see operative report. Thank you for this interesting consult. David Bradley DO, PGY - 1, d/w DR. Barlow
[2017-08-12] MEDS: Albuterol 0.083% Inhal Sol (2.5 mg/3 mL) UD IH PRN (08:05)
[2017-08-12] MEDS: (Novolog Mix 70/30) Insulin Aspart/Insulin Aspar 100 units/ml SC SCH ×2 (09:34→18:00)
[2017-08-12] MEDS: Magnesium Oxide 400 mg Tab UD PO SCH (09:35)
[2017-08-12] MEDS: Nitroglycerin 0.2 mg/hr Top Patch TD SCH (09:35)
[2017-08-12] MEDS ORDERED: Lidocaine 2% Inj (20ml) ONE (14:51)
[2017-08-12] MEDS ORDERED: Midazolam 2 MG/2 ML VIAL ONE (14:51)
[2017-08-12 15:18] LABS: DRAW SITE VENOUS RA; VENOUS BLOOD GAS PCO2 42 mmHg (40-60); VENOUS BLOOD PH 7.34 (7.32-7.43)
[2017-08-12 15:21] LABS: DRAW SITE VENOUS PA; VENOUS BLOOD GAS BASE EXCESS -3.1 mmol/L (0.0-2.0); VENOUS BLOOD GAS PCO2 45 mmHg (40-60); VENOUS BLOOD PH 7.32 (7.32-7.43)
[2017-08-12 15:38] LABS: DRAW SITE VEN RA; VENOUS BLOOD GAS BASE EXCESS 5.6 mmol/L (0.0-2.0); VENOUS BLOOD GAS PCO2 60 mmHg (40-60); VENOUS BLOOD PH 7.35 (7.32-7.43)
[2017-08-12 15:41] LABS: DRAW SITE VEN PA; VENOUS BLOOD GAS BASE EXCESS 5.2 mmol/L (0.0-2.0); VENOUS BLOOD GAS PCO2 61 mmHg (40-60); VENOUS BLOOD PH 7.34 (7.32-7.43)
[2017-08-12] MEDS ORDERED: Sodium Chloride 0.9% 500 ML IV SCH (16:30)
--- NOTE | 2017-08-12 19:15 | CP.PCM.PN ---
Subjective - Date & Time of Evaluation Date of Evaluation: 08/12/17 Time of Evaluation: 10:40 - Subjective Subjective: clinically same Objective - Vital Signs/Intake and Output Vital Signs (last 24 hours): Temp Pulse Resp BP Pulse Ox 97.2 F L 77 20 160/84 H 98 08/12/17 16:57 08/12/17 16:57 08/12/17 16:57 08/12/17 16:57 08/12/17 16:57 - Medications Medications: Current Medications Albuterol Sulfate (Albuterol 0.083% Inhal Emily (2.5 Mg/3 Ml) Ud) 2.5 mg IH Q6 PRN PRN Reason: Shortness of Breath Last Admin: 08/12/17 08:05 Dose: 2.5 mg Allopurinol (Zyloprim) 300 mg PO DAILY [facility] Last Admin: 08/12/17 09:35 Dose: 300 mg Amlodipine Besylate (Norvasc) 10 mg PO DAILY [facility] Last Admin: 08/12/17 09:34 Dose: 10 mg Carvedilol (Coreg) 6.25 mg PO BID [facility] Last Admin: 08/12/17 09:34 Dose: 6.25 mg Clonidine HCl (Catapres) 0.2 mg PO DAILY [facility] Last Admin: 08/12/17 09:34 Dose: 0.2 mg Ezetimibe (Zetia) 10 mg PO HS [facility] Last Admin: 08/11/17 21:42 Dose: 10 mg Furosemide (Lasix) 40 mg IVP BID [facility] Hydrochlorothiazide (Microzide) 12.5 mg PO DAILY [facility] Last Admin: 08/12/17 09:34 Dose: 12.5 mg Furosemide 100 mg/ Dextrose 100 mls @ 5 mls/hr IVP .Q20H [facility] PRN Reason: 5 MG/HR Last Admin: 08/09/17 10:00 Dose: Not Given Sodium Chloride (Sodium Chloride 0.9%) 500 mls @ 75 mls/hr IV .Q6H40M [facility] Last Admin: 08/12/17 17:14 Dose: 75 mls/hr Insulin Aspart (Novolog Mix 70/30 (70/30 Units/Ml)) 60 units SC BID [facility] Last Admin: 08/12/17 09:34 Dose: Not Given Insulin Glargine (Lantus) 35 unit SC [facility] Last Admin: 08/11/17 21:46 Dose: 35 units Lisinopril (Zestril) 10 mg PO DAILY [facility] Last Admin: 08/12/17 09:34 Dose: 10 mg Magnesium Oxide (Mag-Ox) 400 mg PO DAILY [facility] Last Admin: 08/12/17 09:35 Dose: 400 mg Metformin HCl (Glucophage) 500 mg PO DAILY [facility] Last Admin: 08/12/17 09:35 Dose: 500 mg Montelukast Sodium (Singulair) 10 mg PO HS [facility] Last Admin: 08/11/17 21:42 Dose: 10 mg Nitroglycerin (Nitro-Dur 0.2 Mg/Hr Patch) 1 patch TD DAILY [facility] Last Admin: 08/12/17 09:35 Dose: 1 patch Pantoprazole Sodium (Protonix Ec Tab) 40 mg PO DAILY [facility] Rosuvastatin Calcium (Crestor) 2.5 mg PO [facility] Trolamine Salicylate (Aspercreme) 1 gm TOP Q4H PRN PRN Reason: Pain, Mild (1-3) Last Admin: 08/12/17 06:29 Dose: 1 gm - Labs Labs: 08/10/17 07:02 08/11/17 11:29 PT 10.4 SECONDS (9.7-12.2) 08/08/17 09:20 INR 0.9 08/08/17 09:20 APTT 26 SECONDS (21-34) 08/08/17 09:20 - Constitutional Appears: Well - Head Exam Head Exam: ATRAUMATIC, NORMAL INSPECTION, NORMOCEPHALIC - Eye Exam Eye Exam: EOMI, Normal appearance, PERRL Pupil Exam: NORMAL ACCOMODATION, PERRL - ENT Exam ENT Exam: Mucous Membranes Moist, Normal Exam - Neck Exam Neck Exam: Full ROM, Normal Inspection. absent: Lymphadenopathy - Respiratory Exam Respiratory Exam: Decreased Breath Sounds - Cardiovascular Exam Cardiovascular Exam: REGULAR RHYTHM, +S1, +S2 - GI/Abdominal Exam GI & Abdominal Exam: Soft, Diminished Bowel Sounds - Rectal Exam Rectal Exam: Deferred Assessment and Plan (1) CHF (congestive heart failure) Status: Acute (2) Abdominal pain Status: Acute (3) Allergic urticaria Status: Acute (4) Anasarca Status: Acute (5) Anemia Status: Acute (6) Asthma exacerbation Status: Acute (7) Back pain Status: Acute (8) Back pain Status: Acute (9) Back pain at L4-L5 level Status: Acute (10) Bipolar 1 disorder Status: Acute (11) CKD stage 3 due to type 1 diabetes mellitus Status: Acute (12) COPD (chronic obstructive pulmonary disease) Status: Acute (13) Chest pain Status: Acute (14) Chest pain Status: Acute (15) Chest pain Status: Acute (16) Congestive heart failure Status: Acute (17) Constipation Status: Acute (18) Cough Status: Acute (19) DM2 (diabetes mellitus, type 2) Status: Acute (20) Diabetic hyperosmolar non-ketotic state Status: Acute (21) Drug overdose Status: Acute (22) Dyslipidemia Status: Acute (23) Dyspnea Status: Acute (24) Dyspnea Status: Acute (25) Dysuria Status: Acute (26) Fever Status: Acute (27) HHNC (hyperglycemic hyperosmolar nonketotic coma) Status: Acute (28) Hyperglycemia Status: Acute (29) Hypertension Status: Acute (30) Hypertension Status: Acute (31) Hyponatremia Status: Acute (32) Hypoventilation associated with obesity syndrome Status: Acute (33) Moderate major depression, single episode Status: Acute (34) Near syncope Status: Acute (35) Nephrotic range proteinuria Status: Acute (36) Pneumonia Status: Acute (37) Pneumonia Status: Acute (38) Prophylactic measure Status: Acute (39) Pulmonary edema Status: Acute (40) Renal function test abnormal Status: Acute (41) Renal insufficiency Status: Acute (42) Renal insufficiency Status: Acute (43) Renal insufficiency Status: Acute (44) UTI (lower urinary tract infection) Status: Acute (45) Uncontrolled diabetes mellitus Status: Acute (46) Uncontrolled diabetes mellitus Status: Acute (47) Uncontrolled hypertension Status: Acute (48) Upper respiratory infection Status: Acute (49) Urinary retention Status: Acute (50) Urinary tract infection Status: Acute (51) Acute on chronic kidney failure Status: Chronic (52) Asthma Status: Chronic (53) Diabetes Status: Chronic - Assessment and Plan (Free Text) Plan: Patient examined. Shortness of breath is improved. Pedal edema has improved. Continue furosemide. Continue antihypertensive and antidiabetic medications. Continue oral hydrochlorothiazide. Continue supportive care.
[2017-08-12] MEDS: (Lantus) Insulin Glargine, Recombinant SC SCH (21:57)
[2017-08-12] MEDS ORDERED: Rosuvastatin Calcium 2.5 mg Tab PO SCH (22:00)
--- NOTE | 2017-08-13 07:05 | CARDCATH ---
PROCEDURE DATE: 08/12/2017 INDICATIONS: Ms. Zee Carr is a 51-year-old female of symptoms of worsening heart failure, lower extremity swelling. The patient had a recent echocardiogram that showed normal ejection fraction, mild diastolic dysfunction, and concern was for worsening of her heart failure symptoms. She was kept on IV diuretics therapy over the weekend and eventually had worsening of her renal function, and therefore, was brought to the incinerator plant laborer for evaluation of her right-sided hemodynamic pressures and evaluated etiology of her heart failure. PROCEDURE PERFORMED: Right heart catheterization with hemodynamics and saturations. TECHNIQUES OF PROCEDURE: After obtaining informed consent, the patient was brought to the cardiac catheterization suite in post-absorptive and non-sedated state. The patient was prepped and draped in the usual sterile fashion. A 2% lidocaine was used for infiltration of anesthesia. Using modified Seldinger technique, 6-Latvian sheath was introduced into the right femoral artery and femoral vein. Subsequently over J-wire, JL4 and fluoroscopic guidance with the balloon inflated with pulmonary capillary catheter was advanced serially till the IVC into the RA, RV, PA and wedge position. Hemodynamics along with saturations were obtained. HEMODYNAMIC FINDINGS: RA pressure is 25/24/31 with mean right atrial pressure of 31 mmHg. RV pressure 57/70/29 with right ventricular end-diastolic pressure of 29 mmHg. PA pressure is 54/30/41 mean pulmonary pressures of 41 mmHg. Pulmonary capillary wedge pressure 27/29/23. Mean wedge of 23. Using the Devyn's equation, cardiac outflow was calculated to be 7.3 per minute. Cardiac index was 3.2 L per minute per square meter. IMPRESSION: Mild pulmonary hypertension, moderately elevated filling pressures and mild diastolic dysfunction. RECOMMENDATIONS: The patient is to continue diuretic therapy, consider adding phosphodiesterase inhibitors for improvement of primary pulmonary hypertension. Thank you Dr. Saldivar for letting me participate in the care of your patient. Vic Barlow MD
[2017-08-13 07:39] VITALS: RESP 20
[2017-08-13] MEDS: Albuterol 0.083% Inhal Sol (2.5 mg/3 mL) UD IH PRN (07:44)
--- NOTE | 2017-08-13 08:22 | CP.PCM.PN ---
Subjective - Date & Time of Evaluation Date of Evaluation: 08/13/17 Time of Evaluation: 08:20 - Subjective Subjective: Cardiology progress note for Dr. Cain Boykin DO PGY-0 Pt s/e bedside. Pt underwent cardiac catheterization yesterday, and is feeling fine afterwards. States her sob and b/l LE swelling are much better, but still present. No further complaints at this time. Objective - Vital Signs/Intake and Output Vital Signs (last 24 hours): Temp Pulse Resp BP Pulse Ox 98.4 F 75 20 117/68 99 08/13/17 07:39 08/13/17 07:39 08/13/17 07:39 08/13/17 07:39 08/13/17 07:39 Intake and Output: 08/13/17 08/13/17 06:59 18:59 Intake Total 1220 Output Total 2900 Balance -1680 - Medications Medications: Current Medications Albuterol Sulfate (Albuterol 0.083% Inhal Emily (2.5 Mg/3 Ml) Ud) 2.5 mg IH Q6 PRN PRN Reason: Shortness of Breath Last Admin: 08/13/17 07:44 Dose: 2.5 mg Allopurinol (Zyloprim) 300 mg PO DAILY [facility] Last Admin: 08/12/17 09:35 Dose: 300 mg Amlodipine Besylate (Norvasc) 10 mg PO DAILY [facility] Last Admin: 08/12/17 09:34 Dose: 10 mg Carvedilol (Coreg) 6.25 mg PO BID [facility] Last Admin: 08/12/17 19:21 Dose: 6.25 mg Clonidine HCl (Catapres) 0.2 mg PO DAILY [facility] Last Admin: 08/12/17 09:34 Dose: 0.2 mg Ezetimibe (Zetia) 10 mg PO HS [facility] Last Admin: 08/12/17 21:38 Dose: 10 mg Furosemide (Lasix) 40 mg IVP BID [facility] Last Admin: 08/12/17 20:09 Dose: 40 mg Hydrochlorothiazide (Microzide) 12.5 mg PO DAILY [facility] Last Admin: 08/12/17 09:34 Dose: 12.5 mg Furosemide 100 mg/ Dextrose 100 mls @ 5 mls/hr IVP .Q20H [facility] PRN Reason: 5 MG/HR Last Admin: 08/09/17 10:00 Dose: Not Given Sodium Chloride (Sodium Chloride 0.9%) 500 mls @ 75 mls/hr IV .Q6H40M [facility] Last Admin: 08/12/17 17:14 Dose: 75 mls/hr Insulin Aspart (Novolog Mix 70/30 (70/30 Units/Ml)) 60 units SC BID [facility] Last Admin: 08/12/17 18:00 Dose: Not Given Insulin Glargine (Lantus) 35 unit SC [facility] Last Admin: 08/12/17 21:57 Dose: 35 units Lisinopril (Zestril) 10 mg PO DAILY [facility] Last Admin: 08/12/17 09:34 Dose: 10 mg Magnesium Oxide (Mag-Ox) 400 mg PO DAILY [facility] Last Admin: 08/12/17 09:35 Dose: 400 mg Metformin HCl (Glucophage) 500 mg PO DAILY [facility] Last Admin: 08/12/17 09:35 Dose: 500 mg Montelukast Sodium (Singulair) 10 mg PO HS [facility] Last Admin: 08/12/17 21:39 Dose: 10 mg Nitroglycerin (Nitro-Dur 0.2 Mg/Hr Patch) 1 patch TD DAILY [facility] Last Admin: 08/12/17 09:35 Dose: 1 patch Pantoprazole Sodium (Protonix Ec Tab) 40 mg PO DAILY [facility] Rosuvastatin Calcium (Crestor) 2.5 mg PO HS [facility] Last Admin: 08/12/17 21:39 Dose: 2.5 mg Trolamine Salicylate (Aspercreme) 1 gm TOP Q4H PRN PRN Reason: Pain, Mild (1-3) Last Admin: 08/12/17 06:29 Dose: 1 gm - Labs Labs: 08/10/17 07:02 08/11/17 11:29 PT 10.4 SECONDS (9.7-12.2) 08/08/17 09:20 INR 0.9 08/08/17 09:20 APTT 26 SECONDS (21-34) 08/08/17 09:20 - Additional Findings Additional findings: Phys Exam: VS as below Const'l: a&o x 4, nad, morbid obesity Head/Neck: neck supple, no jvd, trachea midline, carotid midline, no cervical /head mass Eyes: mary, nonicteric sclera, eom intact ENT: auditory acuity grossly intact, throat not congested, no nasal deformity Cardio: rrr, no m/r/g, no carotid bruit, nml s1, s2 Pulm: +mild rales in posterior bases; no accessory muscle use, equal nml breath sounds bilaterally, ctab Abd: s/nt/nd, nbs x 4 q, no palpable masses Derm: no rashes, no ulcers, no lesions Extr: +b/l 1+ pitting edema; no cyanosis, no calf tenderness, no lesions, no varicosities Neuro: cn II-XII grossly intact, ue and le 5/5 muscle strength bilaterally, no los ue, le bilaterally and core Assessment and Plan - Assessment and Plan (Free Text) Assessment: A/P 51 F with PMHx of HLD and HTN presenting with sob and b/l edema, as well as CP. Tropes negative, BNP WNL. SOB likely 2/2 CHF Exacerbation - CXR shows decreased inspiratory volume, but no infiltrates - Duonebs Q2H prn Q6H warner - Continue Diuretic Tx - Beta-mo, LEO-I - Patient underwent cardiac catheterization yesterday - please see cath note for full report Pleuritic CP likely 2/2 cough - Cough suppressant - CXR shows no acute disease, but decreased inspiratory volume B/l LE Edema - BNP WNL - Likely around patient's baseline Dispo: Pt went to slab off mill tender at [facility] yesterday, please see operative report. Thank you for this interesting consult. David Bradley DO, PGY - 1, d/w DR. Barlow
[2017-08-13] MEDS: Magnesium Oxide 400 mg Tab UD PO SCH (09:08)
[2017-08-13] MEDS: (Novolog Mix 70/30) Insulin Aspart/Insulin Aspar 100 units/ml SC SCH ×2 (09:21→17:27)
[2017-08-13] MEDS: Nitroglycerin 0.2 mg/hr Top Patch TD SCH (09:22)
[2017-08-13] MEDS ORDERED: Pantoprazole 40 mg EC Tab PO SCH (10:00)
--- NOTE | 2017-08-13 11:14 | CARD ---
APPROVED REPORT EKG Measurement Heart [id number] <Conclusion> Normal sinus rhythm Normal ECG
[2017-08-13 16:01] VITALS: TEMP 97.2; O2SAT 96
--- NOTE | 2017-08-13 16:13 | CP.PCM.PN ---
Subjective - Date & Time of Evaluation Date of Evaluation: 08/13/17 Time of Evaluation: 16:13 - Subjective Subjective: Patient states that she feels much better and that her breathing has significantly improved. Denies chest pain, cough, shortness of breath, nausea, vomiting and palpitations. Objective - Vital Signs/Intake and Output Vital Signs (last 24 hours): Temp Pulse Resp BP Pulse Ox 97.2 F L 78 20 147/81 96 08/13/17 15:00 08/13/17 15:00 08/13/17 15:00 08/13/17 15:00 08/13/17 15:00 Intake and Output: 08/13/17 08/13/17 06:59 18:59 Intake Total 1220 950 Output Total 2900 500 Balance -1680 450 - Medications Medications: Current Medications Allopurinol (Zyloprim) 300 mg PO DAILY [facility] Last Admin: 08/13/17 09:10 Dose: 300 mg Amlodipine Besylate (Norvasc) 10 mg PO DAILY [facility] Last Admin: 08/13/17 09:09 Dose: 10 mg Carvedilol (Coreg) 6.25 mg PO BID [facility] Last Admin: 08/13/17 09:07 Dose: 6.25 mg Clonidine HCl (Catapres) 0.2 mg PO DAILY [facility] Last Admin: 08/13/17 09:10 Dose: 0.2 mg Ezetimibe (Zetia) 10 mg PO HS [facility] Last Admin: 08/12/17 21:38 Dose: 10 mg Furosemide (Lasix) 40 mg IVP BID [facility] Last Admin: 08/13/17 09:10 Dose: 40 mg Hydrochlorothiazide (Microzide) 12.5 mg PO DAILY [facility] Last Admin: 08/13/17 09:09 Dose: 12.5 mg Furosemide 100 mg/ Dextrose 100 mls @ 5 mls/hr IVP .Q20H [facility] PRN Reason: 5 MG/HR Last Admin: 08/09/17 10:00 Dose: Not Given Sodium Chloride (Sodium Chloride 0.9%) 500 mls @ 75 mls/hr IV .Q6H40M [facility] Last Admin: 08/12/17 17:14 Dose: 75 mls/hr Insulin Aspart (Novolog Mix 70/30 (70/30 Units/Ml)) 60 units SC BID [facility] Last Admin: 08/13/17 09:21 Dose: 60 units Insulin Glargine (Lantus) 35 unit SC [facility] Last Admin: 08/12/17 21:57 Dose: 35 units Lisinopril (Zestril) 10 mg PO DAILY [facility] Last Admin: 08/13/17 09:10 Dose: 10 mg Magnesium Oxide (Mag-Ox) 400 mg PO DAILY [facility] Last Admin: 08/13/17 09:08 Dose: 400 mg Metformin HCl (Glucophage) 500 mg PO DAILY [facility] Last Admin: 08/13/17 09:22 Dose: Not Given Montelukast Sodium (Singulair) 10 mg PO HS [facility] Last Admin: 08/12/17 21:39 Dose: 10 mg Nitroglycerin (Nitro-Dur 0.2 Mg/Hr Patch) 1 patch TD DAILY [facility] Last Admin: 08/13/17 09:22 Dose: 1 patch Pantoprazole Sodium (Protonix Ec Tab) 40 mg PO DAILY [facility] Last Admin: 08/13/17 09:22 Dose: 40 mg Rosuvastatin Calcium (Crestor) 2.5 mg PO [facility] Last Admin: 08/12/17 21:39 Dose: 2.5 mg Trolamine Salicylate (Aspercreme) 1 gm TOP Q4H PRN PRN Reason: Pain, Mild (1-3) Last Admin: 08/12/17 06:29 Dose: 1 gm - Labs Labs: 08/10/17 07:02 08/11/17 11:29 PT 10.4 SECONDS (9.7-12.2) 08/08/17 09:20 INR 0.9 08/08/17 09:20 APTT 26 SECONDS (21-34) 08/08/17 09:20 - Constitutional Appears: Well - Respiratory Exam Respiratory Exam: Clear to Ausculation Bilateral - Cardiovascular Exam Cardiovascular Exam: REGULAR RHYTHM - Extremities Exam Extremities Exam: Normal Capillary Refill Additional comments: NO EDEMA NOTED - Skin Skin Exam: Normal Color Assessment and Plan - Assessment and Plan (Free Text) Assessment: A/P PATIENT IS SEEN AND EXAMINED LUNG SOUND CLEAR; BILATERAL SWOLLEN DECREASE SIGNIFICANTLY NO SIGN OF EDEMA NOTED; ROSS REMOVE TODAY AND VOID PRIOR TO DISCHARGE FOLLOW UP WITH DR PYLE IN WEEK ---CALL HIS OFFICE FOR APPOINTMENT AT YOUR VISIT ADDRESS THE SLEEP MACHINE CONCERN AT DR PYLE ON APPOINTMENT THERE COTINUE ALL HOME MEDICATION PER MED REC ALSO DEMADEX FOR [address] PYLE OR GO TO THE NEAREST EMERGENCY ROOM IF SYMPTOMS RETURN OR WORSENING DISCUSS WITH PATIENT DISCHARGE PLANNING AND PATIENT AGREE AND VERBALIZE UNDERSTANDING
--- NOTE | 2017-08-13 16:13 | PCM.HF ---
Heart Failure Core Measure - Heart Failure Ejection Fraction: 40 % or Greater LEO Inhibitor Prescribed: Yes Contraindication/Reason for not providing: MAY CHANGE BY PMD DUE CR LEVEL Beta-Scott Prescribed: Carvedilol Angiotensin II Receptor Scott Prescribed: Yes Contraindication/Reason for not providing: MAY CHANGE BY PMD DUE CR LEVEL AnticoagulationTherapy for Atrial Fibrillation/Atrialflutter: No Contraindication/Reason for not providing: NO HX OF AFIB Aldosterone Antagonist Prescribed: No Contraindication/Reason for not providing: EF IS GREATER THAN 40 Hydralazine Nitrate Prescribed: No Contraindication/Reason for not providing: EF IS GREATER THAN 40 Implantable Cardioverter Defibrillator Therapy: No Contraindication/Reason for not providing: NOT INDICATED Cardiac Resynchronization Therapy Prescribed: No Contraindication/Reason for not providing: NOT INDICATED - Follow up Will be discharged to: Home Follow Up Date (must be within 7 days from discharge): 08/19/17 Follow Up Time: 09:00
[2017-08-13 17:34] VITALS: BP 127/74
[2017-08-13 23:02] VITALS: PULSE 76
== END 2017-08-13 17:40 | disposition home or self-care (01) | DRG 286 ==
LOC: C.ER 07:42 → C.9E 10:25 → C.6T 10:46
PROVIDERS: ADMIT Internal Medicine Nephrology; ATTEND Internal Medicine Nephrology
PROC: 4A023N6 Measurement of Cardiac Sampling and Pressure, Right Heart, Percutaneous Approach (ICD-10-PCS; principal; 2017-08-12)
PROC: B2141ZZ Fluoroscopy of Right Heart using Low Osmolar Contrast (ICD-10-PCS; 2017-08-12)
DX: I13.0 Hypertensive heart and chronic kidney disease with heart failure and stage 1 through stage 4 chronic kidney disease, or unspecified chronic kidney disease (principal); I50.33 Acute on chronic diastolic (congestive) heart failure; E10.22 Type 1 diabetes mellitus with diabetic chronic kidney disease; J44.0 Chronic obstructive pulmonary disease with (acute) lower respiratory infection; N18.3 Chronic kidney disease, stage 3 (moderate); E66.2 Morbid (severe) obesity with alveolar hypoventilation; I27.20 Pulmonary hypertension, unspecified; J45.901 Unspecified asthma with (acute) exacerbation; F32.1 Major depressive disorder, single episode, moderate; Z68.42 Body mass index [BMI] 45.0-49.9, adult; D64.9 Anemia, unspecified; E78.00 Pure hypercholesterolemia, unspecified; F41.9 Anxiety disorder, unspecified; K59.00 Constipation, unspecified; L50.0 Allergic urticaria; M10.9 Gout, unspecified; Z79.4 Long term (current) use of insulin; Z87.01 Personal history of pneumonia (recurrent)

== ENCOUNTER 2017-10-18 21:41 | Emergency (ER) | payer MEDICARE, OTHER ==
[2017-10-18 21:41] VITALS: BMI 34.3
[2017-10-18] MEDS ORDERED: Dextrose 50% VIAL Inj (50 ml) IV ONE (22:54)
[2017-10-18 23:26] LABS: BASO # 0.1 K/uL (0.0-0.2); BASO % 0.9 % (0.0-2.0); EOS # 0.4 K/uL (0.0-0.7); EOS % 4.4 % (0.0-4.0); HEMOGLOBIN 10.6 g/dL (11.0-16.0); LYMPH # 1.4 K/uL (1.0-4.3); LYMPH % 14.6 % (20.0-40.0); MEAN CELL VOLUME 89.5 fL (81.0-99.0); MEAN CORPUSCULAR HEMOGLOBIN 29.4 pg (27.0-31.0); MEAN CORPUSCULAR HGB CONC 32.8 g/dL (33.0-37.0); MEAN PLATELET VOLUME 8.7 fL (7.2-11.7); MONO # 1.2 K/uL (0.0-0.8); MONO % 12.5 % (0.0-10.0); NEUT # 6.5 K/uL (1.8-7.0); NEUT % 67.6 % (50.0-75.0); NRBC % 0.1 % (0.0-2.0); RBC 3.61 Mil/uL (3.80-5.20); RED CELL DISTRIBUTION WIDTH 16.5 % (11.5-14.5); WHITE BLOOD COUNT 9.5 K/uL (4.8-10.8)
[2017-10-18 23:27] LABS: HCG,QUALITATIVE URINE NEGATIVE (NEGATIVE)
[2017-10-18 23:31] LABS: SQUAMOUS EPITHIAL 3 /hpf (0-5); URINE BACTERIA RARE (<OCC); URINE BILIRUBIN NEGATIVE (NEGATIVE); URINE BLOOD NEGATIVE (NEGATIVE); URINE CLARITY Hazy (Clear); URINE COLOR Yellow (YELLOW); URINE GLUCOSE (UA) 2+ mg/dL (Normal); URINE HYALINE CAST 0-2 /lpf (0-2); URINE LEUKOCYTE ESTERASE NEG Leu/uL (Negative); URINE NITRATE NEGATIVE (NEGATIVE); URINE PROTEIN 3+ mg/dL (NEGATIVE); URINE UROBILINOGEN NORMAL mg/dL (0.2-1.0)
[2017-10-18 23:42] LABS: ALB/GLOB RATIO 0.9 (1.0-2.1); ALBUMIN 3.9 g/dL (3.5-5.0); MAGNESIUM 1.9 mg/dL (1.6-2.3)
--- NOTE | 2017-10-19 00:40 | C.PDOC ---
Time Seen by Provider: 10/18/17 22:50 Chief Complaint (Nursing): Abdominal Pain History Per: Patient, Family Onset/Duration Of Symptoms: Hrs (tonight), Waxing/Waning Current Symptoms Are (Timing): Still Present Location Of Pain/Discomfort: Other (Right flank area) Radiation Of Pain To:: Flank Quality Of Discomfort: Unable To Describe, "Pain" Associated Symptoms: Other (Cramping of hands) Alleviating Factors: None Additional History Per: Prior Records Past Medical History Reviewed: Historical Data, Nursing Documentation, Vital Signs Vital Signs: Last Vital Signs Temp 97 F L 10/18/17 21:48 Pulse 87 10/18/17 21:48 Resp 21 10/18/17 21:48 BP 150/79 10/18/17 21:48 Pulse Ox 97 10/19/17 00:45 - Medical History PMH: Anemia, Anxiety, Asthma, Bipolar Disorder, COPD, Depression, Diabetes, HTN , Hypercholesterolemia, Pneumonia, Chronic Kidney Disease Surgical History: - [facility] Procedures ASSISTANCE WITH RESPIRATORY VENTILATION, 24-96 HRS, CPAP (11/30/15) FLUOROSCOPY OF RIGHT HEART USING LOW OSMOLAR CONTRAST (08/08/17) INSERT INDWELLING CATH (07/28/14) MEASURE OF CARDIAC SAMPL & PRESSURE, R HEART, PERC APPROACH (08/08/17) Family History: States: Unknown Family Hx, DC, CAD, Hypertension - Social History Hx Tobacco Use: No Hx Alcohol Use: No Hx Substance Use: No - Immunization History Hx Tetanus Toxoid Vaccination: No Hx Influenza Vaccination: Yes Hx Pneumococcal Vaccination: Yes Review Of Systems Except As Marked, All Systems Reviewed And Found Negative. Constitutional: Positive for: Malaise Eyes: Positive for: Conjunctivae Inflammation ENT: Positive for: Nose Congestion Cardiovascular: Negative for: Chest Pain Respiratory: Positive for: Cough (for a few days). Negative for: Hemoptysis Gastrointestinal: Positive for: Abdominal Pain. Negative for: Vomiting, Diarrhea Genitourinary: Negative for: Dysuria Musculoskeletal: Positive for: Back Pain. Negative for: Neck Pain Skin: Negative for: Rash Neurological: Negative for: Weakness, Numbness Physical Exam - Physical Exam Appears: No Acute Distress, Chronically Ill Skin: Warm, Dry Head: Atraumatic, Normacephalic Eye(s): bilateral: PERRL, EOMI, Other (Clear discharge from eyes) Neck: Normal ROM, Supple Cardiovascular: Rhythm Regular Respiratory: Normal Breath Sounds, No Accessory Muscle Use Gastrointestinal/Abdominal: Soft, Tenderness (right flank area), No Guarding, No Rebound Back: CVA Tenderness (right) Extremity: Normal ROM Neurological/Psych: Oriented x3, Normal Motor, Normal Sensation ED Course And Treatment - Laboratory Results Result Diagrams: 10/18/17 23:23 10/18/17 23:23 O2 Sat by Pulse Oximetry: 97 Pulse Ox Interpretation: Normal Disposition - Disposition Disposition Time: 00:57 Condition: FAIR - Clinical Impression Clinical Impression: Hypoglycemia, Right flank pain, Upper respiratory infection Physician Patient Turnover Patient Signed Over To: Figueroa Dudley Handoff Comments: to f/up CT abd/pelv and reassess/dispo pt.
[2017-10-19 01:06] VITALS: RESP 18; TEMP 98.2
--- NOTE | 2017-10-19 01:56 | CT ---
EXAM: CT Abdomen and Pelvis Without Intravenous Contrast CLINICAL HISTORY: 52 years old, female; Pain; Abdominal pain; Patient HX: 316 images sent; Additional info: Right flank pain TECHNIQUE: Axial computed tomography images of the abdomen and pelvis without intravenous contrast. All CT scans at this facility use one or more dose reduction techniques, viz.: automated exposure control; ma/kV adjustment per patient size (including targeted exams where dose is matched to indication; i.e. head); or iterative reconstruction technique. Coronal and sagittal reformatted images were created and reviewed. COMPARISON: CT - ABD PELVIS W/O PO OR IV CONT 2015-11-30 19:54 FINDINGS: Lower thorax: Mild cardiomegaly. Coronary artery calcifications. Nonspecific groundglass opacity at lung bases. ABDOMEN: Liver: Unremarkable. Gallbladder and bile ducts: Unremarkable. No calcified stones. No ductal dilation. Pancreas: Unremarkable. No ductal dilation. Spleen: Unremarkable. No splenomegaly. Adrenals: Unremarkable. No mass. Kidneys and ureters: Unremarkable. No obstructing stones. No hydronephrosis. Stomach and bowel: Unremarkable. No obstruction. Appendix: No findings to suggest acute appendicitis. PELVIS: Bladder: Unremarkable. No stones. Reproductive: Unremarkable as visualized. ABDOMEN and PELVIS: Intraperitoneal space: Unremarkable. No free air. No significant fluid collection. Bones/joints: No acute fracture. No dislocation. Soft tissues: Unremarkable. Vasculature: Atherosclerotic vascular disease. No abdominal aortic aneurysm. Lymph nodes: Unremarkable. No enlarged lymph nodes. IMPRESSION: 1. No right hydronephrosis, renal, or definite ureteral calculus. 2. Remainder of findings as above.
[2017-10-19 03:53] VITALS: BP 197/97; PULSE 93; O2SAT 95
--- NOTE | 2017-10-19 10:02 | RAD ---
HISTORY: Cough COMPARISON: 08/08/2017 TECHNIQUE: Chest PA and lateral FINDINGS: LUNGS: No active pulmonary disease. PLEURA: No significant pleural effusion identified. No pneumothorax apparent. CARDIOVASCULAR: Normal. OSSEOUS STRUCTURES: No significant abnormalities. VISUALIZED UPPER ABDOMEN: Normal. OTHER FINDINGS: None. IMPRESSION: No active disease.
== END 2017-10-19 03:54 | disposition home or self-care (01) ==
LOC: C.ER 21:41
DX: R10.9 Unspecified abdominal pain (principal); E11.649 Type 2 diabetes mellitus with hypoglycemia without coma; J06.9 Acute upper respiratory infection, unspecified

== ENCOUNTER 2018-01-13 20:21 | Inpatient (IN) | payer MEDICARE, OTHER ==
[2018-01-13 20:21] VITALS: BMI 34.3
[2018-01-13] MEDS ORDERED: EPINEPHrine 1 mg/ml (1:1000) Inj ONE (20:32)
[2018-01-13] MEDS ORDERED: Lidocaine 4% (Laryng-O-Jet) Kit MM ONE (20:55)
[2018-01-13 21:01] LABS: BASO # 0.2 K/uL (0.0-0.2); BASO % 2.5 % (0.0-2.0); EOS # 0.4 K/uL (0.0-0.7); EOS % 5.5 % (0.0-4.0); LYMPH # 3.1 K/uL (1.0-4.3); LYMPH % 46.6 % (20.0-40.0); MEAN CORPUSCULAR HEMOGLOBIN 28.3 pg (27.0-31.0); MEAN CORPUSCULAR HGB CONC 32.5 g/dL (33.0-37.0); MEAN PLATELET VOLUME 8.4 fL (7.2-11.7); MONO # 0.2 K/uL (0.0-0.8); MONO % 3.7 % (0.0-10.0); NEUT # 2.8 K/uL (1.8-7.0); NEUT % 41.7 % (50.0-75.0); NRBC % 0.3 % (0.0-2.0); RBC 4.23 Mil/uL (3.80-5.20); RED CELL DISTRIBUTION WIDTH 14.6 % (11.5-14.5); WHITE BLOOD COUNT 6.6 K/uL (4.8-10.8)
[2018-01-13 21:09] LABS: INR 0.8
[2018-01-13 21:13] LABS: ALB/GLOB RATIO 0.9 (1.0-2.1); ALBUMIN 3.8 g/dL (3.5-5.0); ALT/SGPT 26 U/L (9-52); AST/SGOT 55 U/L (14-36); BLOOD UREA NITROGEN 42 mg/dL (7-17); CALCIUM 8.7 mg/dl (8.6-10.4); GFR AFRICAN-AMERICAN 26; GFR NON-AFRICAN AMERICAN 21
--- NOTE | 2018-01-13 21:36 | C.PDOC ---
History Of Present Illness Pt was BIBEMS and given Solumedrol, Benadryl and Epinephrine IM en route. Time Seen by Provider: 01/13/18 20:38 Chief Complaint (Nursing): Allergic Reaction History Per: Patient, EMS, Family (Daughter) Onset/Duration Of Symptoms: Sudden Onset ([employer]) Current Symptoms Are (Timing): Worse Possible Cause: Food (Shrimp) Associated Symptoms: Swelling (tongue), Dyspnea, Trouble Swallowing Home/EMS Treatment: Benadryl, Epi-pen, Steroids, H2 Blockers Severity: Severe Additional History Per: Prior Records Past Medical History Reviewed: Historical Data, Nursing Documentation, Vital Signs Vital Signs: Last Vital Signs Temp 97.4 F L 01/13/18 20:22 Pulse 80 01/13/18 21:01 Resp 20 01/13/18 20:22 BP Pulse Ox 100 01/13/18 21:01 - Medical History PMH: Anemia, Anxiety, Asthma, Bipolar Disorder, COPD, Depression, Diabetes, HTN , Hypercholesterolemia, Pneumonia, Chronic Kidney Disease Surgical History: - [facility] Procedures ASSISTANCE WITH RESPIRATORY VENTILATION, 24-96 HRS, CPAP (11/30/15) FLUOROSCOPY OF RIGHT HEART USING LOW OSMOLAR CONTRAST (08/08/17) INSERT INDWELLING CATH (07/28/14) MEASURE OF CARDIAC SAMPL & PRESSURE, R HEART, PERC APPROACH (08/08/17) Family History: States: Unknown Family Hx, [place], CAD, Hypertension - Social History Hx Tobacco Use: No Hx Alcohol Use: No Hx Substance Use: No - Immunization History Hx Tetanus Toxoid Vaccination: No Hx Influenza Vaccination: Yes Hx Pneumococcal Vaccination: Yes Review Of Systems Review Of Systems: ROS cannot be obtained secondary to pt's inabilty to answer questions. (unable to talk) Constitutional: Negative for: Fever ENT: Positive for: Mouth Swelling Cardiovascular: Negative for: Chest Pain Respiratory: Positive for: Shortness of Breath Gastrointestinal: Positive for: Nausea. Negative for: Abdominal Pain Physical Exam - Physical Exam Appears: In Acute Distress Skin: Warm, Dry Head: Atraumatic Eye(s): bilateral: PERRL, EOMI Oral Mucosa: Drooling Tongue: Swelling (severe) Neck: Normal ROM, Supple Cardiovascular: Rhythm Regular Respiratory: Normal Breath Sounds, No Accessory Muscle Use Gastrointestinal/Abdominal: Soft, No Tenderness Extremity: Normal ROM Neurological/Psych: No Normal Speech (unable to talk), Normal Motor, Normal Sensation, Other (Awake and alert) ED Course And Treatment - Laboratory Results Result Diagrams: 01/13/18 20:56 01/13/18 20:56 ECG: Interpreted By Me, Viewed By Me ECG Rhythm: Sinus Rhythm, Nonspecific Changes Rate From EC O2 Sat by Pulse Oximetry: 100 (on Oxygen mask) - Physician Consult Information Physician Contacted: Juan Lamb Outcome Of Conversation: He came to the hospital and will be in OR with patient with anesthesia for awake intubation and possible trach. Progress - Interventions Interventions:: Observation - Medications Administered Subcutaneous: Epinephrine (IM) - Patient Status Patient status: Unchanged, Critical - Critical Care Citical Care: Excluding Proc Time Critical Care Time: 60 minutes - Continuity of Care Discussed patient case with:: Patient, Family-HIPPA compliant, ED Nurse, PMD Discussed pt. case with showroom consultant/specialty: Anesthesiology, Otolaryngology, Pulmonary/Crit. Care - Patient Plan Patient Plan: Admission, ICU Disposition Discussed With Dr.: Miko Saldivar Comment: He accepted pt on his service. Pt was seen and accepted to ICU by Dr. Colmenares. Doctor Will See Patient In The: Hospital Counseled Patient/Family Regarding: Diagnosis - Disposition Disposition: HOSPITALIZED Disposition Time: 21:00 Condition: CRITICAL - Clinical Impression Clinical Impression: Allergic angioedema, Severe tongue swelling
[2018-01-13] MEDS ORDERED: ceFAZolin 1 gm in NS 0 GM/0 ML BAG IVPB ONE (21:42)
[2018-01-13] MEDS ORDERED: Lidocaine/Epinephrine 1% 1:100000 10 ML IJ ONE (21:42)
[2018-01-13] MEDS ORDERED: Propofol 10 mg/ml Inj (20 ML) ONE (22:27)
[2018-01-13] MEDS: Propofol 10 mg/ml 1,000 MG/100 ML VIAL IV PRN (22:57)
[2018-01-13] MEDS ORDERED: DiphenhydrAMINE 50 mg/ml Inj IVP PRN (23:32)
--- NOTE | 2018-01-13 23:39 | CP.PCM.CON ---
History of Present Illness - History of Present Illness History of Present Illness: 52 y/o female with h/o Asthma/COPD,anemia, Bipolar Disorder/anxiety, Diabetes, HTN, Hypercholesterolemia, Chronic Kidney Disease was BIBEMS and given Solumedrol, Benadryl and Epinephrine IM en route. Patient developed Sudden Onset Dyspnea, Trouble Swallowing and Swelling of tongue patient has h/o allergy to seafood patient was nasally intubated by ENT patient is sedated, unable to get further information Past Patient History - Infectious Disease Hx of Infectious Diseases: None - Past Medical History & Family History Past Medical History?: Yes - Past Social History Smoking Status: Never Smoked - CARDIAC Hx Hypercholesterolemia: Yes Hx Hypertension: Yes - PULMONARY Hx Asthma: Yes Hx Chronic Obstructive Pulmonary Disease (COPD): Yes Hx Pneumonia: Yes - NEUROLOGICAL Hx Neurological Disorder: No - HEENT Hx HEENT Problems: Yes Hx Cataracts: Yes - RENAL Hx Chronic Kidney Disease: Yes - ENDOCRINE/METABOLIC Hx Endocrine Disorders: Yes Hx Diabetes Mellitus Type 2: Yes - HEMATOLOGICAL/ONCOLOGICAL Hx Anemia: Yes - INTEGUMENTARY Hx Dermatological Problems: No - MUSCULOSKELETAL/RHEUMATOLOGICAL Hx Falls: No - GASTROINTESTINAL Hx Gastrointestinal Disorders: No - GENITOURINARY/GYNECOLOGICAL Hx Genitourinary Disorders: No - PSYCHIATRIC Hx Anxiety: Yes Hx Bipolar Disorder: Yes Hx Depression: Yes Hx Substance Use: No - SURGICAL HISTORY Hx Surgeries: Yes Hx Section: Yes (x1) Hx Eye Surgery: Yes (LEFT EYE) - ANESTHESIA Hx Anesthesia: Yes Hx Anesthesia Reactions: No Hx Malignant Hyperthermia: No Meds Allergies/Adverse Reactions: Allergies Allergy/AdvReac Type Severity Reaction Status Date / Time FISH Allergy Severe ITCHING Verified 08/09/17 17:10 shellfish derived Allergy Severe SWELLING Verified 08/08/17 07:57 - Medications Medications: Current Medications Diphenhydramine HCl (Benadryl) 50 mg IVP Q8H PRN PRN Reason: Allergy symptoms Enoxaparin Sodium (Lovenox) 40 mg SC DAILY [facility] Propofol (Diprivan) 1,000 mg in 100 mls @ 4.082 mls/hr IV .Q24H PRN; Protocol; 5 MCG/KG/MIN PRN Reason: TITRATE PER MD ORDER Last Titration: 01/13/18 23:04 Dose: 60 mcg/kg/min, 48.988 mls/hr Famotidine 20 mg/ Sodium (Chloride) 52 mls @ 100 mls/hr IVPB DAILY [facility] Sodium Chloride (Sodium Chloride 0.9%) 1,000 mls @ 75 mls/hr IV .[id number] [facility] Insulin Human Regular (Novolin R) 0 unit SC Q6H [facility] PRN Reason: Protocol Methylprednisolone (Solu-Medrol) 60 mg IVP Q8H [facility] Physical Exam - Constitutional Appears: Combative - Head Exam Head Exam: ATRAUMATIC, NORMAL INSPECTION, NORMOCEPHALIC - Eye Exam Eye Exam: PERRL. absent: Scleral icterus - ENT Exam ENT Exam: Mucous Membranes Moist - Neck Exam Neck exam: Positive for: Normal Inspection - Respiratory Exam Respiratory Exam: Clear to Auscultation Bilateral. absent: Rales, Rhonchi - Cardiovascular Exam Cardiovascular Exam: REGULAR RHYTHM. absent: JVD - GI/Abdominal Exam GI & Abdominal Exam: Normal Bowel Sounds, Soft - Extremities Exam Extremities exam: Positive for: normal inspection Additional comments: bilateral trace leg edema - Neurological Exam Additional comments: sedated - Skin Skin Exam: Normal Color, Warm Results - Vital Signs Recent Vital Signs: Last Vital Signs Temp 98.1 F 01/13/18 22:49 Pulse 80 01/13/18 21:01 Resp 20 01/13/18 20:22 BP 126/57 L 01/13/18 20:26 Pulse Ox 100 01/13/18 21:41 - Labs Result Diagrams: 01/13/18 20:56 01/13/18 20:56 Labs: Laboratory Results - last 24 hr 01/13/18 01/13/18 01/13/18 20:56 20:56 20:56 WBC 6.6 RBC 4.23 Hgb 12.0 Hct 36.8 MCV 87.0 D MCH 28.3 MCHC 32.5 L RDW 14.6 H Plt Count 589 H MPV 8.4 Neut % (Auto) 41.7 L Lymph % (Auto) 46.6 H [place] % (Auto) 3.7 Eos % (Auto) 5.5 H Baso % (Auto) 2.5 H Neut # (Auto) 2.8 Lymph # (Auto) 3.1 [place] # (Auto) 0.2 Eos # (Auto) 0.4 Baso # (Auto) 0.2 PT 9.0 L INR 0.8 APTT 29 Sodium 139 Potassium 4.9 Chloride 98 Carbon Dioxide 27 Anion Gap 19 BUN 42 H Creatinine 2.4 H Est GFR ( Amer) 26 Est GFR (Non-Af Amer) 21 Random Glucose 256 H Calcium 8.7 Total Bilirubin 0.5 AST 55 H ALT 26 Alkaline Phosphatase 352 H Troponin I < 0.0120 Total Protein 7.9 Albumin 3.8 Globulin 4.0 H Albumin/Globulin Ratio 0.9 L Blood Type Antibody Screen 01/13/18 21:14 WBC RBC Hgb Hct MCV MCH MCHC RDW Plt Count MPV Neut % (Auto) Lymph % (Auto) [place] % (Auto) Eos % (Auto) Baso % (Auto) Neut # (Auto) Lymph # (Auto) [place] # (Auto) Eos # (Auto) Baso # (Auto) PT INR APTT Sodium Potassium Chloride Carbon Dioxide Anion Gap BUN Creatinine Est GFR ( Amer) Est GFR (Non-Af Amer) Random Glucose Calcium Total Bilirubin AST ALT Alkaline Phosphatase Troponin I Total Protein Albumin Globulin Albumin/Globulin Ratio Blood Type O POSITIVE Antibody Screen Negative - EKG Data EKG Interpreted by: Myself - Imaging and Cardiology Chest x-ray Status: Image reviewed by me Assessment & Plan - Assessment and Plan (Free Text) Assessment: 1.Respiratory failure/angioedema-intubated continue vent support steroids, benadryl 2.DM insulin with coverage 3.Renal insufficiency 4.HTN-on meds.start meds if BP high 5.Asthma/COPD bronchodilators PRN 6.Thrombocytosis/elevated LFT-f/u with rpt labs
[2018-01-13] MEDS ORDERED: (Novolin R) Insulin Human Regular 100 units/ml vial SC SCH (23:45)
[2018-01-14] MEDS: Sodium Chloride 0.9% 1,000 ML IV SCH ×2 (00:14→14:05)
[2018-01-14 00:20] LABS: ABG ALLEN TEST POS; ARTERIAL BLOOD GAS HEMOGLOBIN 10.8 g/dL (11.7-17.4); ARTERIAL BLOOD GAS O2 SAT 95.5 % (95-98); ARTERIAL BLOOD GAS PCO2 61 mm/Hg (35-45); ARTERIAL BLOOD GAS PH 7.27 (7.35-7.45); ARTERIAL BLOOD GAS PO2 81 mm/Hg (80-100); ARTERIAL BLOOD GAS TCO2 29.9 mmol/L (22-28)
[2018-01-14] MEDS: (Novolin R) Insulin Human Regular 100 units/ml vial SC SCH ×4 (00:28→17:42)
[2018-01-14] MEDS: Propofol 10 mg/ml 1,000 MG/100 ML VIAL IV PRN ×11 (00:36→22:10)
[2018-01-14 05:20] LABS: ARTERIAL BLOOD GAS HCO3 23.5 mmol/L (21-28); ARTERIAL BLOOD GAS HEMOGLOBIN 11.5 g/dL (11.7-17.4); ARTERIAL BLOOD GAS PCO2 58 mm/Hg (35-45); ARTERIAL BLOOD GAS PH 7.26 (7.35-7.45); ARTERIAL BLOOD GAS PO2 134 mm/Hg (80-100); ARTERIAL BLOOD GAS TCO2 27.8 mmol/L (22-28)
[2018-01-14 06:25] LABS: BASO # 0.1 K/uL (0.0-0.2); BASO % 0.6 % (0.0-2.0); EOS % 0.1 % (0.0-4.0); HEMOGLOBIN 10.9 g/dL (11.0-16.0); LYMPH # 0.7 K/uL (1.0-4.3); LYMPH % 6.3 % (20.0-40.0); MEAN CELL VOLUME 87.3 fL (81.0-99.0); MEAN CORPUSCULAR HEMOGLOBIN 28.3 pg (27.0-31.0); MEAN CORPUSCULAR HGB CONC 32.4 g/dL (33.0-37.0); MEAN PLATELET VOLUME 8.3 fL (7.2-11.7); MONO # 0.2 K/uL (0.0-0.8); NEUT # 9.8 K/uL (1.8-7.0); PLATELET COUNT 443 K/uL (130-400); RBC 3.84 Mil/uL (3.80-5.20); RED CELL DISTRIBUTION WIDTH 14.9 % (11.5-14.5); WHITE BLOOD COUNT 10.8 K/uL (4.8-10.8)
[2018-01-14] MEDS ORDERED: (Novolin R) Insulin Human Regular 100 units/ml vial SC ONE (06:28)
[2018-01-14 06:50] LABS: SQUAMOUS EPITHIAL 7 /hpf (0-5); URINE BACTERIA FEW (<OCC); URINE BILIRUBIN NEGATIVE (NEGATIVE); URINE BLOOD 1+ (NEGATIVE); URINE CLARITY Hazy (Clear); URINE COLOR Yellow (YELLOW); URINE GLUCOSE (UA) 1+ mg/dL (Normal); URINE HYALINE CAST >20 /lpf (0-2); URINE LEUKOCYTE ESTERASE NEG Leu/uL (Negative); URINE PROTEIN 3+ mg/dL (NEGATIVE); URINE UROBILINOGEN NORMAL mg/dL (0.2-1.0); WBC CLUMPS MOD /hpf
[2018-01-14 06:50] LABS: ALBUMIN 3.5 g/dL (3.5-5.0); CALCIUM 8.2 mg/dl (8.6-10.4)
[2018-01-14 08:23] LABS: BANDS 3 % (0-2); LYMPHOCYTE 5 % (20-40); MONOCYTE 1 % (0-10); NEUTROPHIL 91 % (50-75); PLATELET ESTIMATE SLIGHTLY INCREASED (NORMAL); TOTAL CELLS COUNTED 100
[2018-01-14 08:24] LABS: HYPOCHROMIC SLIGHT; TOXIC GRANULATION PRESENT
--- NOTE | 2018-01-14 09:41 | RAD ---
Chest x-ray single frontal view History: Intubation. Comparison: None available. Findings: Endotracheal tube extending into the right mainstem bronchus. Retraction approximately 2 centimeters above the cordelia is recommended. Mild venous congestion. Right hilar prominence. Mild cardiomegaly. Degenerative changes in the spine and shoulders. Impression: Endotracheal tube extending into the right mainstem bronchus. Retraction approximately 2 centimeters above the cordelia is recommended. Mild venous congestion. Right hilar prominence. Mild cardiomegaly.
--- NOTE | 2018-01-14 09:44 | RAD ---
Chest x-ray single frontal view History: Repositioned endotracheal tube. Comparison: 01/13/2018 Findings: Endotracheal tube low lying approximately 8 millimeters from the cordelia. Retraction approximately 1 centimeter would be helpful. Moderate venous congestion. Patchy increased markings at the right lung base. Mild cardiomegaly. Degenerative changes in the spine and shoulders. Impression: Endotracheal tube low lying approximately 8 millimeters from the cordelia. Retraction approximately 1 centimeter would be helpful. Moderate venous congestion. Patchy increased markings at the right lung base. Mild cardiomegaly.
[2018-01-14] MEDS ORDERED: Enoxaparin 40 mg Syringe SC SCH (10:00)
[2018-01-14] MEDS ORDERED: (Novolin R) Insulin Human Regular 100 units/ml vial IV ONE ×2 (10:07→10:30)
[2018-01-14] MEDS: Albuterol-Ipratrop 3 mg / 0.5 (3 ml) UD INH SCH ×3 (10:16→20:15)
--- NOTE | 2018-01-14 10:26 | RAD ---
Chest x-ray single frontal view History: Intubated. Comparison: 01/13/2018 Findings: Endotracheal tube somewhat low lying approximately 8 millimeters above the cordelia. Retraction approximately 1 centimeter may be helpful. Moderate venous congestion. Right hilar prominence. Enlarged ectatic aorta. Cardiomegaly. Degenerative changes in the spine and shoulders. Impression: Endotracheal tube somewhat low lying approximately 8 millimeters above the cordelia. Retraction approximately 1 centimeter may be helpful. Moderate venous congestion. Right hilar prominence. Enlarged ectatic aorta. Cardiomegaly.
--- NOTE | 2018-01-14 12:00 | CARD ---
APPROVED REPORT EKG Measurement Heart [id number] <Conclusion> Normal sinus rhythm Possible Left atrial enlargement Borderline ECG
--- NOTE | 2018-01-14 12:50 | CP.CCUPN ---
<Bennie Piper S - Last Filed: 01/14/18 12:45> CCU Subjective - Physician Review Subjective (Free Text): 01/14/18 12:45 Patient seen and examined. Patient intubated and sedated. Per staff, patient gets agitated at times. CCU Objective - Vital Signs / Intake & Output Vital Signs (Last 4 hours): Vital Signs Pulse Resp BP Pulse Ox 01/14/18 10:06 81 21 143/69 97 01/14/18 10:00 78 19 96 01/14/18 09:06 82 21 139/67 96 01/14/18 09:00 85 23 97 Intake and Output (Last 8hrs): Intake & Output 01/13/18 01/14/18 01/14/18 22:59 06:59 14:59 Intake Total 450 1112.9 786.9 Output Total 300 180 Balance 450 812.9 606.9 Weight 327 lb 327 lb Intake: IV 450 317 283 Intake, IV Amount 795.9 503.9 LT FA #2 270.9 203.9 Left Forearm 525 300 Output: Urine 300 180 Urethral (Cooley) 300 180 Emesis 0 Other: Voiding Method Diaper # Bowel Movements 1 0 - Physical Exam Physical Exam Limitations: Positive for: Altered Mental Status (intubated/ sedated) Pupils: Positive for: Sluggish Conjunctiva: Positive for: Normal Mouth: Positive for: Moist Mucous Membranes Respiratory/Chest: Positive for: Other (Coarse breath sounds). Negative for: Wheezes, Rales, Rhonchi Cardiovascular: Positive for: Regular Rate and Rhythm, Normal S1, S2 Abdomen: Positive for: Normal Bowel Sounds. Negative for: Tenderness Upper Extremity: Positive for: Normal Inspection Lower Extremity: Positive for: Edema Skin: Positive for: Warm, Dry - Medications Active Medications: Active Medications Generic Name Dose Route Start Last Admin Trade Name Freq PRN Reason Stop Dose Admin Albuterol/Ipratropium 3 ml 01/14/18 10:15 01/14/18 10:16 Duoneb 3 Mg/0.5 Mg (3 Ml) Ud INH 3 ml RQ6 COLE Administration Diphenhydramine HCl 50 mg 01/13/18 23:32 Benadryl IVP Q8H PRN Allergy symptoms Enoxaparin Sodium 40 mg 01/14/18 10:00 01/14/18 09:42 Lovenox SC 40 mg DAILY COLE Administration Famotidine 20 mg 01/14/18 10:00 01/14/18 09:41 Pepcid IVP 20 mg DAILY COLE Administration Propofol 1,000 mg in 100 mls @ 4.082 mls/hr 01/13/18 22:47 01/14/18 12:43 Diprivan IV 60 mcg/kg/min .Q24H PRN 48.988 mls/hr TITRATE PER MD ORDER Administration Protocol 5 MCG/KG/MIN Sodium Chloride 1,000 mls @ 75 mls/hr 01/13/18 23:45 01/14/18 00:14 Sodium Chloride 0.9% IV 75 mls/hr .[id number] COLE Administration Insulin Human Regular 0 unit 01/14/18 00:00 01/14/18 06:24 Novolin R SC 6 unit Q6H COLE Administration Protocol Methylprednisolone 60 mg 01/14/18 00:00 01/14/18 09:41 Solu-Medrol IVP 60 mg Q8H OCLE Administration - Patient Studies Lab Studies: Lab Studies 01/14/18 01/14/18 01/14/18 Range/Units 12:02 11:07 06:21 WBC 10.8 D (4.8-10.8) K/uL RBC 3.84 (3.80-5.20) Mil/uL Hgb 10.9 L (11.0-16.0) g/dL Hct 33.5 L (34.0-47.0) % MCV 87.3 (81.0-99.0) fL MCH 28.3 (27.0-31.0) pg MCHC 32.4 L (33.0-37.0) g/dL RDW 14.9 H (11.5-14.5) % Plt Count 443 H D (130-400) K/uL MPV 8.3 (7.2-11.7) fL Neut % (Auto) 91.0 H (50.0-75.0) % Lymph % (Auto) 6.3 L (20.0-40.0) % [place] % (Auto) 2.0 (0.0-10.0) % Eos % (Auto) 0.1 (0.0-4.0) % Baso % (Auto) 0.6 (0.0-2.0) % Neut # (Auto) 9.8 H (1.8-7.0) K/uL Lymph # (Auto) 0.7 L (1.0-4.3) K/uL [place] # (Auto) 0.2 (0.0-0.8) K/uL Eos # (Auto) 0.0 (0.0-0.7) K/uL Baso # (Auto) 0.1 (0.0-0.2) K/uL Neutrophils % (Manual) 91 H (50-75) % Band Neutrophils % 3 H (0-2) % Lymphocytes % (Manual) 5 L (20-40) % Monocytes % (Manual) 1 (0-10) % Toxic Granulation Present Platelet Estimate Slightly increased H (NORMAL) Hypochromasia (manual) Slight PT (9.7-12.2) SECONDS INR APTT (21-34) SECONDS Puncture Site pCO2 (35-45) mm/Hg pO2 (80-100) mm/Hg HCO3 (21-28) mmol/L ABG pH (7.35-7.45) ABG Total CO2 (22-28) mmol/L ABG O2 Saturation (95-98) % ABG Base Excess (-2.0-3.0) mmol/L ABG Hemoglobin (11.7-17.4) g/dL ABG Carboxyhemoglobin (0.5-1.5) % POC ABG HHb (Measured) (0.0-5.0) % ABG Methemoglobin (0.0-3.0) % Tyler Test A-a O2 Difference mm/Hg Respiratory Index Hgb O2 Saturation (95.0-98.0) % Vent Mode Mechanical Rate FiO2 % Tidal Volume PEEP Pressure Support Sodium (132-148) mmol/L Potassium (3.6-5.2) mmol/L Chloride (98-107) mmol/L Carbon Dioxide (22-30) mmol/L Anion Gap (10-20) BUN (7-17) mg/dL Creatinine (0.7-1.2) mg/dL Est GFR ( Amer) Est GFR (Non-Af Amer) POC Glucose (mg/dL) 352 H 353 H (65-110) mg/dL Random Glucose (65-105) mg/dL Calcium (8.6-10.4) mg/dl Phosphorus (2.5-4.5) mg/dL Magnesium (1.6-2.3) mg/dL Total Bilirubin (0.2-1.3) mg/dL AST (14-36) U/L ALT (9-52) U/L Alkaline Phosphatase (38-126) U/L Troponin I (0.00-0.120) ng/mL Total Protein (6.3-8.3) g/dL Albumin (3.5-5.0) g/dL Globulin (2.2-3.9) gm/dL Albumin/Globulin Ratio (1.0-2.1) Urine Color (YELLOW) Urine Clarity (Clear) Urine pH (5.0-8.0) Ur Specific [place] (1.003-1.030) Urine Protein (NEGATIVE) mg/dL Urine Glucose (UA) (Normal) mg/dL Urine Ketones (NEGATIVE) mg/dL Urine Blood (NEGATIVE) Urine Nitrate (NEGATIVE) Urine Bilirubin (NEGATIVE) Urine Urobilinogen (0.2-1.0) mg/dL Ur Leukocyte Esterase (Negative) Stephenie/uL Urine WBC (Auto) (0-5) /hpf Urine RBC (Auto) (0-3) /hpf Urine WBC Clumps (Auto) (NONE) /hpf Ur Squamous Epith Cells (0-5) /hpf Urine Bacteria (<OCC) Hyaline Casts (0-2) /lpf Urine Yeast (Budding) (NEGATIVE) /hpf Urine HCG, Qual (NEGATIVE) Blood Type Antibody Screen 01/14/18 01/14/18 01/14/18 Range/Units 06:21 06:20 06:14 WBC (4.8-10.8) K/uL RBC (3.80-5.20) Mil/uL Hgb (11.0-16.0) g/dL Hct (34.0-47.0) % MCV (81.0-99.0) fL MCH (27.0-31.0) pg MCHC (33.0-37.0) g/dL RDW (11.5-14.5) % Plt Count (130-400) K/uL MPV (7.2-11.7) fL Neut % (Auto) (50.0-75.0) % Lymph % (Auto) (20.0-40.0) % [place] % (Auto) (0.0-10.0) % Eos % (Auto) (0.0-4.0) % Baso % (Auto) (0.0-2.0) % Neut # (Auto) (1.8-7.0) K/uL Lymph # (Auto) (1.0-4.3) K/uL [place] # (Auto) (0.0-0.8) K/uL Eos # (Auto) (0.0-0.7) K/uL Baso # (Auto) (0.0-0.2) K/uL Neutrophils % (Manual) (50-75) % Band Neutrophils % (0-2) % Lymphocytes % (Manual) (20-40) % Monocytes % (Manual) (0-10) % Toxic Granulation Platelet Estimate (NORMAL) Hypochromasia (manual) PT (9.7-12.2) SECONDS INR APTT (21-34) SECONDS Puncture Site pCO2 (35-45) mm/Hg pO2 (80-100) mm/Hg HCO3 (21-28) mmol/L ABG pH (7.35-7.45) ABG Total CO2 (22-28) mmol/L ABG O2 Saturation (95-98) % ABG Base Excess (-2.0-3.0) mmol/L ABG Hemoglobin (11.7-17.4) g/dL ABG Carboxyhemoglobin (0.5-1.5) % POC ABG HHb (Measured) (0.0-5.0) % ABG Methemoglobin (0.0-3.0) % Tyler Test A-a O2 Difference mm/Hg Respiratory Index Hgb O2 Saturation (95.0-98.0) % Vent Mode Mechanical Rate FiO2 % Tidal Volume PEEP Pressure Support Sodium 135 (132-148) mmol/L Potassium 6.2 H* D (3.6-5.2) mmol/L Chloride 97 L (98-107) mmol/L Carbon Dioxide 25 (22-30) mmol/L Anion Gap 19 (10-20) BUN 45 H (7-17) mg/dL Creatinine 2.7 H (0.7-1.2) mg/dL Est GFR ( Amer) 22 Est GFR (Non-Af Amer) 19 POC Glucose (mg/dL) 408 H* (65-110) mg/dL Random Glucose 389 H (65-105) mg/dL Calcium 8.2 L (8.6-10.4) mg/dl Phosphorus 3.1 (2.5-4.5) mg/dL Magnesium 1.7 (1.6-2.3) mg/dL Total Bilirubin 0.4 (0.2-1.3) mg/dL AST 31 (14-36) U/L ALT 24 (9-52) U/L Alkaline Phosphatase 298 H (38-126) U/L Troponin I (0.00-0.120) ng/mL Total Protein 7.0 (6.3-8.3) g/dL Albumin 3.5 (3.5-5.0) g/dL Globulin 3.5 (2.2-3.9) gm/dL Albumin/Globulin Ratio 1.0 (1.0-2.1) Urine Color (YELLOW) Urine Clarity (Clear) Urine pH (5.0-8.0) Ur Specific [place] (1.003-1.030) Urine Protein (NEGATIVE) mg/dL Urine Glucose (UA) (Normal) mg/dL Urine Ketones (NEGATIVE) mg/dL Urine Blood (NEGATIVE) Urine Nitrate (NEGATIVE) Urine Bilirubin (NEGATIVE) Urine Urobilinogen (0.2-1.0) mg/dL Ur Leukocyte Esterase (Negative) Stephenie/uL Urine WBC (Auto) (0-5) /hpf Urine RBC (Auto) (0-3) /hpf Urine WBC Clumps (Auto) (NONE) /hpf Ur Squamous Epith Cells (0-5) /hpf Urine Bacteria (<OCC) Hyaline Casts (0-2) /lpf Urine Yeast (Budding) (NEGATIVE) /hpf Urine HCG, Qual Negative (NEGATIVE) Blood Type Antibody Screen 01/14/18 01/14/18 01/14/18 Range/Units 06:14 04:59 00:18 WBC (4.8-10.8) K/uL RBC (3.80-5.20) Mil/uL Hgb (11.0-16.0) g/dL Hct (34.0-47.0) % MCV (81.0-99.0) fL MCH (27.0-31.0) pg MCHC (33.0-37.0) g/dL RDW (11.5-14.5) % Plt Count (130-400) K/uL MPV (7.2-11.7) fL Neut % (Auto) (50.0-75.0) % Lymph % (Auto) (20.0-40.0) % [place] % (Auto) (0.0-10.0) % Eos % (Auto) (0.0-4.0) % Baso % (Auto) (0.0-2.0) % Neut # (Auto) (1.8-7.0) K/uL Lymph # (Auto) (1.0-4.3) K/uL [place] # (Auto) (0.0-0.8) K/uL Eos # (Auto) (0.0-0.7) K/uL Baso # (Auto) (0.0-0.2) K/uL Neutrophils % (Manual) (50-75) % Band Neutrophils % (0-2) % Lymphocytes % (Manual) (20-40) % Monocytes % (Manual) (0-10) % Toxic Granulation Platelet Estimate (NORMAL) Hypochromasia (manual) PT (9.7-12.2) SECONDS INR APTT (21-34) SECONDS Puncture Site Rb pCO2 58 H (35-45) mm/Hg pO2 134 H (80-100) mm/Hg HCO3 23.5 (21-28) mmol/L ABG pH 7.26 L (7.35-7.45) ABG Total CO2 27.8 (22-28) mmol/L ABG O2 Saturation 98.0 (95-98) % ABG Base Excess -1.8 (-2.0-3.0) mmol/L ABG Hemoglobin 11.5 L (11.7-17.4) g/dL ABG Carboxyhemoglobin 0.5 (0.5-1.5) % POC ABG HHb (Measured) 2.0 (0.0-5.0) % ABG Methemoglobin 0.3 (0.0-3.0) % Tyler Test Na A-a O2 Difference 79.0 mm/Hg Respiratory Index 0.6 Hgb O2 Saturation 97.2 (95.0-98.0) % Vent Mode Prvc Mechanical Rate 20 FiO2 40.0 % Tidal Volume 500 PEEP 5 Pressure Support Sodium (132-148) mmol/L Potassium (3.6-5.2) mmol/L Chloride (98-107) mmol/L Carbon Dioxide (22-30) mmol/L Anion Gap (10-20) BUN (7-17) mg/dL Creatinine (0.7-1.2) mg/dL Est GFR ( Amer) Est GFR (Non-Af Amer) POC Glucose (mg/dL) 234 H (65-110) mg/dL Random Glucose (65-105) mg/dL Calcium (8.6-10.4) mg/dl Phosphorus (2.5-4.5) mg/dL Magnesium (1.6-2.3) mg/dL Total Bilirubin (0.2-1.3) mg/dL AST (14-36) U/L ALT (9-52) U/L Alkaline Phosphatase (38-126) U/L Troponin I (0.00-0.120) ng/mL Total Protein (6.3-8.3) g/dL Albumin (3.5-5.0) g/dL Globulin (2.2-3.9) gm/dL Albumin/Globulin Ratio (1.0-2.1) Urine Color Yellow (YELLOW) Urine Clarity Hazy (Clear) Urine pH 5.0 (5.0-8.0) Ur Specific [place] 1.015 (1.003-1.030) Urine Protein 3+ H (NEGATIVE) mg/dL Urine Glucose (UA) 1+ (Normal) mg/dL Urine Ketones Negative (NEGATIVE) mg/dL Urine Blood 1+ H (NEGATIVE) Urine Nitrate Negative (NEGATIVE) Urine Bilirubin Negative (NEGATIVE) Urine Urobilinogen Normal (0.2-1.0) mg/dL Ur Leukocyte Esterase Neg (Negative) Stephenie/uL Urine WBC (Auto) 6 H (0-5) /hpf Urine RBC (Auto) 10 H (0-3) /hpf Urine WBC Clumps (Auto) Mod H (NONE) /hpf Ur Squamous Epith Cells 7 H (0-5) /hpf Urine Bacteria Few H (<OCC) Hyaline Casts >20 H (0-2) /lpf Urine Yeast (Budding) Few H (NEGATIVE) /hpf Urine HCG, Qual (NEGATIVE) Blood Type Antibody Screen 01/14/18 01/13/18 01/13/18 Range/Units 00:15 21:14 20:56 WBC (4.8-10.8) K/uL RBC (3.80-5.20) Mil/uL Hgb (11.0-16.0) g/dL Hct (34.0-47.0) % MCV (81.0-99.0) fL MCH (27.0-31.0) pg MCHC (33.0-37.0) g/dL RDW (11.5-14.5) % Plt Count (130-400) K/uL MPV (7.2-11.7) fL Neut % (Auto) (50.0-75.0) % Lymph % (Auto) (20.0-40.0) % [place] % (Auto) (0.0-10.0) % Eos % (Auto) (0.0-4.0) % Baso % (Auto) (0.0-2.0) % Neut # (Auto) (1.8-7.0) K/uL Lymph # (Auto) (1.0-4.3) K/uL [place] # (Auto) (0.0-0.8) K/uL Eos # (Auto) (0.0-0.7) K/uL Baso # (Auto) (0.0-0.2) K/uL Neutrophils % (Manual) (50-75) % Band Neutrophils % (0-2) % Lymphocytes % (Manual) (20-40) % Monocytes % (Manual) (0-10) % Toxic Granulation Platelet Estimate (NORMAL) Hypochromasia (manual) PT (9.7-12.2) SECONDS INR APTT (21-34) SECONDS Puncture Site Rr pCO2 61 H (35-45) mm/Hg pO2 81 (80-100) mm/Hg HCO3 25.0 (21-28) mmol/L ABG pH 7.27 L (7.35-7.45) ABG Total CO2 29.9 H (22-28) mmol/L ABG O2 Saturation 95.5 (95-98) % ABG Base Excess 0.2 (-2.0-3.0) mmol/L ABG Hemoglobin 10.8 L (11.7-17.4) g/dL ABG Carboxyhemoglobin 0.6 (0.5-1.5) % POC ABG HHb (Measured) 4.4 (0.0-5.0) % ABG Methemoglobin 0.7 (0.0-3.0) % Tyler Test Pos A-a O2 Difference 128.0 mm/Hg Respiratory Index 1.6 Hgb O2 Saturation 94.2 L (95.0-98.0) % Vent Mode Simv/ps Mechanical Rate 14 FiO2 40.0 % Tidal Volume 500 PEEP 5 Pressure Support 10 Sodium 139 (132-148) mmol/L Potassium 4.9 (3.6-5.2) mmol/L Chloride 98 (98-107) mmol/L Carbon Dioxide 27 (22-30) mmol/L Anion Gap 19 (10-20) BUN 42 H (7-17) mg/dL Creatinine 2.4 H (0.7-1.2) mg/dL Est GFR ( Amer) 26 Est GFR (Non-Af Amer) 21 POC Glucose (mg/dL) (65-110) mg/dL Random Glucose 256 H (65-105) mg/dL Calcium 8.7 (8.6-10.4) mg/dl Phosphorus (2.5-4.5) mg/dL Magnesium (1.6-2.3) mg/dL Total Bilirubin 0.5 (0.2-1.3) mg/dL AST 55 H (14-36) U/L ALT 26 (9-52) U/L Alkaline Phosphatase 352 H (38-126) U/L Troponin I < 0.0120 (0.00-0.120) ng/mL Total Protein 7.9 (6.3-8.3) g/dL Albumin 3.8 (3.5-5.0) g/dL Globulin 4.0 H (2.2-3.9) gm/dL Albumin/Globulin Ratio 0.9 L (1.0-2.1) Urine Color (YELLOW) Urine Clarity (Clear) Urine pH (5.0-8.0) Ur Specific [place] (1.003-1.030) Urine Protein (NEGATIVE) mg/dL Urine Glucose (UA) (Normal) mg/dL Urine Ketones (NEGATIVE) mg/dL Urine Blood (NEGATIVE) Urine Nitrate (NEGATIVE) Urine Bilirubin (NEGATIVE) Urine Urobilinogen (0.2-1.0) mg/dL Ur Leukocyte Esterase (Negative) Stephenie/uL Urine WBC (Auto) (0-5) /hpf Urine RBC (Auto) (0-3) /hpf Urine WBC Clumps (Auto) (NONE) /hpf Ur Squamous Epith Cells (0-5) /hpf Urine Bacteria (<OCC) Hyaline Casts (0-2) /lpf Urine Yeast (Budding) (NEGATIVE) /hpf Urine HCG, Qual (NEGATIVE) Blood Type O POSITIVE Antibody Screen Negative 01/13/18 01/13/18 Range/Units 20:56 20:56 WBC 6.6 (4.8-10.8) K/uL RBC 4.23 (3.80-5.20) Mil/uL Hgb 12.0 (11.0-16.0) g/dL Hct 36.8 (34.0-47.0) % MCV 87.0 D (81.0-99.0) fL MCH 28.3 (27.0-31.0) pg MCHC 32.5 L (33.0-37.0) g/dL RDW 14.6 H (11.5-14.5) % Plt Count 589 H (130-400) K/uL MPV 8.4 (7.2-11.7) fL Neut % (Auto) 41.7 L (50.0-75.0) % Lymph % (Auto) 46.6 H (20.0-40.0) % [place] % (Auto) 3.7 (0.0-10.0) % Eos % (Auto) 5.5 H (0.0-4.0) % Baso % (Auto) 2.5 H (0.0-2.0) % Neut # (Auto) 2.8 (1.8-7.0) K/uL Lymph # (Auto) 3.1 (1.0-4.3) K/uL [place] # (Auto) 0.2 (0.0-0.8) K/uL Eos # (Auto) 0.4 (0.0-0.7) K/uL Baso # (Auto) 0.2 (0.0-0.2) K/uL Neutrophils % (Manual) (50-75) % Band Neutrophils % (0-2) % Lymphocytes % (Manual) (20-40) % Monocytes % (Manual) (0-10) % Toxic Granulation Platelet Estimate (NORMAL) Hypochromasia (manual) PT 9.0 L (9.7-12.2) SECONDS INR 0.8 APTT 29 (21-34) SECONDS Puncture Site pCO2 (35-45) mm/Hg pO2 (80-100) mm/Hg HCO3 (21-28) mmol/L ABG pH (7.35-7.45) ABG Total CO2 (22-28) mmol/L ABG O2 Saturation (95-98) % ABG Base Excess (-2.0-3.0) mmol/L ABG Hemoglobin (11.7-17.4) g/dL ABG Carboxyhemoglobin (0.5-1.5) % POC ABG HHb (Measured) (0.0-5.0) % ABG Methemoglobin (0.0-3.0) % Tyler Test A-a O2 Difference mm/Hg Respiratory Index Hgb O2 Saturation (95.0-98.0) % Vent Mode Mechanical Rate FiO2 % Tidal Volume PEEP Pressure Support Sodium (132-148) mmol/L Potassium (3.6-5.2) mmol/L Chloride (98-107) mmol/L Carbon Dioxide (22-30) mmol/L Anion Gap (10-20) BUN (7-17) mg/dL Creatinine (0.7-1.2) mg/dL Est GFR ( Amer) Est GFR (Non-Af Amer) POC Glucose (mg/dL) (65-110) mg/dL Random Glucose (65-105) mg/dL Calcium (8.6-10.4) mg/dl Phosphorus (2.5-4.5) mg/dL Magnesium (1.6-2.3) mg/dL Total Bilirubin (0.2-1.3) mg/dL AST (14-36) U/L ALT (9-52) U/L Alkaline Phosphatase (38-126) U/L Troponin I (0.00-0.120) ng/mL Total Protein (6.3-8.3) g/dL Albumin (3.5-5.0) g/dL Globulin (2.2-3.9) gm/dL Albumin/Globulin Ratio (1.0-2.1) Urine Color (YELLOW) Urine Clarity (Clear) Urine pH (5.0-8.0) Ur Specific [place] (1.003-1.030) Urine Protein (NEGATIVE) mg/dL Urine Glucose (UA) (Normal) mg/dL Urine Ketones (NEGATIVE) mg/dL Urine Blood (NEGATIVE) Urine Nitrate (NEGATIVE) Urine Bilirubin (NEGATIVE) Urine Urobilinogen (0.2-1.0) mg/dL Ur Leukocyte Esterase (Negative) Stephenie/uL Urine WBC (Auto) (0-5) /hpf Urine RBC (Auto) (0-3) /hpf Urine WBC Clumps (Auto) (NONE) /hpf Ur Squamous Epith Cells (0-5) /hpf Urine Bacteria (<OCC) Hyaline Casts (0-2) /lpf Urine Yeast (Budding) (NEGATIVE) /hpf Urine HCG, Qual (NEGATIVE) Blood Type Antibody Screen Laboratory Results - last 24 hr 01/13/18 01/13/18 01/13/18 20:56 20:56 20:56 WBC 6.6 RBC 4.23 Hgb 12.0 Hct 36.8 MCV 87.0 D MCH 28.3 MCHC 32.5 L RDW 14.6 H Plt Count 589 H MPV 8.4 Neut % (Auto) 41.7 L Lymph % (Auto) 46.6 H [place] % (Auto) 3.7 Eos % (Auto) 5.5 H Baso % (Auto) 2.5 H Neut # (Auto) 2.8 Lymph # (Auto) 3.1 [place] # (Auto) 0.2 Eos # (Auto) 0.4 Baso # (Auto) 0.2 Neutrophils % (Manual) Band Neutrophils % Lymphocytes % (Manual) Monocytes % (Manual) Toxic Granulation Platelet Estimate Hypochromasia (manual) PT 9.0 L INR 0.8 APTT 29 Puncture Site pCO2 pO2 HCO3 ABG pH ABG Total CO2 ABG O2 Saturation ABG Base Excess ABG Hemoglobin ABG Carboxyhemoglobin POC ABG HHb (Measured) ABG Methemoglobin Tyler Test A-a O2 Difference Respiratory Index Hgb O2 Saturation Vent Mode Mechanical Rate FiO2 Tidal Volume PEEP Pressure Support Sodium 139 Potassium 4.9 Chloride 98 Carbon Dioxide 27 Anion Gap 19 BUN 42 H Creatinine 2.4 H Est GFR ( Amer) 26 Est GFR (Non-Af Amer) 21 POC Glucose (mg/dL) Random Glucose 256 H Calcium 8.7 Phosphorus Magnesium Total Bilirubin 0.5 AST 55 H ALT 26 Alkaline Phosphatase 352 H Troponin I < 0.0120 Total Protein 7.9 Albumin 3.8 Globulin 4.0 H Albumin/Globulin Ratio 0.9 L Urine Color Urine Clarity Urine pH Ur Specific [place] Urine Protein Urine Glucose (UA) Urine Ketones Urine Blood Urine Nitrate Urine Bilirubin Urine Urobilinogen Ur Leukocyte Esterase Urine WBC (Auto) Urine RBC (Auto) Urine WBC Clumps (Auto) Ur Squamous Epith Cells Urine Bacteria Hyaline Casts Urine Yeast (Budding) Urine HCG, Qual Blood Type Antibody Screen 01/13/18 01/14/18 01/14/18 21:14 00:15 00:18 WBC RBC Hgb Hct MCV MCH MCHC RDW Plt Count MPV Neut % (Auto) Lymph % (Auto) [place] % (Auto) Eos % (Auto) Baso % (Auto) Neut # (Auto) Lymph # (Auto) [place] # (Auto) Eos # (Auto) Baso # (Auto) Neutrophils % (Manual) Band Neutrophils % Lymphocytes % (Manual) Monocytes % (Manual) Toxic Granulation Platelet Estimate Hypochromasia (manual) PT INR APTT Puncture Site Rr pCO2 61 H pO2 81 HCO3 25.0 ABG pH 7.27 L ABG Total CO2 29.9 H ABG O2 Saturation 95.5 ABG Base Excess 0.2 ABG Hemoglobin 10.8 L ABG Carboxyhemoglobin 0.6 POC ABG HHb (Measured) 4.4 ABG Methemoglobin 0.7 Tyler Test Pos A-a O2 Difference 128.0 Respiratory Index 1.6 Hgb O2 Saturation 94.2 L Vent Mode Simv/ps Mechanical Rate 14 FiO2 40.0 Tidal Volume 500 PEEP 5 Pressure Support 10 Sodium Potassium Chloride Carbon Dioxide Anion Gap BUN Creatinine Est GFR ( Amer) Est GFR (Non-Af Amer) POC Glucose (mg/dL) 234 H Random Glucose Calcium Phosphorus Magnesium Total Bilirubin AST ALT Alkaline Phosphatase Troponin I Total Protein Albumin Globulin Albumin/Globulin Ratio Urine Color Urine Clarity Urine pH Ur Specific [place] Urine Protein Urine Glucose (UA) Urine Ketones Urine Blood Urine Nitrate Urine Bilirubin Urine Urobilinogen Ur Leukocyte Esterase Urine WBC (Auto) Urine RBC (Auto) Urine WBC Clumps (Auto) Ur Squamous Epith Cells Urine Bacteria Hyaline Casts Urine Yeast (Budding) Urine HCG, Qual Blood Type O POSITIVE Antibody Screen Negative 01/14/18 01/14/18 01/14/18 04:59 06:14 06:14 WBC RBC Hgb Hct MCV MCH MCHC RDW Plt Count MPV Neut % (Auto) Lymph % (Auto) [place] % (Auto) Eos % (Auto) Baso % (Auto) Neut # (Auto) Lymph # (Auto) [place] # (Auto) Eos # (Auto) Baso # (Auto) Neutrophils % (Manual) Band Neutrophils % Lymphocytes % (Manual) Monocytes % (Manual) Toxic Granulation Platelet Estimate Hypochromasia (manual) PT INR APTT Puncture Site Rb pCO2 58 H pO2 134 H HCO3 23.5 ABG pH 7.26 L ABG Total CO2 27.8 ABG O2 Saturation 98.0 ABG Base Excess -1.8 ABG Hemoglobin 11.5 L ABG Carboxyhemoglobin 0.5 POC ABG HHb (Measured) 2.0 ABG Methemoglobin 0.3 [place] Test Na A-a O2 Difference 79.0 Respiratory Index 0.6 Hgb O2 Saturation 97.2 Vent Mode Prvc Mechanical Rate 20 FiO2 40.0 Tidal Volume 500 PEEP 5 Pressure Support Sodium Potassium Chloride Carbon Dioxide Anion Gap BUN Creatinine Est GFR ( Amer) Est GFR (Non-Af Amer) POC Glucose (mg/dL) Random Glucose Calcium Phosphorus Magnesium Total Bilirubin AST ALT Alkaline Phosphatase Troponin I Total Protein Albumin Globulin Albumin/Globulin Ratio Urine Color Yellow Urine Clarity Hazy Urine pH 5.0 Ur Specific [place] 1.015 Urine Protein 3+ H Urine Glucose (UA) 1+ Urine Ketones Negative Urine Blood 1+ H Urine Nitrate Negative Urine Bilirubin Negative Urine Urobilinogen Normal Ur Leukocyte Esterase Neg Urine WBC (Auto) 6 H Urine RBC (Auto) 10 H Urine WBC Clumps (Auto) Mod H Ur Squamous Epith Cells 7 H Urine Bacteria Few H Hyaline Casts >20 H Urine Yeast (Budding) Few H Urine HCG, Qual Negative Blood Type Antibody Screen 01/14/18 01/14/18 01/14/18 06:20 06:21 06:21 WBC 10.8 D RBC 3.84 Hgb 10.9 L Hct 33.5 L MCV 87.3 MCH 28.3 MCHC 32.4 L RDW 14.9 H Plt Count 443 H D MPV 8.3 Neut % (Auto) 91.0 H Lymph % (Auto) 6.3 L [place] % (Auto) 2.0 Eos % (Auto) 0.1 Baso % (Auto) 0.6 Neut # (Auto) 9.8 H Lymph # (Auto) 0.7 L [place] # (Auto) 0.2 Eos # (Auto) 0.0 Baso # (Auto) 0.1 Neutrophils % (Manual) 91 H Band Neutrophils % 3 H Lymphocytes % (Manual) 5 L Monocytes % (Manual) 1 Toxic Granulation Present Platelet Estimate Slightly increased H Hypochromasia (manual) Slight PT INR APTT Puncture Site pCO2 pO2 HCO3 ABG pH ABG Total CO2 ABG O2 Saturation ABG Base Excess ABG Hemoglobin ABG Carboxyhemoglobin POC ABG HHb (Measured) ABG Methemoglobin [place] Test A-a O2 Difference Respiratory Index Hgb O2 Saturation Vent Mode Mechanical Rate FiO2 Tidal Volume PEEP Pressure Support Sodium 135 Potassium 6.2 H* D Chloride 97 L Carbon Dioxide 25 Anion Gap 19 BUN 45 H Creatinine 2.7 H Est GFR ( Amer) 22 Est GFR (Non-Af Amer) 19 POC Glucose (mg/dL) 408 H* Random Glucose 389 H Calcium 8.2 L Phosphorus 3.1 Magnesium 1.7 Total Bilirubin 0.4 AST 31 ALT 24 Alkaline Phosphatase 298 H Troponin I Total Protein 7.0 Albumin 3.5 Globulin 3.5 Albumin/Globulin Ratio 1.0 Urine Color Urine Clarity Urine pH Ur Specific [place] Urine Protein Urine Glucose (UA) Urine Ketones Urine Blood Urine Nitrate Urine Bilirubin Urine Urobilinogen Ur Leukocyte Esterase Urine WBC (Auto) Urine RBC (Auto) Urine WBC Clumps (Auto) Ur Squamous Epith Cells Urine Bacteria Hyaline Casts Urine Yeast (Budding) Urine HCG, Qual Blood Type Antibody Screen 01/14/18 01/14/18 11:07 12:02 WBC RBC Hgb Hct MCV MCH MCHC RDW Plt Count MPV Neut % (Auto) Lymph % (Auto) [place] % (Auto) Eos % (Auto) Baso % (Auto) Neut # (Auto) Lymph # (Auto) [place] # (Auto) Eos # (Auto) Baso # (Auto) Neutrophils % (Manual) Band Neutrophils % Lymphocytes % (Manual) Monocytes % (Manual) Toxic Granulation Platelet Estimate Hypochromasia (manual) PT INR APTT Puncture Site pCO2 pO2 HCO3 ABG pH ABG Total CO2 ABG O2 Saturation ABG Base Excess ABG Hemoglobin ABG Carboxyhemoglobin POC ABG HHb (Measured) ABG Methemoglobin [place] Test A-a O2 Difference Respiratory Index Hgb O2 Saturation Vent Mode Mechanical Rate FiO2 Tidal Volume PEEP Pressure Support Sodium Potassium Chloride Carbon Dioxide Anion Gap BUN Creatinine Est GFR ( Amer) Est GFR (Non-Af Amer) POC Glucose (mg/dL) 353 H 352 H Random Glucose Calcium Phosphorus Magnesium Total Bilirubin AST ALT Alkaline Phosphatase Troponin I Total Protein Albumin Globulin Albumin/Globulin Ratio Urine Color Urine Clarity Urine pH Ur Specific [place] Urine Protein Urine Glucose (UA) Urine Ketones Urine Blood Urine Nitrate Urine Bilirubin Urine Urobilinogen Ur Leukocyte Esterase Urine WBC (Auto) Urine RBC (Auto) Urine WBC Clumps (Auto) Ur Squamous Epith Cells Urine Bacteria Hyaline Casts Urine Yeast (Budding) Urine HCG, Qual Blood Type Antibody Screen EKG/Cardiology Studies: Cardiology / EKG Studies 01/13/18 20:54 EKG [ELECTROCARDIOGRAM] Stat Comment: Mode Of Transportation: Reason For Exam: severe anaphylactic shock Fingerstick Blood Sugar Results: 408 Assessment/Plan - Assessment and Plan (Free Text) Assessment: This is 52 year old female with PMHx Asthma,anemia, Bipolar Disorder, Diabetes , HTN, Hypercholesterolemia, Chronic Kidney Disease who presented with anaphylaxis after ingesting shrimp. Patient currently intubated and sedated while awaiting improvement in throat swelling. Neuro Intubated and sedated on Diprivan ENT Solumedrol 60 mg IV Q8H Benadryl 50 mg IV Q8 prn Cardio No active issues Pulm Vented Duoneb Q6H COLE GI NPO diet Endocrine Accuchecks Q6H Regular ISS Q6H Renal Continue to monitor BUN/Cr Prophylaxis Lovenox 40 mg SC daily Pepcid 20 mg IV daily Discussed with Dr. Gerard <Clarence Gerard S - Last Filed: 01/14/18 16:53> CCU Objective - Vital Signs / Intake & Output Vital Signs (Last 4 hours): Vital Signs Pulse Resp BP Pulse Ox 01/14/18 15:06 91 H 23 145/74 97 01/14/18 15:00 91 H 25 H 97 01/14/18 14:06 90 22 159/72 H 94 L 01/14/18 14:00 88 25 H 93 L 01/14/18 13:06 88 25 H 160/74 H 94 L 01/14/18 13:00 88 25 H 94 L Intake and Output (Last 8hrs): Intake & Output 01/14/18 01/14/18 01/14/18 06:59 14:59 22:59 Intake Total 1112.9 1316.1 123.9 Output Total 300 610 0 Balance 812.9 706.1 123.9 Weight 327 lb Intake: IV 317 283 Intake, IV Amount 795.9 1033.1 123.9 LT FA #2 270.9 408.1 48.9 Left Forearm 525 625 75 Output: Urine 300 610 Urethral (Cooley) 300 610 Emesis 0 0 Other: # Bowel Movements 1 0 0 - Medications Active Medications: Active Medications Generic Name Dose Route Start Last Admin Trade Name Freq PRN Reason Stop Dose Admin Albuterol/Ipratropium 3 ml 01/14/18 10:15 01/14/18 13:22 Duoneb 3 Mg/0.5 Mg (3 Ml) Ud INH 3 ml RQ6 COLE Administration Diphenhydramine HCl 50 mg 01/13/18 23:32 Benadryl IVP Q8H PRN Allergy symptoms Enoxaparin Sodium 40 mg 01/14/18 10:00 01/14/18 09:42 Lovenox SC 40 mg DAILY COLE Administration Famotidine 20 mg 01/14/18 10:00 01/14/18 09:41 Pepcid IVP 20 mg DAILY COLE Administration Propofol 1,000 mg in 100 mls @ 4.082 mls/hr 01/13/18 22:47 01/14/18 12:43 Diprivan IV 60 mcg/kg/min .Q24H PRN 48.988 mls/hr TITRATE PER MD ORDER Administration Protocol 5 MCG/KG/MIN Sodium Chloride 1,000 mls @ 75 mls/hr 01/13/18 23:45 01/14/18 14:05 Sodium Chloride 0.9% IV 75 mls/hr .[id number] COLE Administration Insulin Human Regular 0 unit 01/14/18 18:00 Novolin R SC Q6H COLE Protocol Methylprednisolone 60 mg 01/14/18 00:00 01/14/18 09:41 Solu-Medrol IVP 60 mg Q8H COLE Administration - Patient Studies Lab Studies: Lab Studies 01/14/18 01/14/1801/14/18 Range/Units 16:11 13:53 12:02 WBC (4.8-10.8) K/uL RBC (3.80-5.20) Mil/uL Hgb (11.0-16.0) g/dL Hct (34.0-47.0) % MCV (81.0-99.0) fL MCH (27.0-31.0) pg MCHC (33.0-37.0) g/dL RDW (11.5-14.5) % Plt Count (130-400) K/uL MPV (7.2-11.7) fL Neut % (Auto) (50.0-75.0) % Lymph % (Auto) (20.0-40.0) % [place] % (Auto) (0.0-10.0) % Eos % (Auto) (0.0-4.0) % Baso % (Auto) (0.0-2.0) % Neut # (Auto) (1.8-7.0) K/uL Lymph # (Auto) (1.0-4.3) K/uL [place] # (Auto) (0.0-0.8) K/uL Eos # (Auto) (0.0-0.7) K/uL Baso # (Auto) (0.0-0.2) K/uL Neutrophils % (Manual) (50-75) % Band Neutrophils % (0-2) % Lymphocytes % (Manual) (20-40) % Monocytes % (Manual) (0-10) % Toxic Granulation Platelet Estimate (NORMAL) Hypochromasia (manual) PT (9.7-12.2) SECONDS INR APTT (21-34) SECONDS Puncture Site pCO2 (35-45) mm/Hg pO2 (80-100) mm/Hg HCO3 (21-28) mmol/L ABG pH (7.35-7.45) ABG Total CO2 (22-28) mmol/L ABG O2 Saturation (95-98) % ABG Base Excess (-2.0-3.0) mmol/L ABG Hemoglobin (11.7-17.4) g/dL ABG Carboxyhemoglobin (0.5-1.5) % POC ABG HHb (Measured) (0.0-5.0) % ABG Methemoglobin (0.0-3.0) % Tyler Test A-a O2 Difference mm/Hg Respiratory Index Hgb O2 Saturation (95.0-98.0) % Vent Mode Mechanical Rate FiO2 % Tidal Volume PEEP Pressure Support Sodium 137 135 (132-148) mmol/L Potassium 5.5 H 6.0 H (3.6-5.2) mmol/L Chloride 98 97 L (98-107) mmol/L Carbon Dioxide 27 27 (22-30) mmol/L Anion Gap 18 17 (10-20) BUN 48 H 47 H (7-17) mg/dL Creatinine 2.7 H 2.7 H (0.7-1.2) mg/dL Est GFR ( Amer) 22 22 Est GFR (Non-Af Amer) 19 19 POC Glucose (mg/dL) 352 H (65-110) mg/dL Random Glucose 285 H 371 H (65-105) mg/dL Calcium 8.8 8.5 L (8.6-10.4) mg/dl Phosphorus (2.5-4.5) mg/dL Magnesium (1.6-2.3) mg/dL Total Bilirubin (0.2-1.3) mg/dL AST (14-36) U/L ALT (9-52) U/L Alkaline Phosphatase (38-126) U/L Troponin I (0.00-0.120) ng/mL Total Protein (6.3-8.3) g/dL Albumin (3.5-5.0) g/dL Globulin (2.2-3.9) gm/dL Albumin/Globulin Ratio (1.0-2.1) Urine Color (YELLOW) Urine Clarity (Clear) Urine pH (5.0-8.0) Ur Specific [place] (1.003-1.030) Urine Protein (NEGATIVE) mg/dL Urine Glucose (UA) (Normal) mg/dL Urine Ketones (NEGATIVE) mg/dL Urine Blood (NEGATIVE) Urine Nitrate (NEGATIVE) Urine Bilirubin (NEGATIVE) Urine Urobilinogen (0.2-1.0) mg/dL Ur Leukocyte Esterase (Negative) Stephenie/uL Urine WBC (Auto) (0-5) /hpf Urine RBC (Auto) (0-3) /hpf Urine WBC Clumps (Auto) (NONE) /hpf Ur Squamous Epith Cells (0-5) /hpf Urine Bacteria (<OCC) Hyaline Casts (0-2) /lpf Urine Yeast (Budding) (NEGATIVE) /hpf Urine HCG, Qual (NEGATIVE) Blood Type Antibody Screen 01/14/18 01/14/18 01/14/18 Range/Units 11:07 06:21 06:21 WBC 10.8 D (4.8-10.8) K/uL RBC 3.84 (3.80-5.20) Mil/uL Hgb 10.9 L (11.0-16.0) g/dL Hct 33.5 L (34.0-47.0) % MCV 87.3 (81.0-99.0) fL MCH 28.3 (27.0-31.0) pg MCHC 32.4 L (33.0-37.0) g/dL RDW 14.9 H (11.5-14.5) % Plt Count 443 H D (130-400) K/uL MPV 8.3 (7.2-11.7) fL Neut % (Auto) 91.0 H (50.0-75.0) % Lymph % (Auto) 6.3 L (20.0-40.0) % [place] % (Auto) 2.0 (0.0-10.0) % Eos % (Auto) 0.1 (0.0-4.0) % Baso % (Auto) 0.6 (0.0-2.0) % Neut # (Auto) 9.8 H (1.8-7.0) K/uL Lymph # (Auto) 0.7 L (1.0-4.3) K/uL [place] # (Auto) 0.2 (0.0-0.8) K/uL Eos # (Auto) 0.0 (0.0-0.7) K/uL Baso # (Auto) 0.1 (0.0-0.2) K/uL Neutrophils % (Manual) 91 H (50-75) % Band Neutrophils % 3 H (0-2) % Lymphocytes % (Manual) 5 L (20-40) % Monocytes % (Manual) 1 (0-10) % Toxic Granulation Present Platelet Estimate Slightly increased H (NORMAL) Hypochromasia (manual) Slight PT (9.7-12.2) SECONDS INR APTT (21-34) SECONDS Puncture Site pCO2 (35-45) mm/Hg pO2 (80-100) mm/Hg HCO3 (21-28) mmol/L ABG pH (7.35-7.45) ABG Total CO2 (22-28) mmol/L ABG O2 Saturation (95-98) % ABG Base Excess (-2.0-3.0) mmol/L ABG Hemoglobin (11.7-17.4) g/dL ABG Carboxyhemoglobin (0.5-1.5) % POC ABG HHb (Measured) (0.0-5.0) % ABG Methemoglobin (0.0-3.0) % Tyler Test A-a O2 Difference mm/Hg Respiratory Index Hgb O2 Saturation (95.0-98.0) % Vent Mode Mechanical Rate FiO2 % Tidal Volume PEEP Pressure Support Sodium 135 (132-148) mmol/L Potassium 6.2 H* D (3.6-5.2) mmol/L Chloride 97 L (98-107) mmol/L Carbon Dioxide 25 (22-30) mmol/L Anion Gap 19 (10-20) BUN 45 H (7-17) mg/dL Creatinine 2.7 H (0.7-1.2) mg/dL Est GFR ( Amer) 22 Est GFR (Non-Af Amer) 19 POC Glucose (mg/dL) 353 H (65-110) mg/dL Random Glucose 389 H (65-105) mg/dL Calcium 8.2 L (8.6-10.4) mg/dl Phosphorus 3.1 (2.5-4.5) mg/dL Magnesium 1.7 (1.6-2.3) mg/dL Total Bilirubin 0.4 (0.2-1.3) mg/dL AST 31 (14-36) U/L ALT 24 (9-52) U/L Alkaline Phosphatase 298 H (38-126) U/L Troponin I (0.00-0.120) ng/mL Total Protein 7.0 (6.3-8.3) g/dL Albumin 3.5 (3.5-5.0) g/dL Globulin 3.5 (2.2-3.9) gm/dL Albumin/Globulin Ratio 1.0 (1.0-2.1) Urine Color (YELLOW) Urine Clarity (Clear) Urine pH (5.0-8.0) Ur Specific [place] (1.003-1.030) Urine Protein (NEGATIVE) mg/dL Urine Glucose (UA) (Normal) mg/dL Urine Ketones (NEGATIVE) mg/dL Urine Blood (NEGATIVE) Urine Nitrate (NEGATIVE) Urine Bilirubin (NEGATIVE) Urine Urobilinogen (0.2-1.0) mg/dL Ur Leukocyte Esterase (Negative) Stephenie/uL Urine WBC (Auto) (0-5) /hpf Urine RBC (Auto) (0-3) /hpf Urine WBC Clumps (Auto) (NONE) /hpf Ur Squamous Epith Cells (0-5) /hpf Urine Bacteria (<OCC) Hyaline Casts (0-2) /lpf Urine Yeast (Budding) (NEGATIVE) /hpf Urine HCG, Qual (NEGATIVE) Blood Type Antibody Screen 01/14/18 01/14/18 01/14/18 Range/Units 06:20 06:14 06:14 WBC (4.8-10.8) K/uL RBC (3.80-5.20) Mil/uL Hgb (11.0-16.0) g/dL Hct (34.0-47.0) % MCV (81.0-99.0) fL MCH (27.0-31.0) pg MCHC (33.0-37.0) g/dL RDW (11.5-14.5) % Plt Count (130-400) K/uL MPV (7.2-11.7) fL Neut % (Auto) (50.0-75.0) % Lymph % (Auto) (20.0-40.0) % [place] % (Auto) (0.0-10.0) % Eos % (Auto) (0.0-4.0) % Baso % (Auto) (0.0-2.0) % Neut # (Auto) (1.8-7.0) K/uL Lymph # (Auto) (1.0-4.3) K/uL [place] # (Auto) (0.0-0.8) K/uL Eos # (Auto) (0.0-0.7) K/uL Baso # (Auto) (0.0-0.2) K/uL Neutrophils % (Manual) (50-75) % Band Neutrophils % (0-2) % Lymphocytes % (Manual) (20-40) % Monocytes % (Manual) (0-10) % Toxic Granulation Platelet Estimate (NORMAL) Hypochromasia (manual) PT (9.7-12.2) SECONDS INR APTT (21-34) SECONDS Puncture Site pCO2 (35-45) mm/Hg pO2 (80-100) mm/Hg HCO3 (21-28) mmol/L ABG pH (7.35-7.45) ABG Total CO2 (22-28) mmol/L ABG O2 Saturation (95-98) % ABG Base Excess (-2.0-3.0) mmol/L ABG Hemoglobin (11.7-17.4) g/dL ABG Carboxyhemoglobin (0.5-1.5) % POC ABG HHb (Measured) (0.0-5.0) % ABG Methemoglobin (0.0-3.0) % Tyler Test A-a O2 Difference mm/Hg Respiratory Index Hgb O2 Saturation (95.0-98.0) % Vent Mode Mechanical Rate FiO2 % Tidal Volume PEEP Pressure Support Sodium (132-148) mmol/L Potassium (3.6-5.2) mmol/L Chloride (98-107) mmol/L Carbon Dioxide (22-30) mmol/L Anion Gap (10-20) BUN (7-17) mg/dL Creatinine (0.7-1.2) mg/dL Est GFR ( Amer) Est GFR (Non-Af Amer) POC Glucose (mg/dL) 408 H* (65-110) mg/dL Random Glucose (65-105) mg/dL Calcium (8.6-10.4) mg/dl Phosphorus (2.5-4.5) mg/dL Magnesium (1.6-2.3) mg/dL Total Bilirubin (0.2-1.3) mg/dL AST (14-36) U/L ALT (9-52) U/L Alkaline Phosphatase (38-126) U/L Troponin I (0.00-0.120) ng/mL Total Protein (6.3-8.3) g/dL Albumin (3.5-5.0) g/dL Globulin (2.2-3.9) gm/dL Albumin/Globulin Ratio (1.0-2.1) Urine Color Yellow (YELLOW) Urine Clarity Hazy (Clear) Urine pH 5.0 (5.0-8.0) Ur Specific [place] 1.015 (1.003-1.030) Urine Protein 3+ H (NEGATIVE) mg/dL Urine Glucose (UA) 1+ (Normal) mg/dL Urine Ketones Negative (NEGATIVE) mg/dL Urine Blood 1+ H (NEGATIVE) Urine Nitrate Negative (NEGATIVE) Urine Bilirubin Negative (NEGATIVE) Urine Urobilinogen Normal (0.2-1.0) mg/dL Ur Leukocyte Esterase Neg (Negative) Stephenie/uL Urine WBC (Auto) 6 H (0-5) /hpf Urine RBC (Auto) 10 H (0-3) /hpf Urine WBC Clumps (Auto) Mod H (NONE) /hpf Ur Squamous Epith Cells 7 H (0-5) /hpf Urine Bacteria Few H (<OCC) Hyaline Casts >20 H (0-2) /lpf Urine Yeast (Budding) Few H (NEGATIVE) /hpf Urine HCG, Qual Negative (NEGATIVE) Blood Type Antibody Screen 01/14/18 01/14/18 01/14/18 Range/Units 04:59 00:18 00:15 WBC (4.8-10.8) K/uL RBC (3.80-5.20) Mil/uL Hgb (11.0-16.0) g/dL Hct (34.0-47.0) % MCV (81.0-99.0) fL MCH (27.0-31.0) pg MCHC (33.0-37.0) g/dL RDW (11.5-14.5) % Plt Count (130-400) K/uL MPV (7.2-11.7) fL Neut % (Auto) (50.0-75.0) % Lymph % (Auto) (20.0-40.0) % [place] % (Auto) (0.0-10.0) % Eos % (Auto) (0.0-4.0) % Baso % (Auto) (0.0-2.0) % Neut # (Auto) (1.8-7.0) K/uL Lymph # (Auto) (1.0-4.3) K/uL [place] # (Auto) (0.0-0.8) K/uL Eos # (Auto) (0.0-0.7) K/uL Baso # (Auto) (0.0-0.2) K/uL Neutrophils % (Manual) (50-75) % Band Neutrophils % (0-2) % Lymphocytes % (Manual) (20-40) % Monocytes % (Manual) (0-10) % Toxic Granulation Platelet Estimate (NORMAL) Hypochromasia (manual) PT (9.7-12.2) SECONDS INR APTT (21-34) SECONDS Puncture Site Rb Rr pCO2 58 H 61 H (35-45) mm/Hg pO2 134 H 81 (80-100) mm/Hg HCO3 23.5 25.0 (21-28) mmol/L ABG pH 7.26 L 7.27 L (7.35-7.45) ABG Total CO2 27.8 29.9 H (22-28) mmol/L ABG O2 Saturation 98.0 95.5 (95-98) % ABG Base Excess -1.8 0.2 (-2.0-3.0) mmol/L ABG Hemoglobin 11.5 L 10.8 L (11.7-17.4) g/dL ABG Carboxyhemoglobin 0.5 0.6 (0.5-1.5) % POC ABG HHb (Measured) 2.0 4.4 (0.0-5.0) % ABG Methemoglobin 0.3 0.7 (0.0-3.0) % Tyler Test Na Pos A-a O2 Difference 79.0 128.0 mm/Hg Respiratory Index 0.6 1.6 Hgb O2 Saturation 97.2 94.2 L (95.0-98.0) % Vent Mode Prvc Simv/ps Mechanical Rate 20 14 FiO2 40.0 40.0 % Tidal Volume 500 500 PEEP 5 5 Pressure Support 10 Sodium (132-148) mmol/L Potassium (3.6-5.2) mmol/L Chloride (98-107) mmol/L Carbon Dioxide (22-30) mmol/L Anion Gap (10-20) BUN (7-17) mg/dL Creatinine (0.7-1.2) mg/dL Est GFR ( Amer) Est GFR (Non-Af Amer) POC Glucose (mg/dL) 234 H (65-110) mg/dL Random Glucose (65-105) mg/dL Calcium (8.6-10.4) mg/dl Phosphorus (2.5-4.5) mg/dL Magnesium (1.6-2.3) mg/dL Total Bilirubin (0.2-1.3) mg/dL AST (14-36) U/L ALT (9-52) U/L Alkaline Phosphatase (38-126) U/L Troponin I (0.00-0.120) ng/mL Total Protein (6.3-8.3) g/dL Albumin (3.5-5.0) g/dL Globulin (2.2-3.9) gm/dL Albumin/Globulin Ratio (1.0-2.1) Urine Color (YELLOW) Urine Clarity (Clear) Urine pH (5.0-8.0) Ur Specific [place] (1.003-1.030) Urine Protein (NEGATIVE) mg/dL Urine Glucose (UA) (Normal) mg/dL Urine Ketones (NEGATIVE) mg/dL Urine Blood (NEGATIVE) Urine Nitrate (NEGATIVE) Urine Bilirubin (NEGATIVE) Urine Urobilinogen (0.2-1.0) mg/dL Ur Leukocyte Esterase (Negative) Stephenie/uL Urine WBC (Auto) (0-5) /hpf Urine RBC (Auto) (0-3) /hpf Urine WBC Clumps (Auto) (NONE) /hpf Ur Squamous Epith Cells (0-5) /hpf Urine Bacteria (<OCC) Hyaline Casts (0-2) /lpf Urine Yeast (Budding) (NEGATIVE) /hpf Urine HCG, Qual (NEGATIVE) Blood Type Antibody Screen 01/13/18 01/13/18 01/13/18 Range/Units 21:14 20:56 20:56 WBC (4.8-10.8) K/uL RBC (3.80-5.20) Mil/uL Hgb (11.0-16.0) g/dL Hct (34.0-47.0) % MCV (81.0-99.0) fL MCH (27.0-31.0) pg MCHC (33.0-37.0) g/dL RDW (11.5-14.5) % Plt Count (130-400) K/uL MPV (7.2-11.7) fL Neut % (Auto) (50.0-75.0) % Lymph % (Auto) (20.0-40.0) % [place] % (Auto) (0.0-10.0) % Eos % (Auto) (0.0-4.0) % Baso % (Auto) (0.0-2.0) % Neut # (Auto) (1.8-7.0) K/uL Lymph # (Auto) (1.0-4.3) K/uL [place] # (Auto) (0.0-0.8) K/uL Eos # (Auto) (0.0-0.7) K/uL Baso # (Auto) (0.0-0.2) K/uL Neutrophils % (Manual) (50-75) % Band Neutrophils % (0-2) % Lymphocytes % (Manual) (20-40) % Monocytes % (Manual) (0-10) % Toxic Granulation Platelet Estimate (NORMAL) Hypochromasia (manual) PT 9.0 L (9.7-12.2) SECONDS INR 0.8 APTT 29 (21-34) SECONDS Puncture Site pCO2 (35-45) mm/Hg pO2 (80-100) mm/Hg HCO3 (21-28) mmol/L ABG pH (7.35-7.45) ABG Total CO2 (22-28) mmol/L ABG O2 Saturation (95-98) % ABG Base Excess (-2.0-3.0) mmol/L ABG Hemoglobin (11.7-17.4) g/dL ABG Carboxyhemoglobin (0.5-1.5) % POC ABG HHb (Measured) (0.0-5.0) % ABG Methemoglobin (0.0-3.0) % Tyler Test A-a O2 Difference mm/Hg Respiratory Index Hgb O2 Saturation (95.0-98.0) % Vent Mode Mechanical Rate FiO2 % Tidal Volume PEEP Pressure Support Sodium 139 (132-148) mmol/L Potassium 4.9 (3.6-5.2) mmol/L Chloride 98 (98-107) mmol/L Carbon Dioxide 27 (22-30) mmol/L Anion Gap 19 (10-20) BUN 42 H (7-17) mg/dL Creatinine 2.4 H (0.7-1.2) mg/dL Est GFR ( Amer) 26 Est GFR (Non-Af Amer) 21 POC Glucose (mg/dL) (65-110) mg/dL Random Glucose 256 H (65-105) mg/dL Calcium 8.7 (8.6-10.4) mg/dl Phosphorus (2.5-4.5) mg/dL Magnesium (1.6-2.3) mg/dL Total Bilirubin 0.5 (0.2-1.3) mg/dL AST 55 H (14-36) U/L ALT 26 (9-52) U/L Alkaline Phosphatase 352 H (38-126) U/L Troponin I < 0.0120 (0.00-0.120) ng/mL Total Protein 7.9 (6.3-8.3) g/dL Albumin 3.8 (3.5-5.0) g/dL Globulin 4.0 H (2.2-3.9) gm/dL Albumin/Globulin Ratio 0.9 L (1.0-2.1) Urine Color (YELLOW) Urine Clarity (Clear) Urine pH (5.0-8.0) Ur Specific [place] (1.003-1.030) Urine Protein (NEGATIVE) mg/dL Urine Glucose (UA) (Normal) mg/dL Urine Ketones (NEGATIVE) mg/dL Urine Blood (NEGATIVE) Urine Nitrate (NEGATIVE) Urine Bilirubin (NEGATIVE) Urine Urobilinogen (0.2-1.0) mg/dL Ur Leukocyte Esterase (Negative) Stephenie/uL Urine WBC (Auto) (0-5) /hpf Urine RBC (Auto) (0-3) /hpf Urine WBC Clumps (Auto) (NONE) /hpf Ur Squamous Epith Cells (0-5) /hpf Urine Bacteria (<OCC) Hyaline Casts (0-2) /lpf Urine Yeast (Budding) (NEGATIVE) /hpf Urine HCG, Qual (NEGATIVE) Blood Type O POSITIVE Antibody Screen Negative 01/13/18 Range/Units 20:56 WBC 6.6 (4.8-10.8) K/uL RBC 4.23 (3.80-5.20) Mil/uL Hgb 12.0 (11.0-16.0) g/dL Hct 36.8 (34.0-47.0) % MCV 87.0 D (81.0-99.0) fL MCH 28.3 (27.0-31.0) pg MCHC 32.5 L (33.0-37.0) g/dL RDW 14.6 H (11.5-14.5) % Plt Count 589 H (130-400) K/uL MPV 8.4 (7.2-11.7) fL Neut % (Auto) 41.7 L (50.0-75.0) % Lymph % (Auto) 46.6 H (20.0-40.0) % [place] % (Auto) 3.7 (0.0-10.0) % Eos % (Auto) 5.5 H (0.0-4.0) % Baso % (Auto) 2.5 H (0.0-2.0) % Neut # (Auto) 2.8 (1.8-7.0) K/uL Lymph # (Auto) 3.1 (1.0-4.3) K/uL [place] # (Auto) 0.2 (0.0-0.8) K/uL Eos # (Auto) 0.4 (0.0-0.7) K/uL Baso # (Auto) 0.2 (0.0-0.2) K/uL Neutrophils % (Manual) (50-75) % Band Neutrophils % (0-2) % Lymphocytes % (Manual) (20-40) % Monocytes % (Manual) (0-10) % Toxic Granulation Platelet Estimate (NORMAL) Hypochromasia (manual) PT (9.7-12.2) SECONDS INR APTT (21-34) SECONDS Puncture Site pCO2 (35-45) mm/Hg pO2 (80-100) mm/Hg HCO3 (21-28) mmol/L ABG pH (7.35-7.45) ABG Total CO2 (22-28) mmol/L ABG O2 Saturation (95-98) % ABG Base Excess (-2.0-3.0) mmol/L ABG Hemoglobin (11.7-17.4) g/dL ABG Carboxyhemoglobin (0.5-1.5) % POC ABG HHb (Measured) (0.0-5.0) % ABG Methemoglobin (0.0-3.0) % Tyler Test A-a O2 Difference mm/Hg Respiratory Index Hgb O2 Saturation (95.0-98.0) % Vent Mode Mechanical Rate FiO2 % Tidal Volume PEEP Pressure Support Sodium (132-148) mmol/L Potassium (3.6-5.2) mmol/L Chloride (98-107) mmol/L Carbon Dioxide (22-30) mmol/L Anion Gap (10-20) BUN (7-17) mg/dL Creatinine (0.7-1.2) mg/dL Est GFR ( Amer) Est GFR (Non-Af Amer) POC Glucose (mg/dL) (65-110) mg/dL Random Glucose (65-105) mg/dL Calcium (8.6-10.4) mg/dl Phosphorus (2.5-4.5) mg/dL Magnesium (1.6-2.3) mg/dL Total Bilirubin (0.2-1.3) mg/dL AST (14-36) U/L ALT (9-52) U/L Alkaline Phosphatase (38-126) U/L Troponin I (0.00-0.120) ng/mL Total Protein (6.3-8.3) g/dL Albumin (3.5-5.0) g/dL Globulin (2.2-3.9) gm/dL Albumin/Globulin Ratio (1.0-2.1) Urine Color (YELLOW) Urine Clarity (Clear) Urine pH (5.0-8.0) Ur Specific [place] (1.003-1.030) Urine Protein (NEGATIVE) mg/dL Urine Glucose (UA) (Normal) mg/dL Urine Ketones (NEGATIVE) mg/dL Urine Blood (NEGATIVE) Urine Nitrate (NEGATIVE) Urine Bilirubin (NEGATIVE) Urine Urobilinogen (0.2-1.0) mg/dL Ur Leukocyte Esterase (Negative) Stephenie/uL Urine WBC (Auto) (0-5) /hpf Urine RBC (Auto) (0-3) /hpf Urine WBC Clumps (Auto) (NONE) /hpf Ur Squamous Epith Cells (0-5) /hpf Urine Bacteria (<OCC) Hyaline Casts (0-2) /lpf Urine Yeast (Budding) (NEGATIVE) /hpf Urine HCG, Qual (NEGATIVE) Blood Type Antibody Screen Laboratory Results - last 24 hr 01/13/18 01/13/18 01/13/18 20:56 20:56 20:56 WBC 6.6 RBC 4.23 Hgb 12.0 Hct 36.8 MCV 87.0 D MCH 28.3 MCHC 32.5 L RDW 14.6 H Plt Count 589 H MPV 8.4 Neut % (Auto) 41.7 L Lymph % (Auto) 46.6 H [place] % (Auto) 3.7 Eos % (Auto) 5.5 H Baso % (Auto) 2.5 H Neut # (Auto) 2.8 Lymph # (Auto) 3.1 [place] # (Auto) 0.2 Eos # (Auto) 0.4 Baso # (Auto) 0.2 Neutrophils % (Manual) Band Neutrophils % Lymphocytes % (Manual) Monocytes % (Manual) Toxic Granulation Platelet Estimate Hypochromasia (manual) PT 9.0 L INR 0.8 APTT 29 Puncture Site pCO2 pO2 HCO3 ABG pH ABG Total CO2 ABG O2 Saturation ABG Base Excess ABG Hemoglobin ABG Carboxyhemoglobin POC ABG HHb (Measured) ABG Methemoglobin [place] Test A-a O2 Difference Respiratory Index Hgb O2 Saturation Vent Mode Mechanical Rate FiO2 Tidal Volume PEEP Pressure Support Sodium 139 Potassium 4.9 Chloride 98 Carbon Dioxide 27 Anion Gap 19 BUN 42 H Creatinine 2.4 H Est GFR ( Amer) 26 Est GFR (Non-Af Amer) 21 POC Glucose (mg/dL) Random Glucose 256 H Calcium 8.7 Phosphorus Magnesium Total Bilirubin 0.5 AST 55 H ALT 26 Alkaline Phosphatase 352 H Troponin I < 0.0120 Total Protein 7.9 Albumin 3.8 Globulin 4.0 H Albumin/Globulin Ratio 0.9 L Urine Color Urine Clarity Urine pH Ur Specific [place] Urine Protein Urine Glucose (UA) Urine Ketones Urine Blood Urine Nitrate Urine Bilirubin Urine Urobilinogen Ur Leukocyte Esterase Urine WBC (Auto) Urine RBC (Auto) Urine WBC Clumps (Auto) Ur Squamous Epith Cells Urine Bacteria Hyaline Casts Urine Yeast (Budding) Urine HCG, Qual Blood Type Antibody Screen 01/13/18 01/14/18 01/14/18 21:14 00:15 00:18 WBC RBC Hgb Hct MCV MCH MCHC RDW Plt Count MPV Neut % (Auto) Lymph % (Auto) [place] % (Auto) Eos % (Auto) Baso % (Auto) Neut # (Auto) Lymph # (Auto) [place] # (Auto) Eos # (Auto) Baso # (Auto) Neutrophils % (Manual) Band Neutrophils % Lymphocytes % (Manual) Monocytes % (Manual) Toxic Granulation Platelet Estimate Hypochromasia (manual) PT INR APTT Puncture Site Rr pCO2 61 H pO2 81 HCO3 25.0 ABG pH 7.27 L ABG Total CO2 29.9 H ABG O2 Saturation 95.5 ABG Base Excess 0.2 ABG Hemoglobin 10.8 L ABG Carboxyhemoglobin 0.6 POC ABG HHb (Measured) 4.4 ABG Methemoglobin 0.7 [place] Test Pos A-a O2 Difference 128.0 Respiratory Index 1.6 Hgb O2 Saturation 94.2 L Vent Mode Simv/ps Mechanical Rate 14 FiO2 40.0 Tidal Volume 500 PEEP 5 Pressure Support 10 Sodium Potassium Chloride Carbon Dioxide Anion Gap BUN Creatinine Est GFR ( Amer) Est GFR (Non-Af Amer) POC Glucose (mg/dL) 234 H Random Glucose Calcium Phosphorus Magnesium Total Bilirubin AST ALT Alkaline Phosphatase Troponin I Total Protein Albumin Globulin Albumin/Globulin Ratio Urine Color Urine Clarity Urine pH Ur Specific [place] Urine Protein Urine Glucose (UA) Urine Ketones Urine Blood Urine Nitrate Urine Bilirubin Urine Urobilinogen Ur Leukocyte Esterase Urine WBC (Auto) Urine RBC (Auto) Urine WBC Clumps (Auto) Ur Squamous Epith Cells Urine Bacteria Hyaline Casts Urine Yeast (Budding) Urine HCG, Qual Blood Type O POSITIVE Antibody Screen Negative 01/14/18 01/14/18 01/14/18 04:59 06:14 06:14 WBC RBC Hgb Hct MCV MCH MCHC RDW Plt Count MPV Neut % (Auto) Lymph % (Auto) [place] % (Auto) Eos % (Auto) Baso % (Auto) Neut # (Auto) Lymph # (Auto) [place] # (Auto) Eos # (Auto) Baso # (Auto) Neutrophils % (Manual) Band Neutrophils % Lymphocytes % (Manual) Monocytes % (Manual) Toxic Granulation Platelet Estimate Hypochromasia (manual) PT INR APTT Puncture Site Rb pCO2 58 H pO2 134 H HCO3 23.5 ABG pH 7.26 L ABG Total CO2 27.8 ABG O2 Saturation 98.0 ABG Base Excess -1.8 ABG Hemoglobin 11.5 L ABG Carboxyhemoglobin 0.5 POC ABG HHb (Measured) 2.0 ABG Methemoglobin 0.3 [place] Test Na A-a O2 Difference 79.0 Respiratory Index 0.6 Hgb O2 Saturation 97.2 Vent Mode Prvc Mechanical Rate 20 FiO2 40.0 Tidal Volume 500 PEEP 5 Pressure Support Sodium Potassium Chloride Carbon Dioxide Anion Gap BUN Creatinine Est GFR ( Amer) Est GFR (Non-Af Amer) POC Glucose (mg/dL) Random Glucose Calcium Phosphorus Magnesium Total Bilirubin AST ALT Alkaline Phosphatase Troponin I Total Protein Albumin Globulin Albumin/Globulin Ratio Urine Color Yellow Urine Clarity Hazy Urine pH 5.0 Ur Specific [place] 1.015 Urine Protein 3+ H Urine Glucose (UA) 1+ Urine Ketones Negative Urine Blood 1+ H Urine Nitrate Negative Urine Bilirubin Negative Urine Urobilinogen Normal Ur Leukocyte Esterase Neg Urine WBC (Auto) 6 H Urine RBC (Auto) 10 H Urine WBC Clumps (Auto) Mod H Ur Squamous Epith Cells 7 H Urine Bacteria Few H Hyaline Casts >20 H Urine Yeast (Budding) Few H Urine HCG, Qual Negative Blood Type Antibody Screen 01/14/18 01/14/18 01/14/18 06:20 06:21 06:21 WBC 10.8 D RBC 3.84 Hgb 10.9 L Hct 33.5 L MCV 87.3 MCH 28.3 MCHC 32.4 L RDW 14.9 H Plt Count 443 H D MPV 8.3 Neut % (Auto) 91.0 H Lymph % (Auto) 6.3 L [place] % (Auto) 2.0 Eos % (Auto) 0.1 Baso % (Auto) 0.6 Neut # (Auto) 9.8 H Lymph # (Auto) 0.7 L [place] # (Auto) 0.2 Eos # (Auto) 0.0 Baso # (Auto) 0.1 Neutrophils % (Manual) 91 H Band Neutrophils % 3 H Lymphocytes % (Manual) 5 L Monocytes % (Manual) 1 Toxic Granulation Present Platelet Estimate Slightly increased H Hypochromasia (manual) Slight PT INR APTT Puncture Site pCO2 pO2 HCO3 ABG pH ABG Total CO2 ABG O2 Saturation ABG Base Excess ABG Hemoglobin ABG Carboxyhemoglobin POC ABG HHb (Measured) ABG Methemoglobin [place] Test A-a O2 Difference Respiratory Index Hgb O2 Saturation Vent Mode Mechanical Rate FiO2 Tidal Volume PEEP Pressure Support Sodium 135 Potassium 6.2 H* D Chloride 97 L Carbon Dioxide 25 Anion Gap 19 BUN 45 H Creatinine 2.7 H Est GFR ( Amer) 22 Est GFR (Non-Af Amer) 19 POC Glucose (mg/dL) 408 H* Random Glucose 389 H Calcium 8.2 L Phosphorus 3.1 Magnesium 1.7 Total Bilirubin 0.4 AST 31 ALT 24 Alkaline Phosphatase 298 H Troponin I Total Protein 7.0 Albumin 3.5 Globulin 3.5 Albumin/Globulin Ratio 1.0 Urine Color Urine Clarity Urine pH Ur Specific [place] Urine Protein Urine Glucose (UA) Urine Ketones Urine Blood Urine Nitrate Urine Bilirubin Urine Urobilinogen Ur Leukocyte Esterase Urine WBC (Auto) Urine RBC (Auto) Urine WBC Clumps (Auto) Ur Squamous Epith Cells Urine Bacteria Hyaline Casts Urine Yeast (Budding) Urine HCG, Qual Blood Type Antibody Screen 01/14/18 01/14/18 01/14/18 11:07 12:02 13:53 WBC RBC Hgb Hct MCV MCH MCHC RDW Plt Count MPV Neut % (Auto) Lymph % (Auto) [place] % (Auto) Eos % (Auto) Baso % (Auto) Neut # (Auto) Lymph # (Auto) [place] # (Auto) Eos # (Auto) Baso # (Auto) Neutrophils % (Manual) Band Neutrophils % Lymphocytes % (Manual) Monocytes % (Manual) Toxic Granulation Platelet Estimate Hypochromasia (manual) PT INR APTT Puncture Site pCO2 pO2 HCO3 ABG pH ABG Total CO2 ABG O2 Saturation ABG Base Excess ABG Hemoglobin ABG Carboxyhemoglobin POC ABG HHb (Measured) ABG Methemoglobin Tyler Test A-a O2 Difference Respiratory Index Hgb O2 Saturation Vent Mode Mechanical Rate FiO2 Tidal Volume PEEP Pressure Support Sodium 135 Potassium 6.0 H Chloride 97 L Carbon Dioxide 27 Anion Gap 17 BUN 47 H Creatinine 2.7 H Est GFR ( Amer) 22 Est GFR (Non-Af Amer) 19 POC Glucose (mg/dL) 353 H 352 H Random Glucose 371 H Calcium 8.5 L Phosphorus Magnesium Total Bilirubin AST ALT Alkaline Phosphatase Troponin I Total Protein Albumin Globulin Albumin/Globulin Ratio Urine Color Urine Clarity Urine pH Ur Specific [place] Urine Protein Urine Glucose (UA) Urine Ketones Urine Blood Urine Nitrate Urine Bilirubin Urine Urobilinogen Ur Leukocyte Esterase Urine WBC (Auto) Urine RBC (Auto) Urine WBC Clumps (Auto) Ur Squamous Epith Cells Urine Bacteria Hyaline Casts Urine Yeast (Budding) Urine HCG, Qual Blood Type Antibody Screen 01/14/18 16:11 WBC RBC Hgb Hct MCV MCH MCHC RDW Plt Count MPV Neut % (Auto) Lymph % (Auto) [place] % (Auto) Eos % (Auto) Baso % (Auto) Neut # (Auto) Lymph # (Auto) [place] # (Auto) Eos # (Auto) Baso # (Auto) Neutrophils % (Manual) Band Neutrophils % Lymphocytes % (Manual) Monocytes % (Manual) Toxic Granulation Platelet Estimate Hypochromasia (manual) PT INR APTT Puncture Site pCO2 pO2 HCO3 ABG pH ABG Total CO2 ABG O2 Saturation ABG Base Excess ABG Hemoglobin ABG Carboxyhemoglobin POC ABG HHb (Measured) ABG Methemoglobin Tyler Test A-a O2 Difference Respiratory Index Hgb O2 Saturation Vent Mode Mechanical Rate FiO2 Tidal Volume PEEP Pressure Support Sodium 137 Potassium 5.5 H Chloride 98 Carbon Dioxide 27 Anion Gap 18 BUN 48 H Creatinine 2.7 H Est GFR ( Amer) 22 Est GFR (Non-Af Amer) 19 POC Glucose (mg/dL) Random Glucose 285 H Calcium 8.8 Phosphorus Magnesium Total Bilirubin AST ALT Alkaline Phosphatase Troponin I Total Protein Albumin Globulin Albumin/Globulin Ratio Urine Color Urine Clarity Urine pH Ur Specific [place] Urine Protein Urine Glucose (UA) Urine Ketones Urine Blood Urine Nitrate Urine Bilirubin Urine Urobilinogen Ur Leukocyte Esterase Urine WBC (Auto) Urine RBC (Auto) Urine WBC Clumps (Auto) Ur Squamous Epith Cells Urine Bacteria Hyaline Casts Urine Yeast (Budding) Urine HCG, Qual Blood Type Antibody Screen EKG/Cardiology Studies: Cardiology / EKG Studies 01/13/18 20:54 EKG [ELECTROCARDIOGRAM] Stat Comment: Mode Of Transportation: Reason For Exam: severe anaphylactic shock Attending/Attestation - Attestation I have personally seen and examined this patient.: Yes I have fully participated in the care of the patient.: Yes I have reviewed all pertinent clinical information: Yes Notes (Text): 01/14/18 16:52 patient seen and examined in the intensive care unit. Case discussedwith house staff in the morning rounds. Patient intubated for anaphylaxis after eating shrimp Continue IV steroids and Benadryl Continue ventilatory support for now ENT follow-up
[2018-01-14 14:18] LABS: CALCIUM 8.5 mg/dl (8.6-10.4)
[2018-01-14 16:47] LABS: CALCIUM 8.8 mg/dl (8.6-10.4)
--- NOTE | 2018-01-14 17:15 | CP.PCM.HP ---
Past Patient History - Infectious Disease Hx of Infectious Diseases: None - Past Medical History & Family History Past Medical History?: Yes - Past Social History Smoking Status: Never Smoked - CARDIAC Hx Hypercholesterolemia: Yes Hx Hypertension: Yes - PULMONARY Hx Asthma: Yes Hx Chronic Obstructive Pulmonary Disease (COPD): Yes Hx Pneumonia: Yes - NEUROLOGICAL Hx Neurological Disorder: No - HEENT Hx HEENT Problems: Yes Hx Cataracts: Yes - RENAL Hx Chronic Kidney Disease: Yes - ENDOCRINE/METABOLIC Hx Endocrine Disorders: Yes Hx Diabetes Mellitus Type 2: Yes - HEMATOLOGICAL/ONCOLOGICAL Hx Anemia: Yes - INTEGUMENTARY Hx Dermatological Problems: No - MUSCULOSKELETAL/RHEUMATOLOGICAL Hx Falls: No - GASTROINTESTINAL Hx Gastrointestinal Disorders: No - GENITOURINARY/GYNECOLOGICAL Hx Genitourinary Disorders: No - PSYCHIATRIC Hx Anxiety: Yes Hx Bipolar Disorder: Yes Hx Depression: Yes Hx Substance Use: No - SURGICAL HISTORY Hx Surgeries: Yes Hx Section: Yes (x1) Hx Eye Surgery: Yes (LEFT EYE) - ANESTHESIA Hx Anesthesia: Yes Hx Anesthesia Reactions: No Hx Malignant Hyperthermia: No Meds Allergies/Adverse Reactions: Allergies Allergy/AdvReac Type Severity Reaction Status Date / Time FISH Allergy Severe ITCHING Verified 08/09/17 17:10 shellfish derived Allergy Severe SWELLING Verified 08/08/17 07:57 Physical Exam - Constitutional Appears: Well - Head Exam Head Exam: ATRAUMATIC, NORMAL INSPECTION, NORMOCEPHALIC - Eye Exam Eye Exam: EOMI, Normal appearance, PERRL Pupil Exam: NORMAL ACCOMODATION, PERRL - ENT Exam ENT Exam: Mucous Membranes Moist, Normal Exam - Neck Exam Neck exam: Positive for: Normal Inspection - Respiratory Exam Respiratory Exam: Decreased Breath Sounds - Cardiovascular Exam Cardiovascular Exam: REGULAR RHYTHM, +S1, +S2 - GI/Abdominal Exam GI & Abdominal Exam: Diminished Bowel Sounds, Soft - Rectal Exam Rectal Exam: Deferred Results - Vital Signs Recent Vital Signs: Last Vital Signs Temp 100 F H 01/14/18 16:56 Pulse 93 H 01/14/18 16:06 Resp 24 01/14/18 16:06 BP 163/83 H 01/14/18 16:06 Pulse Ox 97 01/14/18 16:06 - Labs Result Diagrams: 01/14/18 06:21 01/14/18 16:11 Labs: Laboratory Results - last 24 hr 01/13/18 01/13/18 01/13/18 20:56 20:56 20:56 WBC 6.6 RBC 4.23 Hgb 12.0 Hct 36.8 MCV 87.0 D MCH 28.3 MCHC 32.5 L RDW 14.6 H Plt Count 589 H MPV 8.4 Neut % (Auto) 41.7 L Lymph % (Auto) 46.6 H [place] % (Auto) 3.7 Eos % (Auto) 5.5 H Baso % (Auto) 2.5 H Neut # (Auto) 2.8 Lymph # (Auto) 3.1 [place] # (Auto) 0.2 Eos # (Auto) 0.4 Baso # (Auto) 0.2 Neutrophils % (Manual) Band Neutrophils % Lymphocytes % (Manual) Monocytes % (Manual) Toxic Granulation Platelet Estimate Hypochromasia (manual) PT 9.0 L INR 0.8 APTT 29 Puncture Site pCO2 pO2 HCO3 ABG pH ABG Total CO2 ABG O2 Saturation ABG Base Excess ABG Hemoglobin ABG Carboxyhemoglobin POC ABG HHb (Measured) ABG Methemoglobin Tyler Test A-a O2 Difference Respiratory Index Hgb O2 Saturation Vent Mode Mechanical Rate FiO2 Tidal Volume PEEP Pressure Support Sodium 139 Potassium 4.9 Chloride 98 Carbon Dioxide 27 Anion Gap 19 BUN 42 H Creatinine 2.4 H Est GFR ( Amer) 26 Est GFR (Non-Af Amer) 21 POC Glucose (mg/dL) Random Glucose 256 H Calcium 8.7 Phosphorus Magnesium Total Bilirubin 0.5 AST 55 H ALT 26 Alkaline Phosphatase 352 H Troponin I < 0.0120 Total Protein 7.9 Albumin 3.8 Globulin 4.0 H Albumin/Globulin Ratio 0.9 L Urine Color Urine Clarity Urine pH Ur Specific [place] Urine Protein Urine Glucose (UA) Urine Ketones Urine Blood Urine Nitrate Urine Bilirubin Urine Urobilinogen Ur Leukocyte Esterase Urine WBC (Auto) Urine RBC (Auto) Urine WBC Clumps (Auto) Ur Squamous Epith Cells Urine Bacteria Hyaline Casts Urine Yeast (Budding) Urine HCG, Qual Blood Type Antibody Screen 01/13/18 01/14/18 01/14/18 21:14 00:15 00:18 WBC RBC Hgb Hct MCV MCH MCHC RDW Plt Count MPV Neut % (Auto) Lymph % (Auto) [place] % (Auto) Eos % (Auto) Baso % (Auto) Neut # (Auto) Lymph # (Auto) [place] # (Auto) Eos # (Auto) Baso # (Auto) Neutrophils % (Manual) Band Neutrophils % Lymphocytes % (Manual) Monocytes % (Manual) Toxic Granulation Platelet Estimate Hypochromasia (manual) PT INR APTT Puncture Site Rr pCO2 61 H pO2 81 HCO3 25.0 ABG pH 7.27 L ABG Total CO2 29.9 H ABG O2 Saturation 95.5 ABG Base Excess 0.2 ABG Hemoglobin 10.8 L ABG Carboxyhemoglobin 0.6 POC ABG HHb (Measured) 4.4 ABG Methemoglobin 0.7 Tyler Test Pos A-a O2 Difference 128.0 Respiratory Index 1.6 Hgb O2 Saturation 94.2 L Vent Mode Simv/ps Mechanical Rate 14 FiO2 40.0 Tidal Volume 500 PEEP 5 Pressure Support 10 Sodium Potassium Chloride Carbon Dioxide Anion Gap BUN Creatinine Est GFR ( Amer) Est GFR (Non-Af Amer) POC Glucose (mg/dL) 234 H Random Glucose Calcium Phosphorus Magnesium Total Bilirubin AST ALT Alkaline Phosphatase Troponin I Total Protein Albumin Globulin Albumin/Globulin Ratio Urine Color Urine Clarity Urine pH Ur Specific [place] Urine Protein Urine Glucose (UA) Urine Ketones Urine Blood Urine Nitrate Urine Bilirubin Urine Urobilinogen Ur Leukocyte Esterase Urine WBC (Auto) Urine RBC (Auto) Urine WBC Clumps (Auto) Ur Squamous Epith Cells Urine Bacteria Hyaline Casts Urine Yeast (Budding) Urine HCG, Qual Blood Type O POSITIVE Antibody Screen Negative 01/14/18 01/14/18 01/14/18 04:59 06:14 06:14 WBC RBC Hgb Hct MCV MCH MCHC RDW Plt Count MPV Neut % (Auto) Lymph % (Auto) [place] % (Auto) Eos % (Auto) Baso % (Auto) Neut # (Auto) Lymph # (Auto) [place] # (Auto) Eos # (Auto) Baso # (Auto) Neutrophils % (Manual) Band Neutrophils % Lymphocytes % (Manual) Monocytes % (Manual) Toxic Granulation Platelet Estimate Hypochromasia (manual) PT INR APTT Puncture Site Rb pCO2 58 H pO2 134 H HCO3 23.5 ABG pH 7.26 L ABG Total CO2 27.8 ABG O2 Saturation 98.0 ABG Base Excess -1.8 ABG Hemoglobin 11.5 L ABG Carboxyhemoglobin 0.5 POC ABG HHb (Measured) 2.0 ABG Methemoglobin 0.3 Tyler Test Na A-a O2 Difference 79.0 Respiratory Index 0.6 Hgb O2 Saturation 97.2 Vent Mode Prvc Mechanical Rate 20 FiO2 40.0 Tidal Volume 500 PEEP 5 Pressure Support Sodium Potassium Chloride Carbon Dioxide Anion Gap BUN Creatinine Est GFR ( Amer) Est GFR (Non-Af Amer) POC Glucose (mg/dL) Random Glucose Calcium Phosphorus Magnesium Total Bilirubin AST ALT Alkaline Phosphatase Troponin I Total Protein Albumin Globulin Albumin/Globulin Ratio Urine Color Yellow Urine Clarity Hazy Urine pH 5.0 Ur Specific [place] 1.015 Urine Protein 3+ H Urine Glucose (UA) 1+ Urine Ketones Negative Urine Blood 1+ H Urine Nitrate Negative Urine Bilirubin Negative Urine Urobilinogen Normal Ur Leukocyte Esterase Neg Urine WBC (Auto) 6 H Urine RBC (Auto) 10 H Urine WBC Clumps (Auto) Mod H Ur Squamous Epith Cells 7 H Urine Bacteria Few H Hyaline Casts >20 H Urine Yeast (Budding) Few H Urine HCG, Qual Negative Blood Type Antibody Screen 01/14/18 01/14/18 01/14/18 06:20 06:21 06:21 WBC 10.8 D RBC 3.84 Hgb 10.9 L Hct 33.5 L MCV 87.3 MCH 28.3 MCHC 32.4 L RDW 14.9 H Plt Count 443 H D MPV 8.3 Neut % (Auto) 91.0 H Lymph % (Auto) 6.3 L [place] % (Auto) 2.0 Eos % (Auto) 0.1 Baso % (Auto) 0.6 Neut # (Auto) 9.8 H Lymph # (Auto) 0.7 L [place] # (Auto) 0.2 Eos # (Auto) 0.0 Baso # (Auto) 0.1 Neutrophils % (Manual) 91 H Band Neutrophils % 3 H Lymphocytes % (Manual) 5 L Monocytes % (Manual) 1 Toxic Granulation Present Platelet Estimate Slightly increased H Hypochromasia (manual) Slight PT INR APTT Puncture Site pCO2 pO2 HCO3 ABG pH ABG Total CO2 ABG O2 Saturation ABG Base Excess ABG Hemoglobin ABG Carboxyhemoglobin POC ABG HHb (Measured) ABG Methemoglobin Tyler Test A-a O2 Difference Respiratory Index Hgb O2 Saturation Vent Mode Mechanical Rate FiO2 Tidal Volume PEEP Pressure Support Sodium 135 Potassium 6.2 H* D Chloride 97 L Carbon Dioxide 25 Anion Gap 19 BUN 45 H Creatinine 2.7 H Est GFR ( Amer) 22 Est GFR (Non-Af Amer) 19 POC Glucose (mg/dL) 408 H* Random Glucose 389 H Calcium 8.2 L Phosphorus 3.1 Magnesium 1.7 Total Bilirubin 0.4 AST 31 ALT 24 Alkaline Phosphatase 298 H Troponin I Total Protein 7.0 Albumin 3.5 Globulin 3.5 Albumin/Globulin Ratio 1.0 Urine Color Urine Clarity Urine pH Ur Specific [place] Urine Protein Urine Glucose (UA) Urine Ketones Urine Blood Urine Nitrate Urine Bilirubin Urine Urobilinogen Ur Leukocyte Esterase Urine WBC (Auto) Urine RBC (Auto) Urine WBC Clumps (Auto) Ur Squamous Epith Cells Urine Bacteria Hyaline Casts Urine Yeast (Budding) Urine HCG, Qual Blood Type Antibody Screen 01/14/18 01/14/18 01/14/18 11:07 12:02 13:53 WBC RBC Hgb Hct MCV MCH MCHC RDW Plt Count MPV Neut % (Auto) Lymph % (Auto) [place] % (Auto) Eos % (Auto) Baso % (Auto) Neut # (Auto) Lymph # (Auto) [place] # (Auto) Eos # (Auto) Baso # (Auto) Neutrophils % (Manual) Band Neutrophils % Lymphocytes % (Manual) Monocytes % (Manual) Toxic Granulation Platelet Estimate Hypochromasia (manual) PT INR APTT Puncture Site pCO2 pO2 HCO3 ABG pH ABG Total CO2 ABG O2 Saturation ABG Base Excess ABG Hemoglobin ABG Carboxyhemoglobin POC ABG HHb (Measured) ABG Methemoglobin [place] Test A-a O2 Difference Respiratory Index Hgb O2 Saturation Vent Mode Mechanical Rate FiO2 Tidal Volume PEEP Pressure Support Sodium 135 Potassium 6.0 H Chloride 97 L Carbon Dioxide 27 Anion Gap 17 BUN 47 H Creatinine 2.7 H Est GFR ( Amer) 22 Est GFR (Non-Af Amer) 19 POC Glucose (mg/dL) 353 H 352 H Random Glucose 371 H Calcium 8.5 L Phosphorus Magnesium Total Bilirubin AST ALT Alkaline Phosphatase Troponin I Total Protein Albumin Globulin Albumin/Globulin Ratio Urine Color Urine Clarity Urine pH Ur Specific [place] Urine Protein Urine Glucose (UA) Urine Ketones Urine Blood Urine Nitrate Urine Bilirubin Urine Urobilinogen Ur Leukocyte Esterase Urine WBC (Auto) Urine RBC (Auto) Urine WBC Clumps (Auto) Ur Squamous Epith Cells Urine Bacteria Hyaline Casts Urine Yeast (Budding) Urine HCG, Qual Blood Type Antibody Screen 01/14/18 16:11 WBC RBC Hgb Hct MCV MCH MCHC RDW Plt Count MPV Neut % (Auto) Lymph % (Auto) [place] % (Auto) Eos % (Auto) Baso % (Auto) Neut # (Auto) Lymph # (Auto) [place] # (Auto) Eos # (Auto) Baso # (Auto) Neutrophils % (Manual) Band Neutrophils % Lymphocytes % (Manual) Monocytes % (Manual) Toxic Granulation Platelet Estimate Hypochromasia (manual) PT INR APTT Puncture Site pCO2 pO2 HCO3 ABG pH ABG Total CO2 ABG O2 Saturation ABG Base Excess ABG Hemoglobin ABG Carboxyhemoglobin POC ABG HHb (Measured) ABG Methemoglobin [place] Test A-a O2 Difference Respiratory Index Hgb O2 Saturation Vent Mode Mechanical Rate FiO2 Tidal Volume PEEP Pressure Support Sodium 137 Potassium 5.5 H Chloride 98 Carbon Dioxide 27 Anion Gap 18 BUN 48 H Creatinine 2.7 H Est GFR ( Amer) 22 Est GFR (Non-Af Amer) 19 POC Glucose (mg/dL) Random Glucose 285 H Calcium 8.8 Phosphorus Magnesium Total Bilirubin AST ALT Alkaline Phosphatase Troponin I Total Protein Albumin Globulin Albumin/Globulin Ratio Urine Color Urine Clarity Urine pH Ur Specific [place] Urine Protein Urine Glucose (UA) Urine Ketones Urine Blood Urine Nitrate Urine Bilirubin Urine Urobilinogen Ur Leukocyte Esterase Urine WBC (Auto) Urine RBC (Auto) Urine WBC Clumps (Auto) Ur Squamous Epith Cells Urine Bacteria Hyaline Casts Urine Yeast (Budding) Urine HCG, Qual Blood Type Antibody Screen
[2018-01-15] MEDS: (Novolin R) Insulin Human Regular 100 units/ml vial SC SCH ×5 (00:15→21:54)
[2018-01-15] MEDS: Propofol 10 mg/ml 1,000 MG/100 ML VIAL IV PRN ×5 (00:15→08:57)
[2018-01-15] MEDS: Albuterol-Ipratrop 3 mg / 0.5 (3 ml) UD INH SCH ×4 (01:08→19:43)
[2018-01-15] MEDS: Sodium Chloride 0.9% 1,000 ML IV SCH (03:56)
[2018-01-15 06:03] LABS: ABG ALLEN TEST POS; ARTERIAL BLOOD GAS HCO3 25.2 mmol/L (21-28); ARTERIAL BLOOD GAS HEMOGLOBIN 12.2 g/dL (11.7-17.4); ARTERIAL BLOOD GAS O2 SAT 96.5 % (95-98); ARTERIAL BLOOD GAS PCO2 48 mm/Hg (35-45); ARTERIAL BLOOD GAS PH 7.35 (7.35-7.45); ARTERIAL BLOOD GAS PO2 82 mm/Hg (80-100)
[2018-01-15 06:13] LABS: BASO % 0.3 % (0.0-2.0); EOS % 0.2 % (0.0-4.0); HEMOGLOBIN 10.5 g/dL (11.0-16.0); LYMPH # 0.8 K/uL (1.0-4.3); LYMPH % 10.7 % (20.0-40.0); MEAN CELL VOLUME 87.2 fL (81.0-99.0); MEAN CORPUSCULAR HEMOGLOBIN 28.9 pg (27.0-31.0); MEAN CORPUSCULAR HGB CONC 33.2 g/dL (33.0-37.0); MEAN PLATELET VOLUME 8.8 fL (7.2-11.7); MONO # 0.4 K/uL (0.0-0.8); MONO % 5.2 % (0.0-10.0); NEUT # 6.2 K/uL (1.8-7.0); NEUT % 83.6 % (50.0-75.0); RBC 3.62 Mil/uL (3.80-5.20); RED CELL DISTRIBUTION WIDTH 14.7 % (11.5-14.5); WHITE BLOOD COUNT 7.4 K/uL (4.8-10.8)
[2018-01-15 06:40] LABS: ALB/GLOB RATIO 0.9 (1.0-2.1); ALBUMIN 3.4 g/dL (3.5-5.0); CALCIUM 8.8 mg/dl (8.6-10.4)
--- NOTE | 2018-01-15 08:04 | RAD ---
HISTORY: intubated/ff-up COMPARISON: Chest x-ray 01/14/2018 TECHNIQUE: Chest one view . FINDINGS: LUNGS: Moderate pulmonary vascular congestion. Endotracheal tube tip is above the cordelia. PLEURA: Small bilateral pleural effusions, right greater than left. CARDIOVASCULAR: Heart size is enlarged. OSSEOUS STRUCTURES: No acute fracture identified VISUALIZED UPPER ABDOMEN: Unremarkable. OTHER FINDINGS: None. IMPRESSION: Moderate pulmonary vascular congestion. Small bilateral pleural effusions, right greater than left.
[2018-01-15] MEDS ORDERED: Midazolam 2 MG/2 ML VIAL ONE (09:38)
[2018-01-15] MEDS ORDERED: Propofol 10 mg/ml Inj (20 ML) ONE (09:38)
[2018-01-15] MEDS ORDERED: Enoxaparin 30 mg Syringe SC SCH (11:00)
--- NOTE | 2018-01-15 11:28 | OP ---
PROCEDURE DATE: 01/13/2018 PREOPERATIVE DIAGNOSIS: Upper airway obstruction. POSTOPERATIVE DIAGNOSIS: Upper airway obstruction. PROCEDURE: Flexible laryngoscopy. SIGNIFICANT FINDINGS: Edema of arytenoids and epiglottis. DESCRIPTION OF PROCEDURE: The patient was placed in a seated position. Nose was decongested using Afrin. The flexible laryngoscope was then inserted into the nasal cavity, passed through nasopharynx, oropharynx, and hypopharynx. The pharyngeal padilla, base of tongue, vallecula, epiglottis, AE folds, false cords, true cords, pyriform sinuses, arytenoids were brought into view. Edema of the epiglottis and arytenoid was noted. Vocal cords were noted. Airway obstruction was noted. The scope was removed. The patient tolerated the procedure well. Juan Lamb MD
--- NOTE | 2018-01-15 11:42 | CP.CCUPN ---
CCU Subjective - Physician Review Subjective (Free Text): 01/14/18 12:45 Patient seen and examined. Patient intubated and sedated. Per staff, patient gets agitated at times. 01/15/18 8:36 Patient seen and examined. Patient is intubated and sedated. No acute events noted. CCU Objective - Vital Signs / Intake & Output Intake and Output (Last 8hrs): Intake & Output 01/14/18 01/15/18 01/15/18 22:59 06:59 14:59 Intake Total 1424.0 1456.8 232.1 Output Total 1320 1300 Balance 104.0 156.8 232.1 Weight 327 lb Intake: IV 400 400 100 Intake, IV Amount 1024.0 1056.8 132.1 LT FA #2 424.0 456.8 57.1 Left Forearm 600 600 75 Output: Urine 1320 1300 Urethral (Cooley) 1320 1300 Emesis 0 Other: # Bowel Movements 0 0 0 - Physical Exam Pupils: Positive for: Sluggish Conjunctiva: Positive for: Normal Mouth: Positive for: Moist Mucous Membranes Nose (External): Positive for: Other (intubated) Respiratory/Chest: Positive for: Other (Coarse breath sounds). Negative for: Wheezes, Rales, Rhonchi Cardiovascular: Positive for: Regular Rate and Rhythm, Normal S1, S2 Abdomen: Positive for: Normal Bowel Sounds. Negative for: Tenderness Upper Extremity: Positive for: Normal Inspection Lower Extremity: Positive for: Edema Skin: Positive for: Warm, Dry - Medications Active Medications: Active Medications Generic Name Dose Route Start Last Admin Trade Name Freq PRN Reason Stop Dose Admin Albuterol/Ipratropium 3 ml 01/14/18 10:15 01/15/18 07:22 Duoneb 3 Mg/0.5 Mg (3 Ml) Ud INH 3 ml RQ6 COLE Administration Diphenhydramine HCl 50 mg 01/13/18 23:32 01/15/18 08:57 Benadryl IVP 50 mg Q8H PRN Administration Allergy symptoms Enoxaparin Sodium 30 mg 01/15/18 11:00 01/15/18 11:00 Lovenox SC 30 mg DAILY COLE Administration Famotidine 20 mg 01/14/18 10:00 01/15/18 09:10 Pepcid IVP 20 mg DAILY COLE Administration Propofol 1,000 mg in 100 mls @ 4.082 mls/hr 01/13/18 22:47 01/15/18 08:57 Diprivan IV 70 mcg/kg/min .Q24H PRN 57.153 mls/hr TITRATE PER MD ORDER Administration Protocol 5 MCG/KG/MIN Sodium Chloride 1,000 mls @ 75 mls/hr 01/13/18 23:45 01/15/18 03:56 Sodium Chloride 0.9% IV 75 mls/hr .[id number] COLE Administration Insulin Human Regular 0 unit 01/14/18 18:00 01/15/18 11:33 Novolin R SC 10 unit Q6H COLE Administration Protocol Methylprednisolone 60 mg 01/14/18 00:00 01/15/18 08:00 Solu-Medrol IVP Not Given Q8H COLE - Patient Studies Lab Studies: Microbiology Studies 01/13/18 23:12 Urine Culture - Final Urine,Cooley No Growth (<1,000 CFU/ML) Lab Studies 01/15/18 01/15/18 01/15/18 Range/Units 11:15 06:04 06:04 WBC 7.4 (4.8-10.8) K/uL RBC 3.62 L (3.80-5.20) Mil/uL Hgb 10.5 L (11.0-16.0) g/dL Hct 31.6 L (34.0-47.0) % MCV 87.2 (81.0-99.0) fL MCH 28.9 (27.0-31.0) pg MCHC 33.2 (33.0-37.0) g/dL RDW 14.7 H (11.5-14.5) % Plt Count 403 H (130-400) K/uL MPV 8.8 (7.2-11.7) fL Neut % (Auto) 83.6 H (50.0-75.0) % Lymph % (Auto) 10.7 L (20.0-40.0) % Pender % (Auto) 5.2 (0.0-10.0) % Eos % (Auto) 0.2 (0.0-4.0) % Baso % (Auto) 0.3 (0.0-2.0) % Neut # (Auto) 6.2 (1.8-7.0) K/uL Lymph # (Auto) 0.8 L (1.0-4.3) K/uL Pender # (Auto) 0.4 (0.0-0.8) K/uL Eos # (Auto) 0.0 (0.0-0.7) K/uL Baso # (Auto) 0.0 (0.0-0.2) K/uL Puncture Site pCO2 (35-45) mm/Hg pO2 (80-100) mm/Hg HCO3 (21-28) mmol/L ABG pH (7.35-7.45) ABG Total CO2 (22-28) mmol/L ABG O2 Saturation (95-98) % ABG Base Excess (-2.0-3.0) mmol/L ABG Hemoglobin (11.7-17.4) g/dL ABG Carboxyhemoglobin (0.5-1.5) % POC ABG HHb (Measured) (0.0-5.0) % ABG Methemoglobin (0.0-3.0) % Tyler Test A-a O2 Difference mm/Hg Respiratory Index Hgb O2 Saturation (95.0-98.0) % Vent Mode Mechanical Rate FiO2 % Tidal Volume PEEP Sodium 138 (132-148) mmol/L Potassium 5.2 (3.6-5.2) mmol/L Chloride 100 (98-107) mmol/L Carbon Dioxide 26 (22-30) mmol/L Anion Gap 18 (10-20) BUN 48 H (7-17) mg/dL Creatinine 2.6 H (0.7-1.2) mg/dL Est GFR ( Amer) 23 Est GFR (Non-Af Amer) 19 POC Glucose (mg/dL) 383 H (65-110) mg/dL Random Glucose 391 H (65-105) mg/dL Calcium 8.8 (8.6-10.4) mg/dl Phosphorus 4.2 (2.5-4.5) mg/dL Magnesium 2.0 (1.6-2.3) mg/dL Total Bilirubin 0.3 (0.2-1.3) mg/dL AST 45 H D (14-36) U/L ALT 28 (9-52) U/L Alkaline Phosphatase 277 H (38-126) U/L NT-Pro-B Natriuret Pep 1070 H (0-900) pg/mL Total Protein 6.9 (6.3-8.3) g/dL Albumin 3.4 L (3.5-5.0) g/dL Globulin 3.6 (2.2-3.9) gm/dL Albumin/Globulin Ratio 0.9 L (1.0-2.1) 01/15/18 01/15/18 01/14/18 Range/Units 05:53 05:19 23:43 WBC (4.8-10.8) K/uL RBC (3.80-5.20) Mil/uL Hgb (11.0-16.0) g/dL Hct (34.0-47.0) % MCV (81.0-99.0) fL MCH (27.0-31.0) pg MCHC (33.0-37.0) g/dL RDW (11.5-14.5) % Plt Count (130-400) K/uL MPV (7.2-11.7) fL Neut % (Auto) (50.0-75.0) % Lymph % (Auto) (20.0-40.0) % Pender % (Auto) (0.0-10.0) % Eos % (Auto) (0.0-4.0) % Baso % (Auto) (0.0-2.0) % Neut # (Auto) (1.8-7.0) K/uL Lymph # (Auto) (1.0-4.3) K/uL Pender # (Auto) (0.0-0.8) K/uL Eos # (Auto) (0.0-0.7) K/uL Baso # (Auto) (0.0-0.2) K/uL Puncture Site L rad pCO2 48 H (35-45) mm/Hg pO2 82 (80-100) mm/Hg HCO3 25.2 (21-28) mmol/L ABG pH 7.35 (7.35-7.45) ABG Total CO2 28.0 (22-28) mmol/L ABG O2 Saturation 96.5 (95-98) % ABG Base Excess 0.4 (-2.0-3.0) mmol/L ABG Hemoglobin 12.2 (11.7-17.4) g/dL ABG Carboxyhemoglobin 0.5 (0.5-1.5) % POC ABG HHb (Measured) 3.5 (0.0-5.0) % ABG Methemoglobin 0.3 (0.0-3.0) % Tyler Test Pos A-a O2 Difference 143.0 mm/Hg Respiratory Index 1.7 Hgb O2 Saturation 95.7 (95.0-98.0) % Vent Mode Prvc Mechanical Rate 20 FiO2 40.0 % Tidal Volume 500 PEEP 5 Sodium (132-148) mmol/L Potassium (3.6-5.2) mmol/L Chloride (98-107) mmol/L Carbon Dioxide (22-30) mmol/L Anion Gap (10-20) BUN (7-17) mg/dL Creatinine (0.7-1.2) mg/dL Est GFR ( Amer) Est GFR (Non-Af Amer) POC Glucose (mg/dL) 343 H 385 H (65-110) mg/dL Random Glucose (65-105) mg/dL Calcium (8.6-10.4) mg/dl Phosphorus (2.5-4.5) mg/dL Magnesium (1.6-2.3) mg/dL Total Bilirubin (0.2-1.3) mg/dL AST (14-36) U/L ALT (9-52) U/L Alkaline Phosphatase (38-126) U/L NT-Pro-B Natriuret Pep (0-900) pg/mL Total Protein (6.3-8.3) g/dL Albumin (3.5-5.0) g/dL Globulin (2.2-3.9) gm/dL Albumin/Globulin Ratio (1.0-2.1) 01/14/18 01/14/18 01/14/18 Range/Units 17:33 16:11 13:53 WBC (4.8-10.8) K/uL RBC (3.80-5.20) Mil/uL Hgb (11.0-16.0) g/dL Hct (34.0-47.0) % MCV (81.0-99.0) fL MCH (27.0-31.0) pg MCHC (33.0-37.0) g/dL RDW (11.5-14.5) % Plt Count (130-400) K/uL MPV (7.2-11.7) fL Neut % (Auto) (50.0-75.0) % Lymph % (Auto) (20.0-40.0) % Pender % (Auto) (0.0-10.0) % Eos % (Auto) (0.0-4.0) % Baso % (Auto) (0.0-2.0) % Neut # (Auto) (1.8-7.0) K/uL Lymph # (Auto) (1.0-4.3) K/uL Pender # (Auto) (0.0-0.8) K/uL Eos # (Auto) (0.0-0.7) K/uL Baso # (Auto) (0.0-0.2) K/uL Puncture Site pCO2 (35-45) mm/Hg pO2 (80-100) mm/Hg HCO3 (21-28) mmol/L ABG pH (7.35-7.45) ABG Total CO2 (22-28) mmol/L ABG O2 Saturation (95-98) % ABG Base Excess (-2.0-3.0) mmol/L ABG Hemoglobin (11.7-17.4) g/dL ABG Carboxyhemoglobin (0.5-1.5) % POC ABG HHb (Measured) (0.0-5.0) % ABG Methemoglobin (0.0-3.0) % Tyler Test A-a O2 Difference mm/Hg Respiratory Index Hgb O2 Saturation (95.0-98.0) % Vent Mode Mechanical Rate FiO2 % Tidal Volume PEEP Sodium 137 135 (132-148) mmol/L Potassium 5.5 H 6.0 H (3.6-5.2) mmol/L Chloride 98 97 L (98-107) mmol/L Carbon Dioxide 27 27 (22-30) mmol/L Anion Gap 18 17 (10-20) BUN 48 H 47 H (7-17) mg/dL Creatinine 2.7 H 2.7 H (0.7-1.2) mg/dL Est GFR ( Amer) 22 22 Est GFR (Non-Af Amer) 19 19 POC Glucose (mg/dL) 259 H (65-110) mg/dL Random Glucose 285 H 371 H (65-105) mg/dL Calcium 8.8 8.5 L (8.6-10.4) mg/dl Phosphorus (2.5-4.5) mg/dL Magnesium (1.6-2.3) mg/dL Total Bilirubin (0.2-1.3) mg/dL AST (14-36) U/L ALT (9-52) U/L Alkaline Phosphatase (38-126) U/L NT-Pro-B Natriuret Pep (0-900) pg/mL Total Protein (6.3-8.3) g/dL Albumin (3.5-5.0) g/dL Globulin (2.2-3.9) gm/dL Albumin/Globulin Ratio (1.0-2.1) 01/14/18 Range/Units 12:02 WBC (4.8-10.8) K/uL RBC (3.80-5.20) Mil/uL Hgb (11.0-16.0) g/dL Hct (34.0-47.0) % MCV (81.0-99.0) fL MCH (27.0-31.0) pg MCHC (33.0-37.0) g/dL RDW (11.5-14.5) % Plt Count (130-400) K/uL MPV (7.2-11.7) fL Neut % (Auto) (50.0-75.0) % Lymph % (Auto) (20.0-40.0) % Pender % (Auto) (0.0-10.0) % Eos % (Auto) (0.0-4.0) % Baso % (Auto) (0.0-2.0) % Neut # (Auto) (1.8-7.0) K/uL Lymph # (Auto) (1.0-4.3) K/uL Pender # (Auto) (0.0-0.8) K/uL Eos # (Auto) (0.0-0.7) K/uL Baso # (Auto) (0.0-0.2) K/uL Puncture Site pCO2 (35-45) mm/Hg pO2 (80-100) mm/Hg HCO3 (21-28) mmol/L ABG pH (7.35-7.45) ABG Total CO2 (22-28) mmol/L ABG O2 Saturation (95-98) % ABG Base Excess (-2.0-3.0) mmol/L ABG Hemoglobin (11.7-17.4) g/dL ABG Carboxyhemoglobin (0.5-1.5) % POC ABG HHb (Measured) (0.0-5.0) % ABG Methemoglobin (0.0-3.0) % Tyler Test A-a O2 Difference mm/Hg Respiratory Index Hgb O2 Saturation (95.0-98.0) % Vent Mode Mechanical Rate FiO2 % Tidal Volume PEEP Sodium (132-148) mmol/L Potassium (3.6-5.2) mmol/L Chloride (98-107) mmol/L Carbon Dioxide (22-30) mmol/L Anion Gap (10-20) BUN (7-17) mg/dL Creatinine (0.7-1.2) mg/dL Est GFR ( Amer) Est GFR (Non-Af Amer) POC Glucose (mg/dL) 352 H (65-110) mg/dL Random Glucose (65-105) mg/dL Calcium (8.6-10.4) mg/dl Phosphorus (2.5-4.5) mg/dL Magnesium (1.6-2.3) mg/dL Total Bilirubin (0.2-1.3) mg/dL AST (14-36) U/L ALT (9-52) U/L Alkaline Phosphatase (38-126) U/L NT-Pro-B Natriuret Pep (0-900) pg/mL Total Protein (6.3-8.3) g/dL Albumin (3.5-5.0) g/dL Globulin (2.2-3.9) gm/dL Albumin/Globulin Ratio (1.0-2.1) Laboratory Results - last 24 hr 01/14/18 01/14/18 01/14/18 12:02 13:53 16:11 WBC RBC Hgb Hct MCV MCH MCHC RDW Plt Count MPV Neut % (Auto) Lymph % (Auto) Pender % (Auto) Eos % (Auto) Baso % (Auto) Neut # (Auto) Lymph # (Auto) Pender # (Auto) Eos # (Auto) Baso # (Auto) Puncture Site pCO2 pO2 HCO3 ABG pH ABG Total CO2 ABG O2 Saturation ABG Base Excess ABG Hemoglobin ABG Carboxyhemoglobin POC ABG HHb (Measured) ABG Methemoglobin Tyler Test A-a O2 Difference Respiratory Index Hgb O2 Saturation Vent Mode Mechanical Rate FiO2 Tidal Volume PEEP Sodium 135 137 Potassium 6.0 H 5.5 H Chloride 97 L 98 Carbon Dioxide 27 27 Anion Gap 17 18 BUN 47 H 48 H Creatinine 2.7 H 2.7 H Est GFR ( Amer) 22 22 Est GFR (Non-Af Amer) 19 19 POC Glucose (mg/dL) 352 H Random Glucose 371 H 285 H Calcium 8.5 L 8.8 Phosphorus Magnesium Total Bilirubin AST ALT Alkaline Phosphatase NT-Pro-B Natriuret Pep Total Protein Albumin Globulin Albumin/Globulin Ratio 01/14/18 01/14/18 01/15/18 17:33 23:43 05:19 WBC RBC Hgb Hct MCV MCH MCHC RDW Plt Count MPV Neut % (Auto) Lymph % (Auto) Pender % (Auto) Eos % (Auto) Baso % (Auto) Neut # (Auto) Lymph # (Auto) Pender # (Auto) Eos # (Auto) Baso # (Auto) Puncture Site L rad pCO2 48 H pO2 82 HCO3 25.2 ABG pH 7.35 ABG Total CO2 28.0 ABG O2 Saturation 96.5 ABG Base Excess 0.4 ABG Hemoglobin 12.2 ABG Carboxyhemoglobin 0.5 POC ABG HHb (Measured) 3.5 ABG Methemoglobin 0.3 Tyler Test Pos A-a O2 Difference 143.0 Respiratory Index 1.7 Hgb O2 Saturation 95.7 Vent Mode Prvc Mechanical Rate 20 FiO2 40.0 Tidal Volume 500 PEEP 5 Sodium Potassium Chloride Carbon Dioxide Anion Gap BUN Creatinine Est GFR ( Amer) Est GFR (Non-Af Amer) POC Glucose (mg/dL) 259 H 385 H Random Glucose Calcium Phosphorus Magnesium Total Bilirubin AST ALT Alkaline Phosphatase NT-Pro-B Natriuret Pep Total Protein Albumin Globulin Albumin/Globulin Ratio 01/15/18 01/15/18 01/15/18 05:53 06:04 06:04 WBC 7.4 RBC 3.62 L Hgb 10.5 L Hct 31.6 L MCV 87.2 MCH 28.9 MCHC 33.2 RDW 14.7 H Plt Count 403 H MPV 8.8 Neut % (Auto) 83.6 H Lymph % (Auto) 10.7 L Pender % (Auto) 5.2 Eos % (Auto) 0.2 Baso % (Auto) 0.3 Neut # (Auto) 6.2 Lymph # (Auto) 0.8 L Pender # (Auto) 0.4 Eos # (Auto) 0.0 Baso # (Auto) 0.0 Puncture Site pCO2 pO2 HCO3 ABG pH ABG Total CO2 ABG O2 Saturation ABG Base Excess ABG Hemoglobin ABG Carboxyhemoglobin POC ABG HHb (Measured) ABG Methemoglobin Tyler Test A-a O2 Difference Respiratory Index Hgb O2 Saturation Vent Mode Mechanical Rate FiO2 Tidal Volume PEEP Sodium 138 Potassium 5.2 Chloride 100 Carbon Dioxide 26 Anion Gap 18 BUN 48 H Creatinine 2.6 H Est GFR ( Amer) 23 Est GFR (Non-Af Amer) 19 POC Glucose (mg/dL) 343 H Random Glucose 391 H Calcium 8.8 Phosphorus 4.2 Magnesium 2.0 Total Bilirubin 0.3 AST 45 H D ALT 28 Alkaline Phosphatase 277 H NT-Pro-B Natriuret Pep 1070 H Total Protein 6.9 Albumin 3.4 L Globulin 3.6 Albumin/Globulin Ratio 0.9 L 01/15/18 11:15 WBC RBC Hgb Hct MCV MCH MCHC RDW Plt Count MPV Neut % (Auto) Lymph % (Auto) Pender % (Auto) Eos % (Auto) Baso % (Auto) Neut # (Auto) Lymph # (Auto) Pender # (Auto) Eos # (Auto) Baso # (Auto) Puncture Site pCO2 pO2 HCO3 ABG pH ABG Total CO2 ABG O2 Saturation ABG Base Excess ABG Hemoglobin ABG Carboxyhemoglobin POC ABG HHb (Measured) ABG Methemoglobin Tyler Test A-a O2 Difference Respiratory Index Hgb O2 Saturation Vent Mode Mechanical Rate FiO2 Tidal Volume PEEP Sodium Potassium Chloride Carbon Dioxide Anion Gap BUN Creatinine Est GFR ( Amer) Est GFR (Non-Af Amer) POC Glucose (mg/dL) 383 H Random Glucose Calcium Phosphorus Magnesium Total Bilirubin AST ALT Alkaline Phosphatase NT-Pro-B Natriuret Pep Total Protein Albumin Globulin Albumin/Globulin Ratio Fingerstick Blood Sugar Results: 383 Assessment/Plan - Assessment and Plan (Free Text) Assessment: This is 52 year old female with PMHx Asthma,anemia, Bipolar Disorder, Diabetes , HTN, Hypercholesterolemia, Chronic Kidney Disease who presented with anaphylaxis after ingesting shrimp. Patient now extubated after laryngoscopy performed by ENT. Neuro Intubated and sedated on Diprivan ENT Solumedrol 40 mg Q8H Cardio Held home Coreg due to history of COPD and asthma Restarted patient's home Torsemide 100 mg PO daily Norvasc 5 mg PO daily Pulm Extubated Duoneb Q6H COLE Decreased Solumedrol to 40 mg Q8H GI Soft diet Endocrine Accuchecks ACHS Regular ISS ACHS Restarted patient's home Lantus 35 mg SC HS Renal Continue to monitor BUN/Cr Prophylaxis Lovenox SC daily Pepcid 20 mg IV daily Discussed with Dr. Gerard
--- NOTE | 2018-01-15 11:56 | OP ---
PROCEDURE DATE: 01/15/2018 PREOPERATIVE DIAGNOSIS: Possible upper airway obstruction. POSTOPERATIVE DIAGNOSIS: Possible upper airway obstruction. PROCEDURE: Direct laryngoscopy. SIGNIFICANT FINDINGS: No edema, no masses, no lesions. SURGEON: Juan Lamb MD DESCRIPTION OF PROCEDURE: The patient was placed in a supine position. Anesthesia was initiated through an IV. The patient was already intubated. GlideScope was inserted into the oral cavity, passed through the oropharynx and hypopharynx. The pharyngeal padilla, base of tongue, vallecula, epiglottis, AE folds, false cords, true cords, pyriform sinuses were brought into view, as well as the arytenoids. No masses or lesions were noted. No erythema or edema was noted. It was a limited exam secondary to the ET tube. However, no edema was noted and the airway was noted to be patent. There was no airway obstruction noted. At that point, the GlideScope was removed. The patient tolerated the procedure well. The patient is okay to be extubated from the upper airway point of view. Juan Lamb MD
--- NOTE | 2018-01-15 16:31 | CP.PCM.PN ---
Subjective - Date & Time of Evaluation Date of Evaluation: 01/15/18 Time of Evaluation: 09:45 - Subjective Subjective: clinically same Objective - Vital Signs/Intake and Output Vital Signs (last 24 hours): Temp Pulse Resp BP Pulse Ox 99.1 F 97 H 21 187/82 H 94 L 01/15/18 08:00 01/15/18 15:42 01/15/18 15:42 01/15/18 15:42 01/15/18 15:42 Intake and Output: 01/15/18 01/15/18 06:59 18:59 Intake Total 2185.2 853.4 Output Total 1999 1400 Balance 185.2 -546.6 - Medications Medications: Current Medications Albuterol/Ipratropium (Duoneb 3 Mg/0.5 Mg (3 Ml) Ud) 3 ml INH RQ6 [facility] Last Admin: 01/15/18 13:15 Dose: 3 ml Amlodipine Besylate (Norvasc) 5 mg PO DAILY [facility] Last Admin: 01/15/18 12:35 Dose: 5 mg Enoxaparin Sodium (Lovenox) 30 mg SC DAILY [facility] Last Admin: 01/15/18 11:00 Dose: 30 mg Famotidine (Pepcid) 20 mg IVP DAILY [facility] Last Admin: 01/15/18 09:10 Dose: 20 mg Insulin Glargine (Lantus) 35 unit SC HS [facility] Insulin Human Regular (Novolin R) 0 unit SC ACHS [facility] PRN Reason: Protocol Methylprednisolone (Solu-Medrol) 40 mg IVP Q8H [facility] Torsemide (Demadex) 100 mg PO DAILY [facility] - Labs Labs: 01/15/18 06:04 01/15/18 06:04 PT 9.0 SECONDS (9.7-12.2) L 01/13/18 20:56 INR 0.8 01/13/18 20:56 APTT 29 SECONDS (21-34) 01/13/18 20:56 - Constitutional Appears: Well - Head Exam Head Exam: ATRAUMATIC, NORMAL INSPECTION, NORMOCEPHALIC - Eye Exam Eye Exam: EOMI, Normal appearance, PERRL Pupil Exam: NORMAL ACCOMODATION, PERRL - ENT Exam ENT Exam: Mucous Membranes Moist, Normal Exam - Neck Exam Neck Exam: Full ROM, Normal Inspection. absent: Lymphadenopathy - Respiratory Exam Respiratory Exam: Decreased Breath Sounds - Cardiovascular Exam Cardiovascular Exam: REGULAR RHYTHM, +S1, +S2 - GI/Abdominal Exam GI & Abdominal Exam: Soft, Diminished Bowel Sounds - Rectal Exam Rectal Exam: Deferred
--- NOTE | 2018-01-15 19:51 | CP.PCM.CON ---
History of Present Illness - History of Present Illness History of Present Illness: I was asked to see patient by Dr Denice Saldivar. Patient is a 52 year old female with PMH HTN, hypercholesterolemia seafood allergy who presents wtih angioedema. The patient apparently ate seafood, required intubation. She is now extubated. She denies curretn chest pain or dypsnea. Review of Systems - Constitutional Constitutional: absent: As Per HPI, Anorexia, Chills, Daytime Sleepiness, Excessive Sweating, Fatigue, Fever, Frequent Falls, Headache, Increased Appetite , Lethargy, Malaise, Night Sweats, Snoring, Sleep Apnea, Weight Gain, Weight Loss, Weakness, Other - EENT Eyes: absent: As Per HPI, Blind Spots, Blurred Vision, Change in Vision, Decreased Night Vision, Diplopia, Discharge, Dry Eye, Exophthalmos, Floaters, Irritation, Itchy Eyes, Loss of Peripheral Vision, Pain, Photophobia, Requires Corrective Lenses, Sees Flashes, Spots in Vision, Tunnel Vision, Other Visual Disturbances, Loss of Vision, Other Ears: absent: As Per HPI, Decreased Hearing, Ear Discharge, Ear Pain, Tinnitus, Abnormal Hearing, Disequilibrium, Dizziness, Other Nose/Mouth/Throat: absent: As Per HPI, Epistaxis, Nasal Congestion, Nasal Discharge, Nasal Obstruction, Nasal Trauma, Nose Pain, Post Nasal Drip, Sinus Pain, Sinus Pressure, Bleeding Gums, Change in Voice, Dental Pain, Dry Mouth, Dysphagia, Halitosis, Hoarsness, Lip Swelling, Mouth Lesions, Mouth Pain, Odynophagia, Sore Throat, Throat Swelling, Tongue Swelling, Facial Pain, Neck Pain, Neck Mass, Other - Cardiovascular Cardiovascular: absent: As Per HPI, Acrocyanosis, Chest Pain, Chest Pain at Rest , Chest Pain with Activity, Claudication, Diaphoresis, Dyspnea, Dyspnea on Exertion, Edema, Irregular Heart Rhythm, Pain Radiating to Arm/Neck/Jaw, Leg Edema, Leg Ulcers, Lightheadedness, Orthopnea, Palpitations, Paroxysmal Nocturnal Dyspnea, Pedal Edema, Radiating Pain, Rapid Heart Rate, Slow Heart Rate, Syncope, Other - Respiratory Respiratory: Dyspnea - Gastrointestinal Gastrointestinal: absent: As Per HPI, Abdominal Pain, Belching, Bloating, Change in Bowel Habits, Change in Stool Character, Coffee Ground Emesis, Constipation, Cramping, Diarrhea, Dyspepsia, Dysphagia, Early Satiety, Excessive Flatus, Fecal Incontinence, Heartburn, Hematemesis, Hematochezia, Loose Stools, Melena, Nausea, Odynophagia, Temesmus, Vomiting, Other - Genitourinary Genitourinary: absent: As Per HPI, Change in Urinary Stream, Difficulty Urinating, Dysuria, Flank Pain, Hematuria, Pyuria, Nocturia, Urinary Incontinence, Urinary Frequency, Urinary Hesitance, Urinary Urgency, Voiding Freq/Small Amts, Freq UTI, Hx Renal/Bladder Calculi, Hx /Renal Surgery, Bladder Distension, Other - Musculoskeletal Musculoskeletal: absent: As Per HPI, Abnormal Gait, Arthralgias, Atrophy, Back Pain, Deformity, Joint Swelling, Limited Range of Motion, Loss of Height, Muscle Cramps, Muscle Weakness, Myalgias, Neck Pain, Numbness, Radiating Pain into Limb, Stiffness, Tingling, Other - Integumentary Integumentary: absent: As Per HPI, Acne, Alopecia, Bleeding Lesions, Change in Hair, Change in Nails, Change in Pigmentation, Changing Lesions, Dry Skin, Erythema, Furuncle, Hirsutism, Lesions, New Lesions, Non-Healing Lesions, Photosensitivity, Pruritus, Rash, Skin Pain, Skin Ulcer, Sores, Striae, Swelling , Unusual Bruising, Wounds, Jaundice, Other - Neurological Neurological: absent: As Per HPI, Abnormal Gait, Abnormal Hearing, Abnormal Movements, Abnormal Speech, Behavioral Changes, Burning Sensations, Confusion, Convulsions, Disequilibrium, Dizziness, Numbness, Focal Weakness, Frequent Falls , Headaches, Lack of Coordination, Loss of Vision, Memory Loss, Paresthesias, Radicular Pain, Restless Legs, Sensory Deficit, Syncope, Tingling, Tremor, Vertigo, Weakness, Other Visual Disturbances, Other - Psychiatric Psychiatric: absent: As Per HPI, Abnormal Sleep Pattern, Anhedonia, Anxiety, Auditory Hallucinations, Behavioral Changes, Change in Appetite, Change in Libido, Confusion, Depression, Difficulty Concentrating, Hallucinations, Homicidal Ideation, Hopelessness, Irritability, Memory Loss, Mood Swings, Panic Attacks, Paranoia, Suicidal Ideation, Visual Hallucinations, Tactile Hallucinations, Other - Endocrine Endocrine: absent: As Per HPI, Change in Body Appearance, Change in Libido, Cold Intolorance, Deepening of Voice, Excessive Sweating, Fatigue, Flushing, Heat Intolorance, Increase in Ring/Shoe/Hat Size, Palpitations, Polydipsia, Polyphagia, Polyuria, Other - Hematologic/Lymphatic Hematologic: absent: As Per HPI, Easy Bleeding, Easy Bruising, Lymphadenopathy, Other Past Patient History - Infectious Disease Hx of Infectious Diseases: None - Past Medical History & Family History Past Medical History?: Yes - Past Social History Smoking Status: Never Smoked - CARDIAC Hx Hypercholesterolemia: Yes Hx Hypertension: Yes - PULMONARY Hx Asthma: Yes Hx Chronic Obstructive Pulmonary Disease (COPD): Yes Hx Pneumonia: Yes - NEUROLOGICAL Hx Neurological Disorder: No - HEENT Hx HEENT Problems: Yes Hx Cataracts: Yes - RENAL Hx Chronic Kidney Disease: Yes - ENDOCRINE/METABOLIC Hx Endocrine Disorders: Yes Hx Diabetes Mellitus Type 2: Yes - HEMATOLOGICAL/ONCOLOGICAL Hx Anemia: Yes - INTEGUMENTARY Hx Dermatological Problems: No - MUSCULOSKELETAL/RHEUMATOLOGICAL Hx Falls: No - GASTROINTESTINAL Hx Gastrointestinal Disorders: No - GENITOURINARY/GYNECOLOGICAL Hx Genitourinary Disorders: No - PSYCHIATRIC Hx Anxiety: Yes Hx Bipolar Disorder: Yes Hx Depression: Yes Hx Substance Use: No - SURGICAL HISTORY Hx Surgeries: Yes Hx Section: Yes (x1) Hx Eye Surgery: Yes (LEFT EYE) - ANESTHESIA Hx Anesthesia: Yes Hx Anesthesia Reactions: No Hx Malignant Hyperthermia: No Meds Allergies/Adverse Reactions: Allergies Allergy/AdvReac Type Severity Reaction Status Date / Time FISH Allergy Severe ITCHING Verified 08/09/17 17:10 shellfish derived Allergy Severe SWELLING Verified 08/08/17 07:57 - Medications Medications: Current Medications Albuterol/Ipratropium (Duoneb 3 Mg/0.5 Mg (3 Ml) Ud) 3 ml INH RQ6 [facility] Last Admin: 01/15/18 19:43 Dose: 3 ml Amlodipine Besylate (Norvasc) 5 mg PO DAILY [facility] Last Admin: 01/15/18 12:35 Dose: 5 mg Enoxaparin Sodium (Lovenox) 30 mg SC DAILY [facility] Last Admin: 01/15/18 11:00 Dose: 30 mg Famotidine (Pepcid) 20 mg IVP DAILY [facility] Last Admin: 01/15/18 09:10 Dose: 20 mg Insulin Glargine (Lantus) 35 unit SC HS COLE Insulin Human Regular (Novolin R) 0 unit SC ACHS [facility] PRN Reason: Protocol Last Admin: 04/18/18 16:41 Dose: 12 unit Methylprednisolone (Solu-Medrol) 40 mg IVP Q8H [facility] Last Admin: 01/15/18 16:40 Dose: 40 mg Torsemide (Demadex) 100 mg PO DAILY [facility] Last Admin: 01/15/18 14:00 Dose: 100 mg Physical Exam - Constitutional Appears: Non-toxic - Head Exam Head Exam: NORMAL INSPECTION - Eye Exam Eye Exam: Normal appearance - ENT Exam ENT Exam: Mucous Membranes Moist - Neck Exam Neck exam: Positive for: Normal Inspection - Respiratory Exam Respiratory Exam: NORMAL BREATHING PATTERN - Cardiovascular Exam Cardiovascular Exam: REGULAR RHYTHM - GI/Abdominal Exam GI & Abdominal Exam: Normal Bowel Sounds - Rectal Exam Rectal Exam: Deferred - Extremities Exam Extremities exam: Negative for: pedal edema - Back Exam Back exam: NORMAL INSPECTION - Neurological Exam Neurological exam: Alert, Oriented x3 - Psychiatric Exam Psychiatric exam: Normal Affect - Skin Skin Exam: Normal Color Results - Vital Signs Recent Vital Signs: Last Vital Signs Temp 99.6 F 01/15/18 16:00 Pulse 99 H 01/15/18 18:00 Resp 23 01/15/18 18:00 BP 151/97 H 01/15/18 17:35 Pulse Ox 93 L 01/15/18 18:00 - Labs Result Diagrams: 01/16/18 05:53 01/16/18 05:53 Labs: Laboratory Results - last 24 hr 01/14/18 01/15/18 01/15/18 23:43 05:19 05:53 WBC RBC Hgb Hct MCV MCH MCHC RDW Plt Count MPV Neut % (Auto) Lymph % (Auto) [place] % (Auto) Eos % (Auto) Baso % (Auto) Neut # (Auto) Lymph # (Auto) [place] # (Auto) Eos # (Auto) Baso # (Auto) Puncture Site L rad pCO2 48 H pO2 82 HCO3 25.2 ABG pH 7.35 ABG Total CO2 28.0 ABG O2 Saturation 96.5 ABG Base Excess 0.4 ABG Hemoglobin 12.2 ABG Carboxyhemoglobin 0.5 POC ABG HHb (Measured) 3.5 ABG Methemoglobin 0.3 [place] Test Pos A-a O2 Difference 143.0 Respiratory Index 1.7 Hgb O2 Saturation 95.7 Vent Mode Prvc Mechanical Rate 20 FiO2 40.0 Tidal Volume 500 PEEP 5 Sodium Potassium Chloride Carbon Dioxide Anion Gap BUN Creatinine Est GFR ( Amer) Est GFR (Non-Af Amer) POC Glucose (mg/dL) 385 H 343 H Random Glucose Calcium Phosphorus Magnesium Total Bilirubin AST ALT Alkaline Phosphatase NT-Pro-B Natriuret Pep Total Protein Albumin Globulin Albumin/Globulin Ratio 01/15/18 01/15/18 01/15/18 06:04 06:04 11:15 WBC 7.4 RBC 3.62 L Hgb 10.5 L Hct 31.6 L MCV 87.2 MCH 28.9 MCHC 33.2 RDW 14.7 H Plt Count 403 H MPV 8.8 Neut % (Auto) 83.6 H Lymph % (Auto) 10.7 L [place] % (Auto) 5.2 Eos % (Auto) 0.2 Baso % (Auto) 0.3 Neut # (Auto) 6.2 Lymph # (Auto) 0.8 L [place] # (Auto) 0.4 Eos # (Auto) 0.0 Baso # (Auto) 0.0 Puncture Site pCO2 pO2 HCO3 ABG pH ABG Total CO2 ABG O2 Saturation ABG Base Excess ABG Hemoglobin ABG Carboxyhemoglobin POC ABG HHb (Measured) ABG Methemoglobin [place] Test A-a O2 Difference Respiratory Index Hgb O2 Saturation Vent Mode Mechanical Rate FiO2 Tidal Volume PEEP Sodium 138 Potassium 5.2 Chloride 100 Carbon Dioxide 26 Anion Gap 18 BUN 48 H Creatinine 2.6 H Est GFR ( Amer) 23 Est GFR (Non-Af Amer) 19 POC Glucose (mg/dL) 383 H Random Glucose 391 H Calcium 8.8 Phosphorus 4.2 Magnesium 2.0 Total Bilirubin 0.3 AST 45 H D ALT 28 Alkaline Phosphatase 277 H NT-Pro-B Natriuret Pep 1070 H Total Protein 6.9 Albumin 3.4 L Globulin 3.6 Albumin/Globulin Ratio 0.9 L 01/15/18 16:08 WBC RBC Hgb Hct MCV MCH MCHC RDW Plt Count MPV Neut % (Auto) Lymph % (Auto) [place] % (Auto) Eos % (Auto) Baso % (Auto) Neut # (Auto) Lymph # (Auto) [place] # (Auto) Eos # (Auto) Baso # (Auto) Puncture Site pCO2 pO2 HCO3 ABG pH ABG Total CO2 ABG O2 Saturation ABG Base Excess ABG Hemoglobin ABG Carboxyhemoglobin POC ABG HHb (Measured) ABG Methemoglobin [place] Test A-a O2 Difference Respiratory Index Hgb O2 Saturation Vent Mode Mechanical Rate FiO2 Tidal Volume PEEP Sodium Potassium Chloride Carbon Dioxide Anion Gap BUN Creatinine Est GFR ( Amer) Est GFR (Non-Af Amer) POC Glucose (mg/dL) 403 H* Random Glucose Calcium Phosphorus Magnesium Total Bilirubin AST ALT Alkaline Phosphatase NT-Pro-B Natriuret Pep Total Protein Albumin Globulin Albumin/Globulin Ratio - EKG Data EKG Interpreted by: Myself EKG shows normal: Sinus rhythm Assessment & Plan (1) CHF (congestive heart failure) Assessment and Plan: I reviewed the echocardiogram with the patient. There is evidence of normal left ventricular function. Diastolic dysfunction is noted. I discussed the importance of blood pressure control. no current evidence of heart failure. Status: Acute (2) Hypertension Assessment and Plan: blood pressure control Status: Acute
[2018-01-15] MEDS: (Lantus) Insulin Glargine, Recombinant SC SCH (21:51)
[2018-01-16] MEDS: Albuterol-Ipratrop 3 mg / 0.5 (3 ml) UD INH SCH ×3 (02:04→19:59)
[2018-01-16 06:02] LABS: BASO # 0.1 K/uL (0.0-0.2); BASO % 0.6 % (0.0-2.0); HEMOGLOBIN 10.6 g/dL (11.0-16.0); LYMPH # 0.7 K/uL (1.0-4.3); LYMPH % 7.9 % (20.0-40.0); MEAN CELL VOLUME 87.8 fL (81.0-99.0); MEAN CORPUSCULAR HEMOGLOBIN 28.9 pg (27.0-31.0); MEAN CORPUSCULAR HGB CONC 32.9 g/dL (33.0-37.0); MEAN PLATELET VOLUME 8.6 fL (7.2-11.7); MONO # 0.6 K/uL (0.0-0.8); MONO % 6.5 % (0.0-10.0); NEUT # 7.4 K/uL (1.8-7.0); PLATELET COUNT 393 K/uL (130-400); RBC 3.65 Mil/uL (3.80-5.20); RED CELL DISTRIBUTION WIDTH 14.5 % (11.5-14.5); WHITE BLOOD COUNT 8.7 K/uL (4.8-10.8)
[2018-01-16 06:20] LABS: ALBUMIN 3.6 g/dL (3.5-5.0); CALCIUM 8.9 mg/dl (8.6-10.4)
[2018-01-16] MEDS: (Novolin R) Insulin Human Regular 100 units/ml vial SC SCH ×5 (06:51→21:30)
[2018-01-16 08:32] LABS: LYMPHOCYTE 6 % (20-40); MONOCYTE 5 % (0-10); NEUTROPHIL 89 % (50-75); PLATELET ESTIMATE NORMAL (NORMAL); TOTAL CELLS COUNTED 100
[2018-01-16 08:33] LABS: ANISOCYTOSIS SLIGHT; HYPOCHROMIC SLIGHT; POIKILOCYTOSIS SLIGHT
--- NOTE | 2018-01-16 10:45 | CP.PCM.PN ---
Subjective - Date & Time of Evaluation Date of Evaluation: 01/16/18 Time of Evaluation: 10:35 - Subjective Subjective: patient is sitting up in bed. no chest pain. Objective - Vital Signs/Intake and Output Vital Signs (last 24 hours): Temp Pulse Resp BP Pulse Ox 98.9 F 86 23 196/86 H 96 01/16/18 04:00 01/16/18 10:00 01/16/18 10:00 01/16/18 09:55 01/16/18 00:00 Intake and Output: 01/16/18 01/16/18 06:59 18:59 Intake Total 600 0 Output Total 1700 Balance -1100 0 - Medications Medications: Current Medications Albuterol/Ipratropium (Duoneb 3 Mg/0.5 Mg (3 Ml) Ud) 3 ml INH RQ6 [facility] Last Admin: 01/16/18 07:25 Dose: 3 ml Amlodipine Besylate (Norvasc) 5 mg PO DAILY [facility] Last Admin: 01/16/18 09:55 Dose: 5 mg Carvedilol (Coreg) 12.5 mg PO BID [facility] Last Admin: 01/16/18 09:55 Dose: 12.5 mg Famotidine (Pepcid) 20 mg PO DAILY [facility] Last Admin: 01/16/18 09:55 Dose: 20 mg Heparin Sodium (Porcine) (Heparin) 5,000 units SC Q8 [facility] Insulin Glargine (Lantus) 35 unit SC HS [facility] Last Admin: 01/15/18 21:51 Dose: 35 units Insulin Human Regular (Novolin R) 0 unit SC ACHS [facility] PRN Reason: Protocol Last Admin: 01/16/18 06:51 Dose: 12 unit Methylprednisolone (Solu-Medrol) 40 mg IVP Q8H [facility] Last Admin: 01/16/18 08:58 Dose: 40 mg Torsemide (Demadex) 100 mg PO DAILY [facility] Last Admin: 01/15/18 14:00 Dose: 100 mg - Labs Labs: 01/16/18 05:53 01/16/18 05:53 PT 9.0 SECONDS (9.7-12.2) L 01/13/18 20:56 INR 0.8 01/13/18 20:56 APTT 29 SECONDS (21-34) 01/13/18 20:56 - Constitutional Appears: Non-toxic - Head Exam Head Exam: NORMAL INSPECTION - Eye Exam Eye Exam: Normal appearance - ENT Exam ENT Exam: Mucous Membranes Moist - Neck Exam Neck Exam: Full ROM - Respiratory Exam Respiratory Exam: NORMAL BREATHING PATTERN - Cardiovascular Exam Cardiovascular Exam: REGULAR RHYTHM - GI/Abdominal Exam GI & Abdominal Exam: Normal Bowel Sounds - Rectal Exam Rectal Exam: Deferred - Extremities Exam Extremities Exam: absent: Pedal Edema - Back Exam Back Exam: NORMAL INSPECTION - Neurological Exam Neurological Exam: Alert - Psychiatric Exam Psychiatric exam: Normal Affect - Skin Skin Exam: Normal Color Assessment and Plan (1) CHF (congestive heart failure) Assessment & Plan: diastolic dysfunction. medical therapy with blood pressure control and duretics. Status: Acute (2) Hypertension Assessment & Plan: increase Coreg, Norvasc Status: Acute
--- NOTE | 2018-01-16 11:53 | CARD ---
APPROVED REPORT EXAM: Two-dimensional and M-mode echocardiogram with Doppler and color Doppler. INDICATION Syncope Congestive Heart Failure COPD RISK FACTORS Diabetes 2D DIMENSIONS IVSd0.9 (0.7-1.1cm)LVDd4.9 (3.9-5.9cm) PWd1.0 (0.7-1.1cm)LVDs2.7 (2.5-4.0cm) FS (%) 44.4 %LVEF (%)65.0 (>50%) M-Mode DIMENSIONS Left Atrium (MM)4.03 (2.5-4.0cm)Aortic Root2.94 (2.2-3.7cm) Aortic Cusp Exc.2.00 (1.5-2.0cm) Mitral Valve MV E Qfmzbtpf037.8cm/sMV A Eogntclx242.5cm/sE/A ratio1.2 TDI E/Lateral E'0.0E/Medial E'0.0 Tricuspid Valve TR Peak Pmokctek647tv/sTR Peak Gr.49mmHg LEFT VENTRICLE The left ventricle is normal size. There is normal left ventricular wall thickness. The left ventricular function is normal. The left ventricular ejection fraction is within the normal range. There is normal LV segmental wall motion. Tissue Doppler imaging reveals mild left ventricular diastolic dysfunction. No left ventricle thrombus noted on this study. There is no ventricular septal defect visualized. There is no left ventricular aneurysm. There is no mass noted in the left ventricle. RIGHT VENTRICLE The right ventricle is normal size. There is normal right ventricular wall thickness. The right ventricular systolic function is normal. ATRIA The left atrium size is normal. The right atrium size is normal. The interatrial septum is intact with no evidence for an atrial septal defect. AORTIC VALVE The aortic valve is normal in structure. No aortic regurgitation is present. There is no aortic valvular stenosis. There is no aortic valvular vegetation. MITRAL VALVE The mitral valve is normal in structure. There is no mitral valve stenosis. There is no mitral valve regurgitation noted. TRICUSPID VALVE The tricuspid valve is normal in structure. There is moderate pulmonary hypertension. There is no tricuspid valve prolapse or vegetation. PULMONIC VALVE The pulmonary valve is normal in structure. There is no pulmonic valvular regurgitation. GREAT VESSELS The aortic root is normal in size. The ascending aorta is normal in size. The pulmonary artery is normal. The IVC is normal in size and collapses >50% with inspiration. PERICARDIAL EFFUSION There is no pericardial effusion. <Conclusion> Tissue Doppler imaging reveals mild left ventricular diastolic dysfunction. There is moderate pulmonary hypertension. LVEF IS 70%.
--- NOTE | 2018-01-16 16:41 | CP.PCM.PN ---
Subjective - Date & Time of Evaluation Date of Evaluation: 01/16/18 Time of Evaluation: 10:40 - Subjective Subjective: clinically same Objective - Vital Signs/Intake and Output Vital Signs (last 24 hours): Temp Pulse Resp BP Pulse Ox 98.8 F 82 18 166/73 H 98 01/16/18 12:00 01/16/18 14:32 01/16/18 13:35 01/16/18 13:35 01/16/18 12:00 Intake and Output: 01/16/18 01/16/18 06:59 18:59 Intake Total 600 1000 Output Total 1700 1400 Balance -1100 -400 - Medications Medications: Current Medications Albuterol/Ipratropium (Duoneb 3 Mg/0.5 Mg (3 Ml) Ud) 3 ml INH RQ6 [facility] Last Admin: 01/16/18 07:25 Dose: 3 ml Amlodipine Besylate (Norvasc) 5 mg PO DAILY [facility] Last Admin: 01/16/18 09:55 Dose: 5 mg Carvedilol (Coreg) 12.5 mg PO BID [facility] Last Admin: 01/16/18 09:55 Dose: 12.5 mg Famotidine (Pepcid) 20 mg PO DAILY [facility] Last Admin: 01/16/18 09:55 Dose: 20 mg Heparin Sodium (Porcine) (Heparin) 5,000 units SC Q8 [facility] Last Admin: 01/16/18 14:33 Dose: 5,000 units Insulin Glargine (Lantus) 35 unit SC HS [facility] Last Admin: 01/15/18 21:51 Dose: 35 units Insulin Human Regular (Novolin R) 0 unit SC ACHS [facility] PRN Reason: Protocol Last Admin: 01/16/18 16:31 Dose: 4 unit Methylprednisolone (Solu-Medrol) 40 mg IVP Q8H [facility] Last Admin: 01/16/18 15:27 Dose: 40 mg Torsemide (Demadex) 100 mg PO DAILY [facility] Last Admin: 01/16/18 09:55 Dose: 100 mg - Labs Labs: 01/16/18 05:53 01/16/18 05:53 PT 9.0 SECONDS (9.7-12.2) L 01/13/18 20:56 INR 0.8 01/13/18 20:56 APTT 29 SECONDS (21-34) 01/13/18 20:56 - Constitutional Appears: Well - Head Exam Head Exam: ATRAUMATIC, NORMAL INSPECTION, NORMOCEPHALIC - Eye Exam Eye Exam: EOMI, Normal appearance, PERRL Pupil Exam: NORMAL ACCOMODATION, PERRL - ENT Exam ENT Exam: Mucous Membranes Moist, Normal Exam - Neck Exam Neck Exam: Full ROM, Normal Inspection. absent: Lymphadenopathy - Respiratory Exam Respiratory Exam: Decreased Breath Sounds - Cardiovascular Exam Cardiovascular Exam: REGULAR RHYTHM, +S1, +S2 - GI/Abdominal Exam GI & Abdominal Exam: Soft, Diminished Bowel Sounds - Rectal Exam Rectal Exam: Deferred
--- NOTE | 2018-01-16 17:29 | CP.PCM.PN ---
Subjective - Date & Time of Evaluation Date of Evaluation: 01/16/18 Time of Evaluation: 10:00 - Subjective Subjective: Patient seen and examined at bedside. Patient successfully extubated yesterday. Pt is now alert and fully arousable. Pt reports breathing better. Pt denies chest pain or shortness of breath. wheezing noted on physical examination. Assessment and Plan: 1. Anaphylaxis - Patient extubated yesterday without complications - Saturated 89-96% after extubation - continue nebulizer treatments - Duonebs q6h - Decreased solumedrol to 40mg q8h - Pt was again advised to avoid precipitating factors (i.e shrimp) Objective - Vital Signs/Intake and Output Vital Signs (last 24 hours): Temp Pulse Resp BP Pulse Ox 98.8 F 82 18 166/73 H 98 01/16/18 16:00 01/16/18 14:32 01/16/18 13:35 01/16/18 13:35 01/16/18 16:00 Intake and Output: 01/16/18 01/16/18 06:59 18:59 Intake Total 600 1000 Output Total 1700 1400 Balance -1100 -400 - Medications Medications: Current Medications Albuterol/Ipratropium (Duoneb 3 Mg/0.5 Mg (3 Ml) Ud) 3 ml INH RQ6 [facility] Last Admin: 01/16/18 07:25 Dose: 3 ml Amlodipine Besylate (Norvasc) 5 mg PO DAILY [facility] Last Admin: 01/16/18 09:55 Dose: 5 mg Carvedilol (Coreg) 12.5 mg PO BID [facility] Last Admin: 01/16/18 09:55 Dose: 12.5 mg Famotidine (Pepcid) 20 mg PO DAILY [facility] Last Admin: 01/16/18 09:55 Dose: 20 mg Heparin Sodium (Porcine) (Heparin) 5,000 units SC Q8 [facility] Last Admin: 01/16/18 14:33 Dose: 5,000 units Insulin Glargine (Lantus) 35 unit SC HS [facility] Last Admin: 01/15/18 21:51 Dose: 35 units Insulin Human Regular (Novolin R) 0 unit SC ACHS [facility] PRN Reason: Protocol Last Admin: 01/16/18 16:31 Dose: 4 unit Methylprednisolone (Solu-Medrol) 40 mg IVP Q8H [facility] Last Admin: 01/16/18 15:27 Dose: 40 mg Torsemide (Demadex) 100 mg PO DAILY [facility] Last Admin: 01/16/18 09:55 Dose: 100 mg - Labs Labs: 01/16/18 05:53 01/16/18 05:53 PT 9.0 SECONDS (9.7-12.2) L 01/13/18 20:56 INR 0.8 01/13/18 20:56 APTT 29 SECONDS (21-34) 01/13/18 20:56
[2018-01-16] MEDS: (Lantus) Insulin Glargine, Recombinant SC SCH (21:31)
[2018-01-17] MEDS: Albuterol-Ipratrop 3 mg / 0.5 (3 ml) UD INH SCH ×4 (02:00→19:48)
[2018-01-17] MEDS: (Novolin R) Insulin Human Regular 100 units/ml vial SC SCH ×4 (08:25→22:00)
--- NOTE | 2018-01-17 12:47 | CP.PCM.PN ---
Subjective - Date & Time of Evaluation Date of Evaluation: 01/17/18 Time of Evaluation: 09:00 - Subjective Subjective: Patient seen and examined at bedside resting comfortably. Pt reports breathing better. Pt denies chest pain or shortness of breath. No wheezing today. Patient awaiting transfer to med/surg floors. Assessment and Plan: 1. Anaphylaxis s/p extubation - Saturated 89-96% after extubation - continue nebulizer treatments - Duonebs q6h - Decreased solumedrol to 40mg q8h - Pt ready for transfer to med/surg floors Objective - Vital Signs/Intake and Output Vital Signs (last 24 hours): Temp Pulse Resp BP Pulse Ox 98.1 F 82 16 160/87 H 97 01/17/18 12:00 01/17/18 12:29 01/17/18 12:29 01/17/18 12:29 01/17/18 04:00 Intake and Output: 01/17/18 01/17/18 06:59 18:59 Intake Total 200 Output Total 850 Balance -650 - Medications Medications: Current Medications Albuterol/Ipratropium (Duoneb 3 Mg/0.5 Mg (3 Ml) Ud) 3 ml INH RQ6 [facility] Last Admin: 01/17/18 07:16 Dose: 3 ml Amlodipine Besylate (Norvasc) 5 mg PO DAILY [facility] Last Admin: 01/17/18 09:27 Dose: 5 mg Carvedilol (Coreg) 12.5 mg PO BID [facility] Last Admin: 01/17/18 09:27 Dose: 12.5 mg Famotidine (Pepcid) 20 mg PO DAILY [facility] Last Admin: 01/17/18 09:27 Dose: 20 mg Heparin Sodium (Porcine) (Heparin) 5,000 units SC Q8 [facility] Last Admin: 01/17/18 06:56 Dose: 5,000 units Insulin Glargine (Lantus) 35 unit SC HS [facility] Last Admin: 01/16/18 21:31 Dose: 35 units Insulin Human Regular (Novolin R) 0 unit SC ACHS [facility] PRN Reason: Protocol Last Admin: 01/17/18 12:15 Dose: 6 unit Methylprednisolone (Solu-Medrol) 40 mg IVP Q8H [facility] Last Admin: 01/17/18 08:25 Dose: 40 mg Torsemide (Demadex) 100 mg PO DAILY [facility] Last Admin: 01/17/18 09:51 Dose: 100 mg - Labs Labs: 01/16/18 05:53 01/16/18 05:53 PT 9.0 SECONDS (9.7-12.2) L 01/13/18 20:56 INR 0.8 01/13/18 20:56 APTT 29 SECONDS (21-34) 01/13/18 20:56
--- NOTE | 2018-01-17 15:45 | CP.PCM.PN ---
Subjective - Date & Time of Evaluation Date of Evaluation: 01/17/18 Time of Evaluation: 12:00 - Subjective Subjective: clinically same Objective - Vital Signs/Intake and Output Vital Signs (last 24 hours): Temp Pulse Resp BP Pulse Ox 98.1 F 82 16 160/87 H 97 01/17/18 12:00 01/17/18 12:29 01/17/18 12:29 01/17/18 12:29 01/17/18 04:00 Intake and Output: 01/17/18 01/17/18 06:59 18:59 Intake Total 200 Output Total 850 Balance -650 - Medications Medications: Current Medications Albuterol/Ipratropium (Duoneb 3 Mg/0.5 Mg (3 Ml) Ud) 3 ml INH RQ6 [facility] Last Admin: 01/17/18 13:19 Dose: 3 ml Amlodipine Besylate (Norvasc) 5 mg PO DAILY [facility] Last Admin: 01/17/18 09:27 Dose: 5 mg Carvedilol (Coreg) 12.5 mg PO BID [facility] Last Admin: 01/17/18 09:27 Dose: 12.5 mg Famotidine (Pepcid) 20 mg PO DAILY [facility] Last Admin: 01/17/18 09:27 Dose: 20 mg Heparin Sodium (Porcine) (Heparin) 5,000 units SC Q8 [facility] Last Admin: 01/17/18 14:57 Dose: 5,000 units Insulin Glargine (Lantus) 35 unit SC HS [facility] Last Admin: 01/16/18 21:31 Dose: 35 units Insulin Human Regular (Novolin R) 0 unit SC ACHS [facility] PRN Reason: Protocol Last Admin: 01/17/18 12:15 Dose: 6 unit Methylprednisolone (Solu-Medrol) 40 mg IVP Q8H [facility] Last Admin: 01/17/18 08:25 Dose: 40 mg Torsemide (Demadex) 100 mg PO DAILY [facility] Last Admin: 01/17/18 09:51 Dose: 100 mg - Labs Labs: 01/16/18 05:53 01/16/18 05:53 PT 9.0 SECONDS (9.7-12.2) L 01/13/18 20:56 INR 0.8 01/13/18 20:56 APTT 29 SECONDS (21-34) 01/13/18 20:56 - Constitutional Appears: Well - Head Exam Head Exam: ATRAUMATIC, NORMAL INSPECTION, NORMOCEPHALIC - Eye Exam Eye Exam: EOMI, Normal appearance, PERRL Pupil Exam: NORMAL ACCOMODATION, PERRL - ENT Exam ENT Exam: Mucous Membranes Moist, Normal Exam - Neck Exam Neck Exam: Full ROM, Normal Inspection. absent: Lymphadenopathy - Respiratory Exam Respiratory Exam: Decreased Breath Sounds - Cardiovascular Exam Cardiovascular Exam: REGULAR RHYTHM, +S1, +S2 - GI/Abdominal Exam GI & Abdominal Exam: Soft, Diminished Bowel Sounds - Rectal Exam Rectal Exam: Deferred
[2018-01-17] MEDS: (Lantus) Insulin Glargine, Recombinant SC SCH (22:00)
[2018-01-18] MEDS: Phenol Topical 1.4% Throat Spray (180 ml) MT PRN ×2 (00:42→07:42)
[2018-01-18] MEDS: Albuterol-Ipratrop 3 mg / 0.5 (3 ml) UD INH SCH ×3 (02:50→13:21)
[2018-01-18 02:54] VITALS: RESP 20
[2018-01-18] MEDS: (Novolin R) Insulin Human Regular 100 units/ml vial SC SCH ×3 (07:40→17:18)
--- NOTE | 2018-01-18 09:00 | CP.PCM.PN ---
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 Continue nebulizer treatment switch to you prednisone Objective - Vital Signs/Intake and Output Vital Signs (last 24 hours): Temp Pulse Resp BP Pulse Ox 97.2 F L 77 20 154/90 H 99 01/17/18 23:40 01/17/18 23:40 01/17/18 23:40 01/17/18 23:40 01/17/18 23:40 - Medications Medications: Current Medications Albuterol/Ipratropium (Duoneb 3 Mg/0.5 Mg (3 Ml) Ud) 3 ml INH RQ6 [facility] Last Admin: 01/18/18 07:35 Dose: 3 ml Amlodipine Besylate (Norvasc) 5 mg PO DAILY [facility] Last Admin: 01/17/18 09:27 Dose: 5 mg Carvedilol (Coreg) 12.5 mg PO BID [facility] Last Admin: 01/17/18 17:21 Dose: 12.5 mg Famotidine (Pepcid) 20 mg PO DAILY [facility] Last Admin: 01/17/18 09:27 Dose: 20 mg Heparin Sodium (Porcine) (Heparin) 5,000 units SC Q8 [facility] Last Admin: 01/18/18 06:37 Dose: 5,000 units Insulin Glargine (Lantus) 35 unit SC HS [facility] Last Admin: 01/17/18 22:00 Dose: 35 units Insulin Human Regular (Novolin R) 0 unit SC ACHS [facility] PRN Reason: Protocol Last Admin: 01/18/18 07:40 Dose: 4 unit Methylprednisolone (Solu-Medrol) 40 mg IVP Q8H [facility] Last Admin: 01/18/18 07:40 Dose: 40 mg Phenol/Menthol (Phenaseptic 1.4% Throat [place]) 1 ml MT Q2H PRN PRN Reason: Sore Throat Last Admin: 01/18/18 07:42 Dose: 1 spray Torsemide (Demadex) 100 mg PO DAILY [facility] Last Admin: 01/17/18 09:51 Dose: 100 mg - Labs Labs: 01/16/18 05:53 01/16/18 05:53 PT 9.0 SECONDS (9.7-12.2) L 01/13/18 20:56 INR 0.8 01/13/18 20:56 APTT 29 SECONDS (21-34) 01/13/18 20:56
[2018-01-18 09:27] VITALS: PULSE 79; O2SAT 96
--- NOTE | 2018-01-18 15:17 | CP.PCM.PN ---
Subjective - Date & Time of Evaluation Date of Evaluation: 01/18/18 Objective - Vital Signs/Intake and Output Vital Signs (last 24 hours): Temp Pulse Resp BP Pulse Ox 98.2 F 79 20 154/89 H 96 01/18/18 09:26 01/18/18 09:26 01/18/18 09:26 01/18/18 10:11 01/18/18 09:26 - Medications Medications: Current Medications Albuterol/Ipratropium (Duoneb 3 Mg/0.5 Mg (3 Ml) Ud) 3 ml INH RQ6 [facility] Last Admin: 01/18/18 13:21 Dose: 3 ml Amlodipine Besylate (Norvasc) 5 mg PO DAILY [facility] Last Admin: 01/18/18 10:11 Dose: 5 mg Carvedilol (Coreg) 12.5 mg PO BID [facility] Last Admin: 01/18/18 10:11 Dose: 12.5 mg Famotidine (Pepcid) 20 mg PO DAILY [facility] Last Admin: 01/18/18 10:11 Dose: 20 mg Heparin Sodium (Porcine) (Heparin) 5,000 units SC Q8 [facility] Last Admin: 01/18/18 13:33 Dose: 5,000 units Insulin Glargine (Lantus) 35 unit SC HS [facility] Last Admin: 01/17/18 22:00 Dose: 35 units Insulin Human Regular (Novolin R) 0 unit SC ACHS [facility] PRN Reason: Protocol Last Admin: 01/18/18 13:33 Dose: 10 unit Methylprednisolone (Solu-Medrol) 40 mg IVP Q8H [facility] Last Admin: 01/18/18 07:40 Dose: 40 mg Phenol/Menthol (Phenaseptic 1.4% Throat [place]) 1 ml MT Q2H PRN PRN Reason: Sore Throat Last Admin: 01/18/18 07:42 Dose: 1 spray Torsemide (Demadex) 100 mg PO DAILY [facility] Last Admin: 01/18/18 10:11 Dose: 100 mg - Labs Labs: 01/16/18 05:53 01/16/18 05:53 PT 9.0 SECONDS (9.7-12.2) L 01/13/18 20:56 INR 0.8 01/13/18 20:56 APTT 29 SECONDS (21-34) 01/13/18 20:56
[2018-01-18 17:19] VITALS: BP 164/95
[2018-01-18 17:45] VITALS: TEMP 97.6
--- NOTE | 2018-01-20 17:23 | PCM.HF ---
Heart Failure Core Measure - Heart Failure Ejection Fraction: 40 % or Greater LEO Inhibitor Prescribed: Yes Beta-Scott Prescribed: Metoprolol Succinate Angiotensin II Receptor Scott Prescribed: No Contraindication/Reason for not providing: ON LEO AnticoagulationTherapy for Atrial Fibrillation/Atrialflutter: No Contraindication/Reason for not providing: NO HX OF A FIB Aldosterone Antagonist Prescribed: No Contraindication/Reason for not providing: EF>45 Hydralazine Nitrate Prescribed: No Contraindication/Reason for not providing: ON CCB Implantable Cardioverter Defibrillator Therapy: No Contraindication/Reason for not providing: EF>45 Cardiac Resynchronization Therapy Prescribed: No Contraindication/Reason for not providing: EF>45 - Follow up Will be discharged to: Home Follow Up Date (must be within 7 days from discharge): 01/22/18 Follow Up Time: 09:00
== END 2018-01-18 19:37 | disposition home or self-care (01) | DRG 915 ==
LOC: C.ER 20:21 → C.9I 21:11 → C.6T 01-17 22:51
PROVIDERS: ADMIT Internal Medicine Nephrology; ATTEND Internal Medicine Nephrology
PROC: 0CJS8ZZ Inspection of Larynx, Via Natural or Artificial Opening Endoscopic (ICD-10-PCS; 2018-01-13)
PROC: 0BH18EZ Insertion of Endotracheal Airway into Trachea, Via Natural or Artificial Opening Endoscopic (ICD-10-PCS; 2018-01-13)
PROC: 5A1945Z Respiratory Ventilation, 24-96 Consecutive Hours (ICD-10-PCS; principal; 2018-01-13 21:30)
PROC: 0CJS8ZZ Inspection of Larynx, Via Natural or Artificial Opening Endoscopic (ICD-10-PCS; 2018-01-15)
DX: T78.3XXA Angioneurotic edema, initial encounter (principal); J96.90 Respiratory failure, unspecified, unspecified whether with hypoxia or hypercapnia; T78.02XA Anaphylactic reaction due to shellfish (crustaceans), initial encounter; I13.0 Hypertensive heart and chronic kidney disease with heart failure and stage 1 through stage 4 chronic kidney disease, or unspecified chronic kidney disease; I50.30 Unspecified diastolic (congestive) heart failure; E11.22 Type 2 diabetes mellitus with diabetic chronic kidney disease; J44.9 Chronic obstructive pulmonary disease, unspecified; J98.8 Other specified respiratory disorders; N18.9 Chronic kidney disease, unspecified; R13.10 Dysphagia, unspecified; E78.00 Pure hypercholesterolemia, unspecified; F31.9 Bipolar disorder, unspecified; Z87.01 Personal history of pneumonia (recurrent); Z91.013 Allergy to seafood; Z79.4 Long term (current) use of insulin

== ENCOUNTER 2018-01-29 17:58 | Emergency (ER) | payer MEDICARE, OTHER ==
[2018-01-29 17:58] VITALS: BMI 34.3
[2018-01-29] MEDS ORDERED: Labetalol 25mg/5ml Syringe IV STA (19:25)
[2018-01-29 19:39] LABS: BASO # 0.1 K/uL (0.0-0.2); BASO % 0.9 % (0.0-2.0); EOS # 0.4 K/uL (0.0-0.7); EOS % 4.9 % (0.0-4.0); HEMOGLOBIN 10.8 g/dL (11.0-16.0); LYMPH # 1.8 K/uL (1.0-4.3); LYMPH % 20.3 % (20.0-40.0); MEAN CELL VOLUME 86.2 fL (81.0-99.0); MEAN CORPUSCULAR HEMOGLOBIN 28.8 pg (27.0-31.0); MEAN CORPUSCULAR HGB CONC 33.4 g/dL (33.0-37.0); MEAN PLATELET VOLUME 7.8 fL (7.2-11.7); MONO # 0.7 K/uL (0.0-0.8); MONO % 8.1 % (0.0-10.0); NEUT % 65.8 % (50.0-75.0); NRBC % 0.1 % (0.0-2.0); RBC 3.74 Mil/uL (3.80-5.20); WHITE BLOOD COUNT 9.1 K/uL (4.8-10.8)
[2018-01-29] MEDS ORDERED: Morphine 4 MG/ML VIAL ONE (19:40)
[2018-01-29 20:23] LABS: ALB/GLOB RATIO 0.9 (1.0-2.1); ALBUMIN 3.5 g/dL (3.5-5.0)
--- NOTE | 2018-01-29 20:51 | C.PDOC ---
History Of Present Illness The patient is a 52 year old female who underwent an intubation after she was hospitalized for an allergic reaction to seafood two weeks ago. Patient notes she experienced sore throat following the intubation but was informed that this was normal. Patient notes her throat pain has been worsening; she has severe pain when swallowing and has been eating/drinking very little as a result. Patient also has not taken her blood pressure medication in 1 week. Patient describes a burning pain that has now begun radiating to her right ear. Patient has been using mouth wash for canker sores without relief. She denies fever, chills. Patient has PMHx of CHF, Renal insufficiency, HTN, COPD, Diabetes, Bipolar Disorder. Time Seen by Provider: 01/29/18 19:08 Chief Complaint (Nursing): ENT Problem History Per: Patient History/Exam Limitations: None Onset/Duration Of Symptoms: Days Current Symptoms Are (Timing): Still Present Past Medical History Reviewed: Historical Data, Nursing Documentation, Vital Signs Vital Signs: Last Vital Signs Temp 99.1 F 01/29/18 18:18 Pulse 82 01/29/18 21:24 Resp 15 01/29/18 21:24 BP 173/85 H 01/29/18 21:24 Pulse Ox 100 01/29/18 21:24 - Medical History PMH: Anemia, Anxiety, Asthma, Bipolar Disorder, COPD, Depression, Diabetes, HTN , Hypercholesterolemia, Pneumonia, Chronic Kidney Disease Surgical History: - [facility] ASSISTANCE WITH RESPIRATORY VENTILATION, 24-96 HRS, CPAP (11/30/15) FLUOROSCOPY OF RIGHT HEART USING LOW OSMOLAR CONTRAST (08/08/17) INSERT INDWELLING CATH (07/28/14) INSERTION OF ENDOTRACHEAL AIRWAY INTO TRACHEA, ENDO (01/13/18) INSPECTION OF LARYNX, ENDO (01/13/18) MEASURE OF CARDIAC SAMPL & PRESSURE, R HEART, PERC APPROACH (08/08/17) RESPIRATORY VENTILATION, 24-96 CONSECUTIVE HOURS (01/13/18) Family History: States: [place], CAD, Hypertension - Social History Hx Tobacco Use: No Hx Alcohol Use: No Hx Substance Use: No - Immunization History Hx Tetanus Toxoid Vaccination: No Hx Influenza Vaccination: Yes Hx Pneumococcal Vaccination: Yes Review Of Systems Constitutional: Negative for: Fever, Chills ENT: Positive for: Ear Pain (right), Throat Pain Physical Exam - Physical Exam Appears: Non-toxic, Other (uncomfortable ) Skin: Normal Color, Warm, Dry Head: Atraumatic, Normacephalic Eye(s): bilateral: Normal Inspection Ear(s): Bilateral: Normal Oral Mucosa: Moist Throat: Other (inflammation noted. no swelling. uvula at midline. no signs of abscess ) Neck: Supple Lymphatic: No Adenopathy Chest: Symmetrical, No Deformity, No Tenderness Cardiovascular: Rhythm Regular, No Murmur Respiratory: Normal Breath Sounds, No Rales, No Rhonchi, No Wheezing Extremity: Normal ROM, Capillary Refill (less than 2 seconds ) Neurological/Psych: Oriented x3, Normal Speech, Normal Cognition Gait: Steady Additional Physical Exam Comments: elevated blood pressure noted ED Course And Treatment - Laboratory Results Result Diagrams: 01/29/18 19:35 01/29/18 19:35 Lab Interpretation: No Changes Compared To Prior Results Progress Note: Throat culture obtained and sent to the lab for further evaluation. Bloodwork ordered and reviewed. Morphine IVP and Trandate IV administered. Reevaluation Time: 22:10 Reassessment Condition: Improved (Patient feels much better. BP decreased to 173 /95. Patient states that she has an appointment with Dr Saldivar tomorrow.) Disposition Counseled Patient/Family Regarding: Studies Performed, Diagnosis, Need For Followup - Disposition Referrals: Miko Saldivar MD [Staff Provider] - Disposition: HOME/ ROUTINE Disposition Time: 22:11 Condition: IMPROVED Additional Instructions: Take your blood pressure medication as prescribed. Instructions: Sore Throat, Adult (DC), High Blood Pressure (DC) Forms: [facility] (Irish) - Clinical Impression Clinical Impression: Throat discomfort, Uncontrolled hypertension - Scribe Statement The provider has reviewed the documentation as recorded by the Scribe (Mamta Saldivar) Provider Attestation: All medical record entries made by the Scribe were at my direction and personally dictated by me. I have reviewed the chart and agree that the record accurately reflects my personal performance of the history, physical exam, medical decision making, and the department course for this patient. I have also personally directed, reviewed, and agree with the discharge instructions and disposition.
[2018-01-29 21:24] VITALS: PULSE 82
[2018-01-29 22:11] VITALS: BP 164/92; RESP 12; TEMP 98.1; O2SAT 98
== END 2018-01-29 22:23 | disposition home or self-care (01) ==
LOC: C.ER 17:58
DX: R07.0 Pain in throat (principal); I10 Essential (primary) hypertension; E78.00 Pure hypercholesterolemia, unspecified; D64.9 Anemia, unspecified
CPT/HCPCS: 80053; 85025; 87070; 96374; 99285; J2270

== ENCOUNTER 2018-12-30 06:48 | Inpatient (IN) | payer OTHER ==
[2018-12-30] MEDS ORDERED: DiphenhydrAMINE 50 mg/ml Inj ONE (07:35)
[2018-12-30] MEDS ORDERED: Dexamethasone 4 mg/1 ml IV STA (07:36)
[2018-12-30] MEDS ORDERED: DiphenhydrAMINE 50 mg/ml Inj IVP STA (07:38)
--- NOTE | 2018-12-30 07:39 | C.PDOC ---
History Of Present Illness 53 y/o female with a PMHx of Diabetes, COPD, HTN, hypercholesterolemia, and kidney disease, brought in by EMS for evaluation of hypoglycemia noted at 3:00am today. Daughter notes that the patient's blood sugar was elevated yesterday morning and she received an extra 60 units of insulin. She continued to monitor her blood sugar and reports she had to give an extra 60 again in the evening. Daughter gave the patient extra juice and peanut butter cookies before bed and continued to monitor the sugar overnight. She reports when she woke up at 3:00am, the patient's sugar was 33 and patient appeared diaphoretic and was not responsive. Daughter also noticed patient's tongue was swollen at that time and she was not able to give any juice or food PO, prompting her to call 911. Per EMS patient received 1 amp of D50 en route. Daughter reports the swelling has been worsening since onset, and now patient is having difficulty speaking. On arrival patient is awake and answering questions correctly, but sluggish. She denies having any pain, fevers, nausea, or vomiting. Patient reports some difficulty breathing. Per daughter at bedside, patient has had similar symptoms in the past after consuming shrimp. Patient denies recent ingestion of shrimp or any other known allergen. She reports cooking her own food yesterday, and ate her usual rice dinner. Time Seen by Provider: 12/30/18 07:19 Chief Complaint (Nursing): Dizziness/Lightheaded History Per: Patient History/Exam Limitations: no limitations Onset/Duration Of Symptoms: Hrs Current Symptoms Are (Timing): Still Present Severity: Moderate Additional History Per: EMS, Family Past Medical History Reviewed: Historical Data, Nursing Documentation, Vital Signs Vital Signs: Last Vital Signs Temp 98 F 12/30/18 06:57 Pulse 72 12/30/18 06:57 Resp 22 12/30/18 06:57 BP 188/96 H 12/30/18 06:57 Pulse Ox 98 12/30/18 06:57 - Medical History PMH: Anemia, Anxiety, Asthma, Bipolar Disorder, COPD, Depression, Diabetes, HTN, Hypercholesterolemia, Pneumonia, Chronic Kidney Disease Surgical History: - [facility] Procedures ASSISTANCE WITH RESPIRATORY VENTILATION, 24-96 HRS, CPAP (11/30/15) FLUOROSCOPY OF RIGHT HEART USING LOW OSMOLAR CONTRAST (08/08/17) INSERT INDWELLING CATH (07/28/14) INSERTION OF ENDOTRACHEAL AIRWAY INTO TRACHEA, ENDO (01/13/18) INSPECTION OF LARYNX, ENDO (01/13/18) MEASURE OF CARDIAC SAMPL & PRESSURE, R HEART, PERC APPROACH (08/08/17) RESPIRATORY VENTILATION, 24-96 CONSECUTIVE HOURS (01/13/18) Family History: States: [place], CAD, Hypertension - Social History Hx Tobacco Use: No Hx Alcohol Use: No Hx Substance Use: No - Immunization History Hx Tetanus Toxoid Vaccination: No Hx Influenza Vaccination: Yes Hx Pneumococcal Vaccination: Yes Review Of Systems Constitutional: Negative for: Fever, Chills ENT: Positive for: Other (Tongue swelling) Cardiovascular: Negative for: Chest Pain Respiratory: Positive for: Shortness of Breath Gastrointestinal: Negative for: Nausea, Vomiting, Abdominal Pain Skin: Negative for: Rash, Lesions Neurological: Negative for: Weakness, Numbness, Change in Speech, Altered Mental Status, Headache Physical Exam - Physical Exam Appears: Other (Morbidly obese female, appears comfortable) Skin: Normal Color, Warm, Dry Head: Atraumatic, Normacephalic Eye(s): bilateral: Normal Inspection, PERRL, EOMI Tongue: Swelling (+ moderate angioedema) Throat: Other (Unable to visualize the oropharynx/airway secondary to angioedem a) Neck: Trachea Midline, Supple Chest: Symmetrical Cardiovascular: Rhythm Regular, No Murmur Respiratory: Normal Breath Sounds, No Accessory Muscle Use, No Rhonchi, No Stridor, No Wheezing Gastrointestinal/Abdominal: Soft, No Tenderness, No Distention Extremity: Bilateral: Atraumatic, Normal Color And Temperature Pulses: Left Radial: Normal, Right Radial: Normal Neurological/Psych: Other (Awake and alert, answering questions correctly but sluggish) ED Course And Treatment - Laboratory Results Result Diagrams: 01/01/19 06:22 01/01/19 06:22 ECG: Interpreted By Me, Viewed By Me ECG Rhythm: Sinus Rhythm ECG Interpretation: No Acute Changes Rate From EC O2 Sat by Pulse Oximetry: 98 (NC) Pulse Ox Interpretation: Normal Medical Decision Making Medical Decision Making: Patient seen and evaluated immediately. Plan: 50 mg IV Benadryl, 20 mg IV Pepcid, and 10 mg IV Decadron given. Confirmed med list, patient is on an LEO inhibitor and will likely require intubation to maintain airway. Orders placed for labs, EKG, and chest x-ray. 7:37 Spoke with anesthesia regarding case and likely need for intubation. They will come and see patient in the ED. 7:[address] Denice Saldivar, will admit. 7:55 Anesthesia at bedside evaluating patient. 8:05 Discussed with loan collector, Dr. Gerard, who accepts patient to the ICU. 8:[address] Dr[address] and Dr. Lamb at bedside, evaluating patient. Dr. Lamb scoped patient, noted that the posterior aspect of vocal cords appear normal. Patient will not be intubated immediately, but will go to the ICU. Disposition Discussed With Dr.: Miko Saldivar - Disposition Disposition: HOSPITALIZED Disposition Time: 07:39 Condition: GUARDED - Clinical Impression Clinical Impression: Angioedema - Scribe Statement The provider has reviewed the documentation as recorded by the Josh Ge Provider Attestation: All medical record entries made by the Lauraibautumn were at my direction and personally dictated by me. I have reviewed the chart and agree that the record accurately reflects my personal performance of the history, physical exam, medical decision making, and the department course for this patient. I have also personally directed, reviewed, and agree with the discharge instructions and disposition. Decision To Admit - Pt Status Changed To: Hospital Disposition Of: Inpatient - Admit Certification Admit to Inpatient:: After my assessment, the patient will require hospitalization for at least two midnights. This is because of the severity of symptoms shown, intensity of services needed, and/or the medical risk in this patient being treated as an outpatient. - InPatient: Physician Admission Certification: I certify that this patient requires 2 or more midnights of care for the following reason:: critical patient - . Bed Request Type: ICU Admitting Physician: Miko Saldivar Patient Diagnosis: Angioedema
[2018-12-30 07:57] LABS: BASO % 0.8 % (0.0-2.0); EOS # 0.1 K/uL (0.0-0.7); EOS % 3.2 % (0.0-4.0); HEMOGLOBIN 12.7 g/dL (11.0-16.0); LYMPH % 25.7 % (20.0-40.0); MEAN CELL VOLUME 86.5 fL (81.0-99.0); MEAN CORPUSCULAR HEMOGLOBIN 28.1 pg (27.0-31.0); MEAN CORPUSCULAR HGB CONC 32.5 g/dL (33.0-37.0); MEAN PLATELET VOLUME 8.6 fL (7.2-11.7); MONO # 0.2 K/uL (0.0-0.8); MONO % 4.7 % (0.0-10.0); NEUT # 2.7 K/uL (1.8-7.0); NEUT % 65.6 % (50.0-75.0); RBC 4.52 Mil/uL (3.80-5.20); RED CELL DISTRIBUTION WIDTH 15.6 % (11.5-14.5)
[2018-12-30 08:00] LABS: WHITE BLOOD COUNT 4.1 K/uL (4.8-10.8)
[2018-12-30] MEDS ORDERED: Dextrose 50% SYRINGE Inj (50 ml) ONE (08:00)
[2018-12-30] MEDS ORDERED: Dextrose 50% SYRINGE Inj (50 ml) IV STA (08:01)
--- NOTE | 2018-12-30 08:50 | CP.PCM.CON ---
<Damion Mcduffie - Last Filed: 12/30/18 14:54> History of Present Illness - History of Present Illness History of Present Illness: ICU Consult Note for Dr. Gerard This is a 53 y o female with PMhx DM, COPD, HTN, HLD, CKD, depression, asthma, bipolar disorder who was BiBEMS for evaluation of hypoglycemia noted at 3 am this morning. Per daughter, pt's blood sugar was elevated yesterday am and pt received additional 60 units of insulin. Pt continued to monitor sugars during day and had to give herself an additional 60 units of insulin last evening. Pt's daughter gave pt extra juice and peanut butter cookies before bed and continued to monitor sugars overnight. When pt's daughter awoke at 3 am and checked on pt, pt's blood sugar was 30 and pt appeared diaphoretic and unresponsive. Pt's daug hter also noticed that pt's tongue was swollen at that time and was not able to give any juice or food PO, prompting her to call 911. Pt received 1 amp D50 while en route to the ED. Reason for ICU consult was for angioedema. Unable to obtain further HPI or ROS from pt due to pt's clinical status. Per chart review and pt's daughter, pt has prior hx angioedema on most recent admission at [facility] after ingestion of shrimp. PMhx: as noted above PSurgHx: denies Allergies: shellfish Home meds: reviewed as per NOV [facility] hx: HTN Soc hx: social EtOH use; denies smoking or illicit drug use PMD: Dr. Aditya Saldivar Review of Systems - Review of Systems Systems not reviewed;Unavailable: Respiratory Distress Past Patient History - Infectious Disease Hx of Infectious Diseases: None - Past Medical History & Family History Past Medical History?: Yes - Past Social History Smoking Status: Never Smoked - CARDIAC Hx Hypercholesterolemia: Yes Hx Hypertension: Yes - PULMONARY Hx Asthma: Yes Hx Chronic Obstructive Pulmonary Disease (COPD): Yes Hx Pneumonia: Yes - NEUROLOGICAL Hx Neurological Disorder: No - HEENT Hx HEENT Problems: Yes Hx Cataracts: Yes - RENAL Hx Chronic Kidney Disease: Yes - ENDOCRINE/METABOLIC Hx Endocrine Disorders: Yes Hx Diabetes Mellitus Type 2: Yes - HEMATOLOGICAL/ONCOLOGICAL Hx Anemia: Yes - INTEGUMENTARY Hx Dermatological Problems: No - MUSCULOSKELETAL/RHEUMATOLOGICAL Hx Falls: No - GASTROINTESTINAL Hx Gastrointestinal Disorders: No - GENITOURINARY/GYNECOLOGICAL Hx Genitourinary Disorders: No - PSYCHIATRIC Hx Anxiety: Yes Hx Bipolar Disorder: Yes Hx Depression: Yes Hx Substance Use: No - SURGICAL HISTORY Hx Surgeries: Yes Hx Section: Yes (x1) Hx Eye Surgery: Yes (LEFT EYE) - ANESTHESIA Hx Anesthesia: Yes Hx Anesthesia Reactions: No Hx Malignant Hyperthermia: No Meds Allergies/Adverse Reactions: Allergies Allergy/AdvReac Type Severity Reaction Status Date / Time FISH Allergy Severe ITCHING Verified 12/30/18 07:02 shellfish derived Allergy Severe SWELLING Verified 12/30/18 07:02 Physical Exam - Constitutional Appears: Non-toxic, In Acute Distress - Eye Exam Eye Exam: EOMI, PERRL - ENT Exam ENT Exam: Mucous Membranes Moist Additional comments: Angioedema on exam, unable to assess patent airway - Respiratory Exam Respiratory Exam: Accessory Muscle Use, Clear to Auscultation Bilateral, Respiratory Distress. absent: Rales, Rhonchi, Wheezes - Cardiovascular Exam Cardiovascular Exam: Tachycardia, +S1, +S2. absent: Gallop, Rubs, Systolic Murmur - GI/Abdominal Exam GI & Abdominal Exam: Normal Bowel Sounds, Soft. absent: Distended, Organomegaly, Tenderness - Extremities Exam Extremities exam: Positive for: full ROM, normal capillary refill, normal inspection, pedal pulses present. Negative for: pedal edema - Neurological Exam Neurological exam: Alert, Oriented x3 - Skin Skin Exam: Dry, Intact, Warm Results - Vital Signs Recent Vital Signs: Last Vital Signs Temp 98 F 12/30/18 06:57 Pulse 77 12/30/18 08:23 Resp 20 12/30/18 08:23 BP 184/111 H 12/30/18 08:23 Pulse Ox 98 12/30/18 08:30 - Labs Result Diagrams: 12/30/18 07:48 12/30/18 13:45 Labs: Laboratory Results - last 24 hr 12/30/18 12/30/18 12/30/18 06:55 07:28 07:48 WBC 4.1 L D RBC 4.52 Hgb 12.7 Hct 39.1 MCV 86.5 MCH 28.1 MCHC 32.5 L RDW 15.6 H Plt Count 520 H MPV 8.6 Neut % (Auto) 65.6 Lymph % (Auto) 25.7 [place] % (Auto) 4.7 Eos % (Auto) 3.2 Baso % (Auto) 0.8 Neut # (Auto) 2.7 Lymph # (Auto) 1.0 [place] # (Auto) 0.2 Eos # (Auto) 0.1 Baso # (Auto) 0.0 POC Glucose (mg/dL) 104 97 Assessment & Plan - Assessment and Plan (Free Text) Assessment: This is a 53 y o female with PMhx DM, COPD, HTN, HLD, CKD, depression, asthma, bipolar disorder who was BiBEMS for evaluation of hypoglycemia noted at 3 am this morning. Reason for ICU consult was for angioedema. Admitted to ICU for further monitoring and management of airway. Dr. Lamb (ENT) consulted. Plan: Neuro: -AAOx3 prior to intubation -Currently sedated on Propofol -Cont to monitor Cardio: -Tachycardic and hypertensive on initial presentation, may be 2/2 angioedema -Hx HTN, HLD -S/p hydralazine x1 with improvement in BP -C/w home meds Coreg, Clonidine, Norvasc, Lasix, Torsemide -Crestor, Zetia -S/p central line placement in R femoral area -EKG on admission: NSR, L posterior fascicular block, prolonged QT Pulm: -Angioedema, hx recurrence, r/o hereditary angioedema as etiology -W/u for angioedema pending -Intubated in OR with ENT and anesthesia present at bedside; s/p flexible laryngoscopy performed by ENT at bedside -Currently intubated and sedated on vent -Vent settings as ordered -Maintain O2 sat > 92% -Pulm toilet -Bronchodilators -S/p Decadron, Pepcid, and Benadryl in ED -Solu-Medrol 40 mg IVP q6h -Benadryl q6h prn -Hx COPD -Singulair daily -CXR on admission: Moderate venous congestion with cardiomegaly and R hilar prominence. -ENT consulted, Dr. Lamb, recs appreciated GI: -NPO -Protonix -IVF @ 100 cc/hr Heme: -H/H 12.7/39.1 ID: -Leukopenia 4.1, may be reactive 2/2 angioedema, cont to trend Renal: -Bun/Cr 32/3.0 -Hx CKD -Cont to trend I's/O's Endo: -Hx DM -Fingersticks q6h -ISS -Hypoglycemic protocol -Currently NPO PPX: -Protonix -Heparin, SCD Pt seen, examined with, and plan discussed with Dr. Gerard, attending physician. Damion Mcduffie DO PGY-1, sintering press operator Pager #[phone] <Clarence Gerard - Last Filed: 12/30/18 17:20> Meds - Medications Medications: Current Medications Albuterol/Ipratropium (Duoneb 3 Mg/0.5 Mg (3 Ml) Ud) 3 ml INH RQ6 COLE Allopurinol (Zyloprim) 300 mg PO DAILY COLE Amlodipine Besylate (Norvasc) 5 mg PO DAILY COLE Carvedilol (Coreg) 12.5 mg PO BID COLE Clonidine HCl (Catapres) 0.2 mg PO DAILY COLE Dextrose (Dextrose 50% Inj) 0 ml IV STAT PRN; Protocol PRN Reason: Hypoglycemia Protocol Dextrose (Glutose 15) 0 gm PO ONCE PRN; Protocol PRN Reason: Hypoglycemia Protocol Diphenhydramine HCl (Benadryl) 50 mg IVP Q6H PRN PRN Reason: Anaphylaxis Ezetimibe (Zetia) 10 mg PO DAILY COLE Furosemide (Lasix) 20 mg PO DAILY COLE Glucagon (Glucagen Diagnostic Kit) 0 mg IM STAT PRN; Protocol PRN Reason: Hypoglycemia Protocol Heparin Sodium (Porcine) (Heparin) 5,000 units SC Q12H [facility] Last Admin: 12/30/18 16:04 Dose: 5,000 units Sodium Chloride (Sodium Chloride 0.9%) 1,000 mls @ 100 mls/hr IV .Q10H COLE Last Admin: 12/30/18 14:00 Dose: 100 mls/hr Dextrose (Dextrose 5% In Water 1000 Ml) 1,000 mls @ 0 mls/hr IV .Q0M PRN; Protocol PRN Reason: Hypoglycemia Protocol Propofol (Diprivan) 1,000 mg in 100 mls @ 3.919 mls/hr IV .Q24H PRN; Protocol PRN Reason: TITRATE PER MD ORDER Last Admin: 12/30/18 15:05 Dose: 5 mcg/kg/min, 3.919 mls/hr Insulin Human Regular (Novolin R) 0 unit SC Q6 COLE; Protocol Methylprednisolone (Solu-Medrol) 40 mg IVP Q6H COLE Last Admin: 12/30/18 14:25 Dose: 40 mg Montelukast Sodium (Singulair) 10 mg PO DAILY COLE Pantoprazole Sodium (Protonix Inj) 40 mg IVP DAILY COLE Torsemide (Demadex) 20 mg PO DAILY COLE Results - Vital Signs Recent Vital Signs: Last Vital Signs Temp 98 F 12/30/18 06:57 Pulse 81 12/30/18 15:00 Resp 14 12/30/18 15:00 BP 149/80 12/30/18 15:00 Pulse Ox 98 12/30/18 15:00 - Labs Result Diagrams: 12/30/18 07:48 12/30/18 13:45 Labs: Laboratory Results - last 24 hr 12/30/18 12/30/18 12/30/18 06:55 07:28 07:48 WBC 4.1 L D RBC 4.52 Hgb 12.7 Hct 39.1 MCV 86.5 MCH 28.1 MCHC 32.5 L RDW 15.6 H Plt Count 520 H MPV 8.6 Neut % (Auto) 65.6 Lymph % (Auto) 25.7 [place] % (Auto) 4.7 Eos % (Auto) 3.2 Baso % (Auto) 0.8 Neut # (Auto) 2.7 Lymph # (Auto) 1.0 [place] # (Auto) 0.2 Eos # (Auto) 0.1 Baso # (Auto) 0.0 Puncture Site pCO2 pO2 HCO3 ABG pH ABG Total CO2 ABG O2 Saturation ABG Base Excess Tyler Test ABG Potassium A-a O2 Difference Respiratory Index Glucose Lactate FiO2 Tidal Volume PEEP Sodium Potassium Chloride Carbon Dioxide Anion Gap BUN Creatinine Est GFR ( Amer) Est GFR (Non-Af Amer) POC Glucose (mg/dL) 104 97 Random Glucose Calcium Phosphorus Magnesium Total Bilirubin AST ALT Alkaline Phosphatase Troponin I Total Protein Albumin Globulin Albumin/Globulin Ratio Free T4 Free T3 pg/mL TSH 3rd Generation Beta HCG, Quant Arterial Blood Potassium 12/30/18 12/30/18 12/30/18 10:08 10:14 11:49 WBC RBC Hgb Hct MCV MCH MCHC RDW Plt Count MPV Neut % (Auto) Lymph % (Auto) [place] % (Auto) Eos % (Auto) Baso % (Auto) Neut # (Auto) Lymph # (Auto) [place] # (Auto) Eos # (Auto) Baso # (Auto) Puncture Site pCO2 pO2 HCO3 ABG pH ABG Total CO2 ABG O2 Saturation ABG Base Excess Tyler Test ABG Potassium A-a O2 Difference Respiratory Index Glucose Lactate FiO2 Tidal Volume PEEP Sodium 138 Potassium 4.2 Chloride 104 Carbon Dioxide 27 Anion Gap 11 BUN 32 H Creatinine 2.9 H Est GFR ( Amer) 21 Est GFR (Non-Af Amer) 17 POC Glucose (mg/dL) 146 H 186 H Random Glucose 122 H Calcium 9.4 Phosphorus 4.3 Magnesium 2.0 Total Bilirubin 0.4 AST 42 H ALT 7 L D Alkaline Phosphatase 302 H Troponin I Total Protein 8.1 Albumin 3.7 Globulin 4.4 H Albumin/Globulin Ratio 0.8 L Free T4 Free T3 pg/mL TSH 3rd Generation Beta HCG, Quant < 2.39 Arterial Blood Potassium 12/30/18 12/30/18 12/30/18 13:23 13:45 13:45 WBC RBC Hgb Hct MCV MCH MCHC RDW Plt Count MPV Neut % (Auto) Lymph % (Auto) [place] % (Auto) Eos % (Auto) Baso % (Auto) Neut # (Auto) Lymph # (Auto) [place] # (Auto) Eos # (Auto) Baso # (Auto) Puncture Site Lb pCO2 50 H pO2 315 H HCO3 24.3 ABG pH 7.32 L ABG Total CO2 27.3 ABG O2 Saturation 97.4 ABG Base Excess -0.9 Tyler Test Na ABG Potassium 4.0 A-a O2 Difference 336.0 Respiratory Index 1.1 Glucose 160 H Lactate 2.6 H FiO2 100.0 Tidal Volume 500 PEEP 5 Sodium 139.0 136 Potassium 4.5 Chloride 106.0 104 Carbon Dioxide 26 Anion Gap 10 BUN 32 H Creatinine 3.0 H Est GFR ( Amer) 20 Est GFR (Non-Af Amer) 16 POC Glucose (mg/dL) Random Glucose 133 H Calcium 9.1 Phosphorus 4.6 H Magnesium 2.0 Total Bilirubin 0.5 AST 38 H ALT 11 Alkaline Phosphatase 266 H Troponin I 0.0120 Total Protein 7.4 Albumin 3.4 L Globulin 4.0 H Albumin/Globulin Ratio 0.8 L Free T4 Free T3 pg/mL TSH 3rd Generation Beta HCG, Quant < 2.39 Arterial Blood Potassium 4.0 12/30/18 12/30/18 16:16 16:16 WBC RBC Hgb Hct MCV MCH MCHC RDW Plt Count MPV Neut % (Auto) Lymph % (Auto) [place] % (Auto) Eos % (Auto) Baso % (Auto) Neut # (Auto) Lymph # (Auto) [place] # (Auto) Eos # (Auto) Baso # (Auto) Puncture Site pCO2 pO2 HCO3 ABG pH ABG Total CO2 ABG O2 Saturation ABG Base Excess Tyler Test ABG Potassium A-a O2 Difference Respiratory Index Glucose Lactate FiO2 Tidal Volume PEEP Sodium Potassium Chloride Carbon Dioxide Anion Gap BUN Creatinine Est GFR ( Amer) Est GFR (Non-Af Amer) POC Glucose (mg/dL) Random Glucose Calcium Phosphorus Magnesium Total Bilirubin AST ALT Alkaline Phosphatase Troponin I Total Protein Albumin Globulin Albumin/Globulin Ratio Free T4 0.93 Free T3 pg/mL 3.09 TSH 3rd Generation 0.72 Beta HCG, Quant Arterial Blood Potassium Attending/Attestation - Attestation I have personally seen and examined this patient.: Yes I have fully participated in the care of the patient.: Yes I have reviewed all pertinent clinical information: Yes Notes (Text): 12/30/18 17:17 Patient seen and examined 53-year-old female presented with angioedema and shortness of breath Patient was intubated nasally using fiberoptic bronchoscopy without any complication IV sedation IV steroids and Benadryl Rule out C1 inhibitor deficiency unable to get C1 inhibitor medicine Start weaning once angioedema resolves Triple-lumen catheter inserted and right femoral vein under aseptic conditions
--- NOTE | 2018-12-30 10:16 | RAD ---
Date of service: 12/30/2018 HISTORY: Shortness of breath COMPARISON: None available. TECHNIQUE: 1 view obtained. FINDINGS: LUNGS: Moderate venous congestion. Right hilar prominence. PLEURA: No significant pleural effusion identified, no pneumothorax apparent. CARDIOVASCULAR: No aortic atherosclerotic calcification present. Cardiomegaly. Moderate venous congestion. OSSEOUS STRUCTURES: No significant abnormalities. VISUALIZED UPPER ABDOMEN: Normal. OTHER FINDINGS: None. IMPRESSION: Moderate venous congestion with cardiomegaly and right hilar prominence.
[2018-12-30] MEDS ORDERED: Phenylephrine 0.5% Nasal Spray (15 ml) ONE (10:19)
[2018-12-30] MEDS ORDERED: Lidocaine/Epinephrine 1% 1:100000 10 ML IJ ONE (10:21)
[2018-12-30] MEDS ORDERED: Ketamine 50 mg/ml Inj (10 ml) ONE (10:23)
[2018-12-30 10:27] LABS: ALB/GLOB RATIO 0.8 (1.0-2.1); ALBUMIN 3.7 g/dL (3.5-5.0); ALT/SGPT 7 U/L (9-52); AST/SGOT 42 U/L (14-36); BLOOD UREA NITROGEN 32 mg/dL (7-17); CALCIUM 9.4 mg/dl (8.6-10.4); GFR NON-AFRICAN AMERICAN 17
[2018-12-30] MEDS ORDERED: Lidocaine 4% (Laryng-O-Jet) Kit MM ONE (10:29)
[2018-12-30] MEDS ORDERED: Midazolam 2 MG/2 ML VIAL ONE (10:30)
[2018-12-30] MEDS ORDERED: Lidocaine 2% Jelly (Uro-Jet) ONE (10:31)
[2018-12-30] MEDS ORDERED: Propofol 10 mg/ml Inj (20 ML) ONE ×2 (10:43→10:53)
[2018-12-30] MEDS ORDERED: Propofol 10 mg/ml Inj (100 ml) IV SCH (11:15)
[2018-12-30] MEDS ORDERED: Propofol 10 mg/ml 1,000 MG/100 ML VIAL IV PRN (11:19)
--- NOTE | 2018-12-30 11:47 | RAD ---
HISTORY: eval s/p intubation COMPARISON: Chest x-ray performed 12/30/18 TECHNIQUE: Chest, one view. FINDINGS: Endotracheal tube terminates approximately 3.3 cm above the cordelia. Examination limited by habitus and hypoinflation. LUNGS: Interstitial prominence may reflect infection or edema. No focal consolidation. Please note that chest x-ray has limited sensitivity for the detection of pulmonary masses. PLEURA: No significant pleural effusion identified. No definite pneumothorax . CARDIOVASCULAR: Heart size appears top normal. No significant atherosclerotic calcification present. OSSEOUS STRUCTURES: No acute osseous abnormality identified. VISUALIZED UPPER ABDOMEN: Unremarkable. OTHER FINDINGS: None. IMPRESSION: Endotracheal tube terminates approximately 3.3 cm above the cordelia. Interstitial prominence may reflect infection or edema.
[2018-12-30 13:19] VITALS: BMI 46.5
[2018-12-30 13:29] LABS: ARTERIAL BLOOD GAS HCO3 24.3 mmol/L (21-28); ARTERIAL BLOOD GAS O2 SAT 97.4 % (95-98); ARTERIAL BLOOD GAS PCO2 50 mm/Hg (35-45); ARTERIAL BLOOD GAS PH 7.32 (7.35-7.45); ARTERIAL BLOOD GAS PO2 315 mm/Hg (80-100); ARTERIAL BLOOD GAS TCO2 27.3 mmol/L (22-28)
[2018-12-30] MEDS ORDERED: Dextrose 50% SYRINGE Inj (50 ml) IV PRN (13:42)
[2018-12-30] MEDS ORDERED: Glucagon Recombinant 1 mg Inj IM PRN (13:42)
[2018-12-30] MEDS ORDERED: (Novolin R) Insulin Human Regular 100 units/ml vial SC SCH (13:45)
[2018-12-30] MEDS: Sodium Chloride 0.9% 1,000 ML IV SCH ×2 (14:00→21:19)
[2018-12-30 14:11] LABS: ALB/GLOB RATIO 0.8 (1.0-2.1); ALBUMIN 3.4 g/dL (3.5-5.0); CALCIUM 9.1 mg/dl (8.6-10.4)
[2018-12-30 14:18] LABS: TROPONIN I 0.012 ng/mL (0.00-0.120)
[2018-12-30] MEDS: MethylPREDNISolone 40 mg Vial IVP SCH ×2 (14:25→19:53)
--- NOTE | 2018-12-30 14:45 | OP ---
PROCEDURE DATE: 12/30/2018 PREOPERATIVE DIAGNOSIS: Possible airway obstruction. POSTOPERATIVE DIAGNOSIS: Possible airway obstruction. PROCEDURE: Flexible laryngoscopy. SURGEON: Juan Lamb MD SIGNIFICANT FINDINGS: Airway obstruction not noted. DESCRIPTION OF PROCEDURE: The patient was placed in a supine position. Nose was decongested using Afrin. Flexible laryngoscope was inserted into the nasal cavity, passed through the nasopharynx, oropharynx, and hypopharynx. The pharyngeal padilla, base of tongue, vallecula, epiglottis, the AE folds, false cords, true cords, arytenoids, piriform sinuses were brought into view. No masses or lesions were noted. No edema or erythema was noted. The scope was removed. The patient tolerated the procedure well. Juan Lamb MD
[2018-12-30] MEDS: Propofol 10 mg/ml 1,000 MG/100 ML VIAL IV PRN ×3 (15:05→23:30)
--- NOTE | 2018-12-30 17:23 | PCM.PROC ---
Procedures Attestation:: I certify that I have explained the specified Operation(s) or Procedure(s), risks, benefits and reasonable alternatives to the Patient and/or other person responsible. The opportunity was given to ask questions and all questions answered - Intubation Sedative: Ketamine Mg Given: 10 Laryngoscope: Other (Fiberoptic bronchoscopy used for nasal intubation) Assist Device Used: Fiber Optic Device ET Tube Size: 7.0 ET Tube Uncuffed: No ET Tube Secured at Depth: 24 ET Tube Secured Locarion: Other (Left nasal intubation) ET Tube Placement Confirmation: Visualized Passing Through Cords, Breath Sounds Equal Bilaterally, No Breath Sounds Over Epigastrum, Confirmation w/Capnometry Patient Tolerated Procedure: Well Procedure Immediate Complications: None
--- NOTE | 2018-12-30 17:24 | PCM.PROC ---
Procedures Attestation:: I certify that I have explained the specified Operation(s) or Procedure(s), risks, benefits and reasonable alternatives to the Patient and/or other person responsible. The opportunity was given to ask questions and all questions answered - Central Line Placement Right Femoral Triple Lumen Catheter Aseptic technique was employed throughout the procedure: Hand Hygiene done prior to procedure, Chloraprep Antiseptic: 2 minute prep for Femoral CVP Time Out Performed: Yes Pt. Placed on Pulse Ox Monitor: Yes Central Line Prep: Chlorhexidine-Alcohol Combination Local Anesthesia Used: Lidocaine 1% Amount of Anesthesia Used (mls): 5 Ultrasound Used for Placement: No Central Line Lumen Inserted: triple Central Line Length: 20 cm Post Procedure: Sutured in Place, Good Blood Return, All Ports Aspirated, Flushed, Capped, Sterile Dressing Applied Secured by: Suture Post procedure dressing: Chlorhexidine disc (Biopatch) Post Procedure X-Ray: No Patient Tolerated Procedure: Well
[2018-12-30] MEDS: (Novolin R) Insulin Human Regular 100 units/ml vial SC SCH (18:36)
--- NOTE | 2018-12-30 18:57 | CP.PCM.HP ---
Past Patient History - Infectious Disease Hx of Infectious Diseases: None - Past Medical History & Family History Past Medical History?: Yes - Past Social History Smoking Status: Never Smoked - CARDIAC Hx Hypercholesterolemia: Yes Hx Hypertension: Yes - PULMONARY Hx Asthma: Yes Hx Chronic Obstructive Pulmonary Disease (COPD): Yes Hx Pneumonia: Yes - NEUROLOGICAL Hx Neurological Disorder: No - HEENT Hx HEENT Problems: Yes Hx Cataracts: Yes - RENAL Hx Chronic Kidney Disease: Yes - ENDOCRINE/METABOLIC Hx Endocrine Disorders: Yes Hx Diabetes Mellitus Type 2: Yes - HEMATOLOGICAL/ONCOLOGICAL Hx Anemia: Yes - INTEGUMENTARY Hx Dermatological Problems: No - MUSCULOSKELETAL/RHEUMATOLOGICAL Hx Falls: No - GASTROINTESTINAL Hx Gastrointestinal Disorders: No - GENITOURINARY/GYNECOLOGICAL Hx Genitourinary Disorders: No - PSYCHIATRIC Hx Anxiety: Yes Hx Bipolar Disorder: Yes Hx Depression: Yes Hx Substance Use: No - SURGICAL HISTORY Hx Surgeries: Yes Hx Section: Yes (x1) Hx Eye Surgery: Yes (LEFT EYE) - ANESTHESIA Hx Anesthesia: Yes Hx Anesthesia Reactions: No Hx Malignant Hyperthermia: No Meds Allergies/Adverse Reactions: Allergies Allergy/AdvReac Type Severity Reaction Status Date / Time FISH Allergy Severe ITCHING Verified 12/30/18 07:02 shellfish derived Allergy Severe SWELLING Verified 12/30/18 07:02 Physical Exam - Constitutional Appears: Well - Head Exam Head Exam: ATRAUMATIC, NORMAL INSPECTION, NORMOCEPHALIC - Eye Exam Eye Exam: EOMI, Normal appearance, PERRL Pupil Exam: NORMAL ACCOMODATION, PERRL - ENT Exam ENT Exam: Mucous Membranes Moist, Normal Exam - Neck Exam Neck exam: Positive for: Normal Inspection - Respiratory Exam Respiratory Exam: Decreased Breath Sounds - Cardiovascular Exam Cardiovascular Exam: REGULAR RHYTHM, +S1, +S2 - GI/Abdominal Exam GI & Abdominal Exam: Diminished Bowel Sounds, Soft - Rectal Exam Rectal Exam: Deferred Results - Vital Signs Recent Vital Signs: Last Vital Signs Temp 98.3 F 12/30/18 16:00 Pulse 80 12/30/18 18:16 Resp 14 12/30/18 18:16 BP 150/66 12/30/18 18:17 Pulse Ox 100 12/30/18 18:16 - Labs Result Diagrams: 12/30/18 07:48 12/30/18 13:45 Labs: Laboratory Results - last 24 hr 04/02/19 04/02/19 04/02/19 06:55 07:28 07:48 WBC 4.1 L D RBC 4.52 Hgb 12.7 Hct 39.1 MCV 86.5 MCH 28.1 MCHC 32.5 L RDW 15.6 H Plt Count 520 H MPV 8.6 Neut % (Auto) 65.6 Lymph % (Auto) 25.7 Rogers % (Auto) 4.7 Eos % (Auto) 3.2 Baso % (Auto) 0.8 Neut # (Auto) 2.7 Lymph # (Auto) 1.0 Rogers # (Auto) 0.2 Eos # (Auto) 0.1 Baso # (Auto) 0.0 ESR Puncture Site pCO2 pO2 HCO3 ABG pH ABG Total CO2 ABG O2 Saturation ABG Base Excess Tyler Test ABG Potassium A-a O2 Difference Respiratory Index Glucose Lactate FiO2 Tidal Volume PEEP Sodium Potassium Chloride Carbon Dioxide Anion Gap BUN Creatinine Est GFR ( Amer) Est GFR (Non-Af Amer) POC Glucose (mg/dL) 104 97 Random Glucose Calcium Phosphorus Magnesium Total Bilirubin AST ALT Alkaline Phosphatase Troponin I C-Reactive Protein Total Protein Albumin Globulin Albumin/Globulin Ratio Free T4 Free T3 pg/mL TSH 3rd Generation Beta HCG, Quant Arterial Blood Potassium Complement C4 12/30/18 12/30/18 12/30/18 10:08 10:14 11:49 WBC RBC Hgb Hct MCV MCH MCHC RDW Plt Count MPV Neut % (Auto) Lymph % (Auto) Rogers % (Auto) Eos % (Auto) Baso % (Auto) Neut # (Auto) Lymph # (Auto) Rogers # (Auto) Eos # (Auto) Baso # (Auto) ESR Puncture Site pCO2 pO2 HCO3 ABG pH ABG Total CO2 ABG O2 Saturation ABG Base Excess Tyler Test ABG Potassium A-a O2 Difference Respiratory Index Glucose Lactate FiO2 Tidal Volume PEEP Sodium 138 Potassium 4.2 Chloride 104 Carbon Dioxide 27 Anion Gap 11 BUN 32 H Creatinine 2.9 H Est GFR ( Amer) 21 Est GFR (Non-Af Amer) 17 POC Glucose (mg/dL) 146 H 186 H Random Glucose 122 H Calcium 9.4 Phosphorus 4.3 Magnesium 2.0 Total Bilirubin 0.4 AST 42 H ALT 7 L D Alkaline Phosphatase 302 H Troponin I C-Reactive Protein Total Protein 8.1 Albumin 3.7 Globulin 4.4 H Albumin/Globulin Ratio 0.8 L Free T4 Free T3 pg/mL TSH 3rd Generation Beta HCG, Quant < 2.39 Arterial Blood Potassium Complement C4 12/30/18 12/30/18 12/30/18 13:23 13:45 13:45 WBC RBC Hgb Hct MCV MCH MCHC RDW Plt Count MPV Neut % (Auto) Lymph % (Auto) Rogers % (Auto) Eos % (Auto) Baso % (Auto) Neut # (Auto) Lymph # (Auto) Rogers # (Auto) Eos # (Auto) Baso # (Auto) ESR Puncture Site Lb pCO2 50 H pO2 315 H HCO3 24.3 ABG pH 7.32 L ABG Total CO2 27.3 ABG O2 Saturation 97.4 ABG Base Excess -0.9 Tyler Test Na ABG Potassium 4.0 A-a O2 Difference 336.0 Respiratory Index 1.1 Glucose 160 H Lactate 2.6 H FiO2 100.0 Tidal Volume 500 PEEP 5 Sodium 139.0 136 Potassium 4.5 Chloride 106.0 104 Carbon Dioxide 26 Anion Gap 10 BUN 32 H Creatinine 3.0 H Est GFR ( Amer) 20 Est GFR (Non-Af Amer) 16 POC Glucose (mg/dL) Random Glucose 133 H Calcium 9.1 Phosphorus 4.6 H Magnesium 2.0 Total Bilirubin 0.5 AST 38 H ALT 11 Alkaline Phosphatase 266 H Troponin I 0.0120 C-Reactive Protein Total Protein 7.4 Albumin 3.4 L Globulin 4.0 H Albumin/Globulin Ratio 0.8 L Free T4 Free T3 pg/mL TSH 3rd Generation Beta HCG, Quant < 2.39 Arterial Blood Potassium 4.0 Complement C4 12/30/18 12/30/18 12/30/18 16:16 16:16 16:16 WBC RBC Hgb Hct MCV MCH MCHC RDW Plt Count MPV Neut % (Auto) Lymph % (Auto) Rogers % (Auto) Eos % (Auto) Baso % (Auto) Neut # (Auto) Lymph # (Auto) Rogers # (Auto) Eos # (Auto) Baso # (Auto) ESR 110 H Puncture Site pCO2 pO2 HCO3 ABG pH ABG Total CO2 ABG O2 Saturation ABG Base Excess Tyler Test ABG Potassium A-a O2 Difference Respiratory Index Glucose Lactate FiO2 Tidal Volume PEEP Sodium Potassium Chloride Carbon Dioxide Anion Gap BUN Creatinine Est GFR ( Amer) Est GFR (Non-Af Amer) POC Glucose (mg/dL) Random Glucose Calcium Phosphorus Magnesium Total Bilirubin AST ALT Alkaline Phosphatase Troponin I C-Reactive Protein 17.20 H Total Protein Albumin Globulin Albumin/Globulin Ratio Free T4 Free T3 pg/mL 3.09 TSH 3rd Generation 0.72 Beta HCG, Quant Arterial Blood Potassium Complement C4 73.5 H 12/30/18 12/30/18 16:16 17:59 WBC RBC Hgb Hct MCV MCH MCHC RDW Plt Count MPV Neut % (Auto) Lymph % (Auto) Rogers % (Auto) Eos % (Auto) Baso % (Auto) Neut # (Auto) Lymph # (Auto) Rogers # (Auto) Eos # (Auto) Baso # (Auto) ESR Puncture Site pCO2 pO2 HCO3 ABG pH ABG Total CO2 ABG O2 Saturation ABG Base Excess Tyler Test ABG Potassium A-a O2 Difference Respiratory Index Glucose Lactate FiO2 Tidal Volume PEEP Sodium Potassium Chloride Carbon Dioxide Anion Gap BUN Creatinine Est GFR ( Amer) Est GFR (Non-Af Amer) POC Glucose (mg/dL) 194 H Random Glucose Calcium Phosphorus Magnesium Total Bilirubin AST ALT Alkaline Phosphatase Troponin I C-Reactive Protein Total Protein Albumin Globulin Albumin/Globulin Ratio Free T4 0.93 Free T3 pg/mL TSH 3rd Generation Beta HCG, Quant Arterial Blood Potassium Complement C4 Assessment & Plan - Assessment and Plan (Free Text) Plan: IV benadryl prn every 6 IV fluid Diprima on propofol DuoNeb Subcu heparin for prophylaxis Protonix IV Solu-Medrol every 6 folluwp tih pulm folupith intesivist Assessment: This is a 53 y o female with PMhx DM, COPD, HTN, HLD, CKD, depression, asthma, bipolar disorder who was [facility] for evaluation of hypoglycemia noted at 3 am this morning. Reason for ICU consult was for angioedema. Admitted to ICU for further monitoring and management of airway. Dr. Lamb (ENT) consulted. Plan: Neuro: -AAOx3 prior to intubation -Currently sedated on Propofol -Cont to monitor Cardio: -Tachycardic and hypertensive on initial presentation, may be 2/2 angioedema -Hx HTN, HLD -S/p hydralazine x1 with improvement in BP -C/w home meds Coreg, Clonidine, Norvasc, Lasix, Torsemide -Crestor, Zetia -S/p central line placement in R femoral area -EKG on admission: NSR, L posterior fascicular block, prolonged QT Pulm: -Angioedema, hx recurrence, r/o hereditary angioedema as etiology -W/u for angioedema pending -Intubated in OR with ENT and anesthesia present at bedside; s/p flexible laryngoscopy performed by ENT at bedside -Currently intubated and sedated on vent -Vent settings as ordered -Maintain O2 sat > 92% -Pulm toilet -Bronchodilators -S/p Decadron, Pepcid, and Benadryl in ED -Solu-Medrol 40 mg IVP q6h -Benadryl q6h prn -Hx COPD -Singulair daily -CXR on admission: Moderate venous congestion with cardiomegaly and R hilar prominence. -ENT consulted, Dr. Lamb, recs appreciated GI: -NPO -Protonix -IVF @ 100 cc/hr Heme: -H/H 12.7/39.1 ID: -Leukopenia 4.1, may be reactive 2/2 angioedema, cont to trend Renal: -Bun/Cr 32/3.0 -Hx CKD -Cont to trend I's/O's Endo: -Hx DM -Fingersticks q6h -ISS -Hypoglycemic protocol -Currently NPO PPX: -Protonix -Heparin, SCD
[2018-12-30] MEDS: Albuterol-Ipratrop 3 mg / 0.5 (3 ml) UD INH SCH ×2 (20:08→20:21)
[2018-12-30] MEDS: DiphenhydrAMINE 50 mg/ml Inj IVP PRN (23:30)
[2018-12-31] MEDS: (Novolin R) Insulin Human Regular 100 units/ml vial SC SCH ×4 (00:31→17:46)
[2018-12-31] MEDS: MethylPREDNISolone 40 mg Vial IVP SCH ×4 (00:31→20:08)
[2018-12-31] MEDS: Albuterol-Ipratrop 3 mg / 0.5 (3 ml) UD INH SCH ×2 (02:56→19:48)
[2018-12-31] MEDS: Propofol 10 mg/ml 1,000 MG/100 ML VIAL IV PRN ×2 (03:13→06:26)
[2018-12-31 05:31] LABS: ABG ALLEN TEST POS; ARTERIAL BLOOD GAS HCO3 23.3 mmol/L (21-28); ARTERIAL BLOOD GAS O2 SAT 96.4 % (95-98); ARTERIAL BLOOD GAS PCO2 43 mm/Hg (35-45); ARTERIAL BLOOD GAS PH 7.35 (7.35-7.45); ARTERIAL BLOOD GAS PO2 89 mm/Hg (80-100)
[2018-12-31] MEDS: Sodium Chloride 0.9% 1,000 ML IV SCH (06:18)
[2018-12-31 06:35] LABS: BASO % 0.5 % (0.0-2.0); LYMPH # 0.7 K/uL (1.0-4.3); LYMPH % 11.6 % (20.0-40.0); MEAN CELL VOLUME 86.8 fL (81.0-99.0); MEAN CORPUSCULAR HGB CONC 32.3 g/dL (33.0-37.0); MEAN PLATELET VOLUME 8.8 fL (7.2-11.7); MONO # 0.2 K/uL (0.0-0.8); MONO % 2.9 % (0.0-10.0); NEUT # 5.3 K/uL (1.8-7.0); RBC 3.77 Mil/uL (3.80-5.20); WHITE BLOOD COUNT 6.3 K/uL (4.8-10.8)
[2018-12-31 06:54] LABS: ALB/GLOB RATIO 0.9 (1.0-2.1); CALCIUM 8.4 mg/dl (8.6-10.4)
[2018-12-31 07:00] LABS: HEMOGLOBIN 10.6 g/dL (11.0-16.0)
--- NOTE | 2018-12-31 07:46 | CP.CCUPN ---
<Damion Mcduffie - Last Filed: 12/31/18 13:02> CCU Subjective - Physician Review Subjective (Free Text): ICU Progress Note for Dr. Gerard Pt seen and examined at bedside. Currently intubated, sedation weaned off. No acute events reported overnight by staff. Plan for extubation today. Unable to obtain further HPI or ROS due to current pt status. CCU Objective - Vital Signs / Intake & Output Vital Signs (Last 4 hours): Vital Signs Temp Pulse Resp BP Pulse Ox 12/31/18 07:03 84 20 161/77 H 99 12/31/18 07:00 85 18 99 12/31/18 06:01 84 17 168/87 H 99 12/31/18 06:00 84 17 98 12/31/18 05:01 79 16 137/56 L 98 12/31/18 05:00 79 16 98 12/31/18 04:01 82 19 143/62 99 12/31/18 04:00 99.2 F Intake and Output (Last 8hrs): Intake & Output 12/30/18 12/31/18 12/31/18 22:59 06:59 14:59 Intake Total 1088.8 1305.8 Balance 1088.8 1305.8 Weight 288 lb Intake: IV 100 300 Intake, IV Amount 988.8 1005.8 Right Distal Port Femoral 800 800 Right Proximal Port 188.8 205.8 Femoral - Physical Exam Head: Positive for: Atraumatic, Normocephalic Pupils: Positive for: PERRL Extroacular Muscles: Positive for: EOMI Conjunctiva: Positive for: Normal Mouth: Positive for: Moist Mucous Membranes, Other (Lip swelling/angioedema improved) Neck: Positive for: Normal Range of Motion Respiratory/Chest: Positive for: Clear to Auscultation, Good Air Exchange. Negative for: Respiratory Distress, Accessory Muscle Use, Wheezes, Rales, Rhonchi Cardiovascular: Positive for: Regular Rate and Rhythm, Normal S1, S2. Negative for: Murmurs, Rub, Gallop Abdomen: Positive for: Normal Bowel Sounds. Negative for: Tenderness, Distention, Mass/Organomegaly Upper Extremity: Positive for: Normal Inspection, Normal ROM, NORMAL PULSES, Neurovascularly Intact, Capillary Refill < 2s. Negative for: Cyanosis, Edema Lower Extremity: Positive for: Normal Inspection, NORMAL PULSES, Neurovascularly Intact, Capillary Refill < 2 s. Negative for: Edema Neurological: Positive for: Other (intubated) Psychiatric: Positive for: Alert - Medications Active Medications: Active Medications Generic Name Dose Route Start Last Admin Trade Name Freq PRN Reason Stop Dose Admin Albuterol/Ipratropium 3 ml 12/30/18 14:00 12/31/18 02:56 Duoneb 3 Mg/0.5 Mg (3 Ml) Ud INH 3 ml RQ6 COLE Administration Allopurinol 300 mg 12/31/18 10:00 Zyloprim PO DAILY COLE Amlodipine Besylate 5 mg 12/31/18 10:00 Norvasc PO DAILY COLE Carvedilol 12.5 mg 12/30/18 18:00 Coreg PO BID COLE Clonidine HCl 0.2 mg 12/31/18 10:00 Catapres PO DAILY COLE Dextrose 0 ml 12/30/18 13:42 Dextrose 50% Inj IV STAT PRN Hypoglycemia Protocol Protocol Dextrose 0 gm 12/30/18 13:42 Glutose 15 PO ONCE PRN Hypoglycemia Protocol Protocol Diphenhydramine HCl 50 mg 12/30/18 12:13 12/30/18 23:30 Benadryl IVP 50 mg Q6H PRN Administration Anaphylaxis Ezetimibe 10 mg 12/31/18 10:00 Zetia PO DAILY COLE Furosemide 20 mg 12/31/18 10:00 Lasix PO DAILY COLE Glucagon 0 mg 12/30/18 13:42 Glucagen Diagnostic Kit IM STAT PRN Hypoglycemia Protocol Protocol Heparin Sodium (Porcine) 5,000 units 12/30/18 14:00 12/31/18 01:09 Heparin SC 5,000 units Q12H COLE Administration Sodium Chloride 1,000 mls @ 100 mls/hr 12/30/18 11:15 12/31/18 06:18 Sodium Chloride 0.9% IV Not Given .Q10H COLE Dextrose 1,000 mls @ 0 mls/hr 12/30/18 13:42 Dextrose 5% In Water 1000 Ml IV .Q0M PRN Hypoglycemia Protocol Protocol Per Protocol Propofol 1,000 mg in 100 mls @ 3.919 mls/hr 12/30/18 16:48 12/31/18 06:26 Diprivan IV 35 mcg/kg/min .Q24H PRN 27.433 mls/hr TITRATE PER MD ORDER Administration Protocol 5 MCG/KG/MIN Insulin Human Regular 0 unit 12/30/18 18:00 12/31/18 06:21 Novolin R SC 3 u Q6 COLE Administration Protocol Methylprednisolone 40 mg 12/30/18 13:00 12/31/18 06:21 Solu-Medrol IVP 40 mg Q6H COLE Administration Montelukast Sodium 10 mg 12/31/18 10:00 Singulair PO DAILY COLE Pantoprazole Sodium 40 mg 12/30/18 14:15 12/30/18 18:35 Protonix Inj IVP 40 mg DAILY COLE Administration Torsemide 20 mg 12/31/18 10:00 Demadex PO DAILY COLE - Patient Studies Lab Studies: Lab Studies 12/31/18 12/31/18 12/31/18 Range/Units 06:32 06:32 05:28 WBC 6.3 D (4.8-10.8) K/uL RBC 3.77 L (3.80-5.20) Mil/uL Hgb 10.6 L D (11.0-16.0) g/dL Hct 32.7 L (34.0-47.0) % MCV 86.8 (81.0-99.0) fL MCH 28.0 (27.0-31.0) pg MCHC 32.3 L (33.0-37.0) g/dL RDW 16.0 H (11.5-14.5) % Plt Count 438 H (130-400) K/uL MPV 8.8 (7.2-11.7) fL Neut % (Auto) 85.0 H (50.0-75.0) % Lymph % (Auto) 11.6 L (20.0-40.0) % [place] % (Auto) 2.9 (0.0-10.0) % Eos % (Auto) 0.0 (0.0-4.0) % Baso % (Auto) 0.5 (0.0-2.0) % Neut # (Auto) 5.3 (1.8-7.0) K/uL Lymph # (Auto) 0.7 L (1.0-4.3) K/uL [place] # (Auto) 0.2 (0.0-0.8) K/uL Eos # (Auto) 0.0 (0.0-0.7) K/uL Baso # (Auto) 0.0 (0.0-0.2) K/uL ESR (0-20) mm/hr Puncture Site pCO2 (35-45) mm/Hg pO2 (80-100) mm/Hg HCO3 (21-28) mmol/L ABG pH (7.35-7.45) ABG Total CO2 (22-28) mmol/L ABG O2 Saturation (95-98) % ABG Base Excess (-2.0-3.0) mmol/L Tyler Test ABG Potassium (3.6-5.2) mmol/L A-a O2 Difference mm/Hg Respiratory Index Glucose (65-105) mg/dl Lactate (0.7-2.1) mmol/L Vent Mode Mechanical Rate FiO2 % Tidal Volume PEEP Sodium 136 (132-148) mmol/L Potassium 4.3 (3.6-5.2) mmol/L Chloride 106 (98-107) mmol/L Carbon Dioxide 24 (22-30) mmol/L Anion Gap 10 (10-20) BUN 42 H (7-17) mg/dL Creatinine 3.4 H (0.7-1.2) mg/dL Est GFR ( Amer) 17 Est GFR (Non-Af Amer) 14 POC Glucose (mg/dL) 235 H (65-110) mg/dL Random Glucose 217 H D (65-105) mg/dL Calcium 8.4 L (8.6-10.4) mg/dl Phosphorus 4.3 (2.5-4.5) mg/dL Magnesium 1.9 (1.6-2.3) mg/dL Total Bilirubin 0.2 (0.2-1.3) mg/dL AST 22 (14-36) U/L ALT 12 (9-52) U/L Alkaline Phosphatase 223 H (38-126) U/L Troponin I (0.00-0.120) ng/mL C-Reactive Protein (0.0-9.9) mg/L Total Protein 6.6 (6.3-8.3) g/dL Albumin 3.0 L (3.5-5.0) g/dL Globulin 3.6 (2.2-3.9) gm/dL Albumin/Globulin Ratio 0.9 L (1.0-2.1) Free T4 (0.78-2.19) ng/dL Free T3 pg/mL (2.77-5.27) pg/mL TSH 3rd Generation (0.46-4.68) mIU/L Beta HCG, Quant mIU/ML Arterial Blood Potassium (3.6-5.2) mmol/L Complement C4 (14.0-44.0) mg/dL 12/31/18 12/31/18 12/30/18 Range/Units 05:14 00:06 17:59 WBC (4.8-10.8) K/uL RBC (3.80-5.20) Mil/uL Hgb (11.0-16.0) g/dL Hct (34.0-47.0) % MCV (81.0-99.0) fL MCH (27.0-31.0) pg MCHC (33.0-37.0) g/dL RDW (11.5-14.5) % Plt Count (130-400) K/uL MPV (7.2-11.7) fL Neut % (Auto) (50.0-75.0) % Lymph % (Auto) (20.0-40.0) % [place] % (Auto) (0.0-10.0) % Eos % (Auto) (0.0-4.0) % Baso % (Auto) (0.0-2.0) % Neut # (Auto) (1.8-7.0) K/uL Lymph # (Auto) (1.0-4.3) K/uL [place] # (Auto) (0.0-0.8) K/uL Eos # (Auto) (0.0-0.7) K/uL Baso # (Auto) (0.0-0.2) K/uL ESR (0-20) mm/hr Puncture Site R rad pCO2 43 (35-45) mm/Hg pO2 89 (80-100) mm/Hg HCO3 23.3 (21-28) mmol/L ABG pH 7.35 (7.35-7.45) ABG Total CO2 25.0 (22-28) mmol/L ABG O2 Saturation 96.4 (95-98) % ABG Base Excess -2.0 (-2.0-3.0) mmol/L Tyler Test Pos ABG Potassium 4.1 (3.6-5.2) mmol/L A-a O2 Difference 214.0 mm/Hg Respiratory Index 2.4 Glucose 225 H (65-105) mg/dl Lactate 1.6 (0.7-2.1) mmol/L Vent Mode Prvc Mechanical Rate 14 FiO2 50.0 % Tidal Volume 500 PEEP 5 Sodium 138.0 (132-148) mmol/L Potassium (3.6-5.2) mmol/L Chloride 107.0 (98-107) mmol/L Carbon Dioxide (22-30) mmol/L Anion Gap (10-20) BUN (7-17) mg/dL Creatinine (0.7-1.2) mg/dL Est GFR ( Amer) Est GFR (Non-Af Amer) POC Glucose (mg/dL) 230 H 194 H (65-110) mg/dL Random Glucose (65-105) mg/dL Calcium (8.6-10.4) mg/dl Phosphorus (2.5-4.5) mg/dL Magnesium (1.6-2.3) mg/dL Total Bilirubin (0.2-1.3) mg/dL AST (14-36) U/L ALT (9-52) U/L Alkaline Phosphatase (38-126) U/L Troponin I (0.00-0.120) ng/mL C-Reactive Protein (0.0-9.9) mg/L Total Protein (6.3-8.3) g/dL Albumin (3.5-5.0) g/dL Globulin (2.2-3.9) gm/dL Albumin/Globulin Ratio (1.0-2.1) Free T4 (0.78-2.19) ng/dL Free T3 pg/mL (2.77-5.27) pg/mL TSH 3rd Generation (0.46-4.68) mIU/L Beta HCG, Quant mIU/ML Arterial Blood Potassium 4.1 (3.6-5.2) mmol/L Complement C4 (14.0-44.0) mg/dL 12/30/18 12/30/18 12/30/18 Range/Units 16:16 16:16 16:16 WBC (4.8-10.8) K/uL RBC (3.80-5.20) Mil/uL Hgb (11.0-16.0) g/dL Hct (34.0-47.0) % MCV (81.0-99.0) fL MCH (27.0-31.0) pg MCHC (33.0-37.0) g/dL RDW (11.5-14.5) % Plt Count (130-400) K/uL MPV (7.2-11.7) fL Neut % (Auto) (50.0-75.0) % Lymph % (Auto) (20.0-40.0) % [place] % (Auto) (0.0-10.0) % Eos % (Auto) (0.0-4.0) % Baso % (Auto) (0.0-2.0) % Neut # (Auto) (1.8-7.0) K/uL Lymph # (Auto) (1.0-4.3) K/uL [place] # (Auto) (0.0-0.8) K/uL Eos # (Auto) (0.0-0.7) K/uL Baso # (Auto) (0.0-0.2) K/uL ESR 110 H (0-20) mm/hr Puncture Site pCO2 (35-45) mm/Hg pO2 (80-100) mm/Hg HCO3 (21-28) mmol/L ABG pH (7.35-7.45) ABG Total CO2 (22-28) mmol/L ABG O2 Saturation (95-98) % ABG Base Excess (-2.0-3.0) mmol/L Tyler Test ABG Potassium (3.6-5.2) mmol/L A-a O2 Difference mm/Hg Respiratory Index Glucose (65-105) mg/dl Lactate (0.7-2.1) mmol/L Vent Mode Mechanical Rate FiO2 % Tidal Volume PEEP Sodium (132-148) mmol/L Potassium (3.6-5.2) mmol/L Chloride (98-107) mmol/L Carbon Dioxide (22-30) mmol/L Anion Gap (10-20) BUN (7-17) mg/dL Creatinine (0.7-1.2) mg/dL Est GFR ( Amer) Est GFR (Non-Af Amer) POC Glucose (mg/dL) (65-110) mg/dL Random Glucose (65-105) mg/dL Calcium (8.6-10.4) mg/dl Phosphorus (2.5-4.5) mg/dL Magnesium (1.6-2.3) mg/dL Total Bilirubin (0.2-1.3) mg/dL AST (14-36) U/L ALT (9-52) U/L Alkaline Phosphatase (38-126) U/L Troponin I (0.00-0.120) ng/mL C-Reactive Protein (0.0-9.9) mg/L Total Protein (6.3-8.3) g/dL Albumin (3.5-5.0) g/dL Globulin (2.2-3.9) gm/dL Albumin/Globulin Ratio (1.0-2.1) Free T4 0.93 (0.78-2.19) ng/dL Free T3 pg/mL (2.77-5.27) pg/mL TSH 3rd Generation (0.46-4.68) mIU/L Beta HCG, Quant mIU/ML Arterial Blood Potassium (3.6-5.2) mmol/L Complement C4 73.5 H (14.0-44.0) mg/dL 12/30/18 12/30/18 12/30/18 Range/Units 16:16 13:45 13:45 WBC (4.8-10.8) K/uL RBC (3.80-5.20) Mil/uL Hgb (11.0-16.0) g/dL Hct (34.0-47.0) % MCV (81.0-99.0) fL MCH (27.0-31.0) pg MCHC (33.0-37.0) g/dL RDW (11.5-14.5) % Plt Count (130-400) K/uL MPV (7.2-11.7) fL Neut % (Auto) (50.0-75.0) % Lymph % (Auto) (20.0-40.0) % [place] % (Auto) (0.0-10.0) % Eos % (Auto) (0.0-4.0) % Baso % (Auto) (0.0-2.0) % Neut # (Auto) (1.8-7.0) K/uL Lymph # (Auto) (1.0-4.3) K/uL [place] # (Auto) (0.0-0.8) K/uL Eos # (Auto) (0.0-0.7) K/uL Baso # (Auto) (0.0-0.2) K/uL ESR (0-20) mm/hr Puncture Site pCO2 (35-45) mm/Hg pO2 (80-100) mm/Hg HCO3 (21-28) mmol/L ABG pH (7.35-7.45) ABG Total CO2 (22-28) mmol/L ABG O2 Saturation (95-98) % ABG Base Excess (-2.0-3.0) mmol/L Tyler Test ABG Potassium (3.6-5.2) mmol/L A-a O2 Difference mm/Hg Respiratory Index Glucose (65-105) mg/dl Lactate (0.7-2.1) mmol/L Vent Mode Mechanical Rate FiO2 % Tidal Volume PEEP Sodium 136 (132-148) mmol/L Potassium 4.5 (3.6-5.2) mmol/L Chloride 104 (98-107) mmol/L Carbon Dioxide 26 (22-30) mmol/L Anion Gap 10 (10-20) BUN 32 H (7-17) mg/dL Creatinine 3.0 H (0.7-1.2) mg/dL Est GFR ( Amer) 20 Est GFR (Non-Af Amer) 16 POC Glucose (mg/dL) (65-110) mg/dL Random Glucose 133 H (65-105) mg/dL Calcium 9.1 (8.6-10.4) mg/dl Phosphorus 4.6 H (2.5-4.5) mg/dL Magnesium 2.0 (1.6-2.3) mg/dL Total Bilirubin 0.5 (0.2-1.3) mg/dL AST 38 H (14-36) U/L ALT 11 (9-52) U/L Alkaline Phosphatase 266 H (38-126) U/L Troponin I 0.0120 (0.00-0.120) ng/mL C-Reactive Protein 17.20 H (0.0-9.9) mg/L Total Protein 7.4 (6.3-8.3) g/dL Albumin 3.4 L (3.5-5.0) g/dL Globulin 4.0 H (2.2-3.9) gm/dL Albumin/Globulin Ratio 0.8 L (1.0-2.1) Free T4 (0.78-2.19) ng/dL Free T3 pg/mL 3.09 (2.77-5.27) pg/mL TSH 3rd Generation 0.72 (0.46-4.68) mIU/L Beta HCG, Quant < 2.39 mIU/ML Arterial Blood Potassium (3.6-5.2) mmol/L Complement C4 (14.0-44.0) mg/dL 12/30/18 12/30/18 12/30/18 Range/Units 13:23 11:49 10:14 WBC (4.8-10.8) K/uL RBC (3.80-5.20) Mil/uL Hgb (11.0-16.0) g/dL Hct (34.0-47.0) % MCV (81.0-99.0) fL MCH (27.0-31.0) pg MCHC (33.0-37.0) g/dL RDW (11.5-14.5) % Plt Count (130-400) K/uL MPV (7.2-11.7) fL Neut % (Auto) (50.0-75.0) % Lymph % (Auto) (20.0-40.0) % [place] % (Auto) (0.0-10.0) % Eos % (Auto) (0.0-4.0) % Baso % (Auto) (0.0-2.0) % Neut # (Auto) (1.8-7.0) K/uL Lymph # (Auto) (1.0-4.3) K/uL [place] # (Auto) (0.0-0.8) K/uL Eos # (Auto) (0.0-0.7) K/uL Baso # (Auto) (0.0-0.2) K/uL ESR (0-20) mm/hr Puncture Site Lb pCO2 50 H (35-45) mm/Hg pO2 315 H (80-100) mm/Hg HCO3 24.3 (21-28) mmol/L ABG pH 7.32 L (7.35-7.45) ABG Total CO2 27.3 (22-28) mmol/L ABG O2 Saturation 97.4 (95-98) % ABG Base Excess -0.9 (-2.0-3.0) mmol/L Tyler Test Na ABG Potassium 4.0 (3.6-5.2) mmol/L A-a O2 Difference 336.0 mm/Hg Respiratory Index 1.1 Glucose 160 H (65-105) mg/dl Lactate 2.6 H (0.7-2.1) mmol/L Vent Mode Mechanical Rate FiO2 100.0 % Tidal Volume 500 PEEP 5 Sodium 139.0 (132-148) mmol/L Potassium (3.6-5.2) mmol/L Chloride 106.0 (98-107) mmol/L Carbon Dioxide (22-30) mmol/L Anion Gap (10-20) BUN (7-17) mg/dL Creatinine (0.7-1.2) mg/dL Est GFR ( Amer) Est GFR (Non-Af Amer) POC Glucose (mg/dL) 186 H 146 H (65-110) mg/dL Random Glucose (65-105) mg/dL Calcium (8.6-10.4) mg/dl Phosphorus (2.5-4.5) mg/dL Magnesium (1.6-2.3) mg/dL Total Bilirubin (0.2-1.3) mg/dL AST (14-36) U/L ALT (9-52) U/L Alkaline Phosphatase (38-126) U/L Troponin I (0.00-0.120) ng/mL C-Reactive Protein (0.0-9.9) mg/L Total Protein (6.3-8.3) g/dL Albumin (3.5-5.0) g/dL Globulin (2.2-3.9) gm/dL Albumin/Globulin Ratio (1.0-2.1) Free T4 (0.78-2.19) ng/dL Free T3 pg/mL (2.77-5.27) pg/mL TSH 3rd Generation (0.46-4.68) mIU/L Beta HCG, Quant mIU/ML Arterial Blood Potassium 4.0 (3.6-5.2) mmol/L Complement C4 (14.0-44.0) mg/dL 12/30/18 12/30/18 Range/Units 10:08 07:48 WBC 4.1 L D (4.8-10.8) K/uL RBC 4.52 (3.80-5.20) Mil/uL Hgb 12.7 (11.0-16.0) g/dL Hct 39.1 (34.0-47.0) % MCV 86.5 (81.0-99.0) fL MCH 28.1 (27.0-31.0) pg MCHC 32.5 L (33.0-37.0) g/dL RDW 15.6 H (11.5-14.5) % Plt Count 520 H (130-400) K/uL MPV 8.6 (7.2-11.7) fL Neut % (Auto) 65.6 (50.0-75.0) % Lymph % (Auto) 25.7 (20.0-40.0) % [place] % (Auto) 4.7 (0.0-10.0) % Eos % (Auto) 3.2 (0.0-4.0) % Baso % (Auto) 0.8 (0.0-2.0) % Neut # (Auto) 2.7 (1.8-7.0) K/uL Lymph # (Auto) 1.0 (1.0-4.3) K/uL [place] # (Auto) 0.2 (0.0-0.8) K/uL Eos # (Auto) 0.1 (0.0-0.7) K/uL Baso # (Auto) 0.0 (0.0-0.2) K/uL ESR (0-20) mm/hr Puncture Site pCO2 (35-45) mm/Hg pO2 (80-100) mm/Hg HCO3 (21-28) mmol/L ABG pH (7.35-7.45) ABG Total CO2 (22-28) mmol/L ABG O2 Saturation (95-98) % ABG Base Excess (-2.0-3.0) mmol/L Tyler Test ABG Potassium (3.6-5.2) mmol/L A-a O2 Difference mm/Hg Respiratory Index Glucose (65-105) mg/dl Lactate (0.7-2.1) mmol/L Vent Mode Mechanical Rate FiO2 % Tidal Volume PEEP Sodium 138 (132-148) mmol/L Potassium 4.2 (3.6-5.2) mmol/L Chloride 104 (98-107) mmol/L Carbon Dioxide 27 (22-30) mmol/L Anion Gap 11 (10-20) BUN 32 H (7-17) mg/dL Creatinine 2.9 H (0.7-1.2) mg/dL Est GFR ( Amer) 21 Est GFR (Non-Af Amer) 17 POC Glucose (mg/dL) (65-110) mg/dL Random Glucose 122 H (65-105) mg/dL Calcium 9.4 (8.6-10.4) mg/dl Phosphorus 4.3 (2.5-4.5) mg/dL Magnesium 2.0 (1.6-2.3) mg/dL Total Bilirubin 0.4 (0.2-1.3) mg/dL AST 42 H (14-36) U/L ALT 7 L D (9-52) U/L Alkaline Phosphatase 302 H (38-126) U/L Troponin I (0.00-0.120) ng/mL C-Reactive Protein (0.0-9.9) mg/L Total Protein 8.1 (6.3-8.3) g/dL Albumin 3.7 (3.5-5.0) g/dL Globulin 4.4 H (2.2-3.9) gm/dL Albumin/Globulin Ratio 0.8 L (1.0-2.1) Free T4 (0.78-2.19) ng/dL Free T3 pg/mL (2.77-5.27) pg/mL TSH 3rd Generation (0.46-4.68) mIU/L Beta HCG, Quant < 2.39 mIU/ML Arterial Blood Potassium (3.6-5.2) mmol/L Complement C4 (14.0-44.0) mg/dL Laboratory Results - last 24 hr 12/30/18 12/30/18 12/30/18 07:48 10:08 10:14 WBC 4.1 L D RBC 4.52 Hgb 12.7 Hct 39.1 MCV 86.5 MCH 28.1 MCHC 32.5 L RDW 15.6 H Plt Count 520 H MPV 8.6 Neut % (Auto) 65.6 Lymph % (Auto) 25.7 [place] % (Auto) 4.7 Eos % (Auto) 3.2 Baso % (Auto) 0.8 Neut # (Auto) 2.7 Lymph # (Auto) 1.0 [place] # (Auto) 0.2 Eos # (Auto) 0.1 Baso # (Auto) 0.0 ESR Puncture Site pCO2 pO2 HCO3 ABG pH ABG Total CO2 ABG O2 Saturation ABG Base Excess Tyler Test ABG Potassium A-a O2 Difference Respiratory Index Glucose Lactate Vent Mode Mechanical Rate FiO2 Tidal Volume PEEP Sodium 138 Potassium 4.2 Chloride 104 Carbon Dioxide 27 Anion Gap 11 BUN 32 H Creatinine 2.9 H Est GFR ( Amer) 21 Est GFR (Non-Af Amer) 17 POC Glucose (mg/dL) 146 H Random Glucose 122 H Calcium 9.4 Phosphorus 4.3 Magnesium 2.0 Total Bilirubin 0.4 AST 42 H ALT 7 L D Alkaline Phosphatase 302 H Troponin I C-Reactive Protein Total Protein 8.1 Albumin 3.7 Globulin 4.4 H Albumin/Globulin Ratio 0.8 L Free T4 Free T3 pg/mL TSH 3rd Generation Beta HCG, Quant < 2.39 Arterial Blood Potassium Complement C4 12/30/18 12/30/18 12/30/18 11:49 13:23 13:45 WBC RBC Hgb Hct MCV MCH MCHC RDW Plt Count MPV Neut % (Auto) Lymph % (Auto) [place] % (Auto) Eos % (Auto) Baso % (Auto) Neut # (Auto) Lymph # (Auto) [place] # (Auto) Eos # (Auto) Baso # (Auto) ESR Puncture Site Lb pCO2 50 H pO2 315 H HCO3 24.3 ABG pH 7.32 L ABG Total CO2 27.3 ABG O2 Saturation 97.4 ABG Base Excess -0.9 Tyler Test Na ABG Potassium 4.0 A-a O2 Difference 336.0 Respiratory Index 1.1 Glucose 160 H Lactate 2.6 H Vent Mode Mechanical Rate FiO2 100.0 Tidal Volume 500 PEEP 5 Sodium 139.0 Potassium Chloride 106.0 Carbon Dioxide Anion Gap BUN Creatinine Est GFR ( Amer) Est GFR (Non-Af Amer) POC Glucose (mg/dL) 186 H Random Glucose Calcium Phosphorus Magnesium Total Bilirubin AST ALT Alkaline Phosphatase Troponin I C-Reactive Protein Total Protein Albumin Globulin Albumin/Globulin Ratio Free T4 Free T3 pg/mL TSH 3rd Generation Beta HCG, Quant < 2.39 Arterial Blood Potassium 4.0 Complement C4 12/30/18 12/30/18 12/30/18 13:45 16:16 16:16 WBC RBC Hgb Hct MCV MCH MCHC RDW Plt Count MPV Neut % (Auto) Lymph % (Auto) [place] % (Auto) Eos % (Auto) Baso % (Auto) Neut # (Auto) Lymph # (Auto) [place] # (Auto) Eos # (Auto) Baso # (Auto) ESR 110 H Puncture Site pCO2 pO2 HCO3 ABG pH ABG Total CO2 ABG O2 Saturation ABG Base Excess Tyler Test ABG Potassium A-a O2 Difference Respiratory Index Glucose Lactate Vent Mode Mechanical Rate FiO2 Tidal Volume PEEP Sodium 136 Potassium 4.5 Chloride 104 Carbon Dioxide 26 Anion Gap 10 BUN 32 H Creatinine 3.0 H Est GFR ( Amer) 20 Est GFR (Non-Af Amer) 16 POC Glucose (mg/dL) Random Glucose 133 H Calcium 9.1 Phosphorus 4.6 H Magnesium 2.0 Total Bilirubin 0.5 AST 38 H ALT 11 Alkaline Phosphatase 266 H Troponin I 0.0120 C-Reactive Protein 17.20 H Total Protein 7.4 Albumin 3.4 L Globulin 4.0 H Albumin/Globulin Ratio 0.8 L Free T4 Free T3 pg/mL 3.09 TSH 3rd Generation 0.72 Beta HCG, Quant Arterial Blood Potassium Complement C4 12/30/18 12/30/18 12/30/18 16:16 16:16 17:59 WBC RBC Hgb Hct MCV MCH MCHC RDW Plt Count MPV Neut % (Auto) Lymph % (Auto) [place] % (Auto) Eos % (Auto) Baso % (Auto) Neut # (Auto) Lymph # (Auto) [place] # (Auto) Eos # (Auto) Baso # (Auto) ESR Puncture Site pCO2 pO2 HCO3 ABG pH ABG Total CO2 ABG O2 Saturation ABG Base Excess Tyler Test ABG Potassium A-a O2 Difference Respiratory Index Glucose Lactate Vent Mode Mechanical Rate FiO2 Tidal Volume PEEP Sodium Potassium Chloride Carbon Dioxide Anion Gap BUN Creatinine Est GFR ( Amer) Est GFR (Non-Af Amer) POC Glucose (mg/dL) 194 H Random Glucose Calcium Phosphorus Magnesium Total Bilirubin AST ALT Alkaline Phosphatase Troponin I C-Reactive Protein Total Protein Albumin Globulin Albumin/Globulin Ratio Free T4 0.93 Free T3 pg/mL TSH 3rd Generation Beta HCG, Quant Arterial Blood Potassium Complement C4 73.5 H 12/31/18 12/31/18 12/31/18 00:06 05:14 05:28 WBC RBC Hgb Hct MCV MCH MCHC RDW Plt Count MPV Neut % (Auto) Lymph % (Auto) [place] % (Auto) Eos % (Auto) Baso % (Auto) Neut # (Auto) Lymph # (Auto) [place] # (Auto) Eos # (Auto) Baso # (Auto) ESR Puncture Site R rad pCO2 43 pO2 89 HCO3 23.3 ABG pH 7.35 ABG Total CO2 25.0 ABG O2 Saturation 96.4 ABG Base Excess -2.0 Tyler Test Pos ABG Potassium 4.1 A-a O2 Difference 214.0 Respiratory Index 2.4 Glucose 225 H Lactate 1.6 Vent Mode Prvc Mechanical Rate 14 FiO2 50.0 Tidal Volume 500 PEEP 5 Sodium 138.0 Potassium Chloride 107.0 Carbon Dioxide Anion Gap BUN Creatinine Est GFR ( Amer) Est GFR (Non-Af Amer) POC Glucose (mg/dL) 230 H 235 H Random Glucose Calcium Phosphorus Magnesium Total Bilirubin AST ALT Alkaline Phosphatase Troponin I C-Reactive Protein Total Protein Albumin Globulin Albumin/Globulin Ratio Free T4 Free T3 pg/mL TSH 3rd Generation Beta HCG, Quant Arterial Blood Potassium 4.1 Complement C4 12/31/18 12/31/18 06:32 06:32 WBC 6.3 D RBC 3.77 L Hgb 10.6 L D Hct 32.7 L MCV 86.8 MCH 28.0 MCHC 32.3 L RDW 16.0 H Plt Count 438 H MPV 8.8 Neut % (Auto) 85.0 H Lymph % (Auto) 11.6 L [place] % (Auto) 2.9 Eos % (Auto) 0.0 Baso % (Auto) 0.5 Neut # (Auto) 5.3 Lymph # (Auto) 0.7 L [place] # (Auto) 0.2 Eos # (Auto) 0.0 Baso # (Auto) 0.0 ESR Puncture Site pCO2 pO2 HCO3 ABG pH ABG Total CO2 ABG O2 Saturation ABG Base Excess Tyler Test ABG Potassium A-a O2 Difference Respiratory Index Glucose Lactate Vent Mode Mechanical Rate FiO2 Tidal Volume PEEP Sodium 136 Potassium 4.3 Chloride 106 Carbon Dioxide 24 Anion Gap 10 BUN 42 H Creatinine 3.4 H Est GFR ( Amer) 17 Est GFR (Non-Af Amer) 14 POC Glucose (mg/dL) Random Glucose 217 H D Calcium 8.4 L Phosphorus 4.3 Magnesium 1.9 Total Bilirubin 0.2 AST 22 ALT 12 Alkaline Phosphatase 223 H Troponin I C-Reactive Protein Total Protein 6.6 Albumin 3.0 L Globulin 3.6 Albumin/Globulin Ratio 0.9 L Free T4 Free T3 pg/mL TSH 3rd Generation Beta HCG, Quant Arterial Blood Potassium Complement C4 Radiology Impressions: Radiology Impressions Chest X-Ray 12/30/18 07:35 IMPRESSION: Moderate venous congestion with cardiomegaly and right hilar prominence. Chest X-Ray 12/30/18 11:15 IMPRESSION: Endotracheal tube terminates approximately 3.3 cm above the cordelia. Interstitial prominence may reflect infection or edema. EKG/Cardiology Studies: Cardiology / EKG Studies 12/30/18 07:34 ELECTROCARDIOGRAM Stat Comment: Mode Of Transportation: BED Reason For Exam: SOB Fingerstick Blood Sugar Results: 194 Review of Systems - Review of Systems Systems not reviewed;Unavailable: Intubated Critical Care Progress Note - Nutrition Nutrition: Nutrition Category Date Time Status NPO Diet [DIET] Diets 12/30/18 Breakfast Active Assessment/Plan - Assessment and Plan (Free Text) Assessment: 53 y o female with PMhx DM, COPD, HTN, HLD, CKD, depression, asthma, bipolar disorder who was BiBEMS for evaluation of hypoglycemia noted at 3 am this morning. Reason for ICU consult was for angioedema. Admitted to ICU for further monitoring and management of airway. Dr. Lamb (ENT) consulted. Plan for extubation today. Plan: Neuro: -AAOx3 prior to intubation -Sedation weaned off, plan to extubate today -Cont to monitor Cardio: -Tachycardic and hypertensive on initial presentation, may be 2/2 angioedema -Hx HTN, HLD -S/p hydralazine x1 with improvement in BP -PO meds held 2/2 NG tube unable to be placed -Rachelle Nascimento -S/p central line placement in R femoral area -EKG on admission: NSR, L posterior fascicular block, prolonged QT Pulm: -Angioedema, hx recurrence, r/o hereditary angioedema as etiology -W/u for angioedema pending -Intubated in OR with ENT and anesthesia present at bedside; s/p flexible laryngoscopy performed by ENT at bedside -Currently intubated, sedation weaned off, plan to extubate today -Vent settings as ordered -Maintain O2 sat > 92% -Pulm toilet -Bronchodilators -S/p Decadron, Pepcid, and Benadryl in ED -Solu-Medrol 40 mg IVP q6h -Benadryl q6h prn -Hx COPD -Hx pulm HTN -Singulair daily -CXR on admission: Moderate venous congestion with cardiomegaly and R hilar prominence. -Repeat Chest XR ordered for today -ENT consulted, Dr. Lamb, recs appreciated GI: -NPO -Protonix -IVF d/c'd Heme: -H/H 10.6/32.7 ID: -Leukopenia resolved, cont to trend Renal: -Bun/Cr 42/3.4 -Hx CKD -Cont to trend I's/O's Endo: -Hx DM -Fingersticks q6h -ISS -Hypoglycemic protocol -Currently NPO PPX: -Protonix -Heparin, SCD Pt seen, examined with, and plan discussed with Dr. Gerard, attending physician. Damion Mcduffie DO PGY-1, freight caller Pager #[phone] <Clarence Gerard - Last Filed: 12/31/18 15:35> CCU Subjective - Physician Review Critical Care Time Spent (in minutes): 45 CCU Objective - Vital Signs / Intake & Output Vital Signs (Last 4 hours): Vital Signs Temp Pulse Resp BP Pulse Ox 12/31/18 12:00 100 F H 98 H 19 178/80 H 97 Intake and Output (Last 8hrs): Intake & Output 12/31/18 12/31/18 12/31/18 06:59 14:59 22:59 Intake Total 1305.8 477.5 Output Total 250 Balance 1305.8 227.5 Weight 288 lb Intake: IV 300 95 Intake, IV Amount 1005.8 382.5 Right Distal Port Femoral 800 300 Right Proximal Port 205.8 82.5 Femoral Output: Urine 250 Urine, Voided 250 Other: # Voids Urine, Voided 1 - Medications Active Medications: Active Medications Generic Name Dose Route Start Last Admin Trade Name Freq PRN Reason Stop Dose Admin Albuterol/Ipratropium 3 ml 12/30/18 14:00 12/31/18 02:56 Duoneb 3 Mg/0.5 Mg (3 Ml) Ud INH 3 ml RQ6 COLE Administration Allopurinol 300 mg 12/31/18 10:00 Zyloprim PO DAILY COLE Amlodipine Besylate 5 mg 12/31/18 10:00 Norvasc PO DAILY COLE Carvedilol 12.5 mg 12/30/18 18:00 Coreg PO BID COLE Clonidine HCl 0.2 mg 12/31/18 10:00 Catapres PO DAILY COLE Dextrose 0 ml 12/30/18 13:42 Dextrose 50% Inj IV STAT PRN Hypoglycemia Protocol Protocol Dextrose 0 gm 12/30/18 13:42 Glutose 15 PO ONCE PRN Hypoglycemia Protocol Protocol Diphenhydramine HCl 50 mg 12/30/18 12:13 12/30/18 23:30 Benadryl IVP 50 mg Q6H PRN Administration Anaphylaxis Ezetimibe 10 mg 12/31/18 10:00 Zetia PO DAILY COLE Furosemide 20 mg 12/31/18 10:00 Lasix PO DAILY COLE Glucagon 0 mg 12/30/18 13:42 Glucagen Diagnostic Kit IM STAT PRN Hypoglycemia Protocol Protocol Heparin Sodium (Porcine) 5,000 units 12/30/18 14:00 12/31/18 14:56 Heparin SC 5,000 units Q12H COLE Administration Dextrose 1,000 mls @ 0 mls/hr 12/30/18 13:42 Dextrose 5% In Water 1000 Ml IV .Q0M PRN Hypoglycemia Protocol Protocol Per Protocol Propofol 1,000 mg in 100 mls @ 3.919 mls/hr 12/30/18 16:48 12/31/18 10:06 Diprivan IV 0 mcg/kg/min .Q24H PRN 0 mls/hr TITRATE PER MD ORDER Titration Protocol 5 MCG/KG/MIN Insulin Human Regular 0 unit 12/30/18 18:00 12/31/18 12:00 Novolin R SC Not Given Q6 COLE Protocol Methylprednisolone 40 mg 12/30/18 13:00 12/31/18 14:56 Solu-Medrol IVP 40 mg Q6H COLE Administration Montelukast Sodium 10 mg 12/31/18 10:00 Singulair PO DAILY COLE Pantoprazole Sodium 40 mg 12/30/18 14:15 12/31/18 09:17 Protonix Inj IVP 40 mg DAILY COLE Administration Torsemide 20 mg 12/31/18 10:00 Demadex PO DAILY COLE - Patient Studies Lab Studies: Microbiology Studies 12/30/18 09:42 MRSA Culture (Admit) - Final Naris MRSA NOT DETECTED Lab Studies 12/31/18 12/31/18 12/31/18 Range/Units 11:17 06:32 06:32 WBC 6.3 D (4.8-10.8) K/uL RBC 3.77 L (3.80-5.20) Mil/uL Hgb 10.6 L D (11.0-16.0) g/dL Hct 32.7 L (34.0-47.0) % MCV 86.8 (81.0-99.0) fL MCH 28.0 (27.0-31.0) pg MCHC 32.3 L (33.0-37.0) g/dL RDW 16.0 H (11.5-14.5) % Plt Count 438 H (130-400) K/uL MPV 8.8 (7.2-11.7) fL Neut % (Auto) 85.0 H (50.0-75.0) % Lymph % (Auto) 11.6 L (20.0-40.0) % [place] % (Auto) 2.9 (0.0-10.0) % Eos % (Auto) 0.0 (0.0-4.0) % Baso % (Auto) 0.5 (0.0-2.0) % Neut # (Auto) 5.3 (1.8-7.0) K/uL Lymph # (Auto) 0.7 L (1.0-4.3) K/uL [place] # (Auto) 0.2 (0.0-0.8) K/uL Eos # (Auto) 0.0 (0.0-0.7) K/uL Baso # (Auto) 0.0 (0.0-0.2) K/uL ESR (0-20) mm/hr Puncture Site pCO2 (35-45) mm/Hg pO2 (80-100) mm/Hg HCO3 (21-28) mmol/L ABG pH (7.35-7.45) ABG Total CO2 (22-28) mmol/L ABG O2 Saturation (95-98) % ABG Base Excess (-2.0-3.0) mmol/L Tyler Test ABG Potassium (3.6-5.2) mmol/L A-a O2 Difference mm/Hg Respiratory Index Sodium 136 (132-148) mmol/l Chloride 106 (98-107) mmol/L Glucose (65-105) mg/dl Lactate (0.7-2.1) mmol/L Vent Mode Mechanical Rate FiO2 % Tidal Volume PEEP Potassium 4.3 (3.6-5.2) mmol/L Carbon Dioxide 24 (22-30) mmol/L Anion Gap 10 (10-20) BUN 42 H (7-17) mg/dL Creatinine 3.4 H (0.7-1.2) mg/dL Est GFR ( Amer) 17 Est GFR (Non-Af Amer) 14 POC Glucose (mg/dL) 184 H (65-110) mg/dL Random Glucose 217 H D (65-105) mg/dL Calcium 8.4 L (8.6-10.4) mg/dl Phosphorus 4.3 (2.5-4.5) mg/dL Magnesium 1.9 (1.6-2.3) mg/dL Total Bilirubin 0.2 (0.2-1.3) mg/dL AST 22 (14-36) U/L ALT 12 (9-52) U/L Alkaline Phosphatase 223 H (38-126) U/L Total Creatine Kinase 81 (30-135) U/L C-Reactive Protein (0.0-9.9) mg/L Total Protein 6.6 (6.3-8.3) g/dL Albumin 3.0 L (3.5-5.0) g/dL Globulin 3.6 (2.2-3.9) gm/dL Albumin/Globulin Ratio 0.9 L (1.0-2.1) Free T4 (0.78-2.19) ng/dL Free T3 pg/mL (2.77-5.27) pg/mL TSH 3rd Generation (0.46-4.68) mIU/L Arterial Blood Potassium (3.6-5.2) mmol/L Complement C3 (88.0-165.0) mg/dL Complement C4 (14.0-44.0) mg/dL 12/31/18 12/31/18 12/31/18 Range/Units 06:30 05:28 05:14 WBC (4.8-10.8) K/uL RBC (3.80-5.20) Mil/uL Hgb (11.0-16.0) g/dL Hct (34.0-47.0) % MCV (81.0-99.0) fL MCH (27.0-31.0) pg MCHC (33.0-37.0) g/dL RDW (11.5-14.5) % Plt Count (130-400) K/uL MPV (7.2-11.7) fL Neut % (Auto) (50.0-75.0) % Lymph % (Auto) (20.0-40.0) % [place] % (Auto) (0.0-10.0) % Eos % (Auto) (0.0-4.0) % Baso % (Auto) (0.0-2.0) % Neut # (Auto) (1.8-7.0) K/uL Lymph # (Auto) (1.0-4.3) K/uL [place] # (Auto) (0.0-0.8) K/uL Eos # (Auto) (0.0-0.7) K/uL Baso # (Auto) (0.0-0.2) K/uL ESR (0-20) mm/hr Puncture Site R rad pCO2 43 (35-45) mm/Hg pO2 89 (80-100) mm/Hg HCO3 23.3 (21-28) mmol/L ABG pH 7.35 (7.35-7.45) ABG Total CO2 25.0 (22-28) mmol/L ABG O2 Saturation 96.4 (95-98) % ABG Base Excess -2.0 (-2.0-3.0) mmol/L Tyler Test Pos ABG Potassium 4.1 (3.6-5.2) mmol/L A-a O2 Difference 214.0 mm/Hg Respiratory Index 2.4 Sodium 138.0 (132-148) mmol/l Chloride 107.0 (98-107) mmol/L Glucose 225 H (65-105) mg/dl Lactate 1.6 (0.7-2.1) mmol/L Vent Mode Prvc Mechanical Rate 14 FiO2 50.0 % Tidal Volume 500 PEEP 5 Potassium (3.6-5.2) mmol/L Carbon Dioxide (22-30) mmol/L Anion Gap (10-20) BUN (7-17) mg/dL Creatinine (0.7-1.2) mg/dL Est GFR ( Amer) Est GFR (Non-Af Amer) POC Glucose (mg/dL) 235 H (65-110) mg/dL Random Glucose (65-105) mg/dL Calcium (8.6-10.4) mg/dl Phosphorus (2.5-4.5) mg/dL Magnesium (1.6-2.3) mg/dL Total Bilirubin (0.2-1.3) mg/dL AST (14-36) U/L ALT (9-52) U/L Alkaline Phosphatase (38-126) U/L Total Creatine Kinase (30-135) U/L C-Reactive Protein (0.0-9.9) mg/L Total Protein (6.3-8.3) g/dL Albumin (3.5-5.0) g/dL Globulin (2.2-3.9) gm/dL Albumin/Globulin Ratio (1.0-2.1) Free T4 (0.78-2.19) ng/dL Free T3 pg/mL (2.77-5.27) pg/mL TSH 3rd Generation (0.46-4.68) mIU/L Arterial Blood Potassium 4.1 (3.6-5.2) mmol/L Complement C3 138.0 (88.0-165.0) mg/dL Complement C4 (14.0-44.0) mg/dL 12/31/18 12/30/18 12/30/18 Range/Units 00:06 17:59 16:16 WBC (4.8-10.8) K/uL RBC (3.80-5.20) Mil/uL Hgb (11.0-16.0) g/dL Hct (34.0-47.0) % MCV (81.0-99.0) fL MCH (27.0-31.0) pg MCHC (33.0-37.0) g/dL RDW (11.5-14.5) % Plt Count (130-400) K/uL MPV (7.2-11.7) fL Neut % (Auto) (50.0-75.0) % Lymph % (Auto) (20.0-40.0) % [place] % (Auto) (0.0-10.0) % Eos % (Auto) (0.0-4.0) % Baso % (Auto) (0.0-2.0) % Neut # (Auto) (1.8-7.0) K/uL Lymph # (Auto) (1.0-4.3) K/uL [place] # (Auto) (0.0-0.8) K/uL Eos # (Auto) (0.0-0.7) K/uL Baso # (Auto) (0.0-0.2) K/uL ESR (0-20) mm/hr Puncture Site pCO2 (35-45) mm/Hg pO2 (80-100) mm/Hg HCO3 (21-28) mmol/L ABG pH (7.35-7.45) ABG Total CO2 (22-28) mmol/L ABG O2 Saturation (95-98) % ABG Base Excess (-2.0-3.0) mmol/L Tyler Test ABG Potassium (3.6-5.2) mmol/L A-a O2 Difference mm/Hg Respiratory Index Sodium (132-148) mmol/l Chloride (98-107) mmol/L Glucose (65-105) mg/dl Lactate (0.7-2.1) mmol/L Vent Mode Mechanical Rate FiO2 % Tidal Volume PEEP Potassium (3.6-5.2) mmol/L Carbon Dioxide (22-30) mmol/L Anion Gap (10-20) BUN (7-17) mg/dL Creatinine (0.7-1.2) mg/dL Est GFR ( Amer) Est GFR (Non-Af Amer) POC Glucose (mg/dL) 230 H 194 H (65-110) mg/dL Random Glucose (65-105) mg/dL Calcium (8.6-10.4) mg/dl Phosphorus (2.5-4.5) mg/dL Magnesium (1.6-2.3) mg/dL Total Bilirubin (0.2-1.3) mg/dL AST (14-36) U/L ALT (9-52) U/L Alkaline Phosphatase (38-126) U/L Total Creatine Kinase (30-135) U/L C-Reactive Protein (0.0-9.9) mg/L Total Protein (6.3-8.3) g/dL Albumin (3.5-5.0) g/dL Globulin (2.2-3.9) gm/dL Albumin/Globulin Ratio (1.0-2.1) Free T4 0.93 (0.78-2.19) ng/dL Free T3 pg/mL (2.77-5.27) pg/mL TSH 3rd Generation (0.46-4.68) mIU/L Arterial Blood Potassium (3.6-5.2) mmol/L Complement C3 (88.0-165.0) mg/dL Complement C4 (14.0-44.0) mg/dL 12/30/18 12/30/18 12/30/18 Range/Units 16:16 16:16 16:16 WBC (4.8-10.8) K/uL RBC (3.80-5.20) Mil/uL Hgb (11.0-16.0) g/dL Hct (34.0-47.0) % MCV (81.0-99.0) fL MCH (27.0-31.0) pg MCHC (33.0-37.0) g/dL RDW (11.5-14.5) % Plt Count (130-400) K/uL MPV (7.2-11.7) fL Neut % (Auto) (50.0-75.0) % Lymph % (Auto) (20.0-40.0) % [place] % (Auto) (0.0-10.0) % Eos % (Auto) (0.0-4.0) % Baso % (Auto) (0.0-2.0) % Neut # (Auto) (1.8-7.0) K/uL Lymph # (Auto) (1.0-4.3) K/uL [place] # (Auto) (0.0-0.8) K/uL Eos # (Auto) (0.0-0.7) K/uL Baso # (Auto) (0.0-0.2) K/uL ESR 110 H (0-20) mm/hr Puncture Site pCO2 (35-45) mm/Hg pO2 (80-100) mm/Hg HCO3 (21-28) mmol/L ABG pH (7.35-7.45) ABG Total CO2 (22-28) mmol/L ABG O2 Saturation (95-98) % ABG Base Excess (-2.0-3.0) mmol/L Tyler Test ABG Potassium (3.6-5.2) mmol/L A-a O2 Difference mm/Hg Respiratory Index Sodium (132-148) mmol/l Chloride (98-107) mmol/L Glucose (65-105) mg/dl Lactate (0.7-2.1) mmol/L Vent Mode Mechanical Rate FiO2 % Tidal Volume PEEP Potassium (3.6-5.2) mmol/L Carbon Dioxide (22-30) mmol/L Anion Gap (10-20) BUN (7-17) mg/dL Creatinine (0.7-1.2) mg/dL Est GFR ( Amer) Est GFR (Non-Af Amer) POC Glucose (mg/dL) (65-110) mg/dL Random Glucose (65-105) mg/dL Calcium (8.6-10.4) mg/dl Phosphorus (2.5-4.5) mg/dL Magnesium (1.6-2.3) mg/dL Total Bilirubin (0.2-1.3) mg/dL AST (14-36) U/L ALT (9-52) U/L Alkaline Phosphatase (38-126) U/L Total Creatine Kinase (30-135) U/L C-Reactive Protein 17.20 H (0.0-9.9) mg/L Total Protein (6.3-8.3) g/dL Albumin (3.5-5.0) g/dL Globulin (2.2-3.9) gm/dL Albumin/Globulin Ratio (1.0-2.1) Free T4 (0.78-2.19) ng/dL Free T3 pg/mL 3.09 (2.77-5.27) pg/mL TSH 3rd Generation 0.72 (0.46-4.68) mIU/L Arterial Blood Potassium (3.6-5.2) mmol/L Complement C3 (88.0-165.0) mg/dL Complement C4 73.5 H (14.0-44.0) mg/dL 12/30/18 12/30/18 Range/Units 11:49 10:14 WBC (4.8-10.8) K/uL RBC (3.80-5.20) Mil/uL Hgb (11.0-16.0) g/dL Hct (34.0-47.0) % MCV (81.0-99.0) fL MCH (27.0-31.0) pg MCHC (33.0-37.0) g/dL RDW (11.5-14.5) % Plt Count (130-400) K/uL MPV (7.2-11.7) fL Neut % (Auto) (50.0-75.0) % Lymph % (Auto) (20.0-40.0) % [place] % (Auto) (0.0-10.0) % Eos % (Auto) (0.0-4.0) % Baso % (Auto) (0.0-2.0) % Neut # (Auto) (1.8-7.0) K/uL Lymph # (Auto) (1.0-4.3) K/uL [place] # (Auto) (0.0-0.8) K/uL Eos # (Auto) (0.0-0.7) K/uL Baso # (Auto) (0.0-0.2) K/uL ESR (0-20) mm/hr Puncture Site pCO2 (35-45) mm/Hg pO2 (80-100) mm/Hg HCO3 (21-28) mmol/L ABG pH (7.35-7.45) ABG Total CO2 (22-28) mmol/L ABG O2 Saturation (95-98) % ABG Base Excess (-2.0-3.0) mmol/L Tyler Test ABG Potassium (3.6-5.2) mmol/L A-a O2 Difference mm/Hg Respiratory Index Sodium (132-148) mmol/l Chloride (98-107) mmol/L Glucose (65-105) mg/dl Lactate (0.7-2.1) mmol/L Vent Mode Mechanical Rate FiO2 % Tidal Volume PEEP Potassium (3.6-5.2) mmol/L Carbon Dioxide (22-30) mmol/L Anion Gap (10-20) BUN (7-17) mg/dL Creatinine (0.7-1.2) mg/dL Est GFR ( Amer) Est GFR (Non-Af Amer) POC Glucose (mg/dL) 186 H 146 H (65-110) mg/dL Random Glucose (65-105) mg/dL Calcium (8.6-10.4) mg/dl Phosphorus (2.5-4.5) mg/dL Magnesium (1.6-2.3) mg/dL Total Bilirubin (0.2-1.3) mg/dL AST (14-36) U/L ALT (9-52) U/L Alkaline Phosphatase (38-126) U/L Total Creatine Kinase (30-135) U/L C-Reactive Protein (0.0-9.9) mg/L Total Protein (6.3-8.3) g/dL Albumin (3.5-5.0) g/dL Globulin (2.2-3.9) gm/dL Albumin/Globulin Ratio (1.0-2.1) Free T4 (0.78-2.19) ng/dL Free T3 pg/mL (2.77-5.27) pg/mL TSH 3rd Generation (0.46-4.68) mIU/L Arterial Blood Potassium (3.6-5.2) mmol/L Complement C3 (88.0-165.0) mg/dL Complement C4 (14.0-44.0) mg/dL Laboratory Results - last 24 hr 12/30/18 12/30/18 12/30/18 10:14 11:49 16:16 WBC RBC Hgb Hct MCV MCH MCHC RDW Plt Count MPV Neut % (Auto) Lymph % (Auto) [place] % (Auto) Eos % (Auto) Baso % (Auto) Neut # (Auto) Lymph # (Auto) [place] # (Auto) Eos # (Auto) Baso # (Auto) ESR Puncture Site pCO2 pO2 HCO3 ABG pH ABG Total CO2 ABG O2 Saturation ABG Base Excess Tyler Test ABG Potassium A-a O2 Difference Respiratory Index Sodium Chloride Glucose Lactate Vent Mode Mechanical Rate FiO2 Tidal Volume PEEP Potassium Carbon Dioxide Anion Gap BUN Creatinine Est GFR ( Amer) Est GFR (Non-Af Amer) POC Glucose (mg/dL) 146 H 186 H Random Glucose Calcium Phosphorus Magnesium Total Bilirubin AST ALT Alkaline Phosphatase Total Creatine Kinase C-Reactive Protein 17.20 H Total Protein Albumin Globulin Albumin/Globulin Ratio Free T4 Free T3 pg/mL 3.09 TSH 3rd Generation 0.72 Arterial Blood Potassium Complement C3 Complement C4 12/30/18 12/30/18 12/30/18 16:16 16:16 16:16 WBC RBC Hgb Hct MCV MCH MCHC RDW Plt Count MPV Neut % (Auto) Lymph % (Auto) [place] % (Auto) Eos % (Auto) Baso % (Auto) Neut # (Auto) Lymph # (Auto) [place] # (Auto) Eos # (Auto) Baso # (Auto) ESR 110 H Puncture Site pCO2 pO2 HCO3 ABG pH ABG Total CO2 ABG O2 Saturation ABG Base Excess Tyler Test ABG Potassium A-a O2 Difference Respiratory Index Sodium Chloride Glucose Lactate Vent Mode Mechanical Rate FiO2 Tidal Volume PEEP Potassium Carbon Dioxide Anion Gap BUN Creatinine Est GFR ( Amer) Est GFR (Non-Af Amer) POC Glucose (mg/dL) Random Glucose Calcium Phosphorus Magnesium Total Bilirubin AST ALT Alkaline Phosphatase Total Creatine Kinase C-Reactive Protein Total Protein Albumin Globulin Albumin/Globulin Ratio Free T4 0.93 Free T3 pg/mL TSH 3rd Generation Arterial Blood Potassium Complement C3 Complement C4 73.5 H 12/30/18 12/31/18 12/31/18 17:59 00:06 05:14 WBC RBC Hgb Hct MCV MCH MCHC RDW Plt Count MPV Neut % (Auto) Lymph % (Auto) [place] % (Auto) Eos % (Auto) Baso % (Auto) Neut # (Auto) Lymph # (Auto) [place] # (Auto) Eos # (Auto) Baso # (Auto) ESR Puncture Site R rad pCO2 43 pO2 89 HCO3 23.3 ABG pH 7.35 ABG Total CO2 25.0 ABG O2 Saturation 96.4 ABG Base Excess -2.0 Tyler Test Pos ABG Potassium 4.1 A-a O2 Difference 214.0 Respiratory Index 2.4 Sodium 138.0 Chloride 107.0 Glucose 225 H Lactate 1.6 Vent Mode Prvc Mechanical Rate 14 FiO2 50.0 Tidal Volume 500 PEEP 5 Potassium Carbon Dioxide Anion Gap BUN Creatinine Est GFR ( Amer) Est GFR (Non-Af Amer) POC Glucose (mg/dL) 194 H 230 H Random Glucose Calcium Phosphorus Magnesium Total Bilirubin AST ALT Alkaline Phosphatase Total Creatine Kinase C-Reactive Protein Total Protein Albumin Globulin Albumin/Globulin Ratio Free T4 Free T3 pg/mL TSH 3rd Generation Arterial Blood Potassium 4.1 Complement C3 Complement C4 12/31/18 12/31/18 12/31/18 05:28 06:30 06:32 WBC 6.3 D RBC 3.77 L Hgb 10.6 L D Hct 32.7 L MCV 86.8 MCH 28.0 MCHC 32.3 L RDW 16.0 H Plt Count 438 H MPV 8.8 Neut % (Auto) 85.0 H Lymph % (Auto) 11.6 L [place] % (Auto) 2.9 Eos % (Auto) 0.0 Baso % (Auto) 0.5 Neut # (Auto) 5.3 Lymph # (Auto) 0.7 L [place] # (Auto) 0.2 Eos # (Auto) 0.0 Baso # (Auto) 0.0 ESR Puncture Site pCO2 pO2 HCO3 ABG pH ABG Total CO2 ABG O2 Saturation ABG Base Excess Tyler Test ABG Potassium A-a O2 Difference Respiratory Index Sodium Chloride Glucose Lactate Vent Mode Mechanical Rate FiO2 Tidal Volume PEEP Potassium Carbon Dioxide Anion Gap BUN Creatinine Est GFR ( Amer) Est GFR (Non-Af Amer) POC Glucose (mg/dL) 235 H Random Glucose Calcium Phosphorus Magnesium Total Bilirubin AST ALT Alkaline Phosphatase Total Creatine Kinase C-Reactive Protein Total Protein Albumin Globulin Albumin/Globulin Ratio Free T4 Free T3 pg/mL TSH 3rd Generation Arterial Blood Potassium Complement C3 138.0 Complement C4 12/31/18 12/31/18 06:32 11:17 WBC RBC Hgb Hct MCV MCH MCHC RDW Plt Count MPV Neut % (Auto) Lymph % (Auto) [place] % (Auto) Eos % (Auto) Baso % (Auto) Neut # (Auto) Lymph # (Auto) [place] # (Auto) Eos # (Auto) Baso # (Auto) ESR Puncture Site pCO2 pO2 HCO3 ABG pH ABG Total CO2 ABG O2 Saturation ABG Base Excess Tyler Test ABG Potassium A-a O2 Difference Respiratory Index Sodium 136 Chloride 106 Glucose Lactate Vent Mode Mechanical Rate FiO2 Tidal Volume PEEP Potassium 4.3 Carbon Dioxide 24 Anion Gap 10 BUN 42 H Creatinine 3.4 H Est GFR ( Amer) 17 Est GFR (Non-Af Amer) 14 POC Glucose (mg/dL) 184 H Random Glucose 217 H D Calcium 8.4 L Phosphorus 4.3 Magnesium 1.9 Total Bilirubin 0.2 AST 22 ALT 12 Alkaline Phosphatase 223 H Total Creatine Kinase 81 C-Reactive Protein Total Protein 6.6 Albumin 3.0 L Globulin 3.6 Albumin/Globulin Ratio 0.9 L Free T4 Free T3 pg/mL TSH 3rd Generation Arterial Blood Potassium Complement C3 Complement C4 Radiology Impressions: Radiology Impressions Chest X-Ray 12/31/18 06:00 IMPRESSION: Borderline pulmonary vascular congestion. Cardiac silhouette stable in size remaining prominent with no definite interval infiltrate, pneumothorax or pleural effusion appreciable. Critical Care Progress Note - Nutrition Nutrition: Nutrition Category Date Time Status NPO Diet [DIET] Diets 12/30/18 Breakfast Active Attending/Attestation - Attestation I have personally seen and examined this patient.: Yes I have fully participated in the care of the patient.: Yes I have reviewed all pertinent clinical information: Yes Notes (Text): 12/31/18 15:34 Patient seen and examined in the intensive care unit. Case discussed with housestaff in the morning rounds. Patient extubated after weaning trial and the swelling of the tongue much improved continue steroids and nebulizer treatment Swallowing evaluation Allergy police dispatcher evaluation as outpatient
[2018-12-31] MEDS ORDERED: Tiotropium 18 mcg Cap For Inhalation IH SCH (10:00)
--- NOTE | 2018-12-31 13:49 | RAD ---
Date of service: 12/31/2018 HISTORY: eval interval change COMPARISON: Portable chest 12/30/2018 11:28 a.m.. TECHNIQUE: 1 view obtained. FINDINGS: LUNGS: Endotracheal tube does not appear significantly changed in position. No interval infiltrate bilaterally. PLEURA: No significant pleural effusion identified, no pneumothorax apparent. CARDIOVASCULAR: No aortic atherosclerotic calcification present. Prominent cardiac silhouette stable. An element of technical magnification is present given frontal technique. Borderline pulmonary vascular congestion. OSSEOUS STRUCTURES: No significant abnormalities. VISUALIZED UPPER ABDOMEN: Normal. OTHER FINDINGS: None. IMPRESSION: Borderline pulmonary vascular congestion. Cardiac silhouette stable in size remaining prominent with no definite interval infiltrate, pneumothorax or pleural effusion appreciable.
--- NOTE | 2018-12-31 19:23 | CP.PCM.PN ---
Subjective - Date & Time of Evaluation Date of Evaluation: 12/31/18 Time of Evaluation: 21:30 - Subjective Subjective: patient was seen and examined no nausea, no vomiting. no fever, no dizziness, no diarrhea, no sob Extubated today no acute events no nausea no vomiting patient has a family bedside Objective - Vital Signs/Intake and Output Vital Signs (last 24 hours): Temp Pulse Resp BP Pulse Ox 99.5 F 103 H 15 166/60 H 97 12/31/18 16:00 12/31/18 18:00 12/31/18 18:00 12/31/18 18:00 12/31/18 18:00 Intake and Output: 12/31/18 01/01/19 18:59 06:59 Intake Total 677.5 Output Total 3250 Balance -2572.5 - Medications Medications: Current Medications Albuterol/Ipratropium (Duoneb 3 Mg/0.5 Mg (3 Ml) Ud) 3 ml INH RQ6 COLE Last Admin: 12/31/18 02:56 Dose: 3 ml Allopurinol (Zyloprim) 300 mg PO DAILY COLE Amlodipine Besylate (Norvasc) 5 mg PO DAILY COLE Carvedilol (Coreg) 12.5 mg PO BID COLE Clonidine HCl (Catapres) 0.2 mg PO DAILY COLE Dextrose (Dextrose 50% Inj) 0 ml IV STAT PRN; Protocol PRN Reason: Hypoglycemia Protocol Dextrose (Glutose 15) 0 gm PO ONCE PRN; Protocol PRN Reason: Hypoglycemia Protocol Diphenhydramine HCl (Benadryl) 50 mg IVP Q6H PRN PRN Reason: Anaphylaxis Last Admin: 12/30/18 23:30 Dose: 50 mg Ezetimibe (Zetia) 10 mg PO DAILY COLE Furosemide (Lasix) 20 mg PO DAILY COLE Glucagon (Glucagen Diagnostic Kit) 0 mg IM STAT PRN; Protocol PRN Reason: Hypoglycemia Protocol Heparin Sodium (Porcine) (Heparin) 5,000 units SC Q12H [facility] Last Admin: 12/31/18 14:56 Dose: 5,000 units Dextrose (Dextrose 5% In Water 1000 Ml) 1,000 mls @ 0 mls/hr IV .Q0M PRN; Protocol PRN Reason: Hypoglycemia Protocol Insulin Glargine (Lantus) 20 unit SC Q12H [facility] Insulin Human Regular (Novolin R) 0 unit SC Q6 [facility]; Protocol Last Admin: 12/31/18 17:46 Dose: 10 u Methylprednisolone (Solu-Medrol) 40 mg IVP Q6H [facility] Last Admin: 12/31/18 14:56 Dose: 40 mg Montelukast Sodium (Singulair) 10 mg PO DAILY [facility] Pantoprazole Sodium (Protonix Inj) 40 mg IVP DAILY [facility] Last Admin: 12/31/18 09:17 Dose: 40 mg Torsemide (Demadex) 20 mg PO DAILY [facility] - Labs Labs: 12/31/18 06:32 12/31/18 06:32 - Constitutional Appears: Well - Head Exam Head Exam: ATRAUMATIC, NORMAL INSPECTION, NORMOCEPHALIC - Eye Exam Eye Exam: EOMI, Normal appearance, PERRL Pupil Exam: NORMAL ACCOMODATION, PERRL - ENT Exam ENT Exam: Mucous Membranes Moist, Normal Exam - Neck Exam Neck Exam: Full ROM, Normal Inspection. absent: Lymphadenopathy - Respiratory Exam Respiratory Exam: Decreased Breath Sounds - Cardiovascular Exam Cardiovascular Exam: REGULAR RHYTHM, +S1, +S2 - GI/Abdominal Exam GI & Abdominal Exam: Soft, Diminished Bowel Sounds - Rectal Exam Rectal Exam: Deferred Assessment and Plan - Assessment and Plan (Free Text) Plan: medication reviewed vitals reviewed labs reviewedPlan pulmonary consult Follow-up with the social work supervisor Hemoglobin hematocrit 10.6 and 32.7 No CMP seen glucose 230 and 194 respectively Free T4 0.93 Chest x-ray done on 4 3 reveals borderline pulmonary vascular congestion cardiac silhouette with stable in size remaining prominent with no definite interval infiltrate pneumothorax or pleural effusion Now patient is alert oriented x3 sedation weaned off patient he was tachycardic on arrival status post hydralazine x1 patient resume the p.o. medications status post central line and right femoral area status post a steroid now via Solu- Medrol 40 IV every 6 Benadryl every 6 singular daily Follow-up with the ENT consult follow-up with the consultations benadryl catapress coreg demadex dextrose 5% dextrose 50% duoneb 3mg/0.5 mg glucagen diagnostic kit glutose 15 heparin lantus lasix norvasc novolin R protonix Inj singulair solu-medrol zetia zyloprim
[2018-12-31] MEDS ORDERED: (Novolog) Insulin Aspart, Recombinant 100 u/ml 10 ml vial SC STA (19:47)
[2018-12-31] MEDS ORDERED: (Lantus) Insulin Glargine, Recombinant SC SCH (22:00)
[2019-01-01] MEDS: DiphenhydrAMINE 50 mg/ml Inj IVP PRN ×2 (00:10→21:40)
[2019-01-01] MEDS: Albuterol-Ipratrop 3 mg / 0.5 (3 ml) UD INH SCH ×4 (02:00→20:49)
[2019-01-01 06:29] LABS: BASO % 0.4 % (0.0-2.0); LYMPH # 0.9 K/uL (1.0-4.3); LYMPH % 13.8 % (20.0-40.0); MEAN CELL VOLUME 87.7 fL (81.0-99.0); MEAN CORPUSCULAR HGB CONC 31.9 g/dL (33.0-37.0); MEAN PLATELET VOLUME 8.6 fL (7.2-11.7); MONO # 0.7 K/uL (0.0-0.8); MONO % 10.8 % (0.0-10.0); NEUT # 5.1 K/uL (1.8-7.0); RBC 3.94 Mil/uL (3.80-5.20); RED CELL DISTRIBUTION WIDTH 15.9 % (11.5-14.5); WHITE BLOOD COUNT 6.8 K/uL (4.8-10.8)
--- NOTE | 2019-01-01 06:45 | CARD ---
APPROVED REPORT Date of service: 12/30/2018 EKG Measurement Heart [id number] ND [id number] <Conclusion> Normal sinus rhythm Left posterior fascicular block Prolonged QT Abnormal ECG
[2019-01-01 06:49] LABS: ALB/GLOB RATIO 0.9 (1.0-2.1); ALBUMIN 3.3 g/dL (3.5-5.0); CALCIUM 8.7 mg/dl (8.6-10.4)
[2019-01-01] MEDS: (Novolin R) Insulin Human Regular 100 units/ml vial SC SCH ×2 (07:59→11:51)
[2019-01-01] MEDS: MethylPREDNISolone 40 mg Vial IVP SCH (09:53)
[2019-01-01] MEDS: Pantoprazole 40 mg EC Tab PO SCH (09:53)
[2019-01-01] MEDS ORDERED: (Lantus) Insulin Glargine, Recombinant SC SCH ×2 (10:00→22:00)
--- NOTE | 2019-01-01 10:03 | CP.CCUPN ---
<Damion Mcduffie - Last Filed: 01/01/19 12:22> CCU Subjective - Physician Review Subjective (Free Text): ICU Progress Note for Dr. Eleazar Saldivar Pt seen and examined at bedside. S/p extubation yesterday. Observed this am coughing, states she is producing phlegm. No acute events reported overnight by staff. 12-point ROS obtained, otherwise neg as per pt. States her breathing is much improved. CCU Objective - Vital Signs / Intake & Output Vital Signs (Last 4 hours): Vital Signs Pulse Resp BP Pulse Ox 01/01/19 07:00 106 H 19 141/75 99 Intake and Output (Last 8hrs): Intake & Output 12/31/18 01/01/19 01/01/19 22:59 06:59 14:59 Intake Total 250 200 0 Output Total 3000 500 Balance -2750 -300 0 Intake: Oral 250 200 0 Output: Urine 3000 500 Straight 1500 Urine, Voided 500 Other: # Voids Urine, Voided 300 - Physical Exam Head: Positive for: Atraumatic, Normocephalic Pupils: Positive for: PERRL Extroacular Muscles: Positive for: EOMI Conjunctiva: Positive for: Normal Mouth: Positive for: Moist Mucous Membranes, Other (Lip swelling/angioedema improved) Neck: Positive for: Normal Range of Motion Respiratory/Chest: Positive for: Clear to Auscultation, Good Air Exchange. Negative for: Respiratory Distress, Accessory Muscle Use, Wheezes, Rales, Rhonchi Cardiovascular: Positive for: Regular Rate and Rhythm, Normal S1, S2. Negative for: Murmurs, Rub, Gallop Abdomen: Positive for: Normal Bowel Sounds. Negative for: Tenderness, Distention, Mass/Organomegaly Upper Extremity: Positive for: Normal Inspection, Normal ROM, NORMAL PULSES, Neurovascularly Intact, Capillary Refill < 2s. Negative for: Cyanosis, Edema Lower Extremity: Positive for: Normal Inspection, NORMAL PULSES, Neurovascularly Intact, Capillary Refill < 2 s. Negative for: Edema Neurological: Positive for: GCS=15, CN II-XII Intact, Speech Normal, Motor Func Grossly Intact Skin: Positive for: Warm, Dry, Normal Color Psychiatric: Positive for: Alert - Medications Active Medications: Active Medications Generic Name Dose Route Start Last Admin Trade Name Freq PRN Reason Stop Dose Admin Albuterol/Ipratropium 3 ml 12/30/18 14:00 01/01/19 07:31 Duoneb 3 Mg/0.5 Mg (3 Ml) Ud INH 3 ml RQ6 [facility] Administration Allopurinol 100 mg 01/01/19 09:11 Zyloprim PO DAILY [facility] Amlodipine Besylate 5 mg 12/31/18 10:00 Norvasc PO DAILY [facility] Carvedilol 25 mg 01/01/19 09:20 Coreg PO BID [facility] Clonidine HCl 0.2 mg 12/31/18 10:00 Catapres PO DAILY [facility] Dextrose 0 ml 12/30/18 13:42 Dextrose 50% Inj IV STAT PRN Hypoglycemia Protocol Protocol Dextrose 0 gm 12/30/18 13:42 Glutose 15 PO ONCE PRN Hypoglycemia Protocol Protocol Diphenhydramine HCl 50 mg 12/30/18 12:13 01/01/19 00:10 Benadryl IVP 50 mg Q6H PRN Administration Anaphylaxis Ezetimibe 10 mg 12/31/18 10:00 Zetia PO DAILY [facility] Furosemide 40 mg 01/01/19 09:20 Lasix PO DAILY [facility] Glucagon 0 mg 12/30/18 13:42 Glucagen Diagnostic Kit IM STAT PRN Hypoglycemia Protocol Protocol Heparin Sodium (Porcine) 5,000 units 01/01/19 10:00 01/01/19 09:54 Heparin SC 5,000 units Q12H [facility] Administration Dextrose 1,000 mls @ 0 mls/hr 12/30/18 13:42 Dextrose 5% In Water 1000 Ml IV .Q0M PRN Hypoglycemia Protocol Protocol Per Protocol Insulin Aspart 15 unit 01/01/19 11:30 Novolog SC ACHS [facility] Insulin Glargine 50 unit 01/01/19 10:00 01/01/19 09:53 Lantus SC 50 units Q12H [facility] Administration Insulin Human Regular 0 unit 01/01/19 07:30 01/01/19 07:59 Novolin R SC 8 units ACHS [facility] Administration Protocol Methylprednisolone 40 mg 01/01/19 10:00 01/01/19 09:53 Solu-Medrol IVP 40 mg DAILY [facility] Administration Montelukast Sodium 10 mg 12/31/18 10:00 Singulair PO DAILY [facility] Pantoprazole Sodium 40 mg 01/01/19 10:00 01/01/19 09:53 Protonix Ec Tab PO 40 mg DAILY [facility] Administration - Patient Studies Lab Studies: Microbiology Studies 12/30/18 09:42 MRSA Culture (Admit) - Final Naris MRSA NOT DETECTED Lab Studies 01/01/19 01/01/19 12/31/18 Range/Units 06:22 06:22 21:07 WBC 6.8 (4.8-10.8) K/uL RBC 3.94 (3.80-5.20) Mil/uL Hgb 11.0 (11.0-16.0) g/dL Hct 34.6 (34.0-47.0) % MCV 87.7 (81.0-99.0) fL MCH 28.0 (27.0-31.0) pg MCHC 31.9 L (33.0-37.0) g/dL RDW 15.9 H (11.5-14.5) % Plt Count 468 H (130-400) K/uL MPV 8.6 (7.2-11.7) fL Neut % (Auto) 75.0 (50.0-75.0) % Lymph % (Auto) 13.8 L (20.0-40.0) % Clare % (Auto) 10.8 H (0.0-10.0) % Eos % (Auto) 0.0 (0.0-4.0) % Baso % (Auto) 0.4 (0.0-2.0) % Neut # (Auto) 5.1 (1.8-7.0) K/uL Lymph # (Auto) 0.9 L (1.0-4.3) K/uL Clare # (Auto) 0.7 (0.0-0.8) K/uL Eos # (Auto) 0.0 (0.0-0.7) K/uL Baso # (Auto) 0.0 (0.0-0.2) K/uL Sodium 139 (132-148) mmol/L Potassium 4.6 (3.6-5.2) mmol/L Chloride 105 (98-107) mmol/L Carbon Dioxide 23 (22-30) mmol/L Anion Gap 15 (10-20) BUN 52 H (7-17) mg/dL Creatinine 3.6 H (0.7-1.2) mg/dL Est GFR ( Amer) 16 Est GFR (Non-Af Amer) 13 POC Glucose (mg/dL) 360 H (65-110) mg/dL Random Glucose 306 H D (65-105) mg/dL Calcium 8.7 (8.6-10.4) mg/dl Phosphorus 5.4 H (2.5-4.5) mg/dL Magnesium 2.0 (1.6-2.3) mg/dL Total Bilirubin 0.3 (0.2-1.3) mg/dL AST 15 (14-36) U/L ALT 11 (9-52) U/L Alkaline Phosphatase 219 H (38-126) U/L Total Creatine Kinase (30-135) U/L Total Protein 7.1 (6.3-8.3) g/dL Albumin 3.3 L (3.5-5.0) g/dL Globulin 3.8 (2.2-3.9) gm/dL Albumin/Globulin Ratio 0.9 L (1.0-2.1) Complement C3 (88.0-165.0) mg/dL RPR (NONREACTIVE) 12/31/18 12/31/18 12/31/18 Range/Units 20:04 17:43 12:08 WBC (4.8-10.8) K/uL RBC (3.80-5.20) Mil/uL Hgb (11.0-16.0) g/dL Hct (34.0-47.0) % MCV (81.0-99.0) fL MCH (27.0-31.0) pg MCHC (33.0-37.0) g/dL RDW (11.5-14.5) % Plt Count (130-400) K/uL MPV (7.2-11.7) fL Neut % (Auto) (50.0-75.0) % Lymph % (Auto) (20.0-40.0) % Clare % (Auto) (0.0-10.0) % Eos % (Auto) (0.0-4.0) % Baso % (Auto) (0.0-2.0) % Neut # (Auto) (1.8-7.0) K/uL Lymph # (Auto) (1.0-4.3) K/uL Clare # (Auto) (0.0-0.8) K/uL Eos # (Auto) (0.0-0.7) K/uL Baso # (Auto) (0.0-0.2) K/uL Sodium (132-148) mmol/L Potassium (3.6-5.2) mmol/L Chloride (98-107) mmol/L Carbon Dioxide (22-30) mmol/L Anion Gap (10-20) BUN (7-17) mg/dL Creatinine (0.7-1.2) mg/dL Est GFR ( Amer) Est GFR (Non-Af Amer) POC Glucose (mg/dL) 483 H* 498 H* (65-110) mg/dL Random Glucose (65-105) mg/dL Calcium (8.6-10.4) mg/dl Phosphorus (2.5-4.5) mg/dL Magnesium (1.6-2.3) mg/dL Total Bilirubin (0.2-1.3) mg/dL AST (14-36) U/L ALT (9-52) U/L Alkaline Phosphatase (38-126) U/L Total Creatine Kinase (30-135) U/L Total Protein (6.3-8.3) g/dL Albumin (3.5-5.0) g/dL Globulin (2.2-3.9) gm/dL Albumin/Globulin Ratio (1.0-2.1) Complement C3 (88.0-165.0) mg/dL RPR Nonreactive (NONREACTIVE) 12/31/18 12/31/18 12/31/18 Range/Units 11:17 06:32 06:30 WBC (4.8-10.8) K/uL RBC (3.80-5.20) Mil/uL Hgb (11.0-16.0) g/dL Hct (34.0-47.0) % MCV (81.0-99.0) fL MCH (27.0-31.0) pg MCHC (33.0-37.0) g/dL RDW (11.5-14.5) % Plt Count (130-400) K/uL MPV (7.2-11.7) fL Neut % (Auto) (50.0-75.0) % Lymph % (Auto) (20.0-40.0) % Clare % (Auto) (0.0-10.0) % Eos % (Auto) (0.0-4.0) % Baso % (Auto) (0.0-2.0) % Neut # (Auto) (1.8-7.0) K/uL Lymph # (Auto) (1.0-4.3) K/uL Clare # (Auto) (0.0-0.8) K/uL Eos # (Auto) (0.0-0.7) K/uL Baso # (Auto) (0.0-0.2) K/uL Sodium 136 (132-148) mmol/L Potassium 4.3 (3.6-5.2) mmol/L Chloride 106 (98-107) mmol/L Carbon Dioxide 24 (22-30) mmol/L Anion Gap 10 (10-20) BUN 42 H (7-17) mg/dL Creatinine 3.4 H (0.7-1.2) mg/dL Est GFR ( Amer) 17 Est GFR (Non-Af Amer) 14 POC Glucose (mg/dL) 184 H (65-110) mg/dL Random Glucose 217 H D (65-105) mg/dL Calcium 8.4 L (8.6-10.4) mg/dl Phosphorus 4.3 (2.5-4.5) mg/dL Magnesium 1.9 (1.6-2.3) mg/dL Total Bilirubin 0.2 (0.2-1.3) mg/dL AST 22 (14-36) U/L ALT 12 (9-52) U/L Alkaline Phosphatase 223 H (38-126) U/L Total Creatine Kinase 81 (30-135) U/L Total Protein 6.6 (6.3-8.3) g/dL Albumin 3.0 L (3.5-5.0) g/dL Globulin 3.6 (2.2-3.9) gm/dL Albumin/Globulin Ratio 0.9 L (1.0-2.1) Complement C3 138.0 (88.0-165.0) mg/dL RPR (NONREACTIVE) Laboratory Results - last 24 hr 12/31/18 12/31/18 12/31/18 06:30 06:32 11:17 WBC RBC Hgb Hct MCV MCH MCHC RDW Plt Count MPV Neut % (Auto) Lymph % (Auto) Clare % (Auto) Eos % (Auto) Baso % (Auto) Neut # (Auto) Lymph # (Auto) Clare # (Auto) Eos # (Auto) Baso # (Auto) Sodium 136 Potassium 4.3 Chloride 106 Carbon Dioxide 24 Anion Gap 10 BUN 42 H Creatinine 3.4 H Est GFR ( Amer) 17 Est GFR (Non-Af Amer) 14 POC Glucose (mg/dL) 184 H Random Glucose 217 H D Calcium 8.4 L Phosphorus 4.3 Magnesium 1.9 Total Bilirubin 0.2 AST 22 ALT 12 Alkaline Phosphatase 223 H Total Creatine Kinase 81 Total Protein 6.6 Albumin 3.0 L Globulin 3.6 Albumin/Globulin Ratio 0.9 L Complement C3 138.0 RPR 12/31/18 12/31/18 12/31/18 12:08 17:43 20:04 WBC RBC Hgb Hct MCV MCH MCHC RDW Plt Count MPV Neut % (Auto) Lymph % (Auto) Clare % (Auto) Eos % (Auto) Baso % (Auto) Neut # (Auto) Lymph # (Auto) Clare # (Auto) Eos # (Auto) Baso # (Auto) Sodium Potassium Chloride Carbon Dioxide Anion Gap BUN Creatinine Est GFR ( Amer) Est GFR (Non-Af Amer) POC Glucose (mg/dL) 498 H* 483 H* Random Glucose Calcium Phosphorus Magnesium Total Bilirubin AST ALT Alkaline Phosphatase Total Creatine Kinase Total Protein Albumin Globulin Albumin/Globulin Ratio Complement C3 RPR Nonreactive 12/31/18 01/01/19 01/01/19 21:07 06:22 06:22 WBC 6.8 RBC 3.94 Hgb 11.0 Hct 34.6 MCV 87.7 MCH 28.0 MCHC 31.9 L RDW 15.9 H Plt Count 468 H MPV 8.6 Neut % (Auto) 75.0 Lymph % (Auto) 13.8 L Clare % (Auto) 10.8 H Eos % (Auto) 0.0 Baso % (Auto) 0.4 Neut # (Auto) 5.1 Lymph # (Auto) 0.9 L Clare # (Auto) 0.7 Eos # (Auto) 0.0 Baso # (Auto) 0.0 Sodium 139 Potassium 4.6 Chloride 105 Carbon Dioxide 23 Anion Gap 15 BUN 52 H Creatinine 3.6 H Est GFR ( Amer) 16 Est GFR (Non-Af Amer) 13 POC Glucose (mg/dL) 360 H Random Glucose 306 H D Calcium 8.7 Phosphorus 5.4 H Magnesium 2.0 Total Bilirubin 0.3 AST 15 ALT 11 Alkaline Phosphatase 219 H Total Creatine Kinase Total Protein 7.1 Albumin 3.3 L Globulin 3.8 Albumin/Globulin Ratio 0.9 L Complement C3 RPR Radiology Impressions: Radiology Impressions Chest X-Ray 12/31/18 06:00 IMPRESSION: Borderline pulmonary vascular congestion. Cardiac silhouette stable in size remaining prominent with no definite interval infiltrate, pneumothorax or pleural effusion appreciable. Fingerstick Blood Sugar Results: 360 Review of Systems - Respiratory Respiratory: Cough, Excessive Mucous Production Critical Care Progress Note - Nutrition Nutrition: Nutrition Category Date Time Status Liquid Diet [DIET] Diets 12/31/18 Dinner Active Assessment/Plan - Assessment and Plan (Free Text) Assessment: 53 y o female with PMhx DM, COPD, HTN, HLD, CKD, depression, asthma, bipolar disorder who was BiBEMS for evaluation of hypoglycemia noted at 3 am this morning. Reason for ICU consult was for angioedema. Admitted to ICU for further monitoring and management of airway. Dr. Lamb (ENT) consulted. S/p extubation yesterday. Hyperglycemic overnight, basal insulin adjusted this am, cont to trend fingersticks. Plan: Neuro: -AAOx3 prior to intubation -S/p extubation yesterday, AAOx3 currently, speech normal, observed ambulating with PT today -Cont to monitor Cardio: -Tachycardic and hypertensive on initial presentation, may be 2/2 angioedema -Hx HTN, HLD -S/p hydralazine x1 with improvement in BP -PO meds restarted -Crestor, Zetia -S/p central line placement in R femoral area, removed yesterday -EKG on admission: NSR, L posterior fascicular block, prolonged QT Pulm: -Angioedema, hx recurrence, r/o hereditary angioedema as etiology -W/u for angioedema pending -Intubated in OR with ENT and anesthesia present at bedside; s/p flexible laryngoscopy performed by ENT at bedside -S/p extubation yesterday -Pulm toilet -Bronchodilators -S/p Decadron, Pepcid, and Benadryl in ED -Solu-Medrol tapered down due to hyperglycemia -Benadryl q6h prn -Hx COPD -Hx pulm HTN -Singulair daily -CXR on admission: Moderate venous congestion with cardiomegaly and R hilar prominence. -Repeat Chest XR ordered for today -ENT consulted, Dr. Lamb, recs appreciated GI: -Liquid diet -Protonix -IVF d/c'd Heme: -H/H stable ID: -Leukopenia resolved, cont to trend Renal: -Bun/Cr stable -Hx CKD -Cont to trend I's/O's Endo: -Hx DM -Fingersticks q6h -ISS -Levemir increased due to pt being hyperglycemic overnight -Hypoglycemic protocol -DM liquid diet, advance as tolerated PPX: -Protonix -Heparin, SCD Pt seen, examined with, and plan discussed with Dr. Eleazar Saldivar, attending physician. Damion Mcduffie DO PGY-1, policy manager Pager #[phone] <Joy Saldivar - Last Filed: 01/01/19 13:57> CCU Objective - Vital Signs / Intake & Output Vital Signs (Last 4 hours): Vital Signs Temp Pulse Resp BP Pulse Ox 01/01/19 13:01 86 159/89 H 100 01/01/19 13:00 85 100 01/01/19 12:01 73 15 142/57 L 99 01/01/19 12:00 98.3 F 73 16 99 01/01/19 11:02 88 19 158/69 H 99 01/01/19 11:00 90 23 98 01/01/19 10:05 94 H 16 120/87 01/01/19 10:00 95 H 17 Intake and Output (Last 8hrs): Intake & Output 12/31/18 01/01/19 01/01/19 22:59 06:59 14:59 Intake Total 250 200 780 Output Total 3000 500 0 Balance -2750 -300 780 Intake: Oral 250 200 780 Output: Urine 3000 500 0 Straight 1500 Urine, Voided 500 0 Other: # Voids Urine, Voided 300 - Medications Active Medications: Active Medications Generic Name Dose Route Start Last Admin Trade Name Freq PRN Reason Stop Dose Admin Albuterol/Ipratropium 3 ml 12/30/18 14:00 01/01/19 13:08 Duoneb 3 Mg/0.5 Mg (3 Ml) Ud INH 3 ml RQ6 [facility] Administration Allopurinol 100 mg 01/01/19 09:11 01/01/19 12:55 Zyloprim PO 100 mg DAILY [facility] Administration Amlodipine Besylate 5 mg 12/31/18 10:00 01/01/19 10:20 Norvasc PO 5 mg DAILY [facility] Administration Carvedilol 25 mg 01/01/19 10:00 Coreg PO BID [facility] Clonidine HCl 0.2 mg 12/31/18 10:00 01/01/19 10:20 Catapres PO 0.2 mg DAILY [facility] Administration Dextrose 0 ml 12/30/18 13:42 Dextrose 50% Inj IV STAT PRN Hypoglycemia Protocol Protocol Dextrose 0 gm 12/30/18 13:42 Glutose 15 PO ONCE PRN Hypoglycemia Protocol Protocol Diphenhydramine HCl 50 mg 12/30/18 12:13 01/01/19 00:10 Benadryl IVP 50 mg Q6H PRN Administration Anaphylaxis Ezetimibe 10 mg 12/31/18 10:00 01/01/19 12:54 Zetia PO 10 mg DAILY [facility] Administration Furosemide 40 mg 01/01/19 10:00 Lasix PO DAILY [facility] Glucagon 0 mg 12/30/18 13:42 Glucagen Diagnostic Kit IM STAT PRN Hypoglycemia Protocol Protocol Heparin Sodium (Porcine) 5,000 units 01/01/19 10:00 01/01/19 09:54 Heparin SC 5,000 units Q12H [facility] Administration Dextrose 1,000 mls @ 0 mls/hr 12/30/18 13:42 Dextrose 5% In Water 1000 Ml IV .Q0M PRN Hypoglycemia Protocol Protocol Per Protocol Insulin Aspart 20 unit 01/01/19 16:30 Novolog SC AC [facility] Insulin Aspart 0 unit 01/01/19 16:30 Novolog SC ACHS [facility] Insulin Glargine 50 unit 01/01/19 10:00 01/01/19 09:53 Lantus SC 50 units Q12H [facility] Administration Methylprednisolone 40 mg 01/01/19 10:00 01/01/19 09:53 Solu-Medrol IVP 40 mg DAILY [facility] Administration Montelukast Sodium 10 mg 12/31/18 10:00 01/01/19 10:20 Singulair PO 10 mg DAILY [facility] Administration Pantoprazole Sodium 40 mg 01/01/19 10:00 01/01/19 09:53 Protonix Ec Tab PO 40 mg DAILY [facility] Administration - Patient Studies Lab Studies: Microbiology Studies 12/30/18 09:42 MRSA Culture (Admit) - Final Naris MRSA NOT DETECTED Lab Studies 01/01/19 01/01/19 01/01/19 Range/Units 09:00 06:22 06:22 WBC 6.8 (4.8-10.8) K/uL RBC 3.94 (3.80-5.20) Mil/uL Hgb 11.0 (11.0-16.0) g/dL Hct 34.6 (34.0-47.0) % MCV 87.7 (81.0-99.0) fL MCH 28.0 (27.0-31.0) pg MCHC 31.9 L (33.0-37.0) g/dL RDW 15.9 H (11.5-14.5) % Plt Count 468 H (130-400) K/uL MPV 8.6 (7.2-11.7) fL Neut % (Auto) 75.0 (50.0-75.0) % Lymph % (Auto) 13.8 L (20.0-40.0) % Clare % (Auto) 10.8 H (0.0-10.0) % Eos % (Auto) 0.0 (0.0-4.0) % Baso % (Auto) 0.4 (0.0-2.0) % Neut # (Auto) 5.1 (1.8-7.0) K/uL Lymph # (Auto) 0.9 L (1.0-4.3) K/uL Clare # (Auto) 0.7 (0.0-0.8) K/uL Eos # (Auto) 0.0 (0.0-0.7) K/uL Baso # (Auto) 0.0 (0.0-0.2) K/uL Sodium 139 (132-148) mmol/L Potassium 4.6 (3.6-5.2) mmol/L Chloride 105 (98-107) mmol/L Carbon Dioxide 23 (22-30) mmol/L Anion Gap 15 (10-20) BUN 52 H (7-17) mg/dL Creatinine 3.6 H (0.7-1.2) mg/dL Est GFR ( Amer) 16 Est GFR (Non-Af Amer) 13 POC Glucose (mg/dL) (65-110) mg/dL Random Glucose 306 H D (65-105) mg/dL Calcium 8.7 (8.6-10.4) mg/dl Phosphorus 5.4 H (2.5-4.5) mg/dL Magnesium 2.0 (1.6-2.3) mg/dL Total Bilirubin 0.3 (0.2-1.3) mg/dL AST 15 (14-36) U/L ALT 11 (9-52) U/L Alkaline Phosphatase 219 H (38-126) U/L Total Protein 7.1 (6.3-8.3) g/dL Albumin 3.3 L (3.5-5.0) g/dL Globulin 3.8 (2.2-3.9) gm/dL Albumin/Globulin Ratio 0.9 L (1.0-2.1) IgE (<kf=703) kU/L SS-A Antibody (<1.0) AI SS-B Ab Interp (Negative) SS-B Antibody (<1.0) AI Sm (Michaud) Antibody (<1.0) AI Anti-Michaud Interpret (Negative) SM/DESSERT C[employer] MACHINE FEEDER Antibody (<1.0) AI Sm/DESSERT [employer] MACHINE FEEDER Antibody Interp (Negative) RPR (NONREACTIVE) Influenza Typ A,B (EIA) Negative for flu a/b (NEGATIVE) 12/31/18 12/31/18 12/31/18 Range/Units 21:07 20:04 17:43 WBC (4.8-10.8) K/uL RBC (3.80-5.20) Mil/uL Hgb (11.0-16.0) g/dL Hct (34.0-47.0) % MCV (81.0-99.0) fL MCH (27.0-31.0) pg MCHC (33.0-37.0) g/dL RDW (11.5-14.5) % Plt Count (130-400) K/uL MPV (7.2-11.7) fL Neut % (Auto) (50.0-75.0) % Lymph % (Auto) (20.0-40.0) % Clare % (Auto) (0.0-10.0) % Eos % (Auto) (0.0-4.0) % Baso % (Auto) (0.0-2.0) % Neut # (Auto) (1.8-7.0) K/uL Lymph # (Auto) (1.0-4.3) K/uL Clare # (Auto) (0.0-0.8) K/uL Eos # (Auto) (0.0-0.7) K/uL Baso # (Auto) (0.0-0.2) K/uL Sodium (132-148) mmol/L Potassium (3.6-5.2) mmol/L Chloride (98-107) mmol/L Carbon Dioxide (22-30) mmol/L Anion Gap (10-20) BUN (7-17) mg/dL Creatinine (0.7-1.2) mg/dL Est GFR ( Amer) Est GFR (Non-Af Amer) POC Glucose (mg/dL) 360 H 483 H* 498 H* (65-110) mg/dL Random Glucose (65-105) mg/dL Calcium (8.6-10.4) mg/dl Phosphorus (2.5-4.5) mg/dL Magnesium (1.6-2.3) mg/dL Total Bilirubin (0.2-1.3) mg/dL AST (14-36) U/L ALT (9-52) U/L Alkaline Phosphatase (38-126) U/L Total Protein (6.3-8.3) g/dL Albumin (3.5-5.0) g/dL Globulin (2.2-3.9) gm/dL Albumin/Globulin Ratio (1.0-2.1) IgE (<ae=545) kU/L SS-A Antibody (<1.0) AI SS-B Ab Interp (Negative) SS-B Antibody (<1.0) AI Sm (Michaud) Antibody (<1.0) AI Anti-Michaud Interpret (Negative) SM/DESSERT [employer] MACHINE FEEDER Antibody (<1.0) AI Sm/DESSERT [employer] MACHINE FEEDER Antibody Interp (Negative) RPR (NONREACTIVE) Influenza Typ A,B (EIA) (NEGATIVE) 12/31/18 12/31/18 12/30/18 Range/Units 12:08 12:08 16:16 WBC (4.8-10.8) K/uL RBC (3.80-5.20) Mil/uL Hgb (11.0-16.0) g/dL Hct (34.0-47.0) % MCV (81.0-99.0) fL MCH (27.0-31.0) pg MCHC (33.0-37.0) g/dL RDW (11.5-14.5) % Plt Count (130-400) K/uL MPV (7.2-11.7) fL Neut % (Auto) (50.0-75.0) % Lymph % (Auto) (20.0-40.0) % Clare % (Auto) (0.0-10.0) % Eos % (Auto) (0.0-4.0) % Baso % (Auto) (0.0-2.0) % Neut # (Auto) (1.8-7.0) K/uL Lymph # (Auto) (1.0-4.3) K/uL Clare # (Auto) (0.0-0.8) K/uL Eos # (Auto) (0.0-0.7) K/uL Baso # (Auto) (0.0-0.2) K/uL Sodium (132-148) mmol/L Potassium (3.6-5.2) mmol/L Chloride (98-107) mmol/L Carbon Dioxide (22-30) mmol/L Anion Gap (10-20) BUN (7-17) mg/dL Creatinine (0.7-1.2) mg/dL Est GFR ( Amer) Est GFR (Non-Af Amer) POC Glucose (mg/dL) (65-110) mg/dL Random Glucose (65-105) mg/dL Calcium (8.6-10.4) mg/dl Phosphorus (2.5-4.5) mg/dL Magnesium (1.6-2.3) mg/dL Total Bilirubin (0.2-1.3) mg/dL AST (14-36) U/L ALT (9-52) U/L Alkaline Phosphatase (38-126) U/L Total Protein (6.3-8.3) g/dL Albumin (3.5-5.0) g/dL Globulin (2.2-3.9) gm/dL Albumin/Globulin Ratio (1.0-2.1) IgE 197 H (<ta=295) kU/L SS-A Antibody <1.0 (<1.0) AI SS-B Ab Interp Negative (Negative) SS-B Antibody <1.0 (<1.0) AI Sm (Michaud) Antibody <1.0 (<1.0) AI Anti-Michaud Interpret Negative (Negative) SM/DESS[employer] MACHINE FEEDER Antibody <1.0 (<1.0) AI Sm/DESSERT [employer] MACHINE FEEDER Antibody Interp Negative (Negative) RPR Nonreactive (NONREACTIVE) Influenza Typ A,B (EIA) (NEGATIVE) Laboratory Results - last 24 hr 12/30/18 12/31/18 12/31/18 16:16 12:08 12:08 WBC RBC Hgb Hct MCV MCH MCHC RDW Plt Count MPV Neut % (Auto) Lymph % (Auto) Clare % (Auto) Eos % (Auto) Baso % (Auto) Neut # (Auto) Lymph # (Auto) Clare # (Auto) Eos # (Auto) Baso # (Auto) Sodium Potassium Chloride Carbon Dioxide Anion Gap BUN Creatinine Est GFR ( Amer) Est GFR (Non-Af Amer) POC Glucose (mg/dL) Random Glucose Calcium Phosphorus Magnesium Total Bilirubin AST ALT Alkaline Phosphatase Total Protein Albumin Globulin Albumin/Globulin Ratio IgE 197 H SS-A Antibody <1.0 SS-B Ab Interp Negative SS-B Antibody <1.0 Sm ([place]aud) Antibody <1.0 Anti-Michaud Interpret Negative SM/[employer] Antibody <1.0 Sm/[employer] Antibody Interp Negative RPR Nonreactive Influenza Typ A,B (EIA) 12/31/18 12/31/18 12/31/18 17:43 20:04 21:07 WBC RBC Hgb Hct MCV MCH MCHC RDW Plt Count MPV Neut % (Auto) Lymph % (Auto) Clare % (Auto) Eos % (Auto) Baso % (Auto) Neut # (Auto) Lymph # (Auto) Clare # (Auto) Eos # (Auto) Baso # (Auto) Sodium Potassium Chloride Carbon Dioxide Anion Gap BUN Creatinine Est GFR ( Amer) Est GFR (Non-Af Amer) POC Glucose (mg/dL) 498 H* 483 H* 360 H Random Glucose Calcium Phosphorus Magnesium Total Bilirubin AST ALT Alkaline Phosphatase Total Protein Albumin Globulin Albumin/Globulin Ratio IgE SS-A Antibody SS-B Ab Interp SS-B Antibody Sm (Michaud) Antibody Anti-Michaud Interpret SM/[employer] Antibody Sm/[employer] Antibody Interp RPR Influenza Typ A,B (EIA) 01/01/19 01/01/19 01/01/19 06:22 06:22 09:00 WBC 6.8 RBC 3.94 Hgb 11.0 Hct 34.6 MCV 87.7 MCH 28.0 MCHC 31.9 L RDW 15.9 H Plt Count 468 H MPV 8.6 Neut % (Auto) 75.0 Lymph % (Auto) 13.8 L Clare % (Auto) 10.8 H Eos % (Auto) 0.0 Baso % (Auto) 0.4 Neut # (Auto) 5.1 Lymph # (Auto) 0.9 L Clare # (Auto) 0.7 Eos # (Auto) 0.0 Baso # (Auto) 0.0 Sodium 139 Potassium 4.6 Chloride 105 Carbon Dioxide 23 Anion Gap 15 BUN 52 H Creatinine 3.6 H Est GFR ( Amer) 16 Est GFR (Non-Af Amer) 13 POC Glucose (mg/dL) Random Glucose 306 H D Calcium 8.7 Phosphorus 5.4 H Magnesium 2.0 Total Bilirubin 0.3 AST 15 ALT 11 Alkaline Phosphatase 219 H Total Protein 7.1 Albumin 3.3 L Globulin 3.8 Albumin/Globulin Ratio 0.9 L IgE SS-A Antibody SS-B Ab Interp SS-B Antibody Sm (Michaud) Antibody Anti-Michaud Interpret SM/[employer] Antibody Sm/[employer] Antibody Interp RPR Influenza Typ A,B (EIA) Negative for flu a/b Critical Care Progress Note - Nutrition Nutrition: Nutrition Category Date Time Status Dysphagia/Modified Consistency Diet [DIET] Diets 01/01/19 Lunch Active Assessment/Plan - Assessment and Plan (Free Text) Plan: PAtient with underlying DM presents to [facility] with c/o tongue swelling -extubate, no stridor, talking normal speach -continue hoem dosage of insulin -pt/OT, OOB to chair -PAtient remains hemodynamically stable - Date & Time Date: 01/01/19 Time: 13:57
[2019-01-01] MEDS ORDERED: (Novolog) Insulin Aspart, Recombinant 100 u/ml 10 ml vial SC SCH (11:30)
--- NOTE | 2019-01-01 13:59 | RAD ---
Chest x-ray single frontal view HISTORY: Evaluate interval change. COMPARISON: 12/31/2018 FINDINGS: Interval removal of an endotracheal tube. Mild venous congestion. Bilateral hilar prominence. Mild cardiomegaly. Impression: Interval removal of an endotracheal tube. Mild venous congestion. Bilateral hilar prominence. Mild cardiomegaly.
[2019-01-01 15:46] LABS: ALDOLASE 5.5 U/L (<=8.1)
[2019-01-01] MEDS: (Novolog) Insulin Aspart, Recombinant 100 u/ml 10 ml vial SC SCH ×3 (17:03→21:09)
--- NOTE | 2019-01-01 18:34 | CP.PCM.PN ---
Subjective - Date & Time of Evaluation Date of Evaluation: 01/01/19 Time of Evaluation: 13:30 - Subjective Subjective: patient examined today no nausea no vomiting no diarrhea no fever no sob Objective - Vital Signs/Intake and Output Vital Signs (last 24 hours): Temp Pulse Resp BP Pulse Ox 97.7 F 79 17 132/52 L 99 01/01/19 16:00 01/01/19 18:00 01/01/19 18:00 01/01/19 18:00 01/01/19 18:00 Intake and Output: 01/01/19 01/01/19 06:59 18:59 Intake Total 250 1020 Output Total 500 1200 Balance -250 -180 - Medications Medications: Current Medications Albuterol/Ipratropium (Duoneb 3 Mg/0.5 Mg (3 Ml) Ud) 3 ml INH RQ6 [facility] Last Admin: 01/01/19 13:08 Dose: 3 ml Allopurinol (Zyloprim) 100 mg PO DAILY [facility] Last Admin: 01/01/19 12:55 Dose: 100 mg Amlodipine Besylate (Norvasc) 5 mg PO DAILY [facility] Last Admin: 01/01/19 10:20 Dose: 5 mg Carvedilol (Coreg) 25 mg PO BID [facility] Clonidine HCl (Catapres) 0.2 mg PO DAILY [facility] Last Admin: 01/01/19 10:20 Dose: 0.2 mg Dextrose (Dextrose 50% Inj) 0 ml IV STAT PRN; Protocol PRN Reason: Hypoglycemia Protocol Dextrose (Glutose 15) 0 gm PO ONCE PRN; Protocol PRN Reason: Hypoglycemia Protocol Diphenhydramine HCl (Benadryl) 50 mg IVP Q6H PRN PRN Reason: Anaphylaxis Last Admin: 01/01/19 00:10 Dose: 50 mg Ezetimibe (Zetia) 10 mg PO DAILY [facility] Last Admin: 01/01/19 12:54 Dose: 10 mg Furosemide (Lasix) 40 mg PO DAILY [facility] Glucagon (Glucagen Diagnostic Kit) 0 mg IM STAT PRN; Protocol PRN Reason: Hypoglycemia Protocol Heparin Sodium (Porcine) (Heparin) 5,000 units SC Q12H [facility] Last Admin: 01/01/19 09:54 Dose: 5,000 units Dextrose (Dextrose 5% In Water 1000 Ml) 1,000 mls @ 0 mls/hr IV .Q0M PRN; Protocol PRN Reason: Hypoglycemia Protocol Insulin Aspart (Novolog) 20 unit SC AC [facility] Last Admin: 01/01/19 17:08 Dose: 20 units Insulin Aspart (Novolog) 0 unit SC ACHS [facility] Last Admin: 01/01/19 17:03 Dose: Not Given Insulin Glargine (Lantus) 50 unit SC HS [facility] Methylprednisolone (Solu-Medrol) 40 mg IVP DAILY [facility] Last Admin: 01/01/19 09:53 Dose: 40 mg Montelukast Sodium (Singulair) 10 mg PO DAILY [facility] Last Admin: 01/01/19 10:20 Dose: 10 mg Pantoprazole Sodium (Protonix Ec Tab) 40 mg PO DAILY [facility] Last Admin: 01/01/19 09:53 Dose: 40 mg - Labs Labs: 01/01/19 06:22 01/01/19 06:22 - Constitutional Appears: Well - Head Exam Head Exam: ATRAUMATIC, NORMAL INSPECTION, NORMOCEPHALIC - Eye Exam Eye Exam: EOMI, Normal appearance, PERRL Pupil Exam: NORMAL ACCOMODATION, PERRL - ENT Exam ENT Exam: Mucous Membranes Moist, Normal Exam - Neck Exam Neck Exam: Full ROM, Normal Inspection. absent: Lymphadenopathy - Respiratory Exam Respiratory Exam: Decreased Breath Sounds - Cardiovascular Exam Cardiovascular Exam: +S1, +S2. absent: REGULAR RHYTHM - GI/Abdominal Exam GI & Abdominal Exam: Soft, Diminished Bowel Sounds - Rectal Exam Rectal Exam: Deferred - Neurological Exam Neurological Exam: Oriented x3 Assessment and Plan - Assessment and Plan (Free Text) Plan: medications reviewed vitals reviewed labs reviewed benadryl catapress coreg dextrose 5% in water dextrose 50% inj duoneb 3mg/0.5mg glucagen diagnostic kit glutose 15 heparin lantus lasix norvasc novolog protnix ec tab singulair solu-medrol zetia zyloprim\ family bedside pt woke up examined may dc tomorrow d.w with staff encourage po feeding with given renal function which are abnormal
--- NOTE | 2019-01-01 18:38 | CP.PCM.PN ---
Subjective - Date & Time of Evaluation Date of Evaluation: 01/01/19 Time of Evaluation: 11:00 - Subjective Subjective: Patient seenpatient seen and examined Lying comfortably in no distress Status post extubation yesterday Swelling of tongue much improved Able to swallow Taper steroids Continue nebulizer treatment Transfer to floor Objective - Vital Signs/Intake and Output Vital Signs (last 24 hours): Temp Pulse Resp BP Pulse Ox 97.7 F 79 17 132/52 L 99 01/01/19 16:00 01/01/19 18:00 01/01/19 18:00 01/01/19 18:00 01/01/19 18:00 Intake and Output: 01/01/19 01/01/19 06:59 18:59 Intake Total 250 1020 Output Total 500 1200 Balance -250 -180 - Medications Medications: Current Medications Albuterol/Ipratropium (Duoneb 3 Mg/0.5 Mg (3 Ml) Ud) 3 ml INH RQ6 [facility] Last Admin: 01/01/19 13:08 Dose: 3 ml Allopurinol (Zyloprim) 100 mg PO DAILY [facility] Last Admin: 01/01/19 12:55 Dose: 100 mg Amlodipine Besylate (Norvasc) 5 mg PO DAILY [facility] Last Admin: 01/01/19 10:20 Dose: 5 mg Carvedilol (Coreg) 25 mg PO BID [facility] Clonidine HCl (Catapres) 0.2 mg PO DAILY [facility] Last Admin: 01/01/19 10:20 Dose: 0.2 mg Dextrose (Dextrose 50% Inj) 0 ml IV STAT PRN; Protocol PRN Reason: Hypoglycemia Protocol Dextrose (Glutose 15) 0 gm PO ONCE PRN; Protocol PRN Reason: Hypoglycemia Protocol Diphenhydramine HCl (Benadryl) 50 mg IVP Q6H PRN PRN Reason: Anaphylaxis Last Admin: 01/01/19 00:10 Dose: 50 mg Ezetimibe (Zetia) 10 mg PO DAILY [facility] Last Admin: 01/01/19 12:54 Dose: 10 mg Furosemide (Lasix) 40 mg PO DAILY [facility] Glucagon (Glucagen Diagnostic Kit) 0 mg IM STAT PRN; Protocol PRN Reason: Hypoglycemia Protocol Heparin Sodium (Porcine) (Heparin) 5,000 units SC Q12H [facility] Last Admin: 01/01/19 09:54 Dose: 5,000 units Dextrose (Dextrose 5% In Water 1000 Ml) 1,000 mls @ 0 mls/hr IV .Q0M PRN; Protocol PRN Reason: Hypoglycemia Protocol Insulin Aspart (Novolog) 20 unit SC AC [facility] Last Admin: 01/01/19 17:08 Dose: 20 units Insulin Aspart (Novolog) 0 unit SC ACHS [facility] Last Admin: 01/01/19 17:03 Dose: Not Given Insulin Glargine (Lantus) 50 unit SC [facility] Methylprednisolone (Solu-Medrol) 40 mg IVP DAILY [facility] Last Admin: 01/01/19 09:53 Dose: 40 mg Montelukast Sodium (Singulair) 10 mg PO DAILY [facility] Last Admin: 01/01/19 10:20 Dose: 10 mg Pantoprazole Sodium (Protonix Ec Tab) 40 mg PO DAILY [facility] Last Admin: 01/01/19 09:53 Dose: 40 mg - Labs Labs: 01/01/19 06:22 01/01/19 06:22
--- NOTE | 2019-01-01 20:01 | CON ---
DATE: 01/01/2019 ENDOCRINOLOGY CONSULT LOCATION: ICU Room 17. HISTORY OF PRESENT ILLNESS: This is a 53-year-old female with known history of type 2 insulin-requiring diabetes, presenting here with symptomatic hypoglycemia and supervening brisk bout of unresponsiveness and is now being referred with concomitant angioedema, following the ingestion of some shellfish and received IV steroid therapy with supervening marked hyperglycemic accelerations and is now being referred for further diabetic evaluation and management. They have actually tapered down her IV steroids from the six-hourly dosing to once daily as given. PAST MEDICAL HISTORY: As mentioned above, history of type 2 insulin-requiring diabetes on a combination of Lantus given at 60 units once daily with NovoLog given at a variable dosing per sliding scale as per the family. However on the day of admission, she was given an extra dose of 60 units on that day predisposing to sudden underwriting assistant hypoglycemia with glucose levels of 30 mg/dL and the patient became suddenly unresponsive and diaphoretic prompting the call for the paramedics and eventual admission. History of hypertension and dyslipidemia. History of chronic bronchial asthma with COPD with previous admission for exacerbation of the same. She is actually steroid dependent and is currently using prednisone at 20 mg 2 times daily as given. History of bipolar disorder, on psychotropic medications for generalized anxiety and depression, history of diabetic retinopathy, polyneuropathy and nephropathy with underlying chronic kidney disease. FAMILY HISTORY: Positive for hypertension and diabetes. SOCIAL HISTORY: The patient has a supportive family. No known substance use. REVIEW OF SYSTEMS: Admits to generalized body weakness with bifrontal headaches and progressively worsening visual blurring, worse in the last few days prior to admission. Also admits to episodic bouts of dizziness and lightheadedness again worse on the day of admission with generalized body weakness and suboptimal energy level. No chest pains or palpitations, but admits to progressive shortness of breath specially on exertion. Her oral intake has been variable with nausea, dyspepsia, and vague upper abdominal pains. Also admits to marked polyuria, nocturia, and polydipsia. Also admits to lower extremity paresthesia, especially nocturnally. PHYSICAL EXAMINATION: GENERAL: This is an obese female in no apparent distress. VITAL SIGNS: Blood pressure of 150/100, pulse of 100 beats per minute and regular, temperature 98, respirations 20. Height is 5 feet 6 inches, weight is 288 pounds. HEENT: Head: Normocephalic. Eyes: Anicteric with pink conjunctivae. Funduscopy not possible at this time. Ears, nose, and throat otherwise normal. NECK: Supple. Thyroid gland is normal size. No carotid bruits or any cervical adenopathy. CARDIOPULMONARY: Some adynamic precordium. S1 and S2 is rapid and regular. LUNGS: Clear to auscultation. ABDOMEN: Obese, soft, with positive bowel sounds. EXTREMITIES: No peripheral edema, pulses are +2 bilaterally. LABORATORY DATA: Her chemistry initially showed a BUN of 32, sodium 138, potassium 4.2, chloride 104, CO2 of 27, glucose 122, and creatinine 2.9. The subsequent glucose levels have ranged from 360 to 498 mg/dL as noted today. ASSESSMENT: This is a 53-year-old female with uncontrolled and decompensated type 2 insulin-requiring diabetes with suboptimal metabolic control and extremes of glycemic fluctuations at home with supervening symptomatic underwriting assistant hypoglycemia and a brief bout of unresponsiveness and has been admitted with angioedema from possible shellfish exposure and received IV steroid therapy with supervening marked hyperglycemic accelerations as noted thereof. With increased insulin resistance from the current steroid therapy, we expect transient hyperglycemic accelerations and further impaired glucose tolerance thereof. She also has diabetic microvascular complications of retinopathy, polyneuropathy and nephropathy with underlying chronic kidney disease as noted. PLAN OF MANAGEMENT: We will modify her current insulin regimen and discontinue the Lantus given as 50 units every 12 hours and also the regular insulin coverage scale as given. Will switch over to a more physiologic basal and bolus insulin drug combination and add NovoLog given as 20 units 3 times daily before meals as ordered. We will also change the Lantus to 50 units subcutaneous at bedtime daily to start tonight. We will modify the coverage scale using a very low dose correction scale using NovoLog insulin as given to obviate hypoglycemia and detailed orders have been given. We will also obtain serial chemistries and supplement accordingly as needed. We will follow and advise accordingly. Shireen Hartman MD
[2019-01-02] MEDS: Albuterol-Ipratrop 3 mg / 0.5 (3 ml) UD INH SCH ×4 (01:15→19:50)
[2019-01-02 06:08] LABS: BASO # 0.1 K/uL (0.0-0.2); EOS % 0.2 % (0.0-4.0); HEMOGLOBIN 10.1 g/dL (11.0-16.0); LYMPH # 1.5 K/uL (1.0-4.3); LYMPH % 25.3 % (20.0-40.0); MEAN CELL VOLUME 87.3 fL (81.0-99.0); MEAN CORPUSCULAR HEMOGLOBIN 28.3 pg (27.0-31.0); MEAN CORPUSCULAR HGB CONC 32.4 g/dL (33.0-37.0); MONO # 1.1 K/uL (0.0-0.8); MONO % 17.7 % (0.0-10.0); NEUT # 3.3 K/uL (1.8-7.0); NEUT % 55.8 % (50.0-75.0); RBC 3.55 Mil/uL (3.80-5.20); RED CELL DISTRIBUTION WIDTH 15.9 % (11.5-14.5)
[2019-01-02 06:45] LABS: ALB/GLOB RATIO 0.9 (1.0-2.1); ALBUMIN 3.2 g/dL (3.5-5.0); CALCIUM 8.5 mg/dl (8.6-10.4)
[2019-01-02] MEDS: (Novolog) Insulin Aspart, Recombinant 100 u/ml 10 ml vial SC SCH ×6 (07:30→17:10)
[2019-01-02] MEDS: MethylPREDNISolone 40 mg Vial IVP SCH (09:29)
[2019-01-02] MEDS: Pantoprazole 40 mg EC Tab PO SCH (09:30)
--- NOTE | 2019-01-02 13:49 | CP.CCUPN ---
<Desiree Crabtree - Last Filed: 01/02/19 14:58> CCU Subjective - Physician Review Subjective (Free Text): 01/02/19 13:59 Patient examined at bedside. No acute overnight events. S/P extubation, day #2. Patient reports she feels well, denies difficulty breathing, chest pain, nausea. Denies further complaints CCU Objective - Vital Signs / Intake & Output Vital Signs (Last 4 hours): Vital Signs Pulse Resp BP Pulse Ox 01/02/19 12:00 65 15 157/83 H 98 01/02/19 11:00 65 16 164/81 H 97 01/02/19 10:28 67 12 178/89 H 100 Intake and Output (Last 8hrs): Intake & Output 01/01/19 01/02/19 01/02/19 22:59 06:59 14:59 Intake Total 240 0 470 Output Total 1200 550 Balance -960 0 -80 Intake: Oral 240 0 470 Output: Urine 1200 550 Urine, Voided 1200 550 Other: # Voids Urine, Voided 1 1 - Physical Exam Head: Positive for: Atraumatic, Normocephalic Pupils: Positive for: PERRL Extroacular Muscles: Positive for: EOMI Conjunctiva: Positive for: Normal Mouth: Positive for: Moist Mucous Membranes, Other (Lip swelling/angioedema improved) Neck: Positive for: Normal Range of Motion Respiratory/Chest: Positive for: Clear to Auscultation, Good Air Exchange. Negative for: Respiratory Distress, Accessory Muscle Use, Wheezes, Rales, Rhonchi Cardiovascular: Positive for: Regular Rate and Rhythm, Normal S1, S2. Negative for: Murmurs, Rub, Gallop Abdomen: Positive for: Normal Bowel Sounds. Negative for: Tenderness, Distention, Mass/Organomegaly Upper Extremity: Positive for: Normal Inspection, Normal ROM, NORMAL PULSES, Neurovascularly Intact, Capillary Refill < 2s. Negative for: Cyanosis, Edema Lower Extremity: Positive for: Normal Inspection, NORMAL PULSES, Neurovascularly Intact, Capillary Refill < 2 s. Negative for: Edema Neurological: Positive for: GCS=15, CN II-XII Intact, Speech Normal, Motor Func Grossly Intact Skin: Positive for: Warm, Dry, Normal Color Psychiatric: Positive for: Alert, Oriented x 3, Normal Insight, Normal Concentration - Medications Active Medications: Active Medications Generic Name Dose Route Start Last Admin Trade Name Monica PRN Reason Stop Dose Admin Acetaminophen 650 mg 01/02/19 05:07 01/02/19 06:04 Tylenol 325mg Tab PO 650 mg Q6 PRN Administration Pain, moderate (4-7) Albuterol/Ipratropium 3 ml 12/30/18 14:00 01/02/19 07:28 Duoneb 3 Mg/0.5 Mg (3 Ml) Ud INH 3 ml RQ6 COLE Administration Allopurinol 100 mg 01/02/19 10:00 01/02/19 09:37 Zyloprim PO 100 mg DAILY COLE Administration Amlodipine Besylate 5 mg 12/31/18 10:00 01/02/19 09:30 Norvasc PO 5 mg DAILY COLE Administration Carvedilol 25 mg 01/01/19 10:00 Coreg PO BID COLE Clonidine HCl 0.2 mg 12/31/18 10:00 01/02/19 09:30 Catapres PO 0.2 mg DAILY COLE Administration Dextrose 0 ml 12/30/18 13:42 Dextrose 50% Inj IV STAT PRN Hypoglycemia Protocol Protocol Dextrose 0 gm 12/30/18 13:42 Glutose 15 PO ONCE PRN Hypoglycemia Protocol Protocol Diphenhydramine HCl 50 mg 12/30/18 12:13 01/01/19 21:40 Benadryl IVP 50 mg Q6H PRN Administration Anaphylaxis Ezetimibe 10 mg 12/31/18 10:00 01/02/19 09:30 Zetia PO 10 mg DAILY COLE Administration Furosemide 40 mg 01/01/19 10:00 Lasix PO DAILY COLE Glucagon 0 mg 12/30/18 13:42 Glucagen Diagnostic Kit IM STAT PRN Hypoglycemia Protocol Protocol Heparin Sodium (Porcine) 5,000 units 01/01/19 10:00 01/02/19 09:30 Heparin SC 5,000 units Q12H COLE Administration Dextrose 1,000 mls @ 0 mls/hr 12/30/18 13:42 Dextrose 5% In Water 1000 Ml IV .Q0M PRN Hypoglycemia Protocol Protocol Per Protocol Insulin Aspart 0 unit 01/01/19 16:30 01/02/19 12:26 Novolog SC Not Given ACHS COLE Insulin Aspart 12 unit 01/02/19 10:04 01/02/19 12:25 Novolog SC 12 units AC COLE Administration Insulin Glargine 40 unit 01/02/19 22:00 Lantus SC HS COLE Methylprednisolone 40 mg 01/01/19 10:00 01/02/19 09:29 Solu-Medrol IVP 40 mg DAILY COLE Administration Montelukast Sodium 10 mg 12/31/18 10:00 01/02/19 09:30 Singulair PO 10 mg DAILY COLE Administration Pantoprazole Sodium 40 mg 01/01/19 10:00 01/02/19 09:30 Protonix Ec Tab PO 40 mg DAILY COLE Administration - Patient Studies Lab Studies: Lab Studies 01/02/19 01/02/19 01/02/19 Range/Units 06:04 06:04 06:04 WBC 6.0 (4.8-10.8) K/uL RBC 3.55 L (3.80-5.20) Mil/uL Hgb 10.1 L (11.0-16.0) g/dL Hct 31.0 L (34.0-47.0) % MCV 87.3 (81.0-99.0) fL MCH 28.3 (27.0-31.0) pg MCHC 32.4 L (33.0-37.0) g/dL RDW 15.9 H (11.5-14.5) % Plt Count 423 H (130-400) K/uL MPV 8.0 (7.2-11.7) fL Neut % (Auto) 55.8 (50.0-75.0) % Lymph % (Auto) 25.3 (20.0-40.0) % Rains % (Auto) 17.7 H (0.0-10.0) % Eos % (Auto) 0.2 (0.0-4.0) % Baso % (Auto) 1.0 (0.0-2.0) % Neut # (Auto) 3.3 (1.8-7.0) K/uL Lymph # (Auto) 1.5 (1.0-4.3) K/uL Rains # (Auto) 1.1 H (0.0-0.8) K/uL Eos # (Auto) 0.0 (0.0-0.7) K/uL Baso # (Auto) 0.1 (0.0-0.2) K/uL Sodium 137 (132-148) mmol/L Potassium 3.8 (3.6-5.2) mmol/L Chloride 105 (98-107) mmol/L Carbon Dioxide 27 (22-30) mmol/L Anion Gap 9 L (10-20) BUN 51 H (7-17) mg/dL Creatinine 3.1 H (0.7-1.2) mg/dL Est GFR ( Amer) 19 Est GFR (Non-Af Amer) 16 POC Glucose (mg/dL) (65-110) mg/dL Random Glucose 78 D (65-105) mg/dL Hemoglobin A1c 11.3 H (4.2-6.5) % Calcium 8.5 L (8.6-10.4) mg/dl Phosphorus 4.2 (2.5-4.5) mg/dL Magnesium 2.0 (1.6-2.3) mg/dL Total Bilirubin 0.3 (0.2-1.3) mg/dL AST 20 (14-36) U/L ALT 7 L D (9-52) U/L Alkaline Phosphatase 178 H (38-126) U/L Total Protein 6.5 (6.3-8.3) g/dL Albumin 3.2 L (3.5-5.0) g/dL Globulin 3.3 (2.2-3.9) gm/dL Albumin/Globulin Ratio 0.9 L (1.0-2.1) Triglycerides 247 H D (0-149) mg/dL Cholesterol 198 (0-199) mg/dL LDL Cholesterol Direct 99 (0-129) mg/dL HDL Cholesterol 35 (30-70) mg/dL Aldolase (<=8.1) U/L IgE (<fl=343) kU/L Cycl Citrul Peptide IgG Units ASHLEY Screen (Negative) Anti-Cardiolipin IgG Ab (<=14) GPL 01/01/19 12/31/18 12/31/18 Range/Units 07:20 12:08 12:08 WBC (4.8-10.8) K/uL RBC (3.80-5.20) Mil/uL Hgb (11.0-16.0) g/dL Hct (34.0-47.0) % MCV (81.0-99.0) fL MCH (27.0-31.0) pg MCHC (33.0-37.0) g/dL RDW (11.5-14.5) % Plt Count (130-400) K/uL MPV (7.2-11.7) fL Neut % (Auto) (50.0-75.0) % Lymph % (Auto) (20.0-40.0) % Rains % (Auto) (0.0-10.0) % Eos % (Auto) (0.0-4.0) % Baso % (Auto) (0.0-2.0) % Neut # (Auto) (1.8-7.0) K/uL Lymph # (Auto) (1.0-4.3) K/uL Rains # (Auto) (0.0-0.8) K/uL Eos # (Auto) (0.0-0.7) K/uL Baso # (Auto) (0.0-0.2) K/uL Sodium (132-148) mmol/L Potassium (3.6-5.2) mmol/L Chloride (98-107) mmol/L Carbon Dioxide (22-30) mmol/L Anion Gap (10-20) BUN (7-17) mg/dL Creatinine (0.7-1.2) mg/dL Est GFR ( Amer) Est GFR (Non-Af Amer) POC Glucose (mg/dL) 360 H (65-110) mg/dL Random Glucose (65-105) mg/dL Hemoglobin A1c (4.2-6.5) % Calcium (8.6-10.4) mg/dl Phosphorus (2.5-4.5) mg/dL Magnesium (1.6-2.3) mg/dL Total Bilirubin (0.2-1.3) mg/dL AST (14-36) U/L ALT (9-52) U/L Alkaline Phosphatase (38-126) U/L Total Protein (6.3-8.3) g/dL Albumin (3.5-5.0) g/dL Globulin (2.2-3.9) gm/dL Albumin/Globulin Ratio (1.0-2.1) Triglycerides (0-149) mg/dL Cholesterol (0-199) mg/dL LDL Cholesterol Direct (0-129) mg/dL HDL Cholesterol (30-70) mg/dL Aldolase 5.5 (<=8.1) U/L IgE (<vd=529) kU/L Cycl Citrul Peptide IgG <16 Units ASHLEY Screen (Negative) Anti-Cardiolipin IgG Ab <14 (<=14) GPL 12/30/18 12/30/18 Range/Units 16:16 16:16 WBC (4.8-10.8) K/uL RBC (3.80-5.20) Mil/uL Hgb (11.0-16.0) g/dL Hct (34.0-47.0) % MCV (81.0-99.0) fL MCH (27.0-31.0) pg MCHC (33.0-37.0) g/dL RDW (11.5-14.5) % Plt Count (130-400) K/uL MPV (7.2-11.7) fL Neut % (Auto) (50.0-75.0) % Lymph % (Auto) (20.0-40.0) % Rains % (Auto) (0.0-10.0) % Eos % (Auto) (0.0-4.0) % Baso % (Auto) (0.0-2.0) % Neut # (Auto) (1.8-7.0) K/uL Lymph # (Auto) (1.0-4.3) K/uL Rains # (Auto) (0.0-0.8) K/uL Eos # (Auto) (0.0-0.7) K/uL Baso # (Auto) (0.0-0.2) K/uL Sodium (132-148) mmol/L Potassium (3.6-5.2) mmol/L Chloride (98-107) mmol/L Carbon Dioxide (22-30) mmol/L Anion Gap (10-20) BUN (7-17) mg/dL Creatinine (0.7-1.2) mg/dL Est GFR ( Amer) Est GFR (Non-Af Amer) POC Glucose (mg/dL) (65-110) mg/dL Random Glucose (65-105) mg/dL Hemoglobin A1c (4.2-6.5) % Calcium (8.6-10.4) mg/dl Phosphorus (2.5-4.5) mg/dL Magnesium (1.6-2.3) mg/dL Total Bilirubin (0.2-1.3) mg/dL AST (14-36) U/L ALT (9-52) U/L Alkaline Phosphatase (38-126) U/L Total Protein (6.3-8.3) g/dL Albumin (3.5-5.0) g/dL Globulin (2.2-3.9) gm/dL Albumin/Globulin Ratio (1.0-2.1) Triglycerides (0-149) mg/dL Cholesterol (0-199) mg/dL LDL Cholesterol Direct (0-129) mg/dL HDL Cholesterol (30-70) mg/dL Aldolase (<=8.1) U/L IgE 197 H (<vw=616) kU/L Cycl Citrul Peptide IgG Units ASHLEY Screen Negative (Negative) Anti-Cardiolipin IgG Ab (<=14) GPL Laboratory Results - last 24 hr 12/30/18 12/30/18 12/31/18 16:16 16:16 12:08 WBC RBC Hgb Hct MCV MCH MCHC RDW Plt Count MPV Neut % (Auto) Lymph % (Auto) Rains % (Auto) Eos % (Auto) Baso % (Auto) Neut # (Auto) Lymph # (Auto) Rains # (Auto) Eos # (Auto) Baso # (Auto) Sodium Potassium Chloride Carbon Dioxide Anion Gap BUN Creatinine Est GFR ( Amer) Est GFR (Non-Af Amer) POC Glucose (mg/dL) Random Glucose Hemoglobin A1c Calcium Phosphorus Magnesium Total Bilirubin AST ALT Alkaline Phosphatase Total Protein Albumin Globulin Albumin/Globulin Ratio Triglycerides Cholesterol LDL Cholesterol Direct HDL Cholesterol Aldolase IgE 197 H Cycl Citrul Peptide IgG <16 ASHLEY Screen Negative Anti-Cardiolipin IgG Ab <14 12/31/18 01/01/19 01/02/19 12:08 07:20 06:04 WBC 6.0 RBC 3.55 L Hgb 10.1 L Hct 31.0 L MCV 87.3 MCH 28.3 MCHC 32.4 L RDW 15.9 H Plt Count 423 H MPV 8.0 Neut % (Auto) 55.8 Lymph % (Auto) 25.3 Rains % (Auto) 17.7 H Eos % (Auto) 0.2 Baso % (Auto) 1.0 Neut # (Auto) 3.3 Lymph # (Auto) 1.5 Rains # (Auto) 1.1 H Eos # (Auto) 0.0 Baso # (Auto) 0.1 Sodium Potassium Chloride Carbon Dioxide Anion Gap BUN Creatinine Est GFR ( Amer) Est GFR (Non-Af Amer) POC Glucose (mg/dL) 360 H Random Glucose Hemoglobin A1c Calcium Phosphorus Magnesium Total Bilirubin AST ALT Alkaline Phosphatase Total Protein Albumin Globulin Albumin/Globulin Ratio Triglycerides Cholesterol LDL Cholesterol Direct HDL Cholesterol Aldolase 5.5 IgE Cycl Citrul Peptide IgG ASHLEY Screen Anti-Cardiolipin IgG Ab 01/02/19 01/02/19 06:04 06:04 WBC RBC Hgb Hct MCV MCH MCHC RDW Plt Count MPV Neut % (Auto) Lymph % (Auto) Rains % (Auto) Eos % (Auto) Baso % (Auto) Neut # (Auto) Lymph # (Auto) Rains # (Auto) Eos # (Auto) Baso # (Auto) Sodium 137 Potassium 3.8 Chloride 105 Carbon Dioxide 27 Anion Gap 9 L BUN 51 H Creatinine 3.1 H Est GFR ( Amer) 19 Est GFR (Non-Af Amer) 16 POC Glucose (mg/dL) Random Glucose 78 D Hemoglobin A1c 11.3 H Calcium 8.5 L Phosphorus 4.2 Magnesium 2.0 Total Bilirubin 0.3 AST 20 ALT 7 L D Alkaline Phosphatase 178 H Total Protein 6.5 Albumin 3.2 L Globulin 3.3 Albumin/Globulin Ratio 0.9 L Triglycerides 247 H D Cholesterol 198 LDL Cholesterol Direct 99 HDL Cholesterol 35 Aldolase IgE Cycl Citrul Peptide IgG ASHLEY Screen Anti-Cardiolipin IgG Ab Radiology Impressions: Radiology Impressions Chest X-Ray 01/01/19 06:00 Impression: Interval removal of an endotracheal tube. Mild venous congestion. Bilateral hilar prominence. Mild cardiomegaly. Fingerstick Blood Sugar Results: 103 Review of Systems - EENT Nose/Mouth/Throat: absent: Dysphagia, Mouth Pain, Sore Throat, Throat Swelling - Cardiovascular Cardiovascular: absent: Chest Pain - Respiratory Respiratory: absent: Cough, Pain on Inspiration - Gastrointestinal Gastrointestinal: absent: Abdominal Pain, Nausea - Neurological Neurological: absent: Dizziness Critical Care Progress Note - Nutrition Nutrition: Nutrition Category Date Time Status Dysphagia/Modified Consistency Diet [DIET] Diets 01/01/19 Lunch Active Assessment/Plan - Assessment and Plan (Free Text) Assessment: 53 y o female with PMhx DM, COPD, HTN, HLD, CKD, depression, asthma, bipolar disorder who was BiBEMS for evaluation of hypoglycemia noted at 3 am this morning. Reason for ICU consult was for angioedema. Admitted to ICU for further monitoring and management of airway. Dr. Lamb (ENT) consulted. S/p extubation yesterday. Hyperglycemic overnight, basal insulin adjusted this am, cont to trend fingersticks. Plan: Neuro: -AAOx3 -S/p extubation day 2 -Ambulating with PT today -Cont to monitor Cardio: -Hx HTN, HLD -PO meds restarted -Crestor, Zetia, ASA -EKG on admission: NSR, L posterior fascicular block, prolonged QT Pulm: -Angioedema, likely 2/2 LEO/ARB -Intubated in OR with ENT and anesthesia present at bedside; s/p flexible laryngoscopy performed by ENT at bedside -S/p extubation yesterday -Bronchodilators -Solu-Medrol tapered down -Singulair QD, Benadryl q6h prn -Hx COPD, Pulm HTN -CXR on admission: Moderate venous congestion with cardiomegaly and R hilar prominence. -Repeat Chest XR ordered for today -ENT consulted, Dr. Lamb GI: -dysphagia diet -Protonix Heme: -H/H stable ID: -Leukopenia resolved Renal: -Bun/Cr stable -Hx CKD -Cont to trend I's/O's Endo: -Hx DM; hgb a1c 11.3 -accuchecks achs -ISS, Levemir -Hypoglycemic protocol -consistent carb diet PPX: -Protonix -Heparin, SCD Dispo: Patient's BG stable. Stable for discharge to floor. Discussed w/ Dr. Saldivar -Desiree Crabtree, PGY-1 <Joy Saldivar - Last Filed: 01/02/19 16:38> CCU Objective - Vital Signs / Intake & Output Vital Signs (Last 4 hours): Vital Signs Temp Pulse Resp BP Pulse Ox 01/02/19 16:00 97.8 F 82 16 135/75 97 01/02/19 15:01 82 14 142/68 01/02/19 14:01 76 16 139/55 L 01/02/19 13:00 77 13 142/75 Intake and Output (Last 8hrs): Intake & Output 01/02/19 01/02/19 01/02/19 06:59 14:59 22:59 Intake Total 0 520 0 Output Total 550 400 Balance 0 -30 -400 Intake: Oral 0 520 0 Output: Urine 550 400 Urine, Voided 550 400 Other: # Voids Urine, Voided 1 1 - Medications Active Medications: Active Medications Generic Name Dose Route Start Last Admin Trade Name Freq PRN Reason Stop Dose Admin Acetaminophen 650 mg 01/02/19 05:07 01/02/19 06:04 Tylenol 325mg Tab PO 650 mg Q6 PRN Administration Pain, moderate (4-7) Albuterol/Ipratropium 3 ml 12/30/18 14:00 01/02/19 14:21 Duoneb 3 Mg/0.5 Mg (3 Ml) Ud INH 3 ml RQ6 COLE Administration Allopurinol 100 mg 01/02/19 10:00 01/02/19 09:37 Zyloprim PO 100 mg DAILY COLE Administration Amlodipine Besylate 5 mg 12/31/18 10:00 01/02/19 09:30 Norvasc PO 5 mg DAILY COLE Administration Aspirin 81 mg 01/03/19 10:00 Aspirin Chewable PO DAILY COLE Carvedilol 25 mg 01/01/19 10:00 Coreg PO BID COLE Clonidine HCl 0.2 mg 12/31/18 10:00 01/02/19 09:30 Catapres PO 0.2 mg DAILY COLE Administration Dextrose 0 ml 12/30/18 13:42 Dextrose 50% Inj IV STAT PRN Hypoglycemia Protocol Protocol Dextrose 0 gm 12/30/18 13:42 Glutose 15 PO ONCE PRN Hypoglycemia Protocol Protocol Diphenhydramine HCl 50 mg 12/30/18 12:13 01/01/19 21:40 Benadryl IVP 50 mg Q6H PRN Administration Anaphylaxis Ezetimibe 10 mg 12/31/18 10:00 01/02/19 09:30 Zetia PO 10 mg DAILY COLE Administration Furosemide 40 mg 01/01/19 10:00 Lasix PO DAILY COLE Glucagon 0 mg 12/30/18 13:42 Glucagen Diagnostic Kit IM STAT PRN Hypoglycemia Protocol Protocol Heparin Sodium (Porcine) 5,000 units 01/01/19 10:00 01/02/19 09:30 Heparin SC 5,000 units Q12H COLE Administration Dextrose 1,000 mls @ 0 mls/hr 12/30/18 13:42 Dextrose 5% In Water 1000 Ml IV .Q0M PRN Hypoglycemia Protocol Protocol Per Protocol Insulin Aspart 0 unit 01/01/19 16:30 01/02/19 12:26 Novolog SC Not Given ACHS COLE Insulin Aspart 12 unit 01/02/19 10:04 01/02/19 12:25 Novolog SC 12 units AC COLE Administration Insulin Glargine 40 unit 01/02/19 22:00 Lantus SC HS COLE Methylprednisolone 40 mg 01/01/19 10:00 01/02/19 09:29 Solu-Medrol IVP 40 mg DAILY COLE Administration Montelukast Sodium 10 mg 12/31/18 10:00 01/02/19 09:30 Singulair PO 10 mg DAILY COLE Administration Pantoprazole Sodium 40 mg 01/01/19 10:00 01/02/19 09:30 Protonix Ec Tab PO 40 mg DAILY COLE Administration Rosuvastatin Calcium 20 mg 01/02/19 22:00 Crestor PO HS COLE - Patient Studies Lab Studies: Lab Studies 01/02/19 01/02/19 01/02/19 Range/Units 06:04 06:04 06:04 WBC 6.0 (4.8-10.8) K/uL RBC 3.55 L (3.80-5.20) Mil/uL Hgb 10.1 L (11.0-16.0) g/dL Hct 31.0 L (34.0-47.0) % MCV 87.3 (81.0-99.0) fL MCH 28.3 (27.0-31.0) pg MCHC 32.4 L (33.0-37.0) g/dL RDW 15.9 H (11.5-14.5) % Plt Count 423 H (130-400) K/uL MPV 8.0 (7.2-11.7) fL Neut % (Auto) 55.8 (50.0-75.0) % Lymph % (Auto) 25.3 (20.0-40.0) % Rains % (Auto) 17.7 H (0.0-10.0) % Eos % (Auto) 0.2 (0.0-4.0) % Baso % (Auto) 1.0 (0.0-2.0) % Neut # (Auto) 3.3 (1.8-7.0) K/uL Lymph # (Auto) 1.5 (1.0-4.3) K/uL Rains # (Auto) 1.1 H (0.0-0.8) K/uL Eos # (Auto) 0.0 (0.0-0.7) K/uL Baso # (Auto) 0.1 (0.0-0.2) K/uL Sodium 137 (132-148) mmol/L Potassium 3.8 (3.6-5.2) mmol/L Chloride 105 (98-107) mmol/L Carbon Dioxide 27 (22-30) mmol/L Anion Gap 9 L (10-20) BUN 51 H (7-17) mg/dL Creatinine 3.1 H (0.7-1.2) mg/dL Est GFR ( Amer) 19 Est GFR (Non-Af Amer) 16 Random Glucose 78 D (65-105) mg/dL Hemoglobin A1c 11.3 H (4.2-6.5) % Calcium 8.5 L (8.6-10.4) mg/dl Phosphorus 4.2 (2.5-4.5) mg/dL Magnesium 2.0 (1.6-2.3) mg/dL Total Bilirubin 0.3 (0.2-1.3) mg/dL AST 20 (14-36) U/L ALT 7 L D (9-52) U/L Alkaline Phosphatase 178 H (38-126) U/L Total Protein 6.5 (6.3-8.3) g/dL Albumin 3.2 L (3.5-5.0) g/dL Globulin 3.3 (2.2-3.9) gm/dL Albumin/Globulin Ratio 0.9 L (1.0-2.1) Triglycerides 247 H D (0-149) mg/dL Cholesterol 198 (0-199) mg/dL LDL Cholesterol Direct 99 (0-129) mg/dL HDL Cholesterol 35 (30-70) mg/dL Tot Complement (CH50) (31-60) U/mL 12/30/18 Range/Units 16:16 WBC (4.8-10.8) K/uL RBC (3.80-5.20) Mil/uL Hgb (11.0-16.0) g/dL Hct (34.0-47.0) % MCV (81.0-99.0) fL MCH (27.0-31.0) pg MCHC (33.0-37.0) g/dL RDW (11.5-14.5) % Plt Count (130-400) K/uL MPV (7.2-11.7) fL Neut % (Auto) (50.0-75.0) % Lymph % (Auto) (20.0-40.0) % Rains % (Auto) (0.0-10.0) % Eos % (Auto) (0.0-4.0) % Baso % (Auto) (0.0-2.0) % Neut # (Auto) (1.8-7.0) K/uL Lymph # (Auto) (1.0-4.3) K/uL Rains # (Auto) (0.0-0.8) K/uL Eos # (Auto) (0.0-0.7) K/uL Baso # (Auto) (0.0-0.2) K/uL Sodium (132-148) mmol/L Potassium (3.6-5.2) mmol/L Chloride (98-107) mmol/L Carbon Dioxide (22-30) mmol/L Anion Gap (10-20) BUN (7-17) mg/dL Creatinine (0.7-1.2) mg/dL Est GFR ( Amer) Est GFR (Non-Af Amer) Random Glucose (65-105) mg/dL Hemoglobin A1c (4.2-6.5) % Calcium (8.6-10.4) mg/dl Phosphorus (2.5-4.5) mg/dL Magnesium (1.6-2.3) mg/dL Total Bilirubin (0.2-1.3) mg/dL AST (14-36) U/L ALT (9-52) U/L Alkaline Phosphatase (38-126) U/L Total Protein (6.3-8.3) g/dL Albumin (3.5-5.0) g/dL Globulin (2.2-3.9) gm/dL Albumin/Globulin Ratio (1.0-2.1) Triglycerides (0-149) mg/dL Cholesterol (0-199) mg/dL LDL Cholesterol Direct (0-129) mg/dL HDL Cholesterol (30-70) mg/dL Tot Complement (CH50) >60 H (31-60) U/mL Laboratory Results - last 24 hr 12/30/18 01/02/19 01/02/19 16:16 06:04 06:04 WBC 6.0 RBC 3.55 L Hgb 10.1 L Hct 31.0 L MCV 87.3 MCH 28.3 MCHC 32.4 L RDW 15.9 H Plt Count 423 H MPV 8.0 Neut % (Auto) 55.8 Lymph % (Auto) 25.3 Rains % (Auto) 17.7 H Eos % (Auto) 0.2 Baso % (Auto) 1.0 Neut # (Auto) 3.3 Lymph # (Auto) 1.5 Rains # (Auto) 1.1 H Eos # (Auto) 0.0 Baso # (Auto) 0.1 Sodium 137 Potassium 3.8 Chloride 105 Carbon Dioxide 27 Anion Gap 9 L BUN 51 H Creatinine 3.1 H Est GFR ( Amer) 19 Est GFR (Non-Af Amer) 16 Random Glucose 78 D Hemoglobin A1c Calcium 8.5 L Phosphorus 4.2 Magnesium 2.0 Total Bilirubin 0.3 AST 20 ALT 7 L D Alkaline Phosphatase 178 H Total Protein 6.5 Albumin 3.2 L Globulin 3.3 Albumin/Globulin Ratio 0.9 L Triglycerides 247 H D Cholesterol 198 LDL Cholesterol Direct 99 HDL Cholesterol 35 Tot Complement (CH50) >60 H 01/02/19 06:04 WBC RBC Hgb Hct MCV MCH MCHC RDW Plt Count MPV Neut % (Auto) Lymph % (Auto) Rains % (Auto) Eos % (Auto) Baso % (Auto) Neut # (Auto) Lymph # (Auto) Rains # (Auto) Eos # (Auto) Baso # (Auto) Sodium Potassium Chloride Carbon Dioxide Anion Gap BUN Creatinine Est GFR ( Amer) Est GFR (Non-Af Amer) Random Glucose Hemoglobin A1c 11.3 H Calcium Phosphorus Magnesium Total Bilirubin AST ALT Alkaline Phosphatase Total Protein Albumin Globulin Albumin/Globulin Ratio Triglycerides Cholesterol LDL Cholesterol Direct HDL Cholesterol Tot Complement (CH50) Critical Care Progress Note - Nutrition Nutrition: Nutrition Category Date Time Status Dysphagia/Modified Consistency Diet [DIET] Diets 01/01/19 Lunch Active Assessment/Plan - Assessment and Plan (Free Text) Plan: Above resident note reviewed and verified. -Patient's BGM controlled -endocrine follow up -no stridor -Patient remains hemodynamically stable. - Date & Time Date: 01/02/19 Time: 16:38
[2019-01-02 16:08] VITALS: TEMP 97.8; O2SAT 97
[2019-01-02 17:27] VITALS: BP 133/82; PULSE 84; RESP 14
--- NOTE | 2019-01-02 17:31 | CP.PCM.PN ---
Subjective - Date & Time of Evaluation Date of Evaluation: 01/02/19 Time of Evaluation: 17:31 - Subjective Subjective: PATIENT SEEN AND EXAMINED AT THE BEDSIDE Objective - Vital Signs/Intake and Output Vital Signs (last 24 hours): Temp Pulse Resp BP Pulse Ox 97.8 F 84 14 133/82 97 01/02/19 16:00 01/02/19 17:00 01/02/19 17:00 01/02/19 17:00 01/02/19 16:00 Intake and Output: 01/02/19 01/02/19 06:59 18:59 Intake Total 0 520 Output Total 600 950 Balance -600 -430 - Medications Medications: Current Medications Acetaminophen (Tylenol 325mg Tab) 650 mg PO Q6 PRN PRN Reason: Pain, moderate (4-7) Last Admin: 01/02/19 06:04 Dose: 650 mg Albuterol/Ipratropium (Duoneb 3 Mg/0.5 Mg (3 Ml) Ud) 3 ml INH RQ6 [facility] Last Admin: 01/02/19 14:21 Dose: 3 ml Allopurinol (Zyloprim) 100 mg PO DAILY [facility] Last Admin: 01/02/19 09:37 Dose: 100 mg Amlodipine Besylate (Norvasc) 5 mg PO DAILY [facility] Last Admin: 01/02/19 09:30 Dose: 5 mg Aspirin (Aspirin Chewable) 81 mg PO DAILY [facility] Carvedilol (Coreg) 25 mg PO BID [facility] Clonidine HCl (Catapres) 0.2 mg PO DAILY [facility] Last Admin: 01/02/19 09:30 Dose: 0.2 mg Dextrose (Dextrose 50% Inj) 0 ml IV STAT PRN; Protocol PRN Reason: Hypoglycemia Protocol Dextrose (Glutose 15) 0 gm PO ONCE PRN; Protocol PRN Reason: Hypoglycemia Protocol Diphenhydramine HCl (Benadryl) 50 mg IVP Q6H PRN PRN Reason: Anaphylaxis Last Admin: 01/01/19 21:40 Dose: 50 mg Ezetimibe (Zetia) 10 mg PO DAILY [facility] Last Admin: 01/02/19 09:30 Dose: 10 mg Furosemide (Lasix) 40 mg PO DAILY [facility] Glucagon (Glucagen Diagnostic Kit) 0 mg IM STAT PRN; Protocol PRN Reason: Hypoglycemia Protocol Heparin Sodium (Porcine) (Heparin) 5,000 units SC Q12H [facility] Last Admin: 01/02/19 09:30 Dose: 5,000 units Dextrose (Dextrose 5% In Water 1000 Ml) 1,000 mls @ 0 mls/hr IV .Q0M PRN; Protocol PRN Reason: Hypoglycemia Protocol Insulin Aspart (Novolog) 0 unit SC ACHS [facility] Last Admin: 01/02/19 17:10 Dose: Not Given Insulin Aspart (Novolog) 12 unit SC AC [facility] Last Admin: 01/02/19 17:09 Dose: 12 units Insulin Glargine (Lantus) 40 unit SC HS [facility] Methylprednisolone (Solu-Medrol) 40 mg IVP DAILY [facility] Last Admin: 01/02/19 09:29 Dose: 40 mg Montelukast Sodium (Singulair) 10 mg PO DAILY [facility] Last Admin: 01/02/19 09:30 Dose: 10 mg Pantoprazole Sodium (Protonix Ec Tab) 40 mg PO DAILY [facility] Last Admin: 01/02/19 09:30 Dose: 40 mg Rosuvastatin Calcium (Crestor) 20 mg PO [facility] - Labs Labs: 01/02/19 06:04 01/02/19 06:04 Assessment and Plan - Assessment and Plan (Free Text) Assessment: DISCHARGE INSTRUCTION PER DR Denice PYLE TO FOLLOW UP WITH DR Denice PYLE IN HIS OFFICE SATURDAY FOR BLOOD PRESSURE MONITOR AND RENAL FUNCTION PER DR Denice PYLE CONTINUE HOME MEDICATION NEW PRESCRIPTION GIVEN ASPIRIN AND LASIX ACTIVITY TOLERATED CALL DR Denice PYLE OR GO TO THE EMERGENCY ROOM IF SYMPTOM RETURN OR WORSENING
--- NOTE | 2019-01-02 17:44 | PN ---
DATE: 01/02/2019 ENDOCRINOLOGY FOLLOWUP NOTE LOCATION: ICU, room 17. SUBJECTIVE: This is a 53-year-old female with recent uncontrolled type 2 insulin-requiring diabetes, presenting here with acute angioedema and apparent allergic reaction with intercurrent IV steroid therapy as given and is now being followed closely for metabolic management because of recent hyperglycemic accelerations as noted thereof. Her glucose levels today have ranged from 306 to 360 mg/dL. LABORATORY DATA: Her chemistry showed a BUN of 51, sodium 137, potassium 3.8, chloride 105, CO2 of 27, glucose 78 and creatinine 3.1. Her A1c is elevated at 11.3% as noted, this is indicative of suboptimal metabolic control of her diabetic condition even prior to this admission. ASSESSMENT: This is a 53-year-old female with uncontrolled and decompensated type 2 insulin-requiring diabetes with suboptimal metabolic control even prior to this admission as seen with the A1c of 11.3%, clearly indicative of suboptimal glycemic fluctuations over the last three months or so prior to admission. PLAN OF MANAGEMENT: As the IV steroids have been tapered down to once a day given as Solu-Medrol at 40 mg IV push as ordered, we will modify her current insulin regimen now to optimize metabolic control. We will lower the Lantus to 40 units subcu at bedtime daily as ordered. We will also lower the Novolog to 12 units t.i.d. before meals to start today as ordered. We will obtain serial chemistries and supplement accordingly as needed. We will continue the low dose correction scale using Humalog insulin as given. We will follow. Shireen Hartman MD
--- NOTE | 2019-01-02 18:21 | CP.PCM.PN ---
Subjective - Date & Time of Evaluation Date of Evaluation: 01/02/19 - Subjective Subjective: Patient examined today at bedside No nausea, no vomiting, no dizziness, no diarrhea, no fever, no shortness of breath Objective - Vital Signs/Intake and Output Vital Signs (last 24 hours): Temp Pulse Resp BP Pulse Ox 97.8 F 84 14 133/82 97 01/02/19 16:00 01/02/19 17:00 01/02/19 17:00 01/02/19 17:00 01/02/19 16:00 Intake and Output: 01/02/19 01/02/19 06:59 18:59 Intake Total 0 520 Output Total 600 1450 Balance -600 -930 - Medications Medications: Current Medications Acetaminophen (Tylenol 325mg Tab) 650 mg PO Q6 PRN PRN Reason: Pain, moderate (4-7) Last Admin: 01/02/19 06:04 Dose: 650 mg Albuterol/Ipratropium (Duoneb 3 Mg/0.5 Mg (3 Ml) Ud) 3 ml INH RQ6 COLE Last Admin: 01/02/19 14:21 Dose: 3 ml Allopurinol (Zyloprim) 100 mg PO DAILY [facility] Last Admin: 01/02/19 09:37 Dose: 100 mg Amlodipine Besylate (Norvasc) 5 mg PO DAILY [facility] Last Admin: 01/02/19 09:30 Dose: 5 mg Aspirin (Aspirin Chewable) 81 mg PO DAILY [facility] Carvedilol (Coreg) 25 mg PO BID [facility] Clonidine HCl (Catapres) 0.2 mg PO DAILY [facility] Last Admin: 01/02/19 09:30 Dose: 0.2 mg Dextrose (Dextrose 50% Inj) 0 ml IV STAT PRN; Protocol PRN Reason: Hypoglycemia Protocol Dextrose (Glutose 15) 0 gm PO ONCE PRN; Protocol PRN Reason: Hypoglycemia Protocol Diphenhydramine HCl (Benadryl) 50 mg IVP Q6H PRN PRN Reason: Anaphylaxis Last Admin: 01/01/19 21:40 Dose: 50 mg Ezetimibe (Zetia) 10 mg PO DAILY [facility] Last Admin: 01/02/19 09:30 Dose: 10 mg Furosemide (Lasix) 40 mg PO DAILY [facility] Glucagon (Glucagen Diagnostic Kit) 0 mg IM STAT PRN; Protocol PRN Reason: Hypoglycemia Protocol Heparin Sodium (Porcine) (Heparin) 5,000 units SC Q12H [facility] Last Admin: 01/02/19 09:30 Dose: 5,000 units Dextrose (Dextrose 5% In Water 1000 Ml) 1,000 mls @ 0 mls/hr IV .Q0M PRN; Protocol PRN Reason: Hypoglycemia Protocol Insulin Aspart (Novolog) 0 unit SC ACHS [facility] Last Admin: 01/02/19 17:10 Dose: Not Given Insulin Aspart (Novolog) 12 unit SC AC [facility] Last Admin: 01/02/19 17:09 Dose: 12 units Insulin Glargine (Lantus) 40 unit SC HS [facility] Methylprednisolone (Solu-Medrol) 40 mg IVP DAILY [facility] Last Admin: 01/02/19 09:29 Dose: 40 mg Montelukast Sodium (Singulair) 10 mg PO DAILY [facility] Last Admin: 01/02/19 09:30 Dose: 10 mg Pantoprazole Sodium (Protonix Ec Tab) 40 mg PO DAILY [facility] Last Admin: 01/02/19 09:30 Dose: 40 mg Rosuvastatin Calcium (Crestor) 20 mg PO [facility] - Labs Labs: 01/02/19 06:04 01/02/19 06:04 - Constitutional Appears: Well - Head Exam Head Exam: ATRAUMATIC, NORMAL INSPECTION, NORMOCEPHALIC - Eye Exam Eye Exam: EOMI, Normal appearance, PERRL Pupil Exam: NORMAL ACCOMODATION, PERRL - ENT Exam ENT Exam: Mucous Membranes Moist, Normal Exam - Neck Exam Neck Exam: Full ROM, Normal Inspection. absent: Lymphadenopathy - Respiratory Exam Respiratory Exam: Decreased Breath Sounds - Cardiovascular Exam Cardiovascular Exam: REGULAR RHYTHM, +S1, +S2 - GI/Abdominal Exam GI & Abdominal Exam: Soft, Diminished Bowel Sounds - Rectal Exam Rectal Exam: Deferred - Neurological Exam Neurological Exam: Oriented x3 Assessment and Plan - Assessment and Plan (Free Text) Plan: Aspirin chewable Benadryl Catapres Coreg Crestor Dextrose 5% Dextrose 50% injection DuoNeb GlucaGen diagnostic kit Glutose 15 Heparin Lantus Lasix Norvasc NovoLog Protonix PCT Singulair Solu-Medrol Tylenol Zetia Zyloprim Medications, labs, vitals reviewed
[2019-01-02] MEDS ORDERED: (Lantus) Insulin Glargine, Recombinant SC SCH (22:00)
[2019-01-06 18:26] LABS: SCL-70 ANTIBODY <1.0 AI (<1.0)
== END 2019-01-02 18:00 | disposition home or self-care (01) | DRG 916 ==
LOC: C.ER 06:48 → C.9E 07:41 → C.9I 08:12
PROVIDERS: ADMIT Internal Medicine Nephrology; ATTEND Internal Medicine Nephrology
PROC: 0BH17EZ Insertion of Endotracheal Airway into Trachea, Via Natural or Artificial Opening (ICD-10-PCS; 2018-12-30)
PROC: 5A1945Z Respiratory Ventilation, 24-96 Consecutive Hours (ICD-10-PCS; 2018-12-30)
PROC: 06HY33Z Insertion of Infusion Device into Lower Vein, Percutaneous Approach (ICD-10-PCS; 2018-12-30)
PROC: 0CJS8ZZ Inspection of Larynx, Via Natural or Artificial Opening Endoscopic (ICD-10-PCS; principal; 2018-12-30 10:00)
DX: T78.3XXA Angioneurotic edema, initial encounter (principal); Z68.42 Body mass index [BMI] 45.0-49.9, adult; I25.10 Atherosclerotic heart disease of native coronary artery without angina pectoris; I12.9 Hypertensive chronic kidney disease with stage 1 through stage 4 chronic kidney disease, or unspecified chronic kidney disease; E11.22 Type 2 diabetes mellitus with diabetic chronic kidney disease; E78.5 Hyperlipidemia, unspecified; F41.1 Generalized anxiety disorder; I51.7 Cardiomegaly; E11.649 Type 2 diabetes mellitus with hypoglycemia without coma; E11.65 Type 2 diabetes mellitus with hyperglycemia; J44.9 Chronic obstructive pulmonary disease, unspecified; N18.9 Chronic kidney disease, unspecified; Z79.4 Long term (current) use of insulin; E66.01 Morbid (severe) obesity due to excess calories